=== PATIENT | male | born 1975 | race Caucasian/White ===

== ENCOUNTER 2020-05-28 10:01 | Outpatient (REF) | payer OTHER, SELFPAY | END 2020-05-28 10:02 | disposition home or self-care (01) | LOC: HO.MDS 10:01 | PROVIDERS: Visit Provider Internal Medicine Pulmonary Disease | DX: J45.50 Severe persistent asthma, uncomplicated (principal) | CPT/HCPCS: 96372 ==

== ENCOUNTER 2020-06-09 13:35 | Outpatient (REF) | payer OTHER, SELFPAY | END 2020-06-09 13:36 | disposition home or self-care (01) | LOC: HO.MDS 13:35 | PROVIDERS: PCP Internal Medicine; Visit Provider Internal Medicine Pulmonary Disease | DX: J45.909 Unspecified asthma, uncomplicated (principal) | CPT/HCPCS: 96372; J2357 ==

== ENCOUNTER 2020-06-23 09:47 | Outpatient (REF) | payer OTHER, SELFPAY | END 2020-06-23 09:48 | disposition home or self-care (01) | LOC: HO.MDS 09:47 | PROVIDERS: PCP Internal Medicine; Visit Provider Internal Medicine Pulmonary Disease | DX: J45.909 Unspecified asthma, uncomplicated (principal) | CPT/HCPCS: 96372; J2357 ==

== ENCOUNTER 2020-07-07 09:02 | Outpatient (REF) | payer OTHER, SELFPAY | END 2020-07-07 09:03 | disposition home or self-care (01) | LOC: HO.MDS 09:02 | PROVIDERS: PCP Internal Medicine; Visit Provider Internal Medicine Pulmonary Disease | DX: J45.909 Unspecified asthma, uncomplicated (principal) | CPT/HCPCS: 96372; J2357 ==

== ENCOUNTER 2020-07-21 | Outpatient (REF) | payer OTHER, SELFPAY | END 2020-07-21 00:01 | disposition home or self-care (01) | LOC: HO.MDS | PROVIDERS: PCP Internal Medicine; Visit Provider Internal Medicine Pulmonary Disease | DX: J45.50 Severe persistent asthma, uncomplicated (principal) | CPT/HCPCS: 96372 ==

== ENCOUNTER 2020-08-04 09:03 | Outpatient (REF) | payer OTHER, SELFPAY | END 2020-08-04 09:04 | disposition home or self-care (01) | LOC: HO.MDS 09:03 | PROVIDERS: PCP Internal Medicine; Visit Provider Internal Medicine Pulmonary Disease | DX: J45.909 Unspecified asthma, uncomplicated (principal) | CPT/HCPCS: 96372 ==

== ENCOUNTER 2020-08-18 08:11 | Outpatient (REF) | payer OTHER, SELFPAY | END 2020-08-18 08:12 | disposition home or self-care (01) | LOC: HO.MDS 08:11 | PROVIDERS: PCP Internal Medicine; Visit Provider Internal Medicine Pulmonary Disease | DX: J45.50 Severe persistent asthma, uncomplicated (principal) | CPT/HCPCS: 96372; J2357 ==

== ENCOUNTER 2020-10-20 07:58 | Outpatient (REF) | payer OTHER, SELFPAY | END 2020-10-20 07:59 | disposition home or self-care (01) | LOC: HO.MDS 07:58 | PROVIDERS: PCP Internal Medicine; Visit Provider Internal Medicine Pulmonary Disease | DX: J45.50 Severe persistent asthma, uncomplicated (principal) | CPT/HCPCS: 96372; J2357 ==

== ENCOUNTER 2020-11-03 08:15 | Outpatient (REF) | payer OTHER, SELFPAY | END 2020-11-03 08:16 | disposition home or self-care (01) | LOC: HO.MDS 08:15 | PROVIDERS: PCP Internal Medicine; Visit Provider Internal Medicine Pulmonary Disease | DX: J45.50 Severe persistent asthma, uncomplicated (principal) | CPT/HCPCS: 96365; J2357 ==

== ENCOUNTER 2020-11-05 01:00 | Emergency (ER) | payer OTHER, SELFPAY ==
--- NOTE | ~2020-11-05 | XR_ITS ---
EXAMINATION: XR CHEST CLINICAL INFORMATION: sob COMPARISON: 08/25/2019 TECHNIQUE: Frontal view of the chest was obtained. FINDINGS: Cardiac leads overlie the chest. Lungs are clear. No consolidation, pneumothorax, or pleural effusion. Cardiac and mediastinal contours are normal. Pulmonary vasculature is unremarkable. No acute osseous findings. XR/XR chest 1V IMPRESSION: No acute pulmonary findings.
[2020-11-05 01:01] VITALS: BP 118/72; BP 139/73; PULSE 100; PULSE 93; RESP 20; TEMP 36.5; O2SAT 100; O2SAT 96; BMI 32.8
[2020-11-05 02:24] LABS: Influenza A PCR NEGATIVE (Negative); Influenza B PCR NEGATIVE (Negative); Resp Syncy Virus RNA Qual PCR NEGATIVE (Negative); SARS COV2 PCR INHOUSE NEGATIVE (Negative)
--- NOTE | 2020-11-05 02:41 | ED.SOB ---
HPI - SOB/Dyspnea General Chief Complaint: Dyspnea Stated Complaint: sob Time Seen by Provider: 11/05/20 01:42 Source: patient Mode of arrival: EMS History of Present Illness HPI Narrative: This is a 45-year-old male with history of asthma who is brought in by EMS for acute worsening his asthmatic symptoms with noted wheezing at home and after trying an inhaler without success and then attempting nebulized treatment and again remained having difficulty with breathing and called EMS. [facility] provided Solu-Medrol, magnesium, DuoNeb. Patient denies any recent travel, fevers, chills, cough, sore throat. Related Data Previous Rx's Medication Instructions Recorded albuterol sulfate 90 mcg/actuation 2 puff INHALATION Q4-6H PRN #18 g 08/11/20 aerosol inhaler omalizumab 150 mg/mL subcutaneous 300 mg SUBCUT Q2W #4 ml 08/18/20 syringe prednisone 40 mg PO DAILY 4 Days #8 tab 11/05/20 Allergies Allergy/AdvReac Type Severity Reaction Status Date / Time shrimp Allergy Severe ANAPHYLAXIS Verified 11/05/20 01:01 LOBSTER Allergy Unknown ANAPHYLAXIS Uncoded 05/08/20 16:01 Review of Systems Review of Systems: Pertinent positives and negatives as stated in HPI 10 point review of systems is otherwise negative. PMFSH Past Medical History Source: nursing notes reviewed Medical History Asthma Methadone maintenance therapy patient Surgical History Hx of hernia repair Hx of knee surgery Hx of shoulder surgery Social History Social History Advance Directives: No Physical Exam Vital Signs: Vital Signs: Last Vital Signs Temp 97.7 F 11/05/20 01:01 Pulse 93 11/05/20 01:01 Resp 20 11/05/20 01:01 BP 139/73 11/05/20 01:01 Pulse Ox 96 11/05/20 01:01 Body Mass Index 32.8 VITAL SIGNS: Reviewed. GENERAL: Well developed, well nourished, in no acute distress. HEAD: Normocephalic/atraumatic, EYES: PERRLA, EOMI EARS: Ext canals without abnormality, TMs non-bulging and non-erythematous NOSE: Nares patent bilateral OROPHARYNX: no oral lesions noted, posterior pharynx clear NECK: Supple, no adenopathy LUNGS: Scattered expiratory wheezing, no retractions, no tachypnea. SpO2<96> CARDIOVASCULAR: Regular rate and rhythm without noted murmurs ABDOMEN: Soft, non-tender, non-distended with bowel sounds. NEUROLOGIC: Alert and oriented x 4. Course Course Course Narrative: This is a 45-year-old male with history and clinical presentation consistent with acute asthma exacerbation with controlled symptoms by the time patient evaluated here in the ER and chest x-ray as well as COVID-19 are negative. Patient states he is feeling much better and was titrated off of supplemental oxygen with good results and will be discharged home in stable condition with a short course of steroids. MDM - SOB/Dyspnea Lab Data Labs: Lab Results 11/05/20 Range/Units 01:27 Coronavirus (PCR) NEGATIVE (Negative) Influenza Type A (PCR) NEGATIVE (Negative) Influenza Type B (PCR) NEGATIVE (Negative) RSV RNA Qual (PCR) NEGATIVE (Negative) Discharge Plan Discharge Clinical Impression: Asthma with exacerbation Qualifiers: Asthma severity: moderate Asthma persistence: unspecified Qualified Code(s): J45.901 - Unspecified asthma with (acute) exacerbation Patient Disposition: Home, Self-Care Instructions: Asthma (ED) Additional Instructions: Resume all home medications as prescribed. Please follow-up with your primary care provider by calling the office in the morning and setting up an appointment for re-evaluation. Do not hesitate to return to the emergency department should you experience any acute worsening of your symptoms. Prescriptions: New prednisone 20 mg tablet 40 mg PO DAILY 4 Days Qty: 8 RF: 0 No Action albuterol sulfate 90 mcg/actuation HFA aerosol inhaler 2 puff inhalation Q4-6H PRN (Reason: bronchospasm) Qty: 18 RF: 8 omalizumab [Xolair] 150 mg/mL syringe 300 mg subcut Q2W Qty: 4 RF: 12 Referrals: Physician,Unknown [Primary Care Provider] - 2 days Stand Alone Forms: Work/School Release
--- NOTE | 2020-11-05 03:01 | PC.NURSE ---
discharge vitals 97% on room air. hr 91 on school bus monitor. respirations 14. lungs clear to auscultation.
== END 2020-11-05 02:59 | disposition home or self-care (01) ==
PROVIDERS: Emergency Provider Student in an Organized Health Care Education/Training Program
DX: J45.901 Unspecified asthma with (acute) exacerbation (principal); R06.00 Dyspnea, unspecified; Z20.822 Contact with and (suspected) exposure to COVID-19; Z79.899 Other long term (current) drug therapy
CPT/HCPCS: 0241U; 36415; 71045; 99283

== ENCOUNTER 2020-11-18 08:03 | Outpatient (REF) | payer OTHER, SELFPAY | END 2020-11-18 08:04 | disposition home or self-care (01) | LOC: HO.MDS 08:03 | PROVIDERS: PCP Internal Medicine; Visit Provider Internal Medicine Pulmonary Disease | DX: J45.50 Severe persistent asthma, uncomplicated (principal) | CPT/HCPCS: 96372; J2357 ==

== ENCOUNTER 2020-12-01 07:27 | Outpatient (REF) | payer OTHER, SELFPAY | END 2020-12-01 07:28 | disposition home or self-care (01) | LOC: HO.MDS 07:27 | PROVIDERS: PCP Internal Medicine; Visit Provider Internal Medicine Pulmonary Disease | DX: J45.50 Severe persistent asthma, uncomplicated (principal) | CPT/HCPCS: 96372; J2357 ==

== ENCOUNTER 2020-12-15 07:42 | Outpatient (REF) | payer OTHER, SELFPAY | END 2020-12-15 07:43 | disposition home or self-care (01) | LOC: HO.MDS 07:42 | PROVIDERS: PCP Internal Medicine; Visit Provider Internal Medicine Pulmonary Disease | DX: J45.50 Severe persistent asthma, uncomplicated (principal) | CPT/HCPCS: 96372; J2357 ==

== ENCOUNTER 2021-01-02 08:02 | Outpatient (REF) | payer OTHER, SELFPAY | END 2021-01-02 08:03 | disposition home or self-care (01) | LOC: HO.MDS 08:02 | PROVIDERS: PCP Internal Medicine; Visit Provider Internal Medicine Pulmonary Disease | DX: J45.50 Severe persistent asthma, uncomplicated (principal) | CPT/HCPCS: 96372; J2357 ==

== ENCOUNTER 2021-01-05 04:36 | Emergency (ER) | payer OTHER, SELFPAY ==
[2021-01-05 04:42] VITALS: BP 124/81; PULSE 68; RESP 16; TEMP 36.8; O2SAT 98; BMI 31.9
--- NOTE | 2021-01-05 05:01 | PC.NURSE ---
at bedside for primary eval.
--- NOTE | 2021-01-05 05:02 | ED.NEUROSD ---
HPI - Neuro Symptoms/Deficit General Chief Complaint: Neuro Symptoms/Deficit Stated Complaint: left arm numbness Time Seen by Provider: 01/05/21 04:56 Source: patient Mode of arrival: ambulatory Limitations: no limitations History of Present Illness HPI Narrative: Patient comes to emergency room complaining of left forearm discomfort, feeling pins and needles. Patient states he does not have any symptoms in his left hand and does not have any symptoms above the elbow. Patient states this morning he woke up with the numbness and tingling sensation, then became anxious and decided to come to emergency room. Patient states that he did not have any loss of strength, does not have any other symptoms. Related Data Previous Rx's Medication Instructions Recorded albuterol sulfate 90 mcg/actuation 2 puff INHALATION Q4-6H PRN #18 g 08/11/20 aerosol inhaler omalizumab 150 mg/mL subcutaneous 300 mg SUBCUT Q2W #4 ml 08/18/20 syringe prednisone 40 mg PO DAILY 4 Days #8 tab 11/05/20 albuterol sulfate 90 mcg/actuation 2 puff PO Q6H PRN #18 g 11/13/20 aerosol inhaler Allergies Allergy/AdvReac Type Severity Reaction Status Date / Time shrimp Allergy Severe ANAPHYLAXIS Verified 01/05/21 04:47 LOBSTER Allergy Unknown ANAPHYLAXIS Uncoded 01/05/21 04:47 Review of Systems Review of Systems: Constitutional : No Weight loss, No Fever, No Chills, No Night Sweats, No Fatigue, No Malaise ENT/Mouth : No Hearing loss, No Ear Pain, No Nasal Congestion, No Sinus Pain, No Hoarseness, No sore throat, No Rhinorrhea, No Swallowing Difficulty Eyes: No Eye Pain, No Swelling, No Redness, No Foreign Body, No Discharge, No Vision Changes Cardiovascular : No Chest Pain, No SOB, No Dyspnea on Exertion, No Orthopnea, No Edema, No Palpitations Respiratory : No Cough, No Sputum, No Wheezing, No Smoke Exposure, No Dyspnea Gastrointestinal : No Nausea, No Vomiting, No Diarrhea, No Constipation, No abdominal Pain, No Hematochezia, No Melena Genitourinary : no irregular bleeding, No Dysuria, No Urinary Frequency, No Hematuria, No Urinary Incontinence, No Urgency, No Flank Pain, No Urinary Flow Changes, No Hesitancy Musculoskeletal : No joint pain, pins and needles sensation from the left wrist to the left elbow sparing hand and upper arm Skin : No Skin Lesions, No rash Neuro : No Weakness, No Numbness, No Paresthesias, No Loss of Consciousness, No Dizziness, No Headache Psych : No Anxiety/Panic, No Depression, No SI/HI/AH/VH, No Social Issues, Heme/Lymph: No Bruising, No Bleeding,No Lymphadenopathy Endocrine : No Polyuria, No Polydipsia, No Temperature Intolerance [facility] Past Medical History Medical History Asthma Methadone maintenance therapy patient Surgical History Hx of hernia repair Hx of knee surgery Hx of shoulder surgery Social History Social History Advance Directives: No Advance Directives Information Provided: No Physical Exam Vital Signs: Vital Signs: Last Vital Signs Temp 98.2 F 01/05/21 04:42 Pulse 68 01/05/21 04:42 Resp 16 01/05/21 04:42 BP 124/81 01/05/21 04:42 Pulse Ox 98 01/05/21 04:42 Body Mass Index 31.9 Appearance: Alert. Oriented X3. No acute distress. Eyes: Pupils equal, round and reactive to light. ENT: Pharynx normal. Neck: Normal inspection. Neck supple. No lymph nodes noted. No crepitus CVS: Normal heart rate and rhythm. Pulses normal. Normal S1 and S2 Respiratory: No respiratory distress. Breath sounds normal. No Wheezing. No rales Abdomen: Soft and nontender. No rigidity. No distention. good BS x4 Skin: Skin warm and dry. Normal skin color. Normal skin turgor. Extremities: No lower extremity edema. No lower extremity edema. No Lacerations. No Rash Neuro: Oriented X 3. No motor deficit. No sensory deficit. Moving all extermities. No slurred speech. Course Course Course Narrative: Patient states that after he shook his arm at home, the pins and needle sensations started to decrease. I discussed the physical exam with the patient, he only has pins and needles involving an area between the wrist and the elbow, sparing the hand and the upper arm. This is unlikely a stroke, I discussed with the patient is more likely that he has a nerve compression in the elbow, triggered by sleeping position, likely with a bent elbow. Prior to discharge, patient states that his symptoms are completely resolved, has no residual paresthesias. NIH Stroke Scale Level of Consciousness: Alert Level of Consciousness Questions: Answers both questions correctly Level of Consciousness Commands: Performs both tasks correctly Best Gaze: Normal Visual: No visual loss Facial Palsy: Normal Motor Arm (Right): No drift Motor Arm (Left): No drift Motor Leg (Right): No drift Motor Leg (Left): No drift Limb Ataxia: Absent Sensory: Normal Best Language: No aphasia Dysarthia: Normal Extinction and Inattention: No abnormality Score: 0 Discharge Plan Discharge Clinical Impression: Paresthesia and pain of left extremity Patient Disposition: Home, Self-Care Instructions: Paresthesia (ED) Additional Instructions: Please follow-up with your primary care physician tomorrow. If you have any worsening or new symptoms, please return to the emergency room or call 911 Prescriptions: No Action albuterol sulfate 90 mcg/actuation HFA aerosol inhaler 2 puff inhalation Q4-6H PRN (Reason: bronchospasm) Qty: 18 RF: 8 omalizumab [Xolair] 150 mg/mL syringe 300 mg subcut Q2W Qty: 4 RF: 12 albuterol sulfate [ProAir HFA] 90 mcg/actuation HFA aerosol inhaler 2 puff PO Q6H PRN (Reason: bronchospasm) Qty: 18 RF: 8 prednisone 20 mg tablet 40 mg PO DAILY 4 Days Qty: 8 RF: 0
[2021-01-05 05:44] VITALS: BP 106/66; PULSE 65; RESP 16; O2SAT 97
--- NOTE | 2021-01-05 05:45 | PC.NURSE ---
Pt reporting relief of discomfort to left arm, aware of plan to DC home, awaiting paperwork.
== END 2021-01-05 05:51 | disposition home or self-care (01) ==
PROVIDERS: Emergency Provider Emergency Medicine; PCP Internal Medicine
DX: R20.2 Paresthesia of skin (principal); M79.602 Pain in left arm; F11.20 Opioid dependence, uncomplicated
CPT/HCPCS: 99282; 99284

== ENCOUNTER 2021-01-20 09:38 | Outpatient (REF) | payer OTHER, SELFPAY | END 2021-01-20 09:39 | disposition home or self-care (01) | LOC: HO.MDS 09:38 | PROVIDERS: PCP Internal Medicine; Visit Provider Internal Medicine Pulmonary Disease | DX: J45.50 Severe persistent asthma, uncomplicated (principal) | CPT/HCPCS: 96372; J2357 ==

== ENCOUNTER 2021-02-02 07:55 | Outpatient (REF) | payer OTHER, SELFPAY | END 2021-02-02 07:56 | disposition home or self-care (01) | LOC: HO.MDS 07:55 | PROVIDERS: PCP Internal Medicine; Visit Provider Internal Medicine Pulmonary Disease | DX: J45.50 Severe persistent asthma, uncomplicated (principal) | CPT/HCPCS: 96372; J2357 ==

== ENCOUNTER 2021-02-16 07:59 | Outpatient (REF) | payer OTHER, SELFPAY | END 2021-02-16 08:00 | disposition home or self-care (01) | LOC: HO.MDS 07:59 | PROVIDERS: PCP Internal Medicine; Visit Provider Internal Medicine Pulmonary Disease | DX: J45.50 Severe persistent asthma, uncomplicated (principal) | CPT/HCPCS: 96372; J2357 ==

== ENCOUNTER 2021-03-02 09:19 | Outpatient (REF) | payer OTHER, SELFPAY | END 2021-03-02 09:20 | disposition home or self-care (01) | LOC: HO.MDS 09:19 | PROVIDERS: PCP Internal Medicine; Visit Provider Internal Medicine Pulmonary Disease | DX: J45.50 Severe persistent asthma, uncomplicated (principal) | CPT/HCPCS: 96372; J2357 ==

== ENCOUNTER → 2021-03-05 14:37 | Outpatient (BNVA) | payer OTHER, SELFPAY | PROVIDERS: PCP Internal Medicine; Referring Provider Internal Medicine; Visit Provider Physician Assistant | DX: Z12.11 Encounter for screening for malignant neoplasm of colon (principal); K21.9 Gastro-esophageal reflux disease without esophagitis; J45.909 Unspecified asthma, uncomplicated | CPT/HCPCS: 99202 ==

== ENCOUNTER 2021-03-16 08:28 | Outpatient (REF) | payer OTHER, SELFPAY | END 2021-03-16 08:29 | disposition home or self-care (01) | LOC: HO.MDS 08:28 | PROVIDERS: PCP Internal Medicine; Visit Provider Internal Medicine Pulmonary Disease | DX: J45.50 Severe persistent asthma, uncomplicated (principal) | CPT/HCPCS: 96372; 99212 ==

== ENCOUNTER 2021-04-01 08:31 | Outpatient (REF) | payer OTHER, SELFPAY | END 2021-04-01 08:32 | disposition home or self-care (01) | LOC: HO.MDS 08:31 | PROVIDERS: PCP Internal Medicine; Visit Provider Internal Medicine Pulmonary Disease | DX: J45.50 Severe persistent asthma, uncomplicated (principal) | CPT/HCPCS: 96372; J2357 ==

== ENCOUNTER 2021-04-13 09:24 | Day surgery (SDC) | payer OTHER, SELFPAY ==
--- NOTE | 2021-04-10 08:38 | HO.ANESPROP2 ---
Documented by User: Stephenie Lorenzana NP 04/10/21 08:39 HPI - Anesthesia Eval Consult details Narrative: 46yo M for Upper Endoscopy and Colonoscopy ?Methadone daily PMFSH Active Problems Active Problems: All Active Problems (Updated 04/06/21 @ 11:58 by Iza Canales RN) Asthma (Acute) Encounter for screening colonoscopy (Acute) Severe persistent allergic asthma (Acute) Environmental allergies (Acute) GERD (gastroesophageal reflux disease) (Acute) Past Medical History Medical History (Updated 04/06/21 @ 11:58 by Iza Canales RN) Asthma GERD (gastroesophageal reflux disease) History of positive PPD Methadone maintenance therapy patient Family History Family History Father No problems noted. Mother No problems noted. Surgical History Surgical History (Updated 04/06/21 @ 11:58 by Iza Canales RN) History of left inguinal hernia repair History of umbilical hernia repair Hx of hernia repair Hx of knee surgery Hx of shoulder surgery Social History Social History (Updated 03/05/21 @ 14:50 by Janna Lujan PA-C) Household Members Other:: Alcohol intake: never Patient Tobacco Use Status: Never used Tobacco Second Hand Smoke Exposure: No Use of substances other than those prescribed or required for medical reasons: Yes Substance Use Frequency: Chronic Longstanding Are you DNR?: No Advance Directives: No Advance Directives Information Provided: Yes 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, 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 Allergies Allergy/AdvReac Type Severity Reaction Status Date / Time shrimp Allergy Severe ANAPHYLAXIS Verified 04/13/21 09:58 LOBSTER Allergy Unknown ANAPHYLAXIS Uncoded 04/06/21 11:58 Home Medications Medication Instructions Recorded Confirmed Last Taken Type Methadone Intensol 38 mg 04/13/21 04/13/21 06:30 History Exam Exam Date and Time: April 10, 2021 0838 Assessment and Plan Assessment Anesthesia Assessment: Chart Reviewed Documented by User: Annie Terry MD 04/13/21 10:14 [facility] Past Medical History Medical History (Updated 04/06/21 @ 11:58 by Iza Canales RN) Asthma GERD (gastroesophageal reflux disease) History of positive PPD Methadone maintenance therapy patient Family History Family History Father No problems noted. Mother No problems noted. Family history of problems with anesthesia: No Surgical History Surgical History (Updated 04/06/21 @ 11:58 by Iza Canales RN) History of left inguinal hernia repair History of umbilical hernia repair Hx of hernia repair Hx of knee surgery Hx of shoulder surgery History of Problems with Anesthesia: No Social History Social History (Updated 03/05/21 @ 14:50 by Janna Lujan PA-C) Household Members Other:: Alcohol intake: never Patient Tobacco Use Status: Never used Tobacco Second Hand Smoke Exposure: No Use of substances other than those prescribed or required for medical reasons: Yes Substance Use Frequency: Chronic Longstanding Are you DNR?: No Advance Directives: No Advance Directives Information Provided: Yes 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, 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 Allergies Allergy/AdvReac Type Severity Reaction Status Date / Time shrimp Allergy Severe ANAPHYLAXIS Verified 04/13/21 09:58 LOBSTER Allergy Unknown ANAPHYLAXIS Uncoded 04/06/21 11:58 Home Medications Medication Instructions Recorded Confirmed Last Taken Type Methadone Intensol 38 mg 04/13/21 04/13/21 06:30 History Exam Airway Mallampati Class: II (Poor dentition, nothing loose) TM Dist: >3cm Neck ROM: Full Heart: rrr Lungs: cta Assessment and Plan Assessment Anesthesia Assessment: Anesthesia Plan Discussed and Chart Reviewed Final Anesthetic Review Family History of Problems with Anesthesia: No History of Problems with Anesthesia: No NPO: Yes ASA Class: III Final Preanesthetic Review: No Changes in Pt Med Stat and Consent Obtained/Reviewed Patient Risk: Intermediate Procedure Risk: Intermediate Anesthetic Plan Anesthetic Plan: MAC: Disposition: Standard PACU
[2021-04-13 09:49] VITALS: BP 103/63; PULSE 71; RESP 16; TEMP 36.3; O2SAT 95; BMI 33.6
--- NOTE | 2021-04-13 10:05 | PC.NURSE ---
Patient came into preop room wearing one gold earring, one gold chain, and one ring. All removed by patient and placed with patient belongings.
[2021-04-13] MEDS: Lactated Ringers 1,000 ML 100 ML IVCONT (10:20)
--- NOTE | 2021-04-13 11:06 | MHC.SHP ---
Pre-Procedural Eval Section A Date of Service: 04/13/21 The patient is an INPATIENT: No The History & Physical has been completed within 30 days and I have reviewed it.: No Section B Chief Complaint: reflux disease Details of Present Illness: Colon cancer screening, GERD, abdominal pain and gas Relevant Family History (Specify if Yes): No Relevant Social History: None Present Medications: see Short Stay Collaborative assessment Medical History: Significant History (Asthma GERD (gastroesophageal reflux disease) Methadone maintenance therapy patient) History of Previous Operations: Relevant previous surgery/procedure and date(s) (Hx of hernia repair Hx of knee surgery Hx of shoulder surgery) Allergies: Allergies Allergy/AdvReac Type Severity Reaction Status Date / Time shrimp Allergy Severe ANAPHYLAXIS Verified 04/13/21 09:58 LOBSTER Allergy Unknown ANAPHYLAXIS Uncoded 04/06/21 11:58 Review of Systems Sugical H&P ROS: Negative: Constitution, Cardiovascular and Respiratory and Yes, Specify: Gastrointestinal (GERD, abdominal pain) Exam Surgical H&P Exam: Normal: Heart, Normal: Lungs, Normal: Extremities and Normal: Abdomen Plan Diagnosis/Plan: Unchanged I have reviewed the history and physical and performed a pertinent physical examination on my patient. No changes have occurred unless specified.
--- NOTE | 2021-04-13 11:13 | P.BOP_ITS ---
Brief Operative Note Date of Service: 04/13/21 Pre-op diagnosis: Colon cancer screening, GERD, abdominal pain and gas Post-op diagnosis: other (Erosive esophagitis, hiatal hernia, gastritis, colon, diverticulosis, hemorrhoids) Procedure: FLEXIBLE TRANSORAL UPPER GASTROINTESTINAL ENDOSCOPY WITH BIOPSIES AND COLONOSCOPY TO CECUM WITH SNARE POLYPECTOMY UPPER ENDOSCOPY Consent: Indications for the procedure and potential complications of bleeding, perforation, reaction to medications and missed diagnosis were discussed with the patient and informed consent was obtained. Instrument: Olympus GIF H 190 mid size upper endoscope Monitoring: Vital signs and clinical assessment, continuous EKG monitoring, Pulse oximetry, Carbon Dioxide monitoring and blood pressure monitoring were done throughout the procedure. Procedure: The patient was placed in the left lateral decubitis position and pre-procedure medications were administered and a bite block was placed. The endoscope was inserted into the mouth and advanced under direct vision to the third part of duodenum. A careful inspection was made as the upper endoscope was withdrawn including a retroflexed examination of the proximal stomach; Findings and interventions are described below. Findings: Larynx: Edema of arytenoid cartilages Esophagus: Erosive esophagitis with linear ulcers and erosions 26 to 34 cms. GE junction at 34 cms, hiatal hernia 34 to 36 cms. Stomach: Mild gastric erythema. Biopsies were obtained. Grade 3 flap valve on retroflexed examination of the cardia. Duodenum: Normal bulb and descending duodenum. Biopsies were obtained from 3rd part of duodenum to check for celiac sprue. Intervention: Biopsies as noted above COLONOSCOPY PROCEDURE NOTE Consent: Indications for the procedure and potential complications of bleeding, perforation, reaction to medications and missed diagnosis were discussed with the patient and informed consent was obtained. Instrument: Olympus CF 190 L variable stiffness adult colonoscope Monitoring: Vital signs and clinical assessment, intermittent blood pressure monitoring, continuous EKG monitoring, Pulse oximetry and Carbon Dioxide monitoring were done throughout the procedure. Colon withdrawl time was 21 minutes. Procedure: The patient was placed in the left lateral decubitis position and pre-procedure medications were administered. After a digital rectal examination of the ano-rectum, the video colonoscope was inserted into the rectum and advanced through the colon to the cecum. The colonoscope was slowly withdrawn in a retrograde panoramic fashion and the colon mucosa was carefully examined including a retroflexed view of the rectum. Findings and interventions are described below. Procedure Difficulty: : LLQ pressure applied to intubate the cecum Findings: Terminal Ileum: Not evaluated Cecum: Normal Ascending Colon: Normal Transverse Colon: A 4-5 mm sessile polyp removed with a cold snare Descending Colon: Normal Sigmoid Colon: Moderate diverticulosis Rectum: Normal Ano-rectum: Moderate internal hemorrhoids Colon preparation: Good after copious irrigation Impression and Post Procedure Diagnosis: Endoscopy Findings: LARYNX: Changes suggestive of LPRD ESOPHAGUS: Erosive esophagitis with linear ulcers and erosions 26 to 34 cms. GE junction at 34 cms, hiatal hernia 34 to 36 cms. STOMACH: Antral gastritis DUODENUM: Normal - biopsied to check for celiac sprue Colonoscopy Findings: One small polyp removed Moderate diverticulosis seen in the sigmoid colon Moderate hemorrhoids on retroflexed exam. Plan: Await pathology results Patient has an appointment on 05/11/21 in the GI Clinic with AARON Monterroso . Ensure patient is following anti reflux measures and is compliant with taking pantoprazole BID - if so add sucralfate twice daily. Repeat EGD in 3 months to make sure erosive esophagitis has healed. Repeat Colonoscopy interval based on path results - in 5 years if polyps are adenomatous and 10 years if polyps are hyperplastic. GERD, colon polyps and diverticulosis handouts were given in the discharge area Surgeon: Kristina Colin MD Anesthesia: MAC (Dr Watson) Was an Commissioning Editor used for this Procedure?: Yes Commissioning Editor: Shiela Harrell Estimated blood loss (mL): 0 Pathology: other ( a. Small bowel bx's r/o celiacs sprue b. gastric antrum bx's r/o h. pylori c. Transverse colon polyp) Condition: stable Disposition: PACU
--- NOTE | 2021-04-13 11:14 | P.OP_ITS ---
Operative Note Operative Note Date of Service: 04/13/21 Narrative: Pre-op diagnosis:?Colon cancer screening, GERD, abdominal pain and gas Post-op diagnosis:?other (Erosive esophagitis, hiatal hernia, gastritis, colon, diverticulosis, hemorrhoids) Procedure:? FLEXIBLE TRANSORAL UPPER GASTROINTESTINAL ENDOSCOPY WITH BIOPSIES AND COLONOSCOPY TO CECUM WITH SNARE POLYPECTOMY UPPER ENDOSCOPY Consent:?Indications for the procedure and potential complications of bleeding, perforation, reaction to medications and missed diagnosis were discussed with the patient and informed consent was obtained. Instrument:?Olympus GIF H 190 mid size upper endoscope Monitoring: Vital signs and clinical assessment, continuous EKG monitoring, Pulse oximetry, Carbon Dioxide monitoring and blood pressure monitoring were done throughout the procedure. Procedure:?The patient was placed in the left lateral decubitis position and pre-procedure medications were administered and a bite block was placed. The endoscope was inserted into the mouth and advanced under direct vision to the third part of duodenum. A careful inspection was made as the upper endoscope was withdrawn including a retroflexed examination of the proximal stomach; Findings and interventions are described below. Findings: Larynx:??Edema of arytenoid cartilages Esophagus:?Erosive esophagitis with linear ulcers and erosions 26 to 34 cms. GE junction at 34 cms, hiatal hernia 34 to 36 cms. Stomach:?Mild gastric erythema. Biopsies were obtained. Grade 3 flap valve on retroflexed examination of the cardia. Duodenum:?Normal bulb and descending duodenum.? Biopsies were obtained from 3rd part of duodenum to check for celiac sprue. Intervention:?Biopsies as noted above COLONOSCOPY PROCEDURE NOTE Consent:?Indications for the procedure and potential complications of bleeding, perforation, reaction to medications and missed diagnosis were discussed with the patient and informed consent was obtained. Instrument:?Olympus CF 190 L variable stiffness adult colonoscope Monitoring:?Vital signs and clinical assessment, intermittent blood pressure monitoring, continuous EKG monitoring, Pulse oximetry and Carbon Dioxide monitoring were done throughout the procedure. Colon withdrawl time was 21 minutes. Procedure:?The patient was placed in the left lateral decubitis position and pre-procedure medications were administered. After a digital rectal examination of the ano-rectum, the video colonoscope was inserted into the rectum and advanced through the colon to the cecum. The colonoscope was slowly withdrawn in a retrograde panoramic fashion and the colon mucosa was carefully examined including a retroflexed view of the rectum. Findings and interventions are described below. Procedure Difficulty:?: LLQ pressure applied to intubate the cecum Findings: Terminal Ileum: Not evaluated Cecum:? Normal Ascending Colon:??Normal Transverse Colon:??A 4-5 mm sessile polyp removed with a cold snare Descending Colon:? Normal Sigmoid Colon:??Moderate diverticulosis Rectum:??Normal Ano-rectum:??Moderate internal hemorrhoids Colon preparation:? Good after copious irrigation Impression and Post Procedure Diagnosis: Endoscopy Findings: LARYNX: Changes suggestive of LPRD ESOPHAGUS: Erosive esophagitis with linear ulcers and erosions 26 to 34 cms. GE junction at 34 cms, hiatal hernia 34 to 36 cms. STOMACH: Antral gastritis DUODENUM: Normal - biopsied to check for celiac sprue Colonoscopy Findings: One small polyp removed Moderate diverticulosis seen in the sigmoid colon Moderate hemorrhoids on retroflexed exam. Plan: Await pathology results Patient has an appointment on 05/11/21 in the GI Clinic with AARON Monterroso . Ensure patient is following anti reflux measures and is compliant with taking pantoprazole BID - if so add sucralfate twice daily. Repeat EGD in 3 months to make sure erosive esophagitis has healed. Repeat Colonoscopy interval based on path results - in 5 years if polyps are adenomatous and 10 years if polyps are hyperplastic. GERD, colon polyps and diverticulosis handouts were given in the discharge area Surgeon:?Kristina Colin MD Anesthesia:?MAC (Dr Watson) Was an Splitting Machine Operator Helper used for this Procedure?:?Yes Splitting Machine Operator Helper:?Shiela Harrell Estimated blood loss (mL):?0 Pathology:?other ( a. Small bowel bx's r/o celiacs sprue? b. gastric antrum bx's r/o h. pylori? c. Transverse colon polyp) Condition:?stable Disposition:?PACU
[2021-04-13 12:13] VITALS: BP 88/51; PULSE 70; RESP 12; TEMP 36.8; O2SAT 99
[2021-04-13 12:30] VITALS: BP 107/67; PULSE 66; RESP 18; O2SAT 97
[2021-04-13 12:45] VITALS: BP 113/71; PULSE 73; RESP 20; TEMP 36.7; O2SAT 97
== END 2021-04-13 13:30 | disposition home or self-care (01) ==
PROVIDERS: PCP Internal Medicine; Visit Provider Internal Medicine Gastroenterology
PROC: (CPT 45385; principal; 2021-04-13 11:00)
DX: Z12.11 Encounter for screening for malignant neoplasm of colon (principal); D12.3 Benign neoplasm of transverse colon; K57.30 Diverticulosis of large intestine without perforation or abscess without bleeding; K64.8 Other hemorrhoids; K21.9 Gastro-esophageal reflux disease without esophagitis; K22.10 Ulcer of esophagus without bleeding; K29.50 Unspecified chronic gastritis without bleeding; K44.9 Diaphragmatic hernia without obstruction or gangrene; R76.11 Nonspecific reaction to tuberculin skin test without active tuberculosis; J45.909 Unspecified asthma, uncomplicated; Z79.899 Other long term (current) drug therapy; F11.20 Opioid dependence, uncomplicated
CPT/HCPCS: 45385; 43239; 88305; 88342

== ENCOUNTER 2021-04-15 07:30 | Outpatient (REF) | payer OTHER, SELFPAY | END 2021-04-15 07:31 | disposition home or self-care (01) | LOC: HO.MDS 07:30 | PROVIDERS: PCP Internal Medicine; Visit Provider Internal Medicine Pulmonary Disease | DX: J45.50 Severe persistent asthma, uncomplicated (principal) | CPT/HCPCS: 96372; J2357 ==

== ENCOUNTER 2021-05-07 08:11 | Outpatient (REF) | payer OTHER, SELFPAY | END 2021-05-07 08:12 | disposition home or self-care (01) | LOC: HO.MDS 08:11 | PROVIDERS: PCP Internal Medicine; Visit Provider Internal Medicine Pulmonary Disease | DX: J45.50 Severe persistent asthma, uncomplicated (principal) | CPT/HCPCS: 96372; J2357 ==

== ENCOUNTER → 2021-05-11 11:12 | Outpatient (BNVA) | payer OTHER, SELFPAY | PROVIDERS: PCP Internal Medicine; Visit Provider Physician Assistant ==

== ENCOUNTER 2021-05-25 08:25 | Outpatient (REF) | payer OTHER, SELFPAY | END 2021-05-25 08:26 | disposition home or self-care (01) | LOC: HO.MDS 08:25 | PROVIDERS: PCP Internal Medicine; Visit Provider Internal Medicine Pulmonary Disease | DX: J45.50 Severe persistent asthma, uncomplicated (principal) | CPT/HCPCS: 96372; J2357 ==

== ENCOUNTER 2021-06-08 08:30 | Outpatient (REF) | payer OTHER, SELFPAY | END 2021-06-08 08:31 | disposition home or self-care (01) | LOC: HO.MDS 08:30 | PROVIDERS: PCP Internal Medicine; Visit Provider Internal Medicine Pulmonary Disease | DX: J45.50 Severe persistent asthma, uncomplicated (principal) | CPT/HCPCS: 96372; J2357 ==

== ENCOUNTER 2021-06-22 08:26 | Outpatient (REF) | payer OTHER, SELFPAY | END 2021-06-22 08:27 | disposition home or self-care (01) | LOC: HO.MDS 08:26 | PROVIDERS: PCP Internal Medicine; Visit Provider Internal Medicine Pulmonary Disease | DX: J45.50 Severe persistent asthma, uncomplicated (principal) | CPT/HCPCS: 96372; J2357 ==

== ENCOUNTER 2021-07-06 08:18 | Outpatient (REF) | payer OTHER, SELFPAY | END 2021-07-06 08:19 | disposition home or self-care (01) | LOC: HO.MDS 08:18 | PROVIDERS: PCP Internal Medicine; Visit Provider Internal Medicine Pulmonary Disease | DX: J45.50 Severe persistent asthma, uncomplicated (principal) | CPT/HCPCS: 96372; J2357 ==

== ENCOUNTER 2021-07-20 08:09 | Outpatient (REF) | payer OTHER, SELFPAY | END 2021-07-20 08:10 | disposition home or self-care (01) | LOC: HO.MDS 08:09 | PROVIDERS: PCP Internal Medicine; Visit Provider Internal Medicine Pulmonary Disease | DX: J45.50 Severe persistent asthma, uncomplicated (principal) | CPT/HCPCS: 96372; J2357 ==

== ENCOUNTER 2021-07-24 06:57 | Day surgery (SDC) | payer OTHER, SELFPAY ==
--- NOTE | 2021-07-23 11:01 | P.CONAN_ITS ---
Documented by User: Stephenie Lorenzana NP 07/23/21 11:02 HPI - Anesthesia Eval Consult details Narrative: 46yo M for Upper Endoscopy s/p EGD and [place] 03/2021 with MAC PMFSH Active Problems Active Problems: All Active Problems (Updated 05/11/21 @ 11:59 by Janna Lujan PA-C) Asthma (Acute) Encounter for screening colonoscopy (Acute) Severe persistent allergic asthma (Acute) Environmental allergies (Acute) Esophagitis determined by endoscopy (Acute) Tubular adenoma (Acute) Hemorrhoids (Acute) Diverticulosis of colon (Acute) GERD (gastroesophageal reflux disease) (Acute) Past Medical History Medical History Asthma GERD (gastroesophageal reflux disease) History of positive PPD Methadone maintenance therapy patient Family History Family History Father No problems noted. Mother No problems noted. 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 Allergies Allergy/AdvReac Type Severity Reaction Status Date / Time shrimp Allergy Severe ANAPHYLAXIS Verified 07/15/21 14:02 LOBSTER Allergy Unknown ANAPHYLAXIS Uncoded 07/15/21 14:02 Home Medications Medication Instructions Recorded Confirmed Last Taken Type Methadone Intensol 38 mg 04/13/21 05/11/21 04/13/21 06:30 History Exam Exam Date and Time: July 23, 2021 1102 Assessment and Plan Assessment Anesthesia Assessment: Chart Reviewed Final Anesthetic Review Family History of Problems with Anesthesia: No History of Problems with Anesthesia: No Documented by User: Jaime Gonzalez MD 07/24/21 07:39 [facility] Past Medical History Medical History Asthma GERD (gastroesophageal reflux disease) History of positive PPD Methadone maintenance therapy patient Family History Family History Father No problems noted. Mother No problems noted. 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 Allergies Allergy/AdvReac Type Severity Reaction Status Date / Time shrimp Allergy Severe ANAPHYLAXIS Verified 07/15/21 14:02 LOBSTER Allergy Unknown ANAPHYLAXIS Uncoded 07/15/21 14:02 Home Medications Medication Instructions Recorded Confirmed Last Taken Type Methadone Intensol 38 mg 04/13/21 05/11/21 04/13/21 06:30 History Exam Airway Mallampati Class: II TM Dist: >3cm Neck ROM: Full Assessment and Plan Final Anesthetic Review NPO: Yes ASA Class: II Final Preanesthetic Review: No Changes in Pt Med Stat, Meds/Allgs Chart Reviewed, Consent Obtained/Reviewed and Anes Risks/Benef Reviewed Patient Risk: Intermediate Procedure Risk: Low Anesthetic Plan Anesthetic Plan: MAC: Disposition: Standard PACU
[2021-07-24 07:45] VITALS: BP 108/64; PULSE 73; RESP 18; TEMP 36.3; O2SAT 97; BMI 35.2
[2021-07-24] MEDS: Lactated Ringers 1,000 ML 100 ML IVCONT (07:52)
--- NOTE | 2021-07-24 08:50 | MHC.SHP ---
Pre-Procedural Eval Section A Date of Service: 07/24/21 The patient is an INPATIENT: No The History & Physical has been completed within 30 days and I have reviewed it.: No Section B Chief Complaint: esophagitis without bleeding Details of Present Illness: Follow-up of erosive esophagitis, dysphagia Relevant Family History (Specify if Yes): No Relevant Social History: None Present Medications: see Short Stay Collaborative assessment Medical History: Significant History (Asthma GERD (gastroesophageal reflux disease) History of positive PPD Methadone maintenance therapy patient) History of Previous Operations: Relevant previous surgery/procedure and date(s) (History of left inguinal hernia repair History of umbilical hernia repair Hx of hernia repair Hx of knee surgery Hx of shoulder surgery) Allergies: Allergies Allergy/AdvReac Type Severity Reaction Status Date / Time shrimp Allergy Severe ANAPHYLAXIS Verified 07/15/21 14:02 LOBSTER Allergy Unknown ANAPHYLAXIS Uncoded 07/15/21 14:02 Review of Systems Sugical H&P ROS: Negative: Constitution, Cardiovascular and Respiratory and Yes, Specify: Gastrointestinal (GERD, dysphagia) Exam Surgical H&P Exam: Normal: Heart, Normal: Lungs, Normal: Extremities and Normal: Abdomen Plan Diagnosis/Plan: Unchanged I have reviewed the history and physical and performed a pertinent physical examination on my patient. No changes have occurred unless specified.
--- NOTE | 2021-07-24 09:00 | P.OP_ITS ---
Operative Note Operative Note Date of Service: 07/24/21 Narrative: Pre-op diagnosis:?Follow-up erosive esophagitis, dysphagia Post-op diagnosis:?other (GERD, hiatal hernia, healed esophagitis) Procedure:? FLEXIBLE TRANSORAL UPPER GASTROINTESTINAL ENDOSCOPY Consent:?Indications for the procedure and potential complications of bleeding, perforation, reaction to medications and missed diagnosis were discussed with the patient and informed consent was obtained. Instrument:?Olympus GIF H 190 mid size upper endoscope Monitoring: Vital signs and clinical assessment, continuous EKG monitoring, Pulse oximetry, Carbon Dioxide monitoring and blood pressure monitoring were done throughout the procedure. Procedure:?The patient was placed in the left lateral decubitis position and pre-procedure medications were administered and a bite block was placed. The endoscope was inserted into the mouth and advanced under direct vision to the third part of duodenum. A careful inspection was made as the upper endoscope was withdrawn including a retroflexed examination of the proximal stomach; Findings and interventions are described below. Findings: Larynx:??Edema of arytenoid cartilages Esophagus:?GE junction at 34 cms, hiatal hernia 34 to 36 cms. Esophagitis seen on previous EGD almost resolved with 2 small healing erosions at the GE junction.. Stomach:?Mild gastric erythema. Biopsies obtained during last EGD were negative for H Pylori. Grade 3 flap valve on retroflexed examination of the cardia. Duodenum:?Normal bulb and descending duodenum.?? Intervention: None Impression and Post Procedure Diagnosis: Endoscopy Findings: LARYNX:? Changes suggestive of LPRD ESOPHAGUS: hiatal hernia 34 to 36 cms. Esophagitis seen on previous EGD almost resolved with 2 small healing erosions at the GE junction.. STOMACH: Minimal gastritis Plan: Await pathology results Patient has an appointment on 07/30/21 in the GI Clinic with AARON Monterroso. Above findings were reviewed with the patient and GERD and Hiatal Hernia handouts were given in the discharge area Surgeon:?Kristina Colin MD Anesthesia:?MAC (Matthew Shetty CRNA) Was an Clerical Secretary used for this Procedure?:?Yes Clerical Secretary:?Zuleyma Aceves Estimated blood loss (mL):?0 Pathology:?none sent Condition:?stable Disposition:?PACU
[2021-07-24 09:18] VITALS: BP 109/87; PULSE 79; RESP 12; TEMP 36.2; O2SAT 100
[2021-07-24 09:33] VITALS: BP 110/81; PULSE 85; RESP 18; TEMP 36.2; O2SAT 97
== END 2021-07-24 10:20 | disposition home or self-care (01) ==
LOC: HO.SSS 06:58
PROVIDERS: PCP Internal Medicine; Visit Provider Internal Medicine Gastroenterology
PROC: 0DJ08ZZ Inspection of Upper Intestinal Tract, Via Natural or Artificial Opening Endoscopic (ICD-10-PCS; CPT 43235; principal; 2021-07-24 08:20)
DX: K20.90 Esophagitis, unspecified without bleeding (principal); K21.9 Gastro-esophageal reflux disease without esophagitis; K44.9 Diaphragmatic hernia without obstruction or gangrene; K29.70 Gastritis, unspecified, without bleeding; F11.20 Opioid dependence, uncomplicated; J45.909 Unspecified asthma, uncomplicated; Z79.899 Other long term (current) drug therapy; Z86.11 Personal history of tuberculosis
CPT/HCPCS: 43235

== ENCOUNTER 2021-08-03 08:04 | Outpatient (REF) | payer OTHER, SELFPAY | END 2021-08-03 08:05 | disposition home or self-care (01) | LOC: HO.MDS 08:04 | PROVIDERS: PCP Internal Medicine; Visit Provider Internal Medicine Pulmonary Disease | DX: J45.50 Severe persistent asthma, uncomplicated (principal) | CPT/HCPCS: 96372; J2357 ==

== ENCOUNTER 2021-08-17 08:35 | Outpatient (REF) | payer OTHER, SELFPAY | END 2021-08-17 08:36 | disposition home or self-care (01) | LOC: HO.MDS 08:35 | PROVIDERS: PCP Internal Medicine; Visit Provider Internal Medicine Pulmonary Disease | DX: J45.50 Severe persistent asthma, uncomplicated (principal) | CPT/HCPCS: 96372; J2357 ==

== ENCOUNTER 2021-08-31 07:53 | Outpatient (REF) | payer OTHER, SELFPAY | END 2021-08-31 07:54 | disposition home or self-care (01) | LOC: HO.MDS 07:53 | PROVIDERS: PCP Internal Medicine; Visit Provider Internal Medicine Pulmonary Disease | DX: J45.50 Severe persistent asthma, uncomplicated (principal) | CPT/HCPCS: 96372; J2357 ==

== ENCOUNTER 2021-09-14 08:22 | Outpatient (REF) | payer OTHER, SELFPAY | END 2021-09-14 08:23 | disposition home or self-care (01) | LOC: HO.MDS 08:22 | PROVIDERS: PCP Internal Medicine; Visit Provider Internal Medicine Pulmonary Disease | DX: J45.50 Severe persistent asthma, uncomplicated (principal) | CPT/HCPCS: 96372; J2357 ==

== ENCOUNTER 2021-09-28 08:25 | Outpatient (REF) | payer OTHER, SELFPAY | END 2021-09-28 08:26 | disposition home or self-care (01) | LOC: HO.MDS 08:25 | PROVIDERS: PCP Internal Medicine; Visit Provider Internal Medicine Pulmonary Disease | DX: J45.50 Severe persistent asthma, uncomplicated (principal) | CPT/HCPCS: 96372; J2357 ==

== ENCOUNTER 2021-12-30 09:19 | Outpatient (REF) | payer OTHER, SELFPAY ==
[2021-12-30 09:50] LABS: MANUAL DIFF FLAG NO
[2021-12-30 10:34] LABS: Basophils Percent Auto 0.4 % (0-2); Eosinophils Absolute Auto 0.6 X10*3/uL (0.0-0.4); Eosinophils Percent Auto 6.5 % (0-4); Hematocrit 37.9 % (42.0-52.0); Hemoglobin 12.8 g/dl (14.0-18.0); Imm Gran Abs Auto 0.04 X10*3/uL (0.00-0.03); Imm Gran Pct Auto 0.4 % (0.0-0.4); Lymphocytes Absolute Auto 1.7 X10*3/uL (1.2-4.9); Lymphocytes Percent Auto 18.1 % (20-40); Mean Corpuscular HGB Conc 33.8 g/dl (31.0-36.0); Mean Corpuscular Hemoglobin 29.6 pg (27.0-33.0); Mean Corpuscular Volume 87.5 fL (80.0-98.0); Mean Platelet Volume 10.7 fL (9.4-12.4); Monocytes Absolute Auto 0.5 X10*3/uL (0.1-1.2); Monocytes Percent Auto 4.9 % (2-11); Neutrophils Absolute Auto 6.4 x10*3/uL (2.0-8.3); Neutrophils Percent Auto 69.7 % (45-73); Platelet Count 302 X10*3/uL (160-400); Red Blood Count 4.33 X10*6/uL (4.60-5.80); Red Cell Distribution Width 13.4 % (11.0-16.0); White Blood Count 9.1 X10*3/uL (4.8-10.8)
[2021-12-30 11:15] LABS: Syphilis Screen Nonreactive (Nonreactive)
[2021-12-30 11:20] LABS: HBc Num1 0.05 S/CO (0.00-0.79); HBsAGNum1 0.16 S/CO (0.00-0.99); HIV AB/AG Nonreactive (Nonreactive); HIV Num 1 0.11 S/CO (0.00-0.99); Hepatitis B Core Antibody Nonreactive (Nonreactive); Hepatitis B Surface Antigen Negative (Negative)
[2021-12-30 12:13] LABS: ~HepC Num1 0.09 S/CO (0.00-0.79); ~Hepatitis C Antibody Nonreactive (Nonreactive)
[2021-12-30 12:51] LABS: HBS Num2 7.36 mIU/mL (0-7.99); HBS Num3 7.87 mIU/mL (0-7.99)
[2021-12-30 13:10] LABS: HBS Num1 8.96 mIU/mL (0-7.99)
[2021-12-30 13:19] LABS: Alanine Aminotransferase 28 U/L (0-40); Alkaline Phosphatase 114 U/L (39-117); Anion Gap 13 (12-20); Aspartate Amino Transferase 26 U/L (5-37); Bilirubin Total 0.4 mg/dL (0.0-1.0); Blood Urea Nitrogen 16 mg/dL (9-16); Calcium 9.7 mg/dL (8.4-10.2); Carbon Dioxide 27 mmol/L (22-29); Chloride 104 mmol/L (96-108); Cholesterol 205 mg/dL; Estimated Glomerular Filt Rate > 60; Glucose Random 103 mg/dL (60-115); Potassium 4.4 mmol/L (3.3-5.1); Sodium 140 mmol/L (135-145); Total Protein 7.3 g/dL (6.5-8.0)
[2021-12-30 13:23] LABS: ~Hepatitis B Surface Antibody Nonreactive (Nonreactive)
[2022-01-03 20:01] LABS: HCV Log PCR <1.18 NOT DETECTED Log IU/mL (NOT DETECTED); HepC Viral Load <15 NOT DETECTED IU/mL (NOT DETECTED)
== END 2021-12-30 09:20 | disposition home or self-care (01) ==
LOC: HO.LAB 09:19
PROVIDERS: PCP Internal Medicine; Visit Provider Family Medicine
DX: F11.20 Opioid dependence, uncomplicated (principal); Z11.3 Encounter for screening for infections with a predominantly sexual mode of transmission
CPT/HCPCS: 36415; 80053; 82465; 85025; 86704; 86706; 86780; 86803; 87340; 87389; 87522

== ENCOUNTER 2022-01-04 19:31 | Emergency (ER) | payer OTHER, SELFPAY ==
--- NOTE | ~2022-01-04 | XR_ITS ---
EXAMINATION: XR CHEST CLINICAL INFORMATION: Asthma COMPARISON: None TECHNIQUE: Frontal view of the chest was obtained. FINDINGS: No significant abnormality is noted involving the heart, lungs, mediastinum, bony thorax or soft tissues. XR/XR chest 1V IMPRESSION: Unremarkable chest examination.
[2022-01-04 19:34] VITALS: BP 141/90; PULSE 115; RESP 20; TEMP 36.2; O2SAT 95; BMI 33.6
[2022-01-04 21:40] VITALS: BP 144/87; PULSE 101; RESP 22; O2SAT 93
--- NOTE | 2022-01-04 22:14 | ED.ASTHMA ---
HPI - Asthma General Chief Complaint: Asthma Stated Complaint: difficulty breathing, asthma Time Seen by Provider: 01/04/22 22:13 Source: patient Mode of arrival: ambulatory History of Present Illness HPI Narrative: 46-year-old male with history of asthma presents with 2-3 days of worsening shortness of breath and chest tightness and states he has been taking his albuterol but has not been working. Otherwise he denies any fevers chills, sore throat, body aches or headaches. Related Data Home Medications Medication Instructions Recorded Confirmed Methadone Intensol 38 mg 04/13/21 11/27/21 Previous Rx's Medication Instructions Recorded albuterol sulfate 2.5 mg (3 mL) INHALATION Q4-6H PRN 03/16/21 30 Days #180 ml sucralfate 100 mg/mL oral 10 ml PO BID #420 ml 05/11/21 suspension (Carafate) omalizumab 150 mg/mL subcutaneous 300 mg (2 mL) SUBCUT Q2W #4 ml 08/31/21 syringe (Xolair) albuterol sulfate 90 mcg/actuation 2 puff PO Q6H PRN #18 g 10/05/21 aerosol inhaler (ProAir HFA) pantoprazole 40 mg tablet,delayed 40 mg PO BID 30 Days #60 tab 10/05/21 release meclizine 25 mg tablet 25 mg PO QID #30 tab 11/27/21 prednisone 50 mg tablet 50 mg PO DAILY 4 Days #4 tab 01/04/22 Allergies Allergy/AdvReac Type Severity Reaction Status Date / Time shrimp Allergy Severe ANAPHYLAXIS Verified 01/04/22 19:34 LOBSTER Allergy Unknown ANAPHYLAXIS Uncoded 01/04/22 19:34 Review of Systems Review of Systems: Pertinent positives and negatives as stated in HPI 10 point review of systems otherwise negative. [facility] Past Medical History Source: nursing notes reviewed Medical History Asthma GERD (gastroesophageal reflux disease) History of positive PPD Methadone maintenance therapy patient Surgical History History of esophagogastroduodenoscopy (EGD) History of left inguinal hernia repair History of umbilical hernia repair Hx of colonoscopy Hx of hernia repair Hx of knee surgery Hx of shoulder surgery Family History Family History Father No problems noted. Mother No problems noted. 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 GENERAL: Well developed, well nourished, in no acute distress. HEAD: Normocephalic/atraumatic EYES: PERRLA, EOMI EARS: Ext canals without abnormality OROPHARYNX: no oral lesions noted, posterior pharynx clear LUNGS: Decreased breath sounds, with expiratory wheeze, increased work of breathing, tachypnea is present. SpO2<93> CARDIOVASCULAR: Regular rate and rhythm without noted murmurs ABDOMEN: Soft, non-tender, non-distended with bowel sounds. NEUROLOGIC: Alert and oriented x 4. Strength and sensation to light touch were grossly intact x 4. Course Course Course Narrative: 46-year-old male with history and clinical presentation consistent with asthma exacerbation. Review of all investigations patient is noted be COVID-19 positive, and on re-evaluation is feeling somewhat better and will receive an additional 4 puffs on a Ventolin inhaler and is otherwise oxygenating well on room air. Patient was informed of all results and given instructions for isolation. MDM - Asthma Lab Data Labs: Lab Results 01/04/22 01/04/22 Range/Units 22:26 22:26 COVID-19 (TIP) Positive A (Negative) COVID-19 Clin Com See Note Influenza Type A (ELDON) Negative (Negative) Influenza Type B (ELDON) Negative (Negative) Influenza A & B Note See Note Discharge Plan Discharge Clinical Impression: Asthma exacerbation, Lab test positive for detection of COVID-19 virus Patient Disposition: Home, Self-Care Instructions: Asthma (ED), COVID-19 (Coronavirus Disease 2019) (ED) Additional Instructions: 1. Please complete the short course of steroids that you have been started on. 2. Over the next 24 hours she will need to continue to use your albuterol inhaler every 4-6 hours, 2 puffs. 3. Start taking seasonal allergy medications such as Claritin and Flonase. 4. Follow-up with primary care provider next 1-2 days for re-evaluation. You have been diagnosed with COVID-19 and must isolate for 5 days and then follow all [place] and [facility] state guidelines. Return to the ER for worsening symptoms. Prescriptions: New prednisone 50 mg tablet 50 mg PO DAILY 4 Days Qty: 4 0RF No Action Xolair 150 mg/mL syringe 300 mg subcut Q2W Qty: 4 12RF albuterol sulfate [ProAir HFA] 90 mcg/actuation HFA aerosol inhaler 2 puff PO Q6H PRN (Reason: bronchospasm) Qty: 18 8RF pantoprazole 40 mg tablet,delayed release (DR/EC) 40 mg PO BID 30 Days Qty: 60 8RF Methadone Intensol 38 mg 0RF meclizine 25 mg tablet 25 mg PO QID Qty: 30 0RF albuterol sulfate 2.5 mg /3 mL (0.083 %) solution for nebulization 2.5 mg inhalation Q4-6H PRN (Reason: shortness of breath or wheezing) 30 Days Qty: 180 6RF sucralfate [Carafate] 100 mg/mL suspension 10 ml PO BID Qty: 420 0RF
[2022-01-04 22:27] VITALS: PULSE 92; RESP 18; O2SAT 94
[2022-01-04] MEDS: Albuterol Sulfate (0.083%) 2.5 MG/3 ML VIAL.NEB 10 MG INHALE (22:27)
[2022-01-04] MEDS: methylPREDNISolone Sod Succ 125 MG/2 ML VIAL IVPUSH (22:31)
[2022-01-04 22:34] VITALS: BP 100/62; PULSE 94; RESP 16; TEMP 36.6; O2SAT 97
[2022-01-04 22:48] LABS: COVID-19 Test Positive (Negative); IDNOW Serial# 16C4AD1C
[2022-01-04 22:52] LABS: Influenza A Negative (Negative); Influenza B2 Negative (Negative)
[2022-01-04] MEDS: Albuterol Sulfate 90 MCG 8 GM INHALER 4 PUFF INHALE (23:30)
[2022-01-04 23:31] VITALS: BP 107/54; PULSE 107; RESP 16; TEMP 37.2; O2SAT 96
== END 2022-01-04 23:40 | disposition home or self-care (01) ==
LOC: HO.ED 22:33
PROVIDERS: Emergency Provider Student in an Organized Health Care Education/Training Program
DX: U07.1 COVID-19 (principal); J45.901 Unspecified asthma with (acute) exacerbation; R06.02 Shortness of breath; Z79.899 Other long term (current) drug therapy
CPT/HCPCS: 71045; 87502; 87635; 94640; 94644; 96374; 99284; J2930

== ENCOUNTER 2022-01-10 03:49 | Observation (INO) | payer OTHER, SELFPAY ==
[2022-01-10 04:03] VITALS: BP 151/92; PULSE 101; RESP 18; TEMP 36.8; O2SAT 98; BMI 33.5
[2022-01-10] MEDS: methylPREDNISolone Sod Succ 125 MG/2 ML VIAL IVPUSH ×2 (04:10→05:34)
[2022-01-10] MEDS: diphenhydrAMINE HCL 50 MG/ML VIAL IVPUSH (04:10)
[2022-01-10] MEDS: Famotidine/PF 20 MG/2 ML VIAL IVPUSH ×2 (04:10→05:34)
[2022-01-10] MEDS: 0.9 % Sodium Chloride 1,000 ML 999 ML IVCONT (04:16)
[2022-01-10 04:17] VITALS: BP 152/99; PULSE 103; RESP 18; O2SAT 97
--- NOTE | 2022-01-10 05:18 | ED_ITS ---
HPI - Allergic Reaction General Chief complaint: Allergic Reaction Stated complaint: allergic reaction Time Seen by Provider: 01/10/22 03:59 Source: patient Mode of arrival: ambulatory Limitations: no limitations History of Present Illness HPI narrative: Patient comes to the emergency room complaining of an allergic reaction. Patient states that around 13:00 he ate a taco, within 2 hours, his lip started swelling. Patient took several doses of Benadryl at home. Patient was about to go home, when he noticed that his throat started itching. The 1st swelling. No shortness of breath. 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 Patient does not believe that he ate any fish products. Related Data Home Medications Medication Instructions Recorded Confirmed Methadone Intensol 38 mg 04/13/21 11/27/21 Previous Rx's Medication Instructions Recorded albuterol sulfate 2.5 mg (3 mL) INHALATION Q4-6H PRN 03/16/21 30 Days #180 ml sucralfate 100 mg/mL oral 10 ml PO BID #420 ml 05/11/21 suspension (Carafate) omalizumab 150 mg/mL subcutaneous 300 mg (2 mL) SUBCUT Q2W #4 ml 08/31/21 syringe (Xolair) albuterol sulfate 90 mcg/actuation 2 puff PO Q6H PRN #18 g 10/05/21 aerosol inhaler (ProAir HFA) pantoprazole 40 mg tablet,delayed 40 mg PO BID 30 Days #60 tab 10/05/21 release meclizine 25 mg tablet 25 mg PO QID #30 tab 11/27/21 prednisone 20 mg tablet 20 mg PO DAILY 3 Days #3 tab 01/09/22 Allergies Allergy/AdvReac Type Severity Reaction Status Date / Time shrimp Allergy Severe ANAPHYLAXIS Verified 01/10/22 04:07 LOBSTER Allergy Unknown ANAPHYLAXIS Uncoded 01/10/22 04:07 Review of Systems Review of Systems: P Constitutional : No Weight loss, No Fever, No Chills, No Night Sweats, No Fatigue, No Malaise ENT/Mouth : No Hearing loss, No Ear Pain, No Nasal Congestion, No Sinus Pain, No Hoarseness, complaining of scratchy/itchy throat, No Rhinorrhea, No Swallowing Difficulty, complaining of lip swelling Eyes: No Eye Pain, No Swelling, No Redness, No Foreign Body, No Discharge, No Vision Changes Cardiovascular : No Chest Pain, No SOB, No Dyspnea on Exertion, No Orthopnea, No Edema, No Palpitations Respiratory : No Cough, No Sputum, No Wheezing, No Smoke Exposure, No Dyspnea Gastrointestinal : No Nausea, No Vomiting, No Diarrhea, No Constipation, No abdominal Pain, No Hematochezia, No Melena Genitourinary : no irregular bleeding, No Dysuria, No Urinary Frequency, No Hematuria, No Urinary Incontinence, No Urgency, No Flank Pain, No Urinary Flow Changes, No Hesitancy Musculoskeletal : No joint pain, No Myalgias, No Joint Swelling Skin : No Skin Lesions, No rash Neuro : No Weakness, No Numbness, No Paresthesias, No Loss of Consciousness, No Dizziness, No Headache Psych : No Anxiety/Panic, No Depression, No SI/HI/AH/VH, No Social Issues, Heme/Lymph: No Bruising, No Bleeding,No Lymphadenopathy Endocrine : No Polyuria, No Polydipsia, No Temperature Intolerance PMFSH Past Medical History Medical History Asthma GERD (gastroesophageal reflux disease) History of positive PPD Methadone maintenance therapy patient Surgical History History of esophagogastroduodenoscopy (EGD) History of left inguinal hernia repair History of umbilical hernia repair Hx of colonoscopy Hx of hernia repair Hx of knee surgery Hx of shoulder surgery Family History Family History Father No problems noted. Mother No problems noted. 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 Oriented X3. No acute distress. Eyes: Pupils equal, round and reactive to light. ENT: Upper and lowers lips are swollen, tongue normal size, no uvula edema Neck: Normal inspection. Neck supple. No lymph nodes noted. No crepitus CVS: Normal heart rate and rhythm. Pulses normal. Normal S1 and S2 Respiratory: No respiratory distress. Breath sounds normal. No Wheezing. No rales Abdomen: Soft and nontender. No rigidity. No distention. Skin: Skin warm and dry. Normal skin color. Normal skin turgor. Extremities: No lower extremity edema. No Lacerations. No Rash Neuro: Oriented X 3. No motor deficit. No sensory deficit. Moving all extremities. No slurred speech. CN 2 through 12 grossly intact Psych: calm, cooperative, normal affect Course Course Course Narrative: Patient was given famotidine, diphenhydramine, methylprednisolone and IV fluids. Patient is overall doing better, no itching in the throat. Patient still has mild swelling in the lips. Patient will be receiving an additional dose of famotidine, diphenhydramine and methylprednisolone, and then we will re- evaluate. After 2 doses of medications for allergy, patient is overall doing better. However his lips are still significantly swollen, the upper lifts are no longer swollen only the lower ones. Patient has no itchy throat, no tongue swelling, uvula within normal limits, no wheezing. I discussed the patient with Dr. Pulido, we will admit the patient for observation. Discharge Plan Discharge Clinical Impression: Allergic angioedema Patient Disposition: Admitted as Observation Prescriptions: No Action Xolair 150 mg/mL syringe 300 mg subcut Q2W Qty: 4 12RF albuterol sulfate [ProAir HFA] 90 mcg/actuation HFA aerosol inhaler 2 puff PO Q6H PRN (Reason: bronchospasm) Qty: 18 8RF pantoprazole 40 mg tablet,delayed release (DR/EC) 40 mg PO BID 30 Days Qty: 60 8RF prednisone 20 mg tablet 20 mg PO DAILY 3 Days Qty: 3 0RF Methadone Intensol 38 mg 0RF meclizine 25 mg tablet 25 mg PO QID Qty: 30 0RF albuterol sulfate 2.5 mg /3 mL (0.083 %) solution for nebulization 2.5 mg inhalation Q4-6H PRN (Reason: shortness of breath or wheezing) 30 Days Qty: 180 6RF sucralfate [Carafate] 100 mg/mL suspension 10 ml PO BID Qty: 420 0RF
[2022-01-10 05:31] VITALS: BP 161/90; PULSE 95; RESP 20; TEMP 37.1; O2SAT 98
--- NOTE | 2022-01-10 05:32 | PC.NURSE ---
Dr Juan to bedside to eval pt after meds. Pt with persistent swelling to lower lip. Pt continues to deny SOB. Pt VSS on RA. Pt continues to report a little bit of tingling in the throat. Pt without new/additional complaints. Pt states I'm doing better now. Pt agreeable to plan for additional medication at this time.
[2022-01-10 05:34] VITALS: BP 142/96; PULSE 88; RESP 15; O2SAT 99
[2022-01-10] MEDS: diphenhydrAMINE HCL 50 MG/ML VIAL 25 MG IVPUSH (05:34)
[2022-01-10 06:02] VITALS: BP 149/85; PULSE 89; RESP 17; TEMP 37.2; O2SAT 97
[2022-01-10 07:20] LABS: Basophils Percent Auto 0.1 % (0-2); Eosinophils Percent Auto 0.1 % (0-4); Hemoglobin 14.1 g/dl (14.0-18.0); Mean Corpuscular Hemoglobin 29.6 pg (27.0-33.0); Mean Corpuscular Volume 86.6 fL (80.0-98.0); Monocytes Percent Auto 0.7 % (2-11); PLT CLUMP 1; SCAN SMEAR FLAG 1
[2022-01-10 07:22] LABS: Hematocrit 41.2 % (42.0-52.0); Imm Gran Abs Auto 0.08 X10*3/uL (0.00-0.03); Imm Gran Pct Auto 0.5 % (0.0-0.4); Lymphocytes Absolute Auto 0.9 X10*3/uL (1.2-4.9); Lymphocytes Percent Auto 5.6 % (20-40); MANUAL DIFF FLAG SCAN; Mean Corpuscular HGB Conc 34.2 g/dl (31.0-36.0); Mean Platelet Volume 10.9 fL (9.4-12.4); Monocytes Absolute Auto 0.1 X10*3/uL (0.1-1.2); Neutrophils Absolute Auto 14.1 x10*3/uL (2.0-8.3); Red Blood Count 4.76 X10*6/uL (4.60-5.80); Red Cell Distribution Width 13.8 % (11.0-16.0)
[2022-01-10 07:25] LABS: COVID-19 Test Positive (Negative); IDNOW Serial# 16C4AD1C
[2022-01-10 07:44] LABS: Platelet Count 345 X10*3/uL (160-400); SLIDE REVIEW VERIFIED; White Blood Count 15.2 X10*3/uL (4.8-10.8)
--- NOTE | 2022-01-10 08:42 | PHA.MEDREC ---
Pharmacy Consult ? Medication Reconciliation Pharmacy has completed the medication reconciliation. Spoke with patient in ED. Patient is on 12 mg of methadone and already verified with methadone clinic. Last dose 01/09 of 12 mg.
[2022-01-10 08:57] LABS: Anion Gap 13 (12-20); Blood Urea Nitrogen 13 mg/dL (9-16); Calcium 9.4 mg/dL (8.4-10.2); Carbon Dioxide 25 mmol/L (22-29); Chloride 103 mmol/L (96-108); Creatinine Clr Calc Pharmacy 123.6; Estimated Glomerular Filt Rate > 60; Glucose Random 156 mg/dL (60-115); Potassium 4.4 mmol/L (3.3-5.1); Sodium 137 mmol/L (135-145)
[2022-01-10] MEDS: diphenhydrAMINE HCL 25 MG TABLET PO ×3 (09:04→20:25)
[2022-01-10] MEDS: Famotidine 20 MG TABLET PO ×2 (09:04→20:25)
[2022-01-10] MEDS: methylPREDNISolone Sod Succ 40 MG/ML VIAL IVPUSH ×2 (09:04→20:25)
--- NOTE | 2022-01-10 09:41 | PM.IMHP ---
History of Present Illness Date of Service: 01/10/22 Attending physician on admission: Margret Peace Chief Complaint: Angioedema 46-year-old male who has she was asthma, obesity, GERD, on opioid maintenance-he came to the emergency room because of allergic reaction-patient says that he yesterday afternoon he ate some tacos at the same place they were also having some fish products and he is allergic to shrimp-unclear what happened but 2 hour after eating Taco he started to having lip swelling significant which was not improving even after taking multiple doses of Benadryl at home so decided to come to the hospital. In the emergency room-patient took multiple doses of Benadryl also received high-dose Solu-Medrol, famotidine and nebs but still has significant lip swelling. Emergency room physician-admission was given for possible allergic reaction/angioedema Currently patient does not have short of breath, feel drowsy possibly after multiple doses of Benadryl. Denies any chest pain or blood vision or weakness or numbness or or nausea or vomiting or any rash Denies any fever or chills. Denies any similar allergic reactions in family members or starting any new medication. Review of Systems Review of Systems: As above. Yes all other systems are reviewed and are negative [facility] Medical History Asthma GERD (gastroesophageal reflux disease) History of positive PPD Methadone maintenance therapy patient Family History Father No problems noted. Mother No problems noted. Pertinent family history: Says his father and brother both has hypertension. 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 Current occupational exposures/hazards: No Cognitive needs: No Hearing needs: No Vision needs: Yes Meds Allergies Allergy/AdvReac Type Severity Reaction Status Date / Time shrimp Allergy Severe ANAPHYLAXIS Verified 01/10/22 04:07 LOBSTER Allergy Unknown ANAPHYLAXIS Uncoded 01/10/22 04:07 Active Medications: Current Medications Albuterol Sulfate (Albuterol Sulfate (0.083%) 2.5 Mg/3 Ml Vial.Neb) 2.5 mg INHALE Q4H PRN PRN Reason: shortness of breath or wheezing Albuterol Sulfate (Albuterol Sulfate 90 Mcg 8 Gm Inhaler) 2 puff INHALE Q6H PRN PRN Reason: bronchospasm Diphenhydramine HCl (Diphenhydramine Hcl 25 Mg Tablet) 25 mg PO Q6H [facility] Last Admin: 01/10/22 09:04 Dose: 25 mg Documented by: Famotidine (Famotidine 20 Mg Tablet) 20 mg PO BID [facility] Last Admin: 01/10/22 09:04 Dose: 20 mg Documented by: Methadone HCl (Methadone Hcl 20 Mg/2 Ml Oral.Conc) 12 mg PO DAILY [facility] Methylprednisolone Sodium Succinate (Methylprednisolone Sod Succ 40 Mg/Ml Vial) 40 mg IVPUSH BID [facility] Last Admin: 01/10/22 09:04 Dose: 40 mg Documented by: Non-Formulary Medication (Omalizumab [Xolair]) 300 mg SUBCUT Q2W [facility] Pharmacy Consult (Consult Rx Perform Med Rec) 1 each MISCELLANE ONCE PRN PRN Reason: Consult order Sodium Chloride (0.9 % Sodium Chloride Flush 3 Ml Syringe) 3 ml IVFLUSH QSHIFT [facility] Home Medications Medication Instructions Recorded Confirmed Last Taken Type albuterol sulfate 2.5 mg INHALATION Q4H PRN 01/10/22 01/10/22 Unknown History methadone 10 mg/mL oral concentrate 12 mg PO DAILY 01/10/22 01/10/22 01/09/22 History pantoprazole 40 mg tablet,delayed 40 mg PO BID@0630,1630 01/10/22 01/10/22 01/09/22 History release Physical Exam Vital Signs and Narrative: Vital Signs: Last Vital Signs Temp 98.9 F 01/10/22 06:02 Pulse 89 01/10/22 06:02 Resp 17 01/10/22 06:02 BP 149/85 H 01/10/22 06:02 Pulse Ox 97 01/10/22 06:02 BMI result Body Mass Index 33.5 Appearance: Alert.? Oriented X3.? not in distress.? Eyes: Pupils equal, round and reactive to light.? Sclera nonicteric.? ENT: Pharynx normal.? Moist mucous membranes. Significant swelling off both lips lower is more swollen than the upper-but patient says that it is slightly better than what he came with. cvs: [id number], [id number] . res: Air entry seems slightly diminished at bases, has bilateral wheezing. abd: no rebound or guarding ,nt, bs present. ext pulses present , no cyanosis ,Gait well balanced well coordinated. neuro: axo3 , nonfocal. Results Labs CBC and Chem 7: 01/10/22 06:45 01/10/22 08:33 Labs: Laboratory Results - last 24 hr 01/10/22 01/10/22 01/10/22 06:45 06:45 08:33 MCV 86.6 MCH 29.6 MCHC 34.2 RDW 13.8 Plt Count 345 MPV 10.9 Immature Gran % (Auto) 0.5 H Neut % (Auto) 93.0 H Lymph % (Auto) 5.6 L [place] % (Auto) 0.7 L Eos % (Auto) 0.1 Baso % (Auto) 0.1 Lymph # (Auto) 0.9 L [place] # (Auto) 0.1 Eos # (Auto) 0.0 Baso # (Auto) 0.0 Abs Immat Gran (auto) 0.08 H Absolute Neuts (auto) 14.1 H Absolute Nucleated RBC 0.000 Nucleated RBC % (auto) 0.0 Smear Tech's Comments VERIFIED Anion Gap 13 Estim Creat Clear Calc 123.6 Estimated GFR > 60 Random Glucose 156 H D Calcium 9.4 COVID-19 (TIP) Positive A COVID-19 Clin Com See Note Assessment and Plan (1) Allergic angioedema: Status: Acute (2) Obesity: Status: Acute (3) Asthma: Status: Acute Plan 46-year-old male with allergic reaction ? Food related. 1. Possible allergic reaction: Continue Solu-Medrol, famotidine, p.r.n. Benadryl, also nebs. 2. Mild Asthma exacerbation: Continue nebs, steroids Leukocytosis possibly related to steroid. 3. GERD: Continue famotidine for now 4. Opioid use history: Continue methadone. 5. Obesity: Patient was encouraged for weight loss, cutdown calories. DVT prophylaxis patient is young and ambulatory we will avoid chemoprophylaxis, advised to have out of bed activity. Quality Stroke Does the patient have a stroke diagnosis?: No VTE Prior VTE?: No VTE Risk Level:: Medical - moderate - high VTE Device Contraindication: N/A - Device Ordered VTE Drug Contraindication: N/A - Med Ordered
[2022-01-10] MEDS: methADONE HCl 20 MG/2 ML ORAL.CONC 12 MG PO (10:24)
[2022-01-10 11:14] VITALS: BP 128/81; PULSE 92; RESP 17; O2SAT 98
--- NOTE | 2022-01-10 12:41 | PC.NURSE ---
patient a&ox3, ambulating independently, cardiac nurse nsr, pt has no c/o pain or discomfort, denies sob/difficulty breathing, call belll within reach, will continue to monitor.
--- NOTE | 2022-01-10 13:51 | MHC.CM.PN ---
Pt resides w/family, works, drives and has no services or DME at this time. He has a cell at bedside and will call family for transportation: PCP Dr. Wright: HCP declined: GUERRA in chart. COVID +. D/C Plan: return to home with family support and outpt f/u
[2022-01-10] MEDS: 0.9 % Sodium Chloride Flush 3 ML SYRINGE IVFLUSH ×2 (15:28→20:25)
[2022-01-11] MEDS: diphenhydrAMINE HCL 25 MG TABLET PO ×2 (02:31→09:14)
[2022-01-11 08:02] VITALS: BP 124/66; PULSE 77; RESP 18; TEMP 36.7; O2SAT 99
[2022-01-11] MEDS: Albuterol/Iprat 2.5/0.5MG 3 ML AMPUL.NEB INHALE (09:03)
[2022-01-11 09:08] VITALS: PULSE 71; RESP 16; O2SAT 99
[2022-01-11] MEDS: methADONE HCl 20 MG/2 ML ORAL.CONC 12 MG PO (09:13)
[2022-01-11] MEDS: 0.9 % Sodium Chloride Flush 3 ML SYRINGE IVFLUSH (09:13)
[2022-01-11] MEDS: Famotidine 20 MG TABLET PO (09:14)
[2022-01-11] MEDS: methylPREDNISolone Sod Succ 40 MG/ML VIAL IVPUSH (09:14)
[2022-01-11 10:22] LABS: Hematocrit 38.7 % (42.0-52.0); Mean Corpuscular HGB Conc 33.6 g/dl (31.0-36.0); Mean Corpuscular Volume 89.2 fL (80.0-98.0); Mean Platelet Volume 10.1 fL (9.4-12.4); Platelet Count 411 X10*3/uL (160-400); Red Blood Count 4.34 X10*6/uL (4.60-5.80); Red Cell Distribution Width 14.1 % (11.0-16.0); White Blood Count 27.9 X10*3/uL (4.8-10.8)
[2022-01-11 10:28] LABS: Anion Gap 13 (12-20); Blood Urea Nitrogen 19 mg/dL (9-16); Calcium 9.5 mg/dL (8.4-10.2); Carbon Dioxide 27 mmol/L (22-29); Chloride 103 mmol/L (96-108); Creatinine Clr Calc Pharmacy 123.6; Estimated Glomerular Filt Rate > 60; Glucose Random 142 mg/dL (60-115); Potassium 3.8 mmol/L (3.3-5.1); Sodium 139 mmol/L (135-145)
--- NOTE | 2022-01-11 11:25 | PM.DS ---
DS: Providers Provider Date of Service: 01/11/22 Date of admission: 01/10/22 09:35 Primary care physician: Skinny Wright MD DS: Diagnosis Discharge Diagnosis (1) Allergic angioedema: Status: Acute (2) Obesity: Status: Acute (3) Asthma: Status: Acute DS: Summary Hospital Course Hospital Course: 46-year-old male who has she was asthma, obesity, GERD, on opioid maintenance-he came to the emergency room because of allergic reaction-patient says that he yesterday afternoon he ate some tacos at the same place they were also having some fish products and he is allergic to shrimp-unclear what happened but 2 hour after eating Taco he started to having lip swelling significant which was not improving even after taking multiple doses of Benadryl at home so decided to come to the hospital. In the emergency room-patient took multiple doses of Benadryl also received high-dose Solu-Medrol, famotidine and nebs but still has significant lip swelling. Emergency room physician-admission was given for possible allergic reaction/angioedema Currently patient does not have short of breath, feel? drowsy possibly after multiple doses of Benadryl. Denies any chest pain or blood vision or weakness or numbness or or nausea or vomiting or any rash Denies any fever or chills. Denies any similar allergic reactions in family members or starting any new medication. Hospital course: Patient came to the hospital secondary to significant lip swelling probably related to allergic reaction possible food related-started on nebs, steroids, Benadryl seems to be improved. Patient is going home with p.o. steroids and Benadryl limited supply. In addition patient also had mild asthma exacerbation which improved with nebs and steroids as above. Further management outpatient as per PCP. Patient is COVID positive but asymptomatic. Patient was advised in detail if his condition worsen can come to the nearest emergency room. Time Spent with Patient Time attestation: Total time spent providing and/or coordinating discharge services: Discharge coordination time: Greater than 30 minutes Quality: Safe Use of Opioids Does Pt have an Active Cancer Diagnosis on the Problem List?: No Quality: Stroke Does the patient have a stroke diagnosis?: No Physical Exam Vital Signs: Vital Signs: Last Vital Signs Temp 98.0 F 01/11/22 08:02 Pulse 71 01/11/22 09:08 Resp 16 01/11/22 09:08 BP 124/66 01/11/22 08:02 Pulse Ox 99 01/11/22 08:02 BMI result Body Mass Index 33.5 Appearance: Alert.? Oriented X3.? not in distress.? Eyes: Pupils equal, round and reactive to light.? Sclera nonicteric.? ENT: Pharynx normal.? Moist mucous membranes. lips swelling resolved cvs: [id number], [id number] . res:?air entry fair , no rales or wheezing abd: no rebound or guarding ,nt, bs present. ext pulses present , no cyanosis. neuro: axo3 , nonfocal. DS: Data Data Completed and Pending Labs on day of discharge: Laboratory Results - last 24 hr 01/11/22 01/11/22 10:09 10:09 WBC 27.9 H RBC 4.34 L Hgb 13.0 L Hct 38.7 L MCV 89.2 MCH 30.0 MCHC 33.6 RDW 14.1 Plt Count 411 H MPV 10.1 Absolute Nucleated RBC 0.000 Nucleated RBC % (auto) 0.0 Sodium 139 Potassium 3.8 Chloride 103 Carbon Dioxide 27 Anion Gap 13 BUN 19 H Creatinine 0.82 Estim Creat Clear Calc 123.6 Estimated GFR > 60 Random Glucose 142 H Calcium 9.5 Additional Comments Additional comments: XR/XR chest 1V IMPRESSION: Unremarkable chest examination. ? Discharge Plan Discharge Patient Disposition: Home, Self-Care Discharge Diagnosis: Allergic reaction, asthma exacerbation Referrals: Skinny Wright MD [Primary Care Provider] - 1 Week Discharge Medications: New epinephrine 0.3 mg/0.3 mL auto-injector 0.3 mg IM Q4H PRN (Reason: anaphylaxis) Qty: 1 0RF prednisone 20 mg tablet 40 mg PO DAILY Qty: 6 0RF diphenhydramine HCl [Benadryl] 25 mg capsule 25 mg PO TID PRN (Reason: allergic reaction) Qty: 10 0RF famotidine 20 mg tablet 20 mg PO BID Qty: 7 0RF Continued Xolair 150 mg/mL syringe 300 mg subcut Q2W Qty: 4 12RF albuterol sulfate [ProAir HFA] 90 mcg/actuation HFA aerosol inhaler 2 puff PO Q6H PRN (Reason: bronchospasm) Qty: 18 8RF methadone 10 mg/mL Concentrate 12 mg PO DAILY 0RF Rx Instructions: Methadone clinic : [address] -[phone] VERIFIED DOSE WITH CLINIC - LAST DOSE 01/09/22 12mg albuterol sulfate 2.5 mg /3 mL (0.083 %) solution for nebulization 2.5 mg inhalation Q4H PRN (Reason: shortness of breath or wheezing) 0RF pantoprazole 40 mg tablet,delayed release (DR/EC) 40 mg PO BID@0630,1630 0RF Discharge Orders: Discharge Order (Routine); Ordered 01/11/22 Ordered By: Margret Peace Diet: advance to usual diet Activity on Discharge: As tolerated Stand Alone Forms: Patient Portal Discharge page Care Plan Goals: Patient came to the hospital secondary to significant lip swelling probably related to allergic reaction possible food related-started on nebs, steroids, Benadryl seems to be improved. Patient is going home with p.o. steroids and Benadryl limited supply. In addition patient also had mild asthma exacerbation which improved with nebs and steroids as above. Further management outpatient as per PCP. Patient is COVID positive but asymptomatic. Patient was advised in detail if his condition worsen can come to the nearest emergency room. Health Concerns: Complete steroid course and use Benadryl and needed for any suspicion of allergy again. Encouraged in detail that should avoid products that she is allergic. Patient is to follow-up with PCP. Plan of Treatment: As above as above. Assessment: As above .
--- NOTE | 2022-01-11 11:40 | MHC.CM.PN ---
PT WILL DC HOME TODAY WITH NO SERVICES FAMILY TO TRANSPORT
== END 2022-01-11 11:51 | disposition home or self-care (01) ==
LOC: HO.ED 06:37 → HO.EDOVER 09:41
PROVIDERS: Admitting Provider Internal Medicine; Emergency Provider Emergency Medicine; PCP Internal Medicine; Visit Provider Internal Medicine
DX: T78.3XXA Angioneurotic edema, initial encounter (principal); E66.9 Obesity, unspecified; J45.31 Mild persistent asthma with (acute) exacerbation; U07.1 COVID-19; K21.9 Gastro-esophageal reflux disease without esophagitis; R76.11 Nonspecific reaction to tuberculin skin test without active tuberculosis; F11.20 Opioid dependence, uncomplicated; Z68.33 Body mass index [BMI] 33.0-33.9, adult; Z91.013 Allergy to seafood; Z79.899 Other long term (current) drug therapy
CPT/HCPCS: 36415; 80048; 85025; 85027; 87635; 96361; 96374; 96375; 96376; 99219; 99284; 99285; J1200; J2920; J2930; Q0163

== ENCOUNTER 2022-01-22 21:54 | Emergency (ER) | payer OTHER, SELFPAY ==
--- NOTE | 2022-01-22 | ECG_ITS ---
Test Reason : SOB Blood Pressure : / mmHG Vent. Rate : 114 BPM Atrial Rate : 114 BPM P-R Int : 128 ms QRS Dur : 076 ms QT Int : 334 ms P-R-T Axes : 067 013 013 degrees QTc Int : 460 ms Sinus tachycardia Otherwise normal ECG When compared with ECG of 25-AUG-2019 05:05, No significant change was found Referred By: Generic ED Physician Electronically Signed By:RICARDO LANG MD
[2022-01-22 22:09] VITALS: BP 119/81; PULSE 116; RESP 24; TEMP 37.3; O2SAT 94; BMI 32.1
[2022-01-22 22:21] LABS: MANUAL DIFF FLAG NO
[2022-01-22 22:23] LABS: Basophils Absolute Auto 0.1 X10*3/uL (0.0-0.2); Basophils Percent Auto 0.4 % (0-2); Eosinophils Absolute Auto 0.7 X10*3/uL (0.0-0.4); Eosinophils Percent Auto 4.2 % (0-4); Hemoglobin 12.1 g/dl (14.0-18.0); Imm Gran Abs Auto 0.06 X10*3/uL (0.00-0.03); Imm Gran Pct Auto 0.4 % (0.0-0.4); Lymphocytes Absolute Auto 2.3 X10*3/uL (1.2-4.9); Lymphocytes Percent Auto 13.5 % (20-40); Mean Corpuscular HGB Conc 33.6 g/dl (31.0-36.0); Mean Corpuscular Hemoglobin 29.4 pg (27.0-33.0); Mean Corpuscular Volume 87.4 fL (80.0-98.0); Mean Platelet Volume 9.8 fL (9.4-12.4); Monocytes Absolute Auto 0.8 X10*3/uL (0.1-1.2); Monocytes Percent Auto 4.8 % (2-11); Neutrophils Percent Auto 76.7 % (45-73); Platelet Count 323 X10*3/uL (160-400); Red Blood Count 4.12 X10*6/uL (4.60-5.80); Red Cell Distribution Width 14.4 % (11.0-16.0); White Blood Count 16.9 X10*3/uL (4.8-10.8)
[2022-01-22 22:25] VITALS: BP 125/80; PULSE 110; RESP 20; TEMP 36.9; O2SAT 97
[2022-01-22 22:37] LABS: COVID-19 Test Positive (Negative)
--- NOTE | 2022-01-22 22:54 | ED.SOB ---
HPI - SOB/Dyspnea General Chief Complaint: Dyspnea Stated Complaint: SOB, nebulizer treatment didnt work Time Seen by Provider: 01/22/22 22:54 Source: patient Mode of arrival: ambulatory Limitations: no limitations History of Present Illness HPI Narrative: Patient with history of asthma usually gets sick in summer with allergy season comes here for acute onset of shortness of breath while taking shower 2 hours prior to arrival no chest pain no fever no cough patient was doing much better prior to this episode. Patient had been on Xolair, prednisone and been using nebulizing treatment at home patient took a Xolair for 1 and half year and he was feeling much better at that time and since it is has been stopped pt been having more frequent attacks patient is vaccinated against COVID been positive since 01/04 Related Data Home Medications Medication Instructions Recorded Confirmed albuterol sulfate 2.5 mg INHALATION Q4H PRN 01/10/22 01/10/22 methadone 10 mg/mL oral concentrate 12 mg PO DAILY 01/10/22 01/10/22 pantoprazole 40 mg tablet,delayed 40 mg PO BID@0630,1630 01/10/22 01/10/22 release Previous Rx's Medication Instructions Recorded omalizumab 150 mg/mL subcutaneous 300 mg (2 mL) SUBCUT Q2W #4 ml 08/31/21 syringe (Xolair) albuterol sulfate 90 mcg/actuation 2 puff PO Q6H PRN #18 g 10/05/21 aerosol inhaler (ProAir HFA) diphenhydramine HCl 25 mg capsule 25 mg PO TID PRN #10 cap 01/11/22 (Benadryl) epinephrine 0.3 mg/0.3 mL 0.3 mg (0.3 mL) IM Q4H PRN #1 ea 01/11/22 injection, auto-injector famotidine 20 mg tablet 20 mg PO BID #7 tab 01/11/22 prednisone 20 mg tablet 40 mg PO DAILY #6 tab 01/11/22 albuterol sulfate 2.5 mg (3 mL) INHALATION Q4-6H PRN 01/23/22 #90 ml albuterol sulfate 90 mcg/actuation 2 puff INHALATION Q4-6H PRN #8.5 g 01/23/22 aerosol inhaler (ProAir HFA) prednisone 20 mg tablet 40 mg PO DAILY #10 tab 01/23/22 Allergies Allergy/AdvReac Type Severity Reaction Status Date / Time shrimp Allergy Severe ANAPHYLAXIS Verified 01/10/22 04:07 LOBSTER Allergy Unknown ANAPHYLAXIS Uncoded 01/10/22 04:07 Review of Systems Review of Systems: Yes all other systems are reviewed and are negative [facility] Past Medical History Medical History Asthma GERD (gastroesophageal reflux disease) History of positive PPD Methadone maintenance therapy patient Surgical History History of esophagogastroduodenoscopy (EGD) History of left inguinal hernia repair History of umbilical hernia repair Hx of colonoscopy Hx of endoscopy Hx of hernia repair Hx of knee surgery Hx of shoulder surgery Family History Family History Father No problems noted. Mother No problems noted. 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 Oriented X3. In moderate distress Eyes: No pallor ENT: Pharynx normal. Oral Mucosa moist Neck: Normal inspection. Neck supple. CVS: Normal heart rate and rhythm. Pulses normal. Respiratory: No respiratory distress. Equal air entry bilateral, bilateral wheezing and decreased air entry no crackles Abdomen: Soft and nontender. Bowel sounds are present, no mass palpable, no CVA tenderness Skin: Skin warm and dry. Normal skin color. Normal skin turgor. Extremities: No lower extremity edema. No calf tenderness Neuro: Oriented X 3. No motor deficit. MDM - SOB/Dyspnea MDM Narrative Medical decision making narrative: Patient feeling much better after nebulizing treatment will discharge patient home on prednisone and albuterol nebulizer. Patient saturating 98% at room air patient been positive with COVID-19 since 01/04 already been vaccinated against COVID chest x-ray negative Lab Data Attestation: I reviewed the patient's lab results. Result diagrams: 01/22/22 22:15 01/22/22 22:15 Labs: Lab Results 01/22/22 01/22/22 01/22/22 Range/Units 22:15 22:15 22:15 WBC 16.9 H (4.8-10.8) X10*3/uL RBC 4.12 L (4.60-5.80) X10*6/uL Hgb 12.1 L (14.0-18.0) g/dl Hct 36.0 L (42.0-52.0) % MCV 87.4 (80.0-98.0) fL MCH 29.4 (27.0-33.0) pg MCHC 33.6 (31.0-36.0) g/dl RDW 14.4 (11.0-16.0) % Plt Count 323 (160-400) X10*3/uL MPV 9.8 (9.4-12.4) fL Immature Gran % (Auto) 0.4 (0.0-0.4) % Neut % (Auto) 76.7 H (45-73) % Lymph % (Auto) 13.5 L (20-40) % Pope % (Auto) 4.8 (2-11) % Eos % (Auto) 4.2 H (0-4) % Baso % (Auto) 0.4 (0-2) % Lymph # (Auto) 2.3 (1.2-4.9) X10*3/uL Pope # (Auto) 0.8 (0.1-1.2) X10*3/uL Eos # (Auto) 0.7 H (0.0-0.4) X10*3/uL Baso # (Auto) 0.1 (0.0-0.2) X10*3/uL Abs Immat Gran (auto) 0.06 H (0.00-0.03) X10*3/uL Absolute Neuts (auto) 13.0 H (2.0-8.3) x10*3/uL Absolute Nucleated RBC 0.000 (0.0-0.012) X10*3/uL Nucleated RBC % (auto) 0.0 (0.0-0.2) /100WBC Sodium 140 (135-145) mmol/L Potassium 4.1 (3.3-5.1) mmol/L Chloride 106 (96-108) mmol/L Carbon Dioxide 22 (22-29) mmol/L Anion Gap 16 (12-20) BUN 12 (9-16) mg/dL Creatinine 0.83 (0.5-1.4) mg/dL Estim Creat Clear Calc 119.6 Estimated GFR > 60 Random Glucose 87 D (60-115) mg/dL Calcium 9.0 (8.4-10.2) mg/dL COVID-19 (TIP) (Negative) COVID-19 Clin Com Influenza Type A (ELDON) Negative (Negative) Influenza Type B (ELDON) Negative (Negative) Influenza A & B Note See Note 01/22/22 Range/Units 22:15 WBC (4.8-10.8) X10*3/uL RBC (4.60-5.80) X10*6/uL Hgb (14.0-18.0) g/dl Hct (42.0-52.0) % MCV (80.0-98.0) fL MCH (27.0-33.0) pg MCHC (31.0-36.0) g/dl RDW (11.0-16.0) % Plt Count (160-400) X10*3/uL MPV (9.4-12.4) fL Immature Gran % (Auto) (0.0-0.4) % Neut % (Auto) (45-73) % Lymph % (Auto) (20-40) % Pope % (Auto) (2-11) % Eos % (Auto) (0-4) % Baso % (Auto) (0-2) % Lymph # (Auto) (1.2-4.9) X10*3/uL Pope # (Auto) (0.1-1.2) X10*3/uL Eos # (Auto) (0.0-0.4) X10*3/uL Baso # (Auto) (0.0-0.2) X10*3/uL Abs Immat Gran (auto) (0.00-0.03) X10*3/uL Absolute Neuts (auto) (2.0-8.3) x10*3/uL Absolute Nucleated RBC (0.0-0.012) X10*3/uL Nucleated RBC % (auto) (0.0-0.2) /100WBC Sodium (135-145) mmol/L Potassium (3.3-5.1) mmol/L Chloride (96-108) mmol/L Carbon Dioxide (22-29) mmol/L Anion Gap (12-20) BUN (9-16) mg/dL Creatinine (0.5-1.4) mg/dL Estim Creat Clear Calc Estimated GFR Random Glucose (60-115) mg/dL Calcium (8.4-10.2) mg/dL COVID-19 (TIP) Positive A (Negative) COVID-19 Clin Com See Note Influenza Type A (ELDON) (Negative) Influenza Type B (ELDON) (Negative) Influenza A & B Note Discharge Plan Discharge Clinical Impression: Asthma attack Patient Disposition: Home, Self-Care Instructions: Asthma (ED) Additional Instructions: Use inhaler 2 puffs every 4-6 hours as needed Prednisone as prescribed Follow with PCP if not better Prescriptions: New prednisone 20 mg tablet 40 mg PO DAILY Qty: 10 0RF albuterol sulfate [ProAir HFA] 90 mcg/actuation HFA aerosol inhaler 2 puff inhalation Q4-6H PRN (Reason: Wheezing) Qty: 8.5 0RF albuterol sulfate 2.5 mg /3 mL (0.083 %) solution for nebulization 2.5 mg inhalation Q4-6H PRN (Reason: shortness of breath or wheezing) Qty: 90 0RF No Action Xolair 150 mg/mL syringe 300 mg subcut Q2W Qty: 4 12RF albuterol sulfate [ProAir HFA] 90 mcg/actuation HFA aerosol inhaler 2 puff PO Q6H PRN (Reason: bronchospasm) Qty: 18 8RF methadone 10 mg/mL Concentrate 12 mg PO DAILY 0RF Rx Instructions: Methadone clinic : [facility] [address] [facility] -[phone] VERIFIED DOSE WITH CLINIC - LAST DOSE 01/09/22 12mg albuterol sulfate 2.5 mg /3 mL (0.083 %) solution for nebulization 2.5 mg inhalation Q4H PRN (Reason: shortness of breath or wheezing) 0RF pantoprazole 40 mg tablet,delayed release (DR/EC) 40 mg PO BID@0630,1630 0RF epinephrine 0.3 mg/0.3 mL auto-injector 0.3 mg IM Q4H PRN (Reason: anaphylaxis) Qty: 1 0RF prednisone 20 mg tablet 40 mg PO DAILY Qty: 6 0RF diphenhydramine HCl [Benadryl] 25 mg capsule 25 mg PO TID PRN (Reason: allergic reaction) Qty: 10 0RF famotidine 20 mg tablet 20 mg PO BID Qty: 7 0RF
[2022-01-22 22:56] LABS: Anion Gap 16 (12-20); Blood Urea Nitrogen 12 mg/dL (9-16); Carbon Dioxide 22 mmol/L (22-29); Chloride 106 mmol/L (96-108); Creatinine Clr Calc Pharmacy 119.6; Estimated Glomerular Filt Rate > 60; Glucose Random 87 mg/dL (60-115); Potassium 4.1 mmol/L (3.3-5.1); Sodium 140 mmol/L (135-145)
[2022-01-22] MEDS: Albuterol/Iprat 2.5/0.5MG 3 ML AMPUL.NEB INHALE (23:07)
[2022-01-22] MEDS: Albuterol Sulfate (0.083%) 2.5 MG/3 ML VIAL.NEB 7.5 MG INHALE (23:07)
[2022-01-22 23:08] VITALS: PULSE 110; RESP 18; O2SAT 97
[2022-01-22] MEDS: dexAMETHasone 2 MG TABLET 10 MG PO (23:10)
[2022-01-22 23:12] LABS: IDNOW Serial# 16C4AD1C; Influenza A Negative (Negative); Influenza B2 Negative (Negative)
[2022-01-23 00:39] VITALS: BP 144/81; PULSE 106; RESP 18; TEMP 36.9; O2SAT 98
[2022-01-23] MEDS: Albuterol Sulfate 90 MCG 8 GM INHALER 4 PUFF INHALE (00:43)
== END 2022-01-23 00:48 | disposition home or self-care (01) ==
PROVIDERS: Emergency Provider Internal Medicine; PCP Internal Medicine
DX: J45.901 Unspecified asthma with (acute) exacerbation (principal); Z20.822 Contact with and (suspected) exposure to COVID-19
CPT/HCPCS: 36415; 80048; 85025; 87502; 87635; 93005; 94640; 94644; 99284; 99285; J8540

== ENCOUNTER 2022-02-05 12:26 | Outpatient (REF) | payer OTHER, SELFPAY | END 2022-02-05 12:27 | disposition home or self-care (01) | LOC: HO.MDS 12:26 | PROVIDERS: PCP Internal Medicine; Visit Provider Internal Medicine Pulmonary Disease | DX: J45.50 Severe persistent asthma, uncomplicated (principal) | CPT/HCPCS: 96372; J2357 ==

== ENCOUNTER 2022-02-19 09:33 | Outpatient (REF) | payer OTHER, SELFPAY | END 2022-02-19 09:34 | disposition home or self-care (01) | LOC: HO.MDS 09:33 | PROVIDERS: PCP Internal Medicine; Visit Provider Internal Medicine Pulmonary Disease | DX: J45.50 Severe persistent asthma, uncomplicated (principal) | CPT/HCPCS: 96372; J2357 ==

== ENCOUNTER → 2022-03-04 09:34 | Outpatient (BNVA) | payer OTHER, SELFPAY | PROVIDERS: PCP Internal Medicine; Referring Provider Internal Medicine; Visit Provider Physician Assistant | DX: K21.9 Gastro-esophageal reflux disease without esophagitis (principal) | CPT/HCPCS: 99212 ==

== ENCOUNTER 2022-03-05 11:45 | Outpatient (REF) | payer OTHER, SELFPAY | END 2022-03-05 11:46 | disposition home or self-care (01) | LOC: HO.MDS 11:45 | PROVIDERS: PCP Internal Medicine; Visit Provider Internal Medicine Pulmonary Disease | DX: J45.50 Severe persistent asthma, uncomplicated (principal) | CPT/HCPCS: 96372; J2357 ==

== ENCOUNTER 2022-03-11 09:17 | Outpatient (REF) | payer OTHER, SELFPAY ==
[2022-03-11 10:26] LABS: Cholesterol 189 mg/dL; HDL Cholesterol 42 mg/dL; LDL Cholesterol Calculated 127 mg/dl; Triglycerides 103 mg/dL
== END 2022-03-11 09:18 | disposition home or self-care (01) ==
LOC: HO.LAB 09:17
PROVIDERS: PCP Internal Medicine; Visit Provider Internal Medicine
DX: E78.5 Hyperlipidemia, unspecified (principal)
CPT/HCPCS: 36415; 80061

== ENCOUNTER 2022-03-19 10:37 | Outpatient (REF) | payer OTHER, SELFPAY | END 2022-03-19 10:38 | disposition home or self-care (01) | LOC: HO.MDS 10:37 | PROVIDERS: Visit Provider Internal Medicine Pulmonary Disease | DX: J45.50 Severe persistent asthma, uncomplicated (principal) | CPT/HCPCS: 96372; J2357 ==

== ENCOUNTER 2022-04-05 09:48 | Outpatient (REF) | payer OTHER, SELFPAY | END 2022-04-05 09:49 | disposition home or self-care (01) | LOC: HO.MDS 09:48 | PROVIDERS: Visit Provider Internal Medicine Pulmonary Disease | DX: J45.50 Severe persistent asthma, uncomplicated (principal) | CPT/HCPCS: 96372; J2357 ==

== ENCOUNTER 2022-04-19 10:06 | Outpatient (REF) | payer OTHER, SELFPAY | END 2022-04-19 10:07 | disposition home or self-care (01) | LOC: HO.MDS 10:06 | PROVIDERS: Visit Provider Internal Medicine Pulmonary Disease | DX: J45.50 Severe persistent asthma, uncomplicated (principal) | CPT/HCPCS: 96372; J2357 ==

== ENCOUNTER 2022-05-13 15:25 | Outpatient (REF) | payer OTHER, SELFPAY | END 2022-05-13 15:26 | disposition home or self-care (01) | LOC: HO.MDS 15:25 | PROVIDERS: Visit Provider Internal Medicine Pulmonary Disease | DX: J45.50 Severe persistent asthma, uncomplicated (principal) | CPT/HCPCS: 96372; J2357 ==

== ENCOUNTER 2022-05-27 16:21 | Outpatient (REF) | payer OTHER, SELFPAY | END 2022-05-27 16:22 | disposition home or self-care (01) | LOC: HO.MDS 16:21 | PROVIDERS: Visit Provider Internal Medicine Pulmonary Disease | DX: J45.50 Severe persistent asthma, uncomplicated (principal) | CPT/HCPCS: 96372; J2357 ==

== ENCOUNTER 2022-06-10 15:18 | Outpatient (REF) | payer OTHER, SELFPAY | END 2022-06-10 15:19 | disposition home or self-care (01) | LOC: HO.MDS 15:18 | PROVIDERS: Visit Provider Internal Medicine Pulmonary Disease | DX: J45.50 Severe persistent asthma, uncomplicated (principal) | CPT/HCPCS: 96372; J2357 ==

== ENCOUNTER → 2022-06-21 11:23 | Outpatient (BNVA) | payer OTHER, SELFPAY | PROVIDERS: PCP Internal Medicine; Visit Provider Internal Medicine Pulmonary Disease | DX: J45.50 Severe persistent asthma, uncomplicated (principal); Z91.09 Other allergy status, other than to drugs and biological substances | CPT/HCPCS: 99212 ==

== ENCOUNTER 2022-06-24 15:27 | Outpatient (REF) | payer OTHER, SELFPAY | END 2022-06-24 15:28 | disposition home or self-care (01) | LOC: HO.MDS 15:27 | PROVIDERS: Visit Provider Internal Medicine Pulmonary Disease | DX: J45.50 Severe persistent asthma, uncomplicated (principal) | CPT/HCPCS: 96372; J2357 ==

== ENCOUNTER 2022-07-26 14:28 | Outpatient (REF) | payer OTHER, SELFPAY | END 2022-07-26 14:29 | disposition home or self-care (01) | LOC: HO.MDS 14:28 | PROVIDERS: Visit Provider Internal Medicine Pulmonary Disease | DX: J45.50 Severe persistent asthma, uncomplicated (principal) | CPT/HCPCS: 96372; J2357 ==

== ENCOUNTER 2022-08-12 15:18 | Outpatient (REF) | payer OTHER, SELFPAY | END 2022-08-12 15:19 | disposition home or self-care (01) | LOC: HO.MDS 15:18 | PROVIDERS: Visit Provider Internal Medicine Pulmonary Disease | DX: J45.50 Severe persistent asthma, uncomplicated (principal) | CPT/HCPCS: 96372; J2357 ==

== ENCOUNTER 2022-08-26 14:49 | Outpatient (REF) | payer OTHER, SELFPAY | END 2022-08-26 14:50 | disposition home or self-care (01) | LOC: HO.MDS 14:49 | PROVIDERS: Visit Provider Internal Medicine Pulmonary Disease | DX: J45.50 Severe persistent asthma, uncomplicated (principal) | CPT/HCPCS: 96372; J2357 ==

== ENCOUNTER 2022-09-09 11:39 | Outpatient (REF) | payer OTHER, SELFPAY | END 2022-09-09 11:40 | disposition home or self-care (01) | LOC: HO.MDS 11:39 | PROVIDERS: Visit Provider Internal Medicine Pulmonary Disease | DX: J45.50 Severe persistent asthma, uncomplicated (principal) | CPT/HCPCS: 96372; J2357 ==

== ENCOUNTER 2022-10-01 14:34 | Outpatient (REF) | payer OTHER, SELFPAY | END 2022-10-01 14:35 | disposition home or self-care (01) | LOC: HO.MDS 14:34 | PROVIDERS: Visit Provider Internal Medicine Pulmonary Disease | DX: J45.50 Severe persistent asthma, uncomplicated (principal) | CPT/HCPCS: 96372; J2357 ==

== ENCOUNTER 2022-10-20 16:27 | Outpatient (REF) | payer OTHER, SELFPAY | END 2022-10-20 16:28 | disposition home or self-care (01) | LOC: HO.MDS 16:27 | PROVIDERS: Visit Provider Internal Medicine Pulmonary Disease | DX: J45.50 Severe persistent asthma, uncomplicated (principal) | CPT/HCPCS: 96372; J2357 ==

== ENCOUNTER 2022-11-03 14:12 | Outpatient (REF) | payer OTHER, SELFPAY | END 2022-11-03 14:13 | disposition home or self-care (01) | LOC: HO.MDS 14:12 | PROVIDERS: Visit Provider Internal Medicine Pulmonary Disease | DX: J45.50 Severe persistent asthma, uncomplicated (principal) | CPT/HCPCS: 96372; J2357 ==

== ENCOUNTER 2022-11-17 14:19 | Outpatient (REF) | payer OTHER, SELFPAY | END 2022-11-17 14:20 | disposition home or self-care (01) | LOC: HO.MDS 14:19 | PROVIDERS: Visit Provider Internal Medicine Pulmonary Disease | DX: J45.50 Severe persistent asthma, uncomplicated (principal) | CPT/HCPCS: 96372; J2357 ==

== ENCOUNTER 2022-12-01 03:00 | Outpatient (REF) | payer OTHER, SELFPAY | END 2022-12-01 03:01 | disposition home or self-care (01) | LOC: HO.MDS 03:00 | PROVIDERS: Visit Provider Internal Medicine Pulmonary Disease | DX: J45.50 Severe persistent asthma, uncomplicated (principal) | CPT/HCPCS: 96372; J2357 ==

== ENCOUNTER 2022-12-15 10:48 | Outpatient (REF) | payer OTHER, SELFPAY | END 2022-12-15 10:49 | disposition home or self-care (01) | LOC: HO.MDS 10:48 | PROVIDERS: Visit Provider Internal Medicine Pulmonary Disease | DX: J45.50 Severe persistent asthma, uncomplicated (principal) | CPT/HCPCS: 96372; J2357 ==

== ENCOUNTER 2022-12-29 | Outpatient (REF) | payer OTHER, SELFPAY | END 2022-12-29 00:01 | disposition home or self-care (01) | LOC: HO.MDS | PROVIDERS: Visit Provider Internal Medicine Pulmonary Disease | DX: J45.50 Severe persistent asthma, uncomplicated (principal) | CPT/HCPCS: 96372; J2357 ==

== ENCOUNTER 2023-01-12 14:30 | Outpatient (REF) | payer OTHER, SELFPAY | END 2023-01-12 14:31 | disposition home or self-care (01) | LOC: HO.MDS 14:30 | PROVIDERS: Visit Provider Internal Medicine Pulmonary Disease | DX: J45.50 Severe persistent asthma, uncomplicated (principal) | CPT/HCPCS: 96372; J2357 ==

== ENCOUNTER 2023-01-22 08:04 | Observation (INO) | payer OTHER, SELFPAY ==
[2023-01-22] VITALS (11 sets, daily range): BP systolic 109–137; BP diastolic 63–79; PULSE 99–122; RESP 16–22; TEMP 36.4–37.1; O2SAT 92–95; BMI 34.5; BMI 34.2
--- NOTE | ~2023-01-22 | XR_ITS ---
EXAMINATION: XR CHEST CLINICAL INFORMATION: Shortness of breath COMPARISON: January 04, 2022 TECHNIQUE: PA view of the chest was obtained. FINDINGS: No significant abnormality is noted involving the heart, lungs, mediastinum, bony thorax or soft tissues. Bilateral apical pleural-parenchymal scarring is evident. XR/XR chest 1V IMPRESSION: No acute disease.
--- NOTE | 2023-01-22 08:30 | ECG_ITS ---
Test Reason : CHEST TIGHTNESS Blood Pressure : / mmHG Vent. Rate : 091 BPM Atrial Rate : 091 BPM P-R Int : 142 ms QRS Dur : 076 ms QT Int : 370 ms P-R-T Axes : 072 008 027 degrees QTc Int : 455 ms Normal sinus rhythm Normal ECG When compared with ECG of 22-JAN-2022 22:06, No significant change was found Referred By: Cathy Miller Electronically Signed By:RICARDO LANG MD
--- NOTE | 2023-01-22 08:34 | ED_ITS ---
HPI - Asthma General Chief Complaint: Asthma Stated Complaint: asthma Time Seen by Provider: 01/22/23 08:17 Source: patient Mode of arrival: ambulatory Limitations: no limitations History of Present Illness HPI Narrative: 47-year-old male history of asthma that usually triggered with environmental allergy came in with 2 days of chest tightness and difficulty breathing. Coughing was clear phlegm, fever, no chills, no sick contacts. No recent travel, no lower extremity swelling or tenderness. Related Data Previous Rx's Medication Instructions Recorded diphenhydramine HCl 25 mg capsule 25 mg PO TID PRN allergic reaction 01/11/22 (Benadryl) #10 caps epinephrine 0.3 mg/0.3 mL 0.3 mg (0.3 mL) IM Q4H PRN 01/11/22 injection, auto-injector anaphylaxis #1 ea famotidine 20 mg tablet 20 mg PO BID #7 tabs 01/11/22 albuterol sulfate 2.5 mg/3 mL 2.5 mg (3 mL) inhalation Q4-6H PRN 01/23/22 (0.083 %) solution for nebulization shortness of breath or wheezing #90 mL omalizumab 150 mg subcutaneous 300 mg subcut Q2W 28 days #2 ea 05/26/22 solution albuterol sulfate 90 mcg/actuation 2 puff inhalation Q4-6H PRN 08/02/22 aerosol inhaler Wheezing 30 days #1 ea azithromycin 250 mg tablet See Rx Instructions PO .COMPLEX #6 10/14/22 tabs methylprednisolone 4 mg tablets in See Rx Instructions PO PER PKG DIR 10/14/22 a dose pack (Medrol (Geoffrey)) #21 ea pantoprazole 40 mg tablet,delayed 40 mg PO DAILY 90 days #90 tabs 01/19/23 release Allergies Allergy/AdvReac Type Severity Reaction Status Date / Time shrimp Allergy Severe ANAPHYLAXIS Verified 01/22/23 08:05 LOBSTER Allergy Unknown ANAPHYLAXIS Uncoded 01/10/22 04:07 Review of Systems Review of Systems: All other systems are reviewed and are negative Constitutional: Reports as per HPI and Reports no additional constitutional complaints Eyes: Reports as per HPI and Reports no additional eye complaints Reports system reviewed and no additional complaints, except as documented Cardiovascular: Reports as per HPI and Reports no additional cardiovascular complaints Respiratory: Reports as per HPI and Reports no additional respiratory complaints Gastrointestinal: Reports as per HPI and Reports no additional gastrointestinal complaints Genitourinary: Reports no additional female genitourinary complaints Musculoskeletal: Reports no additional musculoskeletal complaints Skin/Breast: Reports system reviewed and no additional complaints, except as docu Psychiatric: Reports no additional psychiatric complaints Endocrine: Reports no additional endocrine complaints Hematologic/Lymphatic: Reports no additional hematologic/lymphatic complaints Allergic/Immunologic: Reports no additional allergic/immunologic complaints Reports system reviewed and no additional complaints, except as documented and Reports Abnormal speech present [facility] Past Medical History Medical History Asthma GERD (gastroesophageal reflux disease) History of positive PPD Methadone maintenance therapy patient Surgical History History of esophagogastroduodenoscopy (EGD) History of left inguinal hernia repair History of umbilical hernia repair Hx of colonoscopy Hx of endoscopy Hx of hernia repair Hx of knee surgery Hx of shoulder surgery Family History Family History Father No problems noted. Mother No problems noted. 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 Blood pressure normal. Heart rate normal. Respiration rate normal. Temperature normal. Oxygen saturation normal. Appearance: Alert. Oriented X3. No acute distress. Head: Normal external exam. Normocephalic. Atraumatic. No Miranda signs noted. No raccoon eyes noted Eyes: PERRLA. EOMI. Conjunctiva and sclera normal. Eyelids normal. ENT: TM's Normal. Pharynx normal. Uvula midline. Moist mucous membranes. No trismus noted. No drooling noted. No muffled voice noted. Neck: Normal inspection. Neck supple. FROM. No adenopathy. Thyroid Normal. No meningeal signs. No neck mass noted. CVS: Normal heart rate and rhythm. Heart sound normal. No murmurs noted. Pulses normal throughout. Respiratory: No respiratory distress. Painless inspiration. Breath sounds normal. Expiratory wheezing with wound exploration. Chest nontender. No accessory muscle usage noted or decreased air movement noted. Abdomen: Soft and nontender. Bowel sounds normal in all 4 quadrants. No distention noted. No organomegaly noted. No visible injury noted. Back: No CVA tenderness. Full range of motion noted. Skin: Skin warm and dry. Normal skin color. Normal skin turgor. No rashes/lesions/lacerations noted. Extremities: No lower extremity edema. Extremities exhibit normal range of motion. Extremities nontender. Neuro: Oriented X 3. Cranial nerve exam: II-XII are grossly intact No motor deficit. No sensory deficit. Reflexes normal. Course Course Course Narrative: 47-year-old male with history of asthma and environmental allergy came in with asthma exacerbation that is not really think despite multiple doses of bronchodilator and prednisone. Will admit the patient for more bronchodilator and re-evaluation. Medications Administered Discontinued Medications Generic Name Dose Route Start Last Admin Trade Name Galenq PRN Reason Stop Dose Admin Albuterol Sulfate 5 mg 01/22/23 08:30 01/22/23 09:07 Albuterol Sulfate (0.083%) 2.5 Mg/3 Ml Vial.Neb INHALE 01/22/23 08:31 5 mg ONCE ONE Administration Albuterol Sulfate 5 mg 01/22/23 10:02 01/22/23 11:49 Albuterol Sulfate (0.083%) 2.5 Mg/3 Ml Vial.Neb INHALE 01/22/23 10:03 5 mg ONCE ONE Administration Albuterol/Ipratropium 3 ml 01/22/23 08:30 01/22/23 09:07 Albuterol/Iprat 2.5/0.5mg 3 Ml Ampul.Neb INHALE 01/22/23 08:31 3 ml ONCE ONE Administration Magnesium Sulfate 2 gm in 50 mls @ 25 mls/hr 01/22/23 10:02 01/22/23 10:46 Magnesium Sulfate/H2o IV 01/22/23 12:01 25 mls/hr ONCE ONE Administration Methylprednisolone Sodium Succinate 125 mg 01/22/23 10:02 01/22/23 10:42 Methylprednisolone Sod Succ 125 Mg/2 Ml Vial IVPUSH 01/22/23 10:03 125 mg ONCE ONE Administration Prednisone 60 mg 01/22/23 08:33 01/22/23 09:05 Prednisone 20 Mg Tablet PO 01/22/23 08:34 60 mg ONCE ONE Administration Medical Decision Making Differential Diagnosis Differential Diagnoses: The differential diagnosis associated with the presentation includes (Asthma, bronchitis) Admission/Observation Consideration of admission/observation: Escalation of care including admission/observation considered Consult Healthcare Provider Management of the patient was discussed with: Hospitalist (kala) Lab Data MDM Lab Attestation statement: I reviewed the patient's lab results. 01/22/23 08:57 01/22/23 08:57 Labs: Lab Results 01/22/23 01/22/23 01/22/23 Range/Units 08:57 08:57 08:57 WBC 12.4 H (4.8-10.8) X10*3/uL RBC 4.46 L (4.60-5.80) X10*6/uL Hgb 13.7 L (14.0-18.0) g/dl Hct 40.4 L (42.0-52.0) % MCV 90.6 (80.0-98.0) fL MCH 30.7 (27.0-33.0) pg MCHC 33.9 (31.0-36.0) g/dl RDW 13.4 (11.0-16.0) % Plt Count 285 (160-400) X10*3/uL MPV 11.0 (9.4-12.4) fL Immature Gran % (Auto) 0.4 (0.0-0.4) % Neut % (Auto) 80.8 H (45-73) % Lymph % (Auto) 11.3 L (20-40) % [place] % (Auto) 4.6 (2-11) % Eos % (Auto) 2.4 (0-4) % Baso % (Auto) 0.5 (0-2) % Lymph # (Auto) 1.4 (1.2-4.9) X10*3/uL [place] # (Auto) 0.6 (0.1-1.2) X10*3/uL Eos # (Auto) 0.3 (0.0-0.4) X10*3/uL Baso # (Auto) 0.1 (0.0-0.2) X10*3/uL Abs Immat Gran (auto) 0.05 H (0.00-0.03) X10*3/uL Absolute Neuts (auto) 10.0 H (2.0-8.3) x10*3/uL Absolute Nucleated RBC 0.000 (0.0-0.012) X10*3/uL Nucleated RBC % (auto) 0.0 (0.0-0.2) /100WBC Sodium 142 (135-145) mmol/L Potassium 4.2 (3.3-5.1) mmol/L Chloride 108 (96-108) mmol/L Carbon Dioxide 23 (22-29) mmol/L Anion Gap 15 (12-20) BUN 13 (9-16) mg/dL Creatinine 0.91 (0.5-1.4) mg/dL Estim Creat Clear Calc 111.7 Estimated GFR > 60 Random Glucose 107 (60-115) mg/dL Calcium 9.1 (8.4-10.2) mg/dL Troponin I High Sens < 2.7 (<3.5-35.0) ng/L Independent Interpretation I performed an independent interpretation of an: Plain X-Ray (chest: No acute intrathoracic pathology.) Radiology Impression Discussion of test interpretation with radiology: I have reviewed the radiologist's reading. Discharge Plan Discharge Clinical Impression: Asthma with acute exacerbation Patient Disposition: Admitted As Inpatient
[2023-01-22 09:01] LABS: MANUAL DIFF FLAG NO
[2023-01-22] MEDS: predniSONE 20 MG TABLET 60 MG PO (09:05)
[2023-01-22] MEDS: Albuterol/Iprat 2.5/0.5MG 3 ML AMPUL.NEB INHALE ×3 (09:07→19:38)
[2023-01-22] MEDS: Albuterol Sulfate (0.083%) 2.5 MG/3 ML VIAL.NEB 5 MG INHALE ×2 (09:07→11:49)
--- NOTE | 2023-01-22 09:13 | PC.NURSE ---
pt a&o x4, pleasant, calm and cooperative. sob, wheezing. medicated per oct. receiving breathing treatment shaniqua. currently resting quietly sitting on side of stretcher. vss. wctm
[2023-01-22 09:14] LABS: Basophils Absolute Auto 0.1 X10*3/uL (0.0-0.2); Basophils Percent Auto 0.5 % (0-2); Eosinophils Absolute Auto 0.3 X10*3/uL (0.0-0.4); Eosinophils Percent Auto 2.4 % (0-4); Hematocrit 40.4 % (42.0-52.0); Hemoglobin 13.7 g/dl (14.0-18.0); Imm Gran Abs Auto 0.05 X10*3/uL (0.00-0.03); Imm Gran Pct Auto 0.4 % (0.0-0.4); Lymphocytes Absolute Auto 1.4 X10*3/uL (1.2-4.9); Lymphocytes Percent Auto 11.3 % (20-40); Mean Corpuscular HGB Conc 33.9 g/dl (31.0-36.0); Mean Corpuscular Hemoglobin 30.7 pg (27.0-33.0); Mean Corpuscular Volume 90.6 fL (80.0-98.0); Monocytes Absolute Auto 0.6 X10*3/uL (0.1-1.2); Monocytes Percent Auto 4.6 % (2-11); Neutrophils Percent Auto 80.8 % (45-73); Platelet Count 285 X10*3/uL (160-400); Red Blood Count 4.46 X10*6/uL (4.60-5.80); Red Cell Distribution Width 13.4 % (11.0-16.0); White Blood Count 12.4 X10*3/uL (4.8-10.8)
[2023-01-22 09:19] LABS: Anion Gap 15 (12-20); Blood Urea Nitrogen 13 mg/dL (9-16); Calcium 9.1 mg/dL (8.4-10.2); Carbon Dioxide 23 mmol/L (22-29); Chloride 108 mmol/L (96-108); Creatinine Clr Calc Pharmacy 111.7; Estimated Glomerular Filt Rate > 60; Glucose Random 107 mg/dL (60-115); Potassium 4.2 mmol/L (3.3-5.1); Sodium 142 mmol/L (135-145)
[2023-01-22 09:31] LABS: Troponin-I High Sensitivity < 2.7 ng/L (<3.5-35.0)
[2023-01-22] MEDS: methylPREDNISolone Sod Succ 125 MG/2 ML VIAL IVPUSH (10:42)
[2023-01-22] MEDS: Magnesium Sulfate/H2O 2 GM/50 ML PIGGYBACK IV (10:46)
--- NOTE | 2023-01-22 11:20 | PC.NURSE ---
pt resting, awaiting updraft from respiratory. reports no pain, lung sounds wheezy
--- NOTE | 2023-01-22 13:17 | PM.IMHP ---
History of Present Illness Date of Service: 01/22/23 <AARON De Leon - Last Filed: 01/22/23 13:56> Attending physician on admission: Emerson Mckeon <AARON De Leon - Last Filed: 01/22/23 13:56> Chief Complaint: Asthma exacerbation <AARON De Leon - Last Filed: 01/22/23 13:56> Pt is a 47-year-old male with a PMH significant for?severe persistent asthma, 3 hernias with repairs, and seasonal allergies who presents to the ED with?worsening shortness of breath and wheezing. Patient states he began experiencing increased wheezing and shortness of breath on Tuesday. Despite increased use of home inhalers, SOB and wheezing worsened until last night pt was having significant difficulty breathing. Pt reports he has seasonal allergies and is allergic to pollen and often finds himself at the hospital in summer for an asthma exacerbation. Patient reports chest tightness but denies palpitations or chest pain. Denies fever, chills, nausea, vomiting, abdominal pain. In the ED patient was tachycardic to 108 and tachypneic up to 22, satting 92% O2 on RA. Labs were significant for WBC of 12.4, H&H 13.7/40.4. Electrolytes WNL. Renal and hepatic function baseline. CXR showed no acute cardiopulmonary process. EKG demonstrated normal sinus rhythm without evidence of ST elevation or depression. Pt was treated with prednisone, DuoNebs, albuterol, Mag sulfate, the prednisolone. Pt will be admitted to the hospital under observation for further treatment of asthma exacerbation. <AARON De Leon - Last Filed: 01/22/23 13:56> Review of Systems Review of Systems: Shortness of breath Wheezing Nonproductive cough Pleuritic chest tightness Denies fever, chills, nausea, vomiting, abdominal pain <AARON De Leon - Last Filed: 01/22/23 13:56> Yes all other systems are reviewed and are negative <AARON De Leon - Last Filed: 01/22/23 13:56> [facility] Medical History: Medical History Asthma GERD (gastroesophageal reflux disease) History of positive PPD Methadone maintenance therapy patient <AARON De Leon - Last Filed: 01/22/23 13:56> Family History: Family History Father No problems noted. Mother No problems noted. <AARON De Leon - Last Filed: 01/22/23 13:56> Surgical History: Surgical History History of esophagogastroduodenoscopy (EGD) History of left inguinal hernia repair History of umbilical hernia repair Hx of colonoscopy Hx of endoscopy Hx of hernia repair Hx of knee surgery Hx of shoulder surgery <AARON De Leon - Last Filed: 01/22/23 13:56> Social History: Social History Household Members: Family Household Members Other:: Housing: Apartment Do you presently have visiting nurse or other home services: No Alcohol intake: never Patient Tobacco Use Status: Never used Tobacco Smoked in Last 30 Days: No e-Cigarette/Vaping Use: Never Used Second Hand Smoke Exposure: No Use of substances other than those prescribed or required for medical reasons: No Currently Displaying Signs/Symptoms of Drug Intoxication Withdrawal: No Any prior treatment program specific to substance use: Yes Have you been hit, kicked, punched, or otherwise hurt by someone within the past year? 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 Current occupational exposures/hazards: No Cognitive needs: No Hearing needs: No Vision needs: Yes <AARON De Leon - Last Filed: 01/22/23 13:56> Meds Allergies/Adverse reactions: Allergies Allergy/AdvReac Type Severity Reaction Status Date / Time shrimp Allergy Severe ANAPHYLAXIS Verified 01/22/23 08:05 LOBSTER Allergy Unknown ANAPHYLAXIS Uncoded 01/10/22 04:07 <AARON De Leon - Last Filed: 01/22/23 13:56> Home medications: Home Medications Medication Instructions Recorded Confirmed Last Taken Type pantoprazole 40 mg tablet,delayed 40 mg PO DAILY@0630 01/22/23 01/22/23 01/21/23 History release <AARON De Leon - Last Filed: 01/22/23 13:56> Physical Exam Vital Signs and Narrative: Vital Signs: Last Vital Signs Temp 97.8 F 01/22/23 11:02 Pulse 104 H 01/22/23 11:50 Resp 18 01/22/23 11:50 BP 122/70 01/22/23 11:02 Pulse Ox 94 01/22/23 11:02 O2 Del Method Room Air 01/22/23 11:02 BMI result Body Mass Index 34.5 <AARON De Leon - Last Filed: 01/22/23 13:56> Constitutional: Alert, audibly wheezing, looking slightly uncomfortable. Mental Status: Oriented to person, place and time. Eyes: Pupils are equal, round, and reactive to light. Ear, Nose, and Throat: Oropharynx clear, mucous membranes moist. Ears and nose without deformities. Trachea midline. Respiratory: Diffuse inspiratory and expiratory wheezing throughout bilaterally. Cardiovascular: S1, S2 regular. No murmurs, rubs, or gallops. Gastrointestinal: Abdomen soft, non-tender, non-distended. Normal bowel sounds. Neurologic: Cranial nerves II-XII are grossly intact bilaterally. No focal neurological deficits. Moves all extremities spontaneously. Skin: No rashes or lesions noted. Musculoskeletal: No cyanosis or clubbing. Extremities: No edema. Psychiatric: Normal mood and affect. <AARON De Leon - Last Filed: 01/22/23 13:56> Results Labs CBC and Chem 7: 01/22/23 08:57 01/22/23 08:57 <AARON De Leon - Last Filed: 01/22/23 13:56> Labs: Laboratory Results - last 24 hr 01/22/23 01/22/23 01/22/23 08:57 08:57 08:57 MCV 90.6 MCH 30.7 MCHC 33.9 RDW 13.4 Plt Count 285 MPV 11.0 Immature Gran % (Auto) 0.4 Neut % (Auto) 80.8 H Lymph % (Auto) 11.3 L Baker % (Auto) 4.6 Eos % (Auto) 2.4 Baso % (Auto) 0.5 Lymph # (Auto) 1.4 Baker # (Auto) 0.6 Eos # (Auto) 0.3 Baso # (Auto) 0.1 Abs Immat Gran (auto) 0.05 H Absolute Neuts (auto) 10.0 H Absolute Nucleated RBC 0.000 Nucleated RBC % (auto) 0.0 Anion Gap 15 Estim Creat Clear Calc 111.7 Estimated GFR > 60 Random Glucose 107 Calcium 9.1 Troponin I High Sens < 2.7 <AARON De Leon - Last Filed: 01/22/23 13:56> Imaging Radiologist's Impressions: Impressions Chest X-Ray 01/22/23 08:38 IMPRESSION: No acute disease. <AARON De Leon Last Filed: 01/22/23 13:56> Assessment and Plan (1) Asthma with acute exacerbation: Status: Acute <AARON De Leon - Last Filed: 01/22/23 13:56> Pt is a 47-year-old male with a PMH significant for?severe persistent asthma, 3 hernias with repairs, and seasonal allergies who presents to the ED with?worsening shortness of breath and wheezing. Patient states he began experiencing increased wheezing and shortness of breath on Tuesday. Despite increased use of home inhalers, SOB and wheezing worsened until last night pt was having significant difficulty breathing. Pt will be admitted to the hospital under observation for further treatment of asthma exacerbation. Acute severe persistent asthma exacerbation Patient with increasing shortness of breath and wheezing since Tuesday despite increased use of home inhalers Patient received prednisone, DuoNebs, albuterol, magnesium sulfate, and methylprednisone in the ED Solu-Medrol 40 mg IV q.12 DuoNebs Continue home inhalers Monitor respiratory status GERD Continue famotidine Full Code Attending:?Dr. Mckeon DVT Prophylaxis: Lovenox Patient be admitted to the hospital under observation for further treatment of asthma exacerbation with nebulizers and IV steroids. <AARON De Leon - Last Filed: 01/22/23 13:56> Pt is a 47-year-old male with a PMH significant for?severe persistent asthma, 3 hernias with repairs, and seasonal allergies who presents to the ED with?worsening shortness of breath and wheezing. Patient states he began experiencing increased wheezing and shortness of breath on Tuesday. Despite increased use of home inhalers, SOB and wheezing worsened until last night pt was having significant difficulty breathing. Pt will be admitted to the hospital under observation for further treatment of asthma exacerbation. Acute severe persistent asthma exacerbation Patient with increasing shortness of breath and wheezing since Tuesday despite increased use of home inhalers Patient received prednisone, DuoNebs, albuterol, magnesium sulfate, and methylprednisone in the ED Solu-Medrol 40 mg IV q.12 DuoNebs Continue home inhalers Monitor respiratory status GERD Continue famotidine Full Code Attending:?Dr. Mckeon DVT Prophylaxis: Lovenox Patient be admitted to the hospital under observation for further treatment of asthma exacerbation with nebulizers and IV steroids. Addendum to history and physical by the advanced practice provider, AARON Quispe I interviewed and examined the patient. I discussed their presentation and management with the HENNY. I reviewed the history and physical and agree with the documentation, with the following additions and corrections: 47yo M with sev per aller asthma p/w several days of worsening dyspnea + wheezing unresponsive to home inhalers. Found to have resp distress, wheezing, dyspnea. No evidence of infection. Plan admit to M/S under observation, give IV steroids, standing/prn nebulized bronchodilators <Emerson Mckeon MD - Last Filed: 01/22/23 16:47> Time Spent With Patient Time: Total time managing care of this patient today ____ minutes. <AARON De Leon - Last Filed: 01/22/23 13:56> Quality Stroke Does the patient have a stroke diagnosis?: No <AARON De Leon Last Filed: 01/22/23 13:56> VTE Prior VTE?: No <AARON De Leon Last Filed: 01/22/23 13:56> VTE Risk Level:: Medical - moderate - high <AARON De Leon Last Filed: 01/22/23 13:56> VTE Device Contraindication: Treatment Not Indicated <AARON De Leon Last Filed: 01/22/23 13:56> VTE Drug Contraindication: N/A - Med Ordered <AARON De Leon - Last Filed: 01/22/23 13:56>
[2023-01-22] MEDS: Enoxaparin Sodium 40 MG/0.4 ML SYRINGE SUBCUT (13:50)
--- NOTE | 2023-01-22 14:43 | PC.NURSE ---
awaiting call back from RN on S3 for report
--- NOTE | 2023-01-22 15:05 | PHA.MEDREC ---
Pharmacy Consult ? Medication Reconciliation Pharmacy has completed the medication reconciliation. Spoke to patient to confirm meds.
[2023-01-22] MEDS: guaiFENesin DM 100/10/5 ML 5 ML SYRUP PO (18:04)
[2023-01-22] MEDS: Acetaminophen 325 MG TABLET 650 MG PO (18:04)
[2023-01-22] MEDS: 0.9 % Sodium Chloride Flush 3 ML SYRINGE IVFLUSH (18:04)
[2023-01-22] MEDS: methylPREDNISolone Sod Succ 40 MG/ML VIAL IVPUSH (22:05)
[2023-01-23] VITALS (8 sets, daily range): BP systolic 120–148; BP diastolic 65–70; PULSE 92–111; RESP 16–18; TEMP 36.4–36.9; O2SAT 94–99
[2023-01-23] MEDS: 0.9 % Sodium Chloride Flush 3 ML SYRINGE IVFLUSH ×3 (01:03→22:10)
[2023-01-23] MEDS: Acetaminophen 325 MG TABLET 650 MG PO ×2 (01:06→19:13)
[2023-01-23] MEDS: Omeprazole 20 MG CAPSULE.DR PO (06:36)
[2023-01-23] MEDS: Albuterol/Iprat 2.5/0.5MG 3 ML AMPUL.NEB INHALE ×4 (07:54→19:09)
[2023-01-23 08:19] LABS: IDNOW Serial# 6674DD1D
[2023-01-23 08:20] LABS: COVID-19 Test Negative (Negative)
[2023-01-23] MEDS: methylPREDNISolone Sod Succ 40 MG/ML VIAL IVPUSH ×2 (09:26→22:10)
--- NOTE | 2023-01-23 09:35 | HO.PM.IMPN ---
Subjective Subjective Date of Service: 01/23/23 Interval History: Dyspnea + wheezing improved though still present with ambulation Review of Systems Review of Systems: Yes all other systems are reviewed and are negative Physical Exam Vital Signs: Vital Signs: Last Vital Signs Temp 98.5 F 01/23/23 08:00 Pulse 99 01/23/23 08:00 Resp 18 01/23/23 08:00 BP 120/66 01/23/23 08:00 Pulse Ox 99 01/23/23 08:00 O2 Del Method Room Air 01/23/23 03:01 BMI result Body Mass Index 34.2 Gen: in no acute distress HEENT: sclera anicteric, moist mucus membranes Neck: supple Lungs: bilateral expiratory wheezing at bases, prolonged expiratory phase Heart: regular rate and rhythm, no murmurs Abd: soft, non-tender, non-distended Ext: no edema Skin: warm/well-perfused Neuro: alert and oriented x3, no focal findings Psych: appropriate affect Objective Data Active Medications Acetaminophen (Acetaminophen 325 Mg Tablet) 650 mg PO Q6H PRN PRN Reason: Pain, Mild (Pain Scale 1-3) Last Admin: 01/23/23 01:06 Dose: 650 mg Documented By: JES Albuterol/Ipratropium (Albuterol/Iprat 2.5/0.5mg 3 Ml Ampul.Neb) 3 ml INHALE RQ4H WHILE AWAKE [facility] Last Admin: 01/23/23 07:54 Dose: 3 ml Documented By: KATHRIN Docusate Sodium (Docusate Sodium 100 Mg Capsule) 100 mg PO DAILY PRN PRN Reason: Constipation Enoxaparin Sodium (Enoxaparin Sodium 40 Mg/0.4 Ml Syringe) 40 mg SUBCUT Q24H [facility] Last Admin: 01/22/23 13:50 Dose: 40 mg Documented By: VINNY Guaifenesin/Dextromethorphan (Guaifenesin Dm 100/10/5 Ml 5 Ml Syrup) 5 ml PO Q4H PRN PRN Reason: kough Last Admin: 01/22/23 18:04 Dose: 5 ml Documented By: NOY Methylprednisolone Sodium Succinate (Methylprednisolone Sod Succ 40 Mg/Ml Vial) 40 mg IVPUSH Q12H [facility] Last Admin: 01/23/23 09:26 Dose: 40 mg Documented By: CARLIN Omeprazole (Omeprazole 20 Mg Capsule.) 20 mg PO DAILY@0630 [facility] Last Admin: 01/23/23 06:36 Dose: 20 mg Documented By: JES Ondansetron HCl (Ondansetron Hcl 4 Mg/2 Ml Vial) 4 mg IVPUSH Q8H PRN PRN Reason: Nausea and Vomiting Pharmacy Consult (Consult Rx Perform Med Rec) 1 each MISCELLANE ONCE PRN PRN Reason: Consult order Sodium Chloride (0.9 % Sodium Chloride Flush 3 Ml Syringe) 3 ml IVFLUSH QSHIFT [facility] Last Admin: 01/23/23 09:26 Dose: 3 ml Documented By: CARLIN Labs 01/22/23 08:57 01/22/23 08:57 Labs: Laboratory Results - last 24 hr 01/23/23 08:01 COVID-19 (TIP) Negative COVID-19 Clin Com See Note Assessment and Plan (1) Asthma with acute exacerbation: Status: Acute Plan d#2 47yo M with severe persistent allergic asthma admitted for acute exacerbation # acute exacerbation of severe persistent allergic asthma - continue IV steroids, standing/prn albuterol # GERD - PPI # VTE ppx: LMWH # dispo: anticipate home in next 1-2d In my clinical judgment, the patient requires continued inpatient hospitalization for the following reasons: resp treatments Time Spent With Patient Time: Total time managing care of this patient today __25__ minutes. Quality Stroke Does the patient have a stroke diagnosis?: No VTE Prior VTE?: No VTE Risk Level:: Medical - moderate - high VTE Device Contraindication: Treatment Not Indicated VTE Drug Contraindication: N/A - Med Ordered
--- NOTE | 2023-01-23 11:50 | MHC.CM.PN ---
PT REPORTS HE LIVES WITH HIS HE IS INDEPENDENT WITH CARE, WORKS AND DRIVES HE USES A NEBULIZER FOR DME HE DECLINES TO COMPLETE A HCP PCP: [facility]NELI[facility] OBSERVATION NOTICE DELIVERED CURRENT DCP: HOME NO SERVICES VIA FAMILY TRANSPORT
[2023-01-23] MEDS: Enoxaparin Sodium 40 MG/0.4 ML SYRINGE SUBCUT (12:40)
[2023-01-24 03:16] VITALS: BP 138/91; PULSE 100; RESP 18; TEMP 36.2; O2SAT 94
[2023-01-24] MEDS: Omeprazole 20 MG CAPSULE.DR PO (05:36)
[2023-01-24 07:55] VITALS: BP 133/72; PULSE 92; RESP 17; TEMP 36.8; O2SAT 94
[2023-01-24] MEDS: Albuterol/Iprat 2.5/0.5MG 3 ML AMPUL.NEB INHALE (08:01)
[2023-01-24 08:03] VITALS: PULSE 84; RESP 20; O2SAT 97
[2023-01-24] MEDS: 0.9 % Sodium Chloride Flush 3 ML SYRINGE IVFLUSH (08:53)
--- NOTE | 2023-01-24 09:27 | P.DS_ITS ---
DS: Providers Provider Date of Service: 01/24/23 Date of admission: 01/22/23 13:21 Date of discharge: 01/24/23 Primary care physician: Skinny Wright MD DS: Diagnosis Discharge Diagnosis (1) Asthma with acute exacerbation: Status: Acute (2) Severe persistent allergic asthma with acute exacerbation: Status: Acute DS: Summary Hospital Course Hospital Course: from admission H+P by hospitalist AARON Quispe, 01/22/23: Pt is a 47-year-old male with a PMH significant for?severe persistent asthma, 3 hernias with repairs, and seasonal allergies who presents to the ED with?worsening shortness of breath and wheezing.? Patient states he began experiencing increased wheezing and shortness of breath on Tuesday. Despite increased use of home inhalers, SOB and wheezing worsened until last night pt w as having significant difficulty breathing. Pt reports he has seasonal allergies and is allergic to pollen and often finds himself at the hospital in summer for an asthma exacerbation.? Patient reports chest tightness but denies palpitations or chest pain.? Denies fever, chills, nausea, vomiting, abdominal pain. In the ED patient was tachycardic to 108 and tachypneic up to 22, satting 92% O2 on RA. Labs were significant for WBC of 12.4, H&H 13.7/40.4.? Electrolytes WNL.? Renal and hepatic function baseline. CXR showed no acute cardiopulmonary process. EKG demonstrated normal sinus rhythm without evidence of ST elevation or depression. Pt was treated with prednisone, DuoNebs, albuterol, Mag sulfate, the prednisolone. Pt will be admitted to the hospital under observation for further treatment of asthma exacerbation. 47yo M with severe persistent allergic asthma admitted for acute exacerbation. He was admitted to the med-surg floor and given IV steroids and nebulized bronchodilators for 2 days with symptomatic improvement. No evidence of bacterial or viral infection. Not on a controller med. Discharged on 3 days of prednisone along with Breo for control. Also prescribed cetirizine for allergies and albuterol prescriptions were refilled. Instructed to follow up with PCP within 1-2 weeks. Time Spent with Patient Time attestation: Total time managing care of this patient today ___25_ minutes. Discharge coordination time: Less than 30 minutes Quality: Safe Use of Opioids Does Pt have an Active Cancer Diagnosis on the Problem List?: No Quality: Stroke Does the patient have a stroke diagnosis?: No Physical Exam Vital Signs: Vital Signs: Last Vital Signs Temp 98.2 F 01/24/23 07:55 Pulse 84 01/24/23 08:03 Resp 20 01/24/23 08:03 BP 133/72 01/24/23 07:55 Pulse Ox 94 01/24/23 07:55 O2 Del Method Room Air 01/24/23 07:55 O2 Flow Rate 98 01/23/23 19:01 BMI result Body Mass Index 34.2 Gen: in no acute distress HEENT: sclera anicteric, moist mucus membranes Neck: supple Lungs: clear to auscultation bilaterally Heart: regular rate and rhythm, no murmurs Abd: soft, non-tender, non-distended Ext: no edema Skin: warm/well-perfused Neuro: alert and oriented x3, no focal findings Psych: appropriate affect DS: Data Data Completed and Pending Completed studies during hospitalization [Text1]: Laboratory Results WBC 12.4 X10*3/uL (4.8-10.8) H 01/22/23 08:57 RBC 4.46 X10*6/uL (4.60-5.80) L 01/22/23 08:57 Hgb 13.7 g/dl (14.0-18.0) L 01/22/23 08:57 Hct 40.4 % (42.0-52.0) L 01/22/23 08:57 MCV 90.6 fL (80.0-98.0) 01/22/23 08:57 MCH 30.7 pg (27.0-33.0) 01/22/23 08:57 MCHC 33.9 g/dl (31.0-36.0) 01/22/23 08:57 RDW 13.4 % (11.0-16.0) 01/22/23 08:57 Plt Count 285 X10*3/uL (160-400) 01/22/23 08:57 MPV 11.0 fL (9.4-12.4) 01/22/23 08:57 Immature Gran % (Auto) 0.4 % (0.0-0.4) 01/22/23 08:57 Neut % (Auto) 80.8 % (45-73) H 01/22/23 08:57 Lymph % (Auto) 11.3 % (20-40) L 01/22/23 08:57 Reagan % (Auto) 4.6 % (2-11) 01/22/23 08:57 Eos % (Auto) 2.4 % (0-4) 01/22/23 08:57 Baso % (Auto) 0.5 % (0-2) 01/22/23 08:57 Lymph # (Auto) 1.4 X10*3/uL (1.2-4.9) 01/22/23 08:57 Reagan # (Auto) 0.6 X10*3/uL (0.1-1.2) 01/22/23 08:57 Eos # (Auto) 0.3 X10*3/uL (0.0-0.4) 01/22/23 08:57 Baso # (Auto) 0.1 X10*3/uL (0.0-0.2) 01/22/23 08:57 Abs Immat Gran (auto) 0.05 X10*3/uL (0.00-0.03) H 01/22/23 08:57 Absolute Neuts (auto) 10.0 x10*3/uL (2.0-8.3) H 01/22/23 08:57 Absolute Nucleated RBC 0.000 X10*3/uL (0.0-0.012) 01/22/23 08:57 Nucleated RBC % (auto) 0.0 /100WBC (0.0-0.2) 01/22/23 08:57 Sodium 142 mmol/L (135-145) 01/22/23 08:57 Potassium 4.2 mmol/L (3.3-5.1) 01/22/23 08:57 Chloride 108 mmol/L (96-108) 01/22/23 08:57 Carbon Dioxide 23 mmol/L (22-29) 01/22/23 08:57 Anion Gap 15 (12-20) 01/22/23 08:57 BUN 13 mg/dL (9-16) 01/22/23 08:57 Creatinine 0.91 mg/dL (0.5-1.4) 01/22/23 08:57 Estim Creat Clear Calc 111.7 01/22/23 08:57 Estimated GFR > 60 01/22/23 08:57 Random Glucose 107 mg/dL (60-115) 01/22/23 08:57 Calcium 9.1 mg/dL (8.4-10.2) 01/22/23 08:57 Troponin I High Sens < 2.7 ng/L (<3.5-35.0) 01/22/23 08:57 COVID-19 (TIP) Negative (Negative) 01/23/23 08:01 COVID-19 Clin Com See Note 01/23/23 08:01 Impressions Chest X-Ray 01/22/23 08:38 IMPRESSION: No acute disease. Discharge Plan Discharge Patient Disposition: Home, Self-Care Referrals: Skinny Wright MD [Primary Care Provider] - 1 Week Discharge Medications: New prednisone 20 mg tablet 20 mg PO DAILY Qty: 6 0RF fluticasone furoate-vilanterol [Breo Ellipta] 200-25 mcg/dose blister with device 1 inh inhalation DAILY Qty: 60 0RF cetirizine 10 mg tablet 10 mg PO DAILY PRN (Reason: allergy symptoms) Qty: 30 0RF Continued epinephrine 0.3 mg/0.3 mL auto-injector 0.3 mg IM Q4H PRN (Reason: anaphylaxis) Qty: 1 0RF pantoprazole 40 mg tablet,delayed release (DR/EC) 40 mg PO DAILY@0630 albuterol sulfate 2.5 mg /3 mL (0.083 %) solution for nebulization 2.5 mg inhalation Q4-6H PRN (Reason: shortness of breath or wheezing) Qty: 90 0RF albuterol sulfate 90 mcg/actuation HFA aerosol inhaler 2 puff inhalation Q4-6H PRN (Reason: Wheezing) 30 Days Qty: 1 0RF Discharge Orders: Discharge Order (Routine); Ordered 01/24/23 Ordered By: Emerson Mckeon Diet: Advance to usual diet Activity on Discharge: As tolerated Stand Alone Forms: Patient Portal Discharge page Care Plan Goals: respiratory health Health Concerns: asthma exacerbation Plan of Treatment: prednisone 40 mg daily x 3 days albuterol for rescue Breo for control cetirizine for allergies Please follow up with your primary care doctor within 1 week. Return to the hospital if you experience recurrent or worsening symptoms. Assessment: See Discharge Summary.
--- NOTE | 2023-01-24 09:57 | MHC.CM.PN ---
PT WILL DC HOME TODAY WITH NO SERVICES VIA PRIVATE TRANSPORT
== END 2023-01-24 10:59 | disposition home or self-care (01) ==
LOC: HO.ED 12:21 → HO.EDOVER 13:43 → HO.S3 14:26
PROVIDERS: Admitting Provider Student in an Organized Health Care Education/Training Program; Emergency Provider Emergency Medicine; PCP Internal Medicine; Visit Provider Family Medicine
DX: J45.51 Severe persistent asthma with (acute) exacerbation (principal); K21.9 Gastro-esophageal reflux disease without esophagitis; Z20.822 Contact with and (suspected) exposure to COVID-19
CPT/HCPCS: 36415; 71045; 80048; 84484; 85025; 87635; 93005; 94640; 96365; 96366; 96372; 96375; 96376; 99221; 99285; J1650; J2920; J2930; J3475

== ENCOUNTER 2023-01-26 14:41 | Outpatient (REF) | payer OTHER, SELFPAY | END 2023-01-26 14:42 | disposition home or self-care (01) | LOC: HO.MDS 14:41 | PROVIDERS: Visit Provider Internal Medicine Pulmonary Disease | DX: J45.50 Severe persistent asthma, uncomplicated (principal) | CPT/HCPCS: 96372; J2357 ==

== ENCOUNTER 2023-02-09 14:33 | Outpatient (REF) | payer OTHER, SELFPAY | END 2023-02-09 14:34 | disposition home or self-care (01) | LOC: HO.MDS 14:33 | PROVIDERS: Visit Provider Internal Medicine Pulmonary Disease | DX: J45.50 Severe persistent asthma, uncomplicated (principal) | CPT/HCPCS: 96372; J2357 ==

== ENCOUNTER 2023-02-25 12:54 | Outpatient (REF) | payer OTHER, SELFPAY | END 2023-02-25 12:55 | disposition home or self-care (01) | LOC: HO.MDS 12:54 | PROVIDERS: Visit Provider Internal Medicine Pulmonary Disease | DX: J45.50 Severe persistent asthma, uncomplicated (principal) | CPT/HCPCS: 96372; J2357 ==

== ENCOUNTER 2023-03-11 10:00 | Outpatient (AMB) | payer OTHER, MEDICAID, SELFPAY ==
[2023-03-11 10:02] VITALS: BP 110/76; PULSE 80; O2SAT 96; BMI 34.6
--- NOTE | 2023-03-11 10:02 | MHC.PC.OV ---
Vital Signs 03/11/23 10:02 Height 5 ft 7 in Weight 221 lb BMI 34.6 BP 110/76 Blood Pressure Location Lt brachial Position Sitting Pulse 80 Pulse Source Pulse Oximeter Pulse Oximetry (%) 96 Oxygen Delivery Method Room Air Intake Visit Reasons: Annual Physical Yard Jockey Required: No Accompanied by: Self / Same As Patient Allergies shrimp Allergy (Severe, Verified 03/11/23 10:02) ANAPHYLAXIS LOBSTER Allergy (Unknown, Uncoded 01/10/22 04:07) ANAPHYLAXIS Medication List - Last Reconciled 03/11/23 by Skinny Wright MD albuterol sulfate 2.5 mg (3 mL) inhalation Q4-6H PRN albuterol sulfate 90 mcg/actuation 2 puffs inhalation Q4-6H PRN 30 days cetirizine 10 mg PO DAILY PRN epinephrine 0.3 mg (0.3 mL) IM Q4H PRN fluticasone furoate-vilanterol 200-25 mcg/dose (Breo Ellipta) 1 inh inhalation DAILY pantoprazole 40 mg PO DAILY@0630 Tobacco use date assessed: 03/11/23 Dental Screening Dental Screen Date: 03/11/23 Did you have a dental visit in the last 12 months?: No Did you have a dental problem in the last 6 months where you did not have access to dental care?: No Was dental information given to patient?: Patient has dentist HPI Annual Physical HPI Details asthma; stable [facility] Medical History Asthma GERD (gastroesophageal reflux disease) History of positive PPD Methadone maintenance therapy patient Surgical History History of esophagogastroduodenoscopy (EGD) History of left inguinal hernia repair History of umbilical hernia repair Hx of colonoscopy Hx of endoscopy Hx of hernia repair Hx of knee surgery Hx of shoulder surgery Family History Father No problems noted. Mother No problems noted. 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 1. Little interest or pleasure in doing things: not at all 2. Feeling down, depressed, or hopeless: not at all 3. Trouble falling or staying asleep, or sleeping too much: not at all 4. Feeling tired or having little energy: not at all 5. Poor appetite or overeating: not at all 6. Feeling bad about yourself - or that you are a failure or have let yourself or your family down: not at all 7. Trouble concentrating on things, such as reading the newspaper or watching television: not at all 8. Moving or speaking so slowly that other people could have noticed. Or the opposite - being so fidgety or restless that you have been moving around a lot more than usual: not at all 9. Thoughts that you would be better off or of hurting yourself in some way: not at all Total score: 0 Depression Screening Interpretation: Negative 34842 - PHQ-9 Billing: Yes Source: Developed by Drs. Jean Pierre Flynn, Kailee Sanderson, Dayday Cueto and colleagues, with an educational ten from [email or web address]. Thrive Questionnaire Date Thrive assessed: 03/11/23 I am a: Patient What is your living situation today?: I have a steady place to live Within the past 12 months, did the food you bought not last and you didn't have the money to get more?: Never true Within the past 12 months, did you worry whether your food would run out before you got money to buy more?: Never true Do you have trouble paying for medicines?: No Do you have trouble getting transportation to medical appointments?: No Do you have trouble paying your heating and electricity bill?: No Do you have trouble taking care of your child, family member or friend?: No Do you have trouble with day-to-day activities such as bathing, preparing meals, shopping, managing finances, etc.?: No Are you currently unemployed and looking for a job?: No Are you interested in more education?: No Please select the resources that you would like help with: None Currently or been in a relationship where the following occur: no concerns reported AUDIT C Alcohol Use Questionnaire (AUDIT-C) 1. How often do you have a drink containing alcohol?: Never Total Score: 0 Score Reviewed/Action Taken: Yes CELSO-7 AMB Questionnaire CELSO-7 Date CELSO - 7 assessed: 03/11/23 Feeling nervous, anxious, or on edge: 0 = Not at all Not being able to stop or control worryin = Not at all Worrying too much about different things: 0 = Not at all Trouble relaxin = Not at all Being so restless that it is hard to sit still: 0 = Not at all Becoming easily annoyed or irritable: 0 = Not at all Feeling afraid as if something awful might happen: 0 = Not at all Total CELSO-7 score (0-4 normal; 5-9 mild; 10-14 moderate; 15-21 severe): 0 Source: Developed by Drs. Jean Pierre Flynn, Kailee Sanderson, Dayday Cueto and colleagues, with an educational ten from [email or web address]. CELSO-7 Assessment Billing CELSO-7 Assessment Tool: CELSO-7 Assessment 51536 Review of Systems Const Denies chills, Denies fatigue, Denies headache(s) and Denies weight loss Eyes Denies change in vision, Denies diplopia and Denies eye pain ENT Denies vertigo, Denies dizziness, Denies headache(s) and Denies nasal discharge Card Denies chest pain, Denies rapid heart rate and Denies dyspnea on exertion Resp Denies chest congestion, Denies cough, Denies pain with cough and Denies dyspnea on exertion GI Denies abdominal pain, Denies hematochezia and Denies change in bowel habits Musc Denies myalgias, Denies arthralgias and Denies joint swelling Skin/Breast Denies lesions and Denies unusual bruising Neuro Denies vertigo, Denies dizziness, Denies headache(s) and Denies focal weakness Endo Denies fatigue Physical exam (Primary Care) Vital Signs: Last Vital Signs Pulse 80 03/11/23 10:02 BP 110/76 03/11/23 10:02 Pulse Ox 96 03/11/23 10:02 Oxygen Delivery Method Room Air 03/11/23 10:02 BMI result Body Mass Index 34.6 Tobacco/Smoking Status: Tobacco use Status Tobacco use date assessed 03/11/23 03/11/23 10:08 Patient Tobacco Use Status Never used Tobacco 03/11/23 10:08 e-Cigarette/Vaping Use Never Used 03/11/23 10:08 PHQ-9: PHQ-9 Score PHQ-9: Total score 0 03/11/23 10:08 Depression Screening Interpretation: Negative Thrive Assessment: Date of Thrive Assessment Date Thrive assessed 03/11/23 03/11/23 10:08 Currently or been in a relationship where the following occur: no concerns reported Const General: cooperative, healthy appearing and no acute distress Orientation/consciousness: oriented to person, oriented to place and oriented to time HENMT Head: Yes normal to inspection, Yes normocephalic and Yes atraumatic Mouth: Normal oral and palatal mucosa present and tongue normal Throat: Yes posterior oropharynx normal and Yes uvula midline Eyes General: appearance normal, both eyes and all related structures Neck Neck: Yes normal visual inspection, Yes full ROM and Yes no lymphadenopathy Thyroid: Thyroid normal Carotids: normal carotid upstroke Chest Chest palpation & inspection: normal inspection of the chest Resp Effort & Inspection: normal respiratory effort and able to speak in complete sentences Auscultation: clear to auscultation bilaterally Cardio Jugular venous distension: no JVD Palpation: normal PMI Rate: regular rate Rhythm: regular rhythm Heart sounds: S1 normal heart sound present and S2 normal heart sound present GI Inspection: Yes normal to inspection Palpation (GI): Soft to palpation and No hepatosplenomegaly present Auscultation: normal bowel sounds General: Yes no CVA tenderness Back/Spine/Pelvis Back: no CVA tenderness Skin General skin exam: no rashes or lesions noted Neuro General: oriented to person, oriented to place and oriented to time Extrem General: Yes normal to inspection and Yes full ROM Assessment and Plan Assessment & Plan (1) Physical exam: Code(s): Z00.00 - Encounter for general adult medical examination without abnormal findings Plan: stable (2) Asthma: Code(s): J45.909 - Unspecified asthma, uncomplicated Plan: same rx Medications: Refilled albuterol sulfate 90 mcg/actuation 2 puffs inhalation Q4-6H PRN 1 ea 0RF Wheezing 30 days Skinny Wright MD epinephrine 0.3 mg (0.3 mL) IM Q4H PRN 1 ea 0RF anaphylaxis Skinny Wright MD Discontinued albuterol sulfate 2.5 mg (3 mL) inhalation Q4-6H PRN 90 mL 0RF shortness of breath or wheezing albuterol sulfate 90 mcg/actuation 2 puffs inhalation Q4-6H PRN 1 ea 0RF Wheezing 30 days Emerson Mckeon MD pantoprazole 40 mg PO DAILY 90 days 90 tabs 11RF Coding Level of Care Code New Pt Prev Care 40-64y(31597) Diagnoses Physical exam Z00.00 Asthma J45.909 Additional Codes CELSO-7 Assessment Billing - CELSO-7 Assessment Tool: CELSO-7 Assessment 84373 ([id number])
== END 2023-03-11 10:19 | disposition home or self-care (01) ==
PROVIDERS: Visit Provider Internal Medicine
DX: Z00.00 Encounter for general adult medical examination without abnormal findings (principal); J45.909 Unspecified asthma, uncomplicated
CPT/HCPCS: 99386

== ENCOUNTER 2023-03-11 10:34 | Outpatient (REF) | payer OTHER, MEDICAID, SELFPAY | END 2023-03-11 10:35 | disposition home or self-care (01) | LOC: HO.MDS 10:34 | PROVIDERS: Visit Provider Internal Medicine Pulmonary Disease | DX: J45.50 Severe persistent asthma, uncomplicated (principal) | CPT/HCPCS: 96372; J2357 ==

== ENCOUNTER 2023-03-25 14:57 | Outpatient (REF) | payer OTHER, MEDICAID, SELFPAY | END 2023-03-25 14:58 | disposition home or self-care (01) | LOC: HO.MDS 14:57 | PROVIDERS: Visit Provider Internal Medicine Pulmonary Disease | DX: J45.50 Severe persistent asthma, uncomplicated (principal) | CPT/HCPCS: 96372; J2357 ==

== ENCOUNTER 2023-04-15 15:09 | Outpatient (REF) | payer OTHER, MEDICAID, SELFPAY | END 2023-04-15 15:10 | disposition home or self-care (01) | LOC: HO.MDS 15:09 | PROVIDERS: Visit Provider Internal Medicine Pulmonary Disease | DX: J45.50 Severe persistent asthma, uncomplicated (principal) | CPT/HCPCS: 96372; J2357 ==

== ENCOUNTER 2023-04-29 14:49 | Outpatient (REF) | payer OTHER, MEDICAID, SELFPAY | END 2023-04-29 14:50 | disposition home or self-care (01) | LOC: HO.MDS 14:49 | PROVIDERS: Visit Provider Internal Medicine Pulmonary Disease | DX: J45.50 Severe persistent asthma, uncomplicated (principal) | CPT/HCPCS: 96372; J2357 ==

== ENCOUNTER 2023-05-20 15:00 | Outpatient (REF) | payer OTHER, MEDICAID, SELFPAY | END 2023-05-20 15:01 | disposition home or self-care (01) | LOC: HO.MDS 15:00 | PROVIDERS: Visit Provider Internal Medicine Pulmonary Disease | DX: J45.50 Severe persistent asthma, uncomplicated (principal) | CPT/HCPCS: 96372; J2357 ==

== ENCOUNTER 2023-06-03 15:10 | Outpatient (REF) | payer OTHER, MEDICAID, SELFPAY | END 2023-06-03 15:11 | disposition home or self-care (01) | LOC: HO.MDS 15:10 | PROVIDERS: Visit Provider Internal Medicine Pulmonary Disease | DX: J45.50 Severe persistent asthma, uncomplicated (principal) | CPT/HCPCS: 96372; J2357 ==

== ENCOUNTER 2023-06-16 11:32 | Outpatient (AMB) | payer OTHER, MEDICAID, SELFPAY ==
[2023-06-16 11:38] VITALS: BP 119/72; PULSE 82; O2SAT 97; BMI 36.6
--- NOTE | 2023-06-16 11:38 | MHC.OFFVIS ---
Intake Vital Signs 06/16/23 11:38 Height 5 ft 7 in Weight 233 lb 11.04 oz BMI 36.6 BP 119/72 Blood Pressure Location Rt brachial Position Sitting Pulse 82 Pulse Source Doppler Pulse Oximetry (%) 97 Oxygen Delivery Method Room Air Intake Visit Reasons: asthma Allergies shrimp Allergy (Severe, Verified 06/16/23 11:41) ANAPHYLAXIS LOBSTER Allergy (Unknown, Uncoded 01/10/22 04:07) ANAPHYLAXIS HPI asthma HPI Details 48-year-old gentleman, lifetime nonsmoker, followed for severe persistent? asthma, and environmental allergies.? Symptoms have been well controlled on Xolair.? After the last office visit his stop Advair in did not required. He rarely needs his albuterol MDI. He denies recent exacerbations. [facility] Medical History Asthma GERD (gastroesophageal reflux disease) History of positive PPD Methadone maintenance therapy patient Surgical History History of esophagogastroduodenoscopy (EGD) History of left inguinal hernia repair History of umbilical hernia repair Hx of colonoscopy Hx of endoscopy Hx of hernia repair Hx of knee surgery Hx of shoulder surgery Family History Father No problems noted. Mother No problems noted. 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 Current occupational exposures/hazards: No Cognitive needs: No Hearing needs: No Vision needs: Yes Review of Systems Const Denies daytime sleepiness, Denies excessive sweating, Denies fatigue, Denies fever(s), Denies lethargy, Denies malaise, Denies night sweats, Denies snoring and Denies weight loss Eyes Denies blurry vision and Denies itchy eyes ENT Denies nasal congestion, Denies post nasal drip, Denies sinus pain, Denies sinus pressure and Denies other ( Thrush) Card Denies chest pain, Denies pedal edema, Denies dyspnea, Denies orthopnea and Denies paroxysmal nocturnal dyspnea Resp Denies cough, Denies hemoptysis, Denies excessive phlegm production, Denies dyspnea, Denies snoring and Denies wheezing GI Denies abdominal pain and Denies heartburn Musc Denies myalgias, Denies arthralgias and Denies joint swelling Skin/Breast Denies rash Neuro Denies memory loss and Denies seizure-like activity Psych Denies abnormal sleep pattern, Denies anxiety and Denies memory loss Endo Denies excessive sweating, Denies fatigue and Denies heat intolerance Du/Lymph Denies easy bruising Aller/Immun Denies itchy eyes, Denies seasonal rhinorrhea and Denies wheezing Physical Exam Vital Signs: Last Vital Signs Pulse 82 06/16/23 11:38 BP 119/72 06/16/23 11:38 Pulse Ox 97 06/16/23 11:38 Oxygen Delivery Method Room Air 06/16/23 11:38 BMI result Body Mass Index 36.6 Const General: no acute distress and alert Nutritional Appearance: not obese Orientation/consciousness: Other orientation findings ( oriented) HEENT Head: Yes atraumatic Eyes General: appearance normal, both eyes and all related structures Sclerae: sclerae normal EOM: EOMs intact bilaterally Neck Neck: Yes supple Lymphatic: no lymphadenopathy noted Resp Effort & Inspection: normal respiratory effort and no use of accessory muscles Auscultation: clear to auscultation bilaterally Cardio Rate: regular rate Rhythm: regular rhythm Heart sounds: no gallops, no murmurs and no rubs Skin General skin exam: other ( warm) Extrem General: No clubbing, No cyanosis and No edema Assessment & Plan Assessment & Plan (1) Severe persistent allergic asthma: Code(s): J45.50 - Severe persistent asthma, uncomplicated Plan: Well controlled on current regimen of Xolair and albuterol MDI/nebs. Continue current regimen. (2) Environmental allergies: Code(s): Z91.09 - Other allergy status, other than to drugs and biological substances Plan: Will controlled on Xolair. Continue current regimen. Coding Level of Care Code Est Pt Level 4 (74925) Diagnoses Severe persistent allergic asthma J45.50 Environmental allergies Z91.09
== END 2023-06-16 11:50 | disposition home or self-care (01) ==
PROVIDERS: PCP Internal Medicine; Visit Provider Internal Medicine Pulmonary Disease
DX: J45.50 Severe persistent asthma, uncomplicated (principal); Z91.09 Other allergy status, other than to drugs and biological substances
CPT/HCPCS: 99214

== ENCOUNTER → 2023-06-16 11:32 | Outpatient (BNVA) | payer OTHER, MEDICAID, SELFPAY | PROVIDERS: Visit Provider Internal Medicine Pulmonary Disease ==

== ENCOUNTER 2023-06-23 21:05 | Emergency (ER) | payer OTHER, MEDICAID, SELFPAY ==
--- NOTE | ~2023-06-23 | XR_ITS ---
EXAMINATION: XR FOOT, RIGHT CLINICAL INFORMATION: Injury. Pain. COMPARISON: None available TECHNIQUE: AP, lateral, and oblique views of the right foot. FINDINGS: There is a comminuted fracture great toe right foot. No visible acute fracture or dislocation seen. There is loss of first MTP joint space with periarticular spurring. A small calcaneal heel and retrocalcaneal enthesophyte is noted. The ankle mortise and subtalar joints are normal. XR/XR foot RT 2V IMPRESSION: 1. Comminuted fracture great toe with mild soft tissue swelling. No visible acute fracture or dislocation seen. 2. Small calcaneal heel and retrocalcaneal enthesophytes.
[2023-06-23 21:17] VITALS: BP 135/84; PULSE 87; RESP 20; TEMP 36.7; O2SAT 97; BMI 36.0
--- NOTE | 2023-06-23 22:57 | PC.NURSE ---
This RN and CAROLINA Gramajo cleaned patient's right big toe. Patient has visible swlling and mild bruising to the area. There is bleeding from right below the nail from the impact of the marble hitting the toe. Bleeding is controlled at this time. Patient has sensation in toe on top and bottom. Patient able to move it but with significant pain. Otherwise patient is calm and resting comfortably, offers no complaints
[2023-06-23 22:58] VITALS: BP 137/73; PULSE 84; RESP 17; O2SAT 96
--- NOTE | 2023-06-23 23:03 | ED_ITS ---
HPI - Extremity Injury (Lower) General Chief Complaint: Extremity Injury, Lower Stated Complaint: right foot inj Time Seen by Provider: 06/23/23 22:29 Source: patient and family Mode of arrival: ambulatory History of Present Illness HPI Narrative: 48-year-old male who presents after dropping a marble table top onto his right foot. Related Data Home Medications Medication Instructions Recorded Confirmed pantoprazole 40 mg tablet,delayed 40 mg PO DAILY@0630 01/22/23 03/11/23 release Previous Rx's Medication Instructions Recorded albuterol sulfate 2.5 mg/3 mL 2.5 mg (3 mL) inhalation Q4-6H PRN 01/24/23 (0.083 %) solution for nebulization shortness of breath or wheezing #90 mL cetirizine 10 mg tablet 10 mg PO DAILY PRN allergy 01/24/23 symptoms #30 tabs fluticasone furoate 200 1 inh inhalation DAILY #60 ea 01/24/23 mcg-vilanterol 25 mcg/dose inhalation powder (Breo Ellipta) epinephrine 0.3 mg/0.3 mL 0.3 mg (0.3 mL) IM Q4H PRN 03/11/23 injection, auto-injector anaphylaxis #1 ea albuterol sulfate 90 mcg/actuation 2 puff inhalation Q4-6H PRN 05/05/23 aerosol inhaler Wheezing 30 days #8.5 grams Allergies Allergy/AdvReac Type Severity Reaction Status Date / Time shrimp Allergy Severe ANAPHYLAXIS Verified 06/16/23 11:41 LOBSTER Allergy Unknown ANAPHYLAXIS Uncoded 01/10/22 04:07 Review of Systems Review of Systems: Pertinent positives and negatives as stated in HPI PMFSH Past Medical History Source: nursing notes reviewed Medical History History of positive PPD GERD (gastroesophageal reflux disease) Asthma Methadone maintenance therapy patient Surgical History Hx of endoscopy History of esophagogastroduodenoscopy (EGD) Hx of colonoscopy History of umbilical hernia repair History of left inguinal hernia repair Hx of knee surgery Hx of hernia repair Hx of shoulder surgery Family History Family History Father No problems noted. Mother No problems noted. 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 GENERAL: Well developed, well nourished, in no acute distress. HEAD: Normocephalic/atraumatic EYES: PERRLA, EOMI LUNGS: Normal breath sounds. No adventitious sounds or accessory muscle use. Sp O2<96> CARDIOVASCULAR: Regular rate and rhythm without noted murmurs ABDOMEN: Soft, non-tender, non-distended with bowel sounds. MUSCULOSKELETAL: No tenderness, deformities, or effusions noted on gross inspection. EXTREMITIES: No cyanosis, clubbing or edema. RIGHT GREAT TOE: Subungual hematoma, toe is swollen and tender to palpation, there is a slight skin tear to the nail bed SKIN: Inspection of the skin reveals no rashes NEUROLOGIC: Alert and oriented x 4. Strength and sensation to light touch were grossly intact x 4. Medications Administered Discontinued Medications Generic Name Dose Route Start Last Admin Trade Name Freq PRN Reason Stop Dose Admin Acetaminophen 975 mg 06/23/23 23:03 06/23/23 23:17 Acetaminophen 325 Mg Tablet PO 06/23/23 23:04 975 mg ONCE ONE Administration Ibuprofen 400 mg 06/23/23 23:04 06/23/23 23:17 Ibuprofen 400 Mg Tablet PO 06/23/23 23:05 400 mg ONCE ONE Administration Medical Decision Making Medical Decision Making MDM Narrative: 48-year-old male with history and clinical presentation most consistent with light coulee right great toe fracture as well as the obvious subungual hematoma. Patient is not diabetic. On review of x-rays patient has a comminuted fracture of the right great toe. Trephination of the nail was completed x2 with good evacuation of blood. Patient was then placed in a postop surgical shoe and given combination analgesics. Differential Diagnosis Differential Diagnoses: The differential diagnosis associated with the presentation includes Please see the discussion above Admission/Observation Consideration of admission/observation: Escalation of care including admission/observation considered Please see the discussion above Procedures Nail Trephination Time out: No Location (toes): right (Great toe) Sterile prep: other Method of drainage: nail cautery Procedure successful: Yes Patient tolerated procedure: No Complications Discharge Plan Discharge Clinical Impression: Comminuted fracture, Fracture of toe of right foot, Hematoma, subungual, great toe, right Patient Disposition: Home, Self-Care Instructions: Toe Fracture (ED), Post Surgical Shoe (ED) Additional Instructions: 1. Tylenol 1000 mg, orally, every 6 hours as needed for pain control. Do not exceed 4000 mg within 24 hours. 2. Ibuprofen 400 mg, orally with milk or food, every 6 hours as needed for pain control. I highly recommend that you use this medication with Tylenol for improved symptom relief. 3. Recommend application of ice to unexposed skin for 5-10 minutes, 3 to 4 times a day when possible. 4. Please follow-up with your primary care doctor by calling the office on Tuesday. Soake in Epsom salts daily,gently dry and apply over the counter antibiotic ointment to wound. Return to the ER for any worsening symptoms. Prescriptions: No Action albuterol sulfate 90 mcg/actuation HFA aerosol inhaler 2 puff inhalation Q4-6H PRN (Reason: Wheezing) 30 Days Qty: 8.5 3RF pantoprazole 40 mg tablet,delayed release (DR/EC) 40 mg PO DAILY@0630 fluticasone furoate-vilanterol [Breo Ellipta] 200-25 mcg/dose blister with device 1 inh inhalation DAILY Qty: 60 0RF albuterol sulfate 2.5 mg /3 mL (0.083 %) solution for nebulization 2.5 mg inhalation Q4-6H PRN (Reason: shortness of breath or wheezing) Qty: 90 0RF cetirizine 10 mg tablet 10 mg PO DAILY PRN (Reason: allergy symptoms) Qty: 30 0RF epinephrine 0.3 mg/0.3 mL auto-injector 0.3 mg IM Q4H PRN (Reason: anaphylaxis) Qty: 1 0RF Referrals: Skinny Wright MD [Primary Care Provider] - Stand Alone Forms: Work/School Release Interventions: ED Discharge Assessment Last Done: 06/23/23 23:40 Discharge Date/Time: 06/23/23 23:40
[2023-06-23] MEDS: Acetaminophen 325 MG TABLET 975 MG PO (23:17)
[2023-06-23] MEDS: Ibuprofen 400 MG TABLET PO (23:17)
== END 2023-06-23 23:40 | disposition home or self-care (01) ==
PROVIDERS: Emergency Provider Student in an Organized Health Care Education/Training Program; PCP Internal Medicine
DX: S92.401A Displaced unspecified fracture of right great toe, initial encounter for closed fracture (principal); S90.111A Contusion of right great toe without damage to nail, initial encounter; M79.671 Pain in right foot; Y29.XXXA Contact with blunt object, undetermined intent, initial encounter; Y93.9 Activity, unspecified; Y92.9 Unspecified place or not applicable; Y99.9 Unspecified external cause status; Z79.899 Other long term (current) drug therapy
CPT/HCPCS: 11740; 73620; 99283; 99284

== ENCOUNTER 2023-06-24 13:42 | Outpatient (AMB) | payer OTHER, MEDICAID, SELFPAY ==
[2023-06-24 13:43] VITALS: BP 110/66; PULSE 85; O2SAT 97; BMI 36.6
--- NOTE | 2023-06-24 13:43 | MHC.PC.OV ---
Vital Signs 06/24/23 13:43 Height 5 ft 7 in Weight 234 lb BMI 36.6 BP 110/66 Blood Pressure Location Lt brachial Position Sitting Pulse 85 Pulse Source Pulse Oximeter Pulse Oximetry (%) 97 Oxygen Delivery Method Room Air Intake Visit Reasons: [facility] 06[place]23 dropped table on foot Table Tender Sludge: Not Required per policy Accompanied by: Self / Same As Patient Allergies shrimp Allergy (Severe, Verified 06/24/23 13:44) ANAPHYLAXIS LOBSTER Allergy (Unknown, Uncoded 06/24/23 13:44) ANAPHYLAXIS Medication List - Last Reconciled 06/24/23 by Skinny Wright MD albuterol sulfate 2.5 mg (3 mL) inhalation Q4-6H PRN albuterol sulfate 90 mcg/actuation 2 puffs inhalation Q4-6H PRN 30 days cetirizine 10 mg PO DAILY PRN epinephrine 0.3 mg (0.3 mL) IM Q4H PRN fluticasone furoate-vilanterol 200-25 mcg/dose (Breo Ellipta) 1 inh inhalation DAILY pantoprazole 40 mg PO DAILY@0630 Tobacco use date assessed: 03/11/23 Dental Screening Dental Screen Date: 06/24/23 Did you have a dental visit in the last 12 months?: No Did you have a dental problem in the last 6 months where you did not have access to dental care?: No Was dental information given to patient?: Patient has dentist HPI [facility] [place] 06[place]23 dropped table on foot HPI Details right great toe comminuted fracture yesterday PFSH Medical History History of positive PPD GERD (gastroesophageal reflux disease) Asthma Methadone maintenance therapy patient Surgical History Hx of endoscopy History of esophagogastroduodenoscopy (EGD) Hx of colonoscopy History of umbilical hernia repair History of left inguinal hernia repair Hx of knee surgery Hx of hernia repair Hx of shoulder surgery Family History Father No problems noted. Mother No problems noted. 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 1. Little interest or pleasure in doing things: not at all 2. Feeling down, depressed, or hopeless: not at all 3. Trouble falling or staying asleep, or sleeping too much: not at all 4. Feeling tired or having little energy: not at all 5. Poor appetite or overeating: not at all 6. Feeling bad about yourself - or that you are a failure or have let yourself or your family down: not at all 7. Trouble concentrating on things, such as reading the newspaper or watching television: not at all 8. Moving or speaking so slowly that other people could have noticed. Or the opposite - being so fidgety or restless that you have been moving around a lot more than usual: not at all 9. Thoughts that you would be better off or of hurting yourself in some way: not at all Total score: 0 Depression Screening Interpretation: Negative Depression Screening Done: Yes 92589 - PHQ-9 Billing: Yes Source: Developed by Drs. Jean Pierre Flynn, Dayday Henriquez and colleagues, with an educational ten from [employer]. Thrive Questionnaire Date Thrive assessed: 03/11/23 AUDIT C Alcohol Use Questionnaire (AUDIT-C) 1. How often do you have a drink containing alcohol?: Never Total Score: 0 Score Reviewed/Action Taken: Yes CELSO-7 AMB Questionnaire CELSO-7 Date CELSO - 7 assessed: 03/11/23 Source: Developed by Drs. Jean Pierre Flynn, Dayday Henriquez and colleagues, with an educational ten from [employer]. Review of Systems Const Denies chills, Denies headache(s) and Denies weight loss ENT Denies headache(s) Card Denies chest pain, Denies syncope, Denies irregular heart rhythm and Denies dyspnea Resp Denies chest congestion, Denies cough and Denies dyspnea GI Denies abdominal pain, Denies change in stool character, Denies nausea and Denies vomiting Musc Denies deformity and Denies joint swelling Neuro Denies syncope and Denies headache(s) Physical exam (Primary Care) Vital Signs: Last Vital Signs Pulse 85 06/24/23 13:43 BP 110/66 06/24/23 13:43 Pulse Ox 97 06/24/23 13:43 Oxygen Delivery Method Room Air 06/24/23 13:43 BMI result Body Mass Index 36.6 Tobacco/Smoking Status: Tobacco use Status Tobacco use date assessed 03/11/23 06/24/23 13:45 Patient Tobacco Use Status Never used Tobacco 06/24/23 13:45 e-Cigarette/Vaping Use Never Used 06/24/23 13:45 PHQ-9: PHQ-9 Score PHQ-9: Total score 0 06/24/23 13:45 Depression Screening Interpretation: Negative Thrive Assessment: Date of Thrive Assessment Date Thrive assessed 03/11/23 06/24/23 13:45 Const General: cooperative and no acute distress HENMT Head: Yes normal to inspection Neck Neck: Yes normal visual inspection Chest Chest palpation & inspection: normal inspection of the chest Extrem Other: right great toe swollen and contuses Assessment and Plan Assessment & Plan (1) Fractured great toe: Code(s): S92.403A - Displaced unspecified fracture of unspecified great toe, initial encounter for closed fracture Plan: rx and referral Orders: Referrals Orthopedics Referral S92.403A - Displaced unspecified fracture of unspecified great toe, initial encounter for closed fracture Medications: New ibuprofen 600 mg PO Q6H PRN 60 tabs 2RF pain Coding Level of Care Code Est Pt Level 3 (13642) Diagnoses Fractured great toe S92.403A
== END 2023-06-24 14:02 | disposition home or self-care (01) ==
PROVIDERS: PCP Internal Medicine; Visit Provider Internal Medicine
DX: S92.403A Displaced unspecified fracture of unspecified great toe, initial encounter for closed fracture (principal)
CPT/HCPCS: 99213

== ENCOUNTER 2023-06-24 14:20 | Outpatient (REF) | payer OTHER, MEDICAID, SELFPAY | END 2023-06-24 14:21 | disposition home or self-care (01) | LOC: HO.MDS 14:20 | PROVIDERS: Visit Provider Internal Medicine Pulmonary Disease | DX: J45.50 Severe persistent asthma, uncomplicated (principal) | CPT/HCPCS: 96372; J2357 ==

== ENCOUNTER 2023-07-11 13:36 | Outpatient (AMB) | payer OTHER, MEDICAID, SELFPAY ==
--- NOTE | 2023-07-11 13:51 | A.OFFVIS_ITS ---
Intake Vital Signs 07/11/23 13:54 Height 5 ft 7 in Weight 234 lb BMI 36.6 Intake Visit Reasons: fc- Fracture of toe of right foot Intake Note: Antonio a 48 year old male presents today for an ER follow up of right , DOI 06/23/23. Patient reports that he dropped a marble table top on his right foot, presented to [facility] ED same day where xrays were taken and placed in a post op shoe. He states improvement in pain since his injury. He has numbness and tingling in his foot. Allergies shrimp Allergy (Severe, Verified 06/24/23 13:44) ANAPHYLAXIS LOBSTER Allergy (Unknown, Uncoded 06/24/23 13:44) ANAPHYLAXIS HPI fc- Fracture of toe of right foot HPI Details 48-year-old male who [facility] follow-up of right toe injury s/p dropping a marble table on top of his right foot, 06/23/23. He was seen at ED the same day where x-rays were taken and he was placed in a post-op shoe. He currently states he has improvement in his pain since the DOI. He states he has numbness and tingling in his foot. He does not have a history of diabetes. 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 [facility] Medical History History of positive PPD GERD (gastroesophageal reflux disease) Asthma Methadone maintenance therapy patient Surgical History Hx of endoscopy History of esophagogastroduodenoscopy (EGD) Hx of colonoscopy History of umbilical hernia repair History of left inguinal hernia repair Hx of knee surgery Hx of hernia repair Hx of shoulder surgery Family History Father No problems noted. Mother No problems noted. 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 He does have significant bruising and swelling in toe with some redness no foul odor. NVI. Office Procedures Fracture Care Fracture Billing Code: Fracture Billing Code Results Reviewed Results Reviewed: xrays of the right foot obtained on 06/23/23 IMPRESSION: 1. Comminuted fracture great toe with mild soft tissue swelling. No visible acute fracture or dislocation seen. 2. Small calcaneal heel and retrocalcaneal enthesophytes. Assessment & Plan Assessment & Plan (1) Fracture of toe of right foot: Code(s): S92.911A - Unspecified fracture of right toe(s), initial encounter for closed fracture Qualifiers: Encounter type: initial encounter Toe: great toe Fracture type: closed Phalanx: distal Fracture alignment: nondisplaced Qualified Code(s): S92.424A - Nondisplaced fracture of distal phalanx of right great toe, initial encounter for closed fracture Plan I did place him on antibiotics for preventive measures since she does have a fracture and abrasion to the nailbed. He was placed in a short boot. He can weight bearing as tolerated. I did encourage him to perform warm soapy water soaks just for 10 minutes to allow for healing. He is to dry it thoroughly and he should cover it properly when wearing a sock and shoe. I would like to see him/her back in 4 weeks with x-rays and skin check, sooner if needed. Medications: New sulfamethoxazole-trimethoprim 800-160 mg (Bactrim DS) 1 tab PO BID 20 tabs 0RF suture abscess 10 days Patient Instructions: Scribed for Harry Rosado PA-C, by Jose Baum medical staff physician, on 07/11/2023 at 1:45 PM EST. Harry Galeas PA-C, have personally reviewed and agree with the information entered by the scribe. Coding Level of Care Code New Pt Level 3 (54312) Diagnoses Closed nondisplaced fracture of distal phalanx of right great toe, initial encounter S92.424A Encounter type: initial encounter Toe: great toe Fracture type: closed Phalanx: distal Fracture alignment: nondisplaced CPT Codes Fracture Care - Fracture Billing Code: Fracture Billing Code ([id number])
[2023-07-11 13:54] VITALS: BMI 36.6
== END 2023-07-11 14:24 | disposition home or self-care (01) ==
PROVIDERS: PCP Internal Medicine; Visit Provider Physician Assistant
DX: S92.424A Nondisplaced fracture of distal phalanx of right great toe, initial encounter for closed fracture (principal)
CPT/HCPCS: 99204

== ENCOUNTER → 2023-07-11 13:36 | Outpatient (BNVA) | payer OTHER, MEDICAID, SELFPAY | PROVIDERS: PCP Internal Medicine; Visit Provider Physician Assistant ==

== ENCOUNTER 2023-07-22 14:48 | Outpatient (REF) | payer OTHER, MEDICAID, SELFPAY | END 2023-07-22 14:49 | disposition home or self-care (01) | LOC: HO.MDS 14:48 | PROVIDERS: Visit Provider Internal Medicine Pulmonary Disease | DX: J45.50 Severe persistent asthma, uncomplicated (principal) | CPT/HCPCS: 96372; J2357 ==

== ENCOUNTER 2023-08-05 10:25 | Outpatient (REF) | payer OTHER, MEDICAID, SELFPAY | END 2023-08-05 10:26 | disposition home or self-care (01) | LOC: HO.MDS 10:25 | PROVIDERS: Visit Provider Internal Medicine Pulmonary Disease | DX: J45.50 Severe persistent asthma, uncomplicated (principal) | CPT/HCPCS: 96372; J2357 ==

== ENCOUNTER 2023-08-08 09:13 | Outpatient (AMB) | payer OTHER, MEDICAID, SELFPAY ==
[2023-08-08 09:18] VITALS: BMI 36.6
--- NOTE | 2023-08-08 09:18 | MHC.OFFVIS ---
Intake Vital Signs 08/08/23 09:18 Height 5 ft 7 in Weight 234 lb BMI 36.6 Intake Visit Reasons: OV-Rt great toe fx-xrays Intake Note: Antonio a 48 year old male presents today for a follow up of right great toe fx, DOI 06/23/23. Xrays updated in office. Patient reports he discontinued wearing walking boot yesterday. States improvement in pain since his injury however he continues to have mild sharp pain with weight bearing. Allergies shrimp Allergy (Severe, Verified 08/08/23 09:18) ANAPHYLAXIS LOBSTER Allergy (Unknown, Uncoded 08/08/23 09:18) ANAPHYLAXIS HPI OV-Rt great toe fx-xrays HPI Details 48-year-old male who returns to the office today for a follow-up of right great toe fracture, 06/23/23. He states he has improvement in his pain but he does c/o mild sharp pain in his toe with weight bearing. He reports he discontinued wearing the walking boot yesterday. [facility] Medical History History of positive PPD GERD (gastroesophageal reflux disease) Asthma Methadone maintenance therapy patient Surgical History Hx of endoscopy History of esophagogastroduodenoscopy (EGD) Hx of colonoscopy History of umbilical hernia repair History of left inguinal hernia repair Hx of knee surgery Hx of hernia repair Hx of shoulder surgery Family History Father No problems noted. Mother No problems noted. 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 No open wound. No hematoma present. He has no tenderness to palpation over the distal end of the right toe. NVI. Results Reviewed Results Reviewed: Xrays were obtained in the office today and personally reviewed by me of the right great toe IMPRESSION: 1. Comminuted fracture great toe with interval healing Assessment & Plan Assessment & Plan (1) Fracture of toe of right foot: Code(s): S92.911A - Unspecified fracture of right toe(s), initial encounter for closed fracture Qualifiers: Encounter type: subsequent encounter Fracture alignment: nondisplaced Fracture type: closed Phalanx: distal Toe: great toe Fracture healing: with routine healing Qualified Code(s): S92.424D - Nondisplaced fracture of distal phalanx of right great toe, subsequent encounter for fracture with routine healing Plan He will resume increasing activity as tolerated. He will continue working without restrictions and follow-up as needed if symptoms arise. Orders: Orders XR foot RT min 3V Today S92.351A - Displaced fracture of fifth metatarsal bone, right foot, initial encounter for closed fracture Patient Instructions: Scribed for Harry Rosado PA-C, by Jose Baum medical record technician, on 08/08/2023 at 9:00 AM EST. I, Harry Rosado PA-C, have personally reviewed and agree with the information entered by the scribe. Coding Level of Care Code Global (63810) Diagnoses Closed nondisplaced fracture of distal phalanx of right great toe with routine healing, subsequent encounter S92.424D Encounter type: subsequent encounter Fracture alignment: nondisplaced Fracture type: closed Phalanx: distal Toe: great toe Fracture healing: with routine healing
== END 2023-08-08 09:33 | disposition home or self-care (01) ==
PROVIDERS: PCP Internal Medicine; Visit Provider Physician Assistant
DX: S92.424D Nondisplaced fracture of distal phalanx of right great toe, subsequent encounter for fracture with routine healing (principal)
CPT/HCPCS: 99212

== ENCOUNTER 2023-08-08 10:50 | Outpatient (REF) | payer OTHER, MEDICAID, SELFPAY ==
--- NOTE | ~2023-08-08 | XR_ITS ---
EXAMINATION: XR FOOT, RIGHT CLINICAL INFORMATION: Displaced fracture fifth metatarsal COMPARISON: Prior x-rays 06/23/2023. TECHNIQUE: AP, lateral, and oblique views of the right foot. FINDINGS: Mildly displaced comminuted fracture the distal phalanx of the great toe unchanged. No callus formation identified. 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 XR/XR foot RT min 3V IMPRESSION: Comminuted fracture of the distal phalanx of the great toe unchanged.
== END 2023-08-08 10:51 | disposition home or self-care (01) ==
LOC: HO.HOSX 10:50
PROVIDERS: Visit Provider Physician Assistant
DX: S92.424D Nondisplaced fracture of distal phalanx of right great toe, subsequent encounter for fracture with routine healing (principal)
CPT/HCPCS: 73630

== ENCOUNTER 2023-08-19 14:52 | Outpatient (REF) | payer OTHER, MEDICAID, SELFPAY | END 2023-08-19 14:53 | disposition home or self-care (01) | LOC: HO.MDS 14:52 | PROVIDERS: Visit Provider Internal Medicine Pulmonary Disease | DX: J45.50 Severe persistent asthma, uncomplicated (principal) | CPT/HCPCS: 96372; J2357 ==

== ENCOUNTER 2023-09-02 14:50 | Outpatient (REF) | payer OTHER, MEDICAID, SELFPAY | END 2023-09-02 14:51 | disposition home or self-care (01) | LOC: HO.MDS 14:50 | PROVIDERS: Visit Provider Internal Medicine Pulmonary Disease | DX: J45.50 Severe persistent asthma, uncomplicated (principal) | CPT/HCPCS: 96372; J2357 ==

== ENCOUNTER 2023-09-05 10:37 | Outpatient (AMB) | payer OTHER, MEDICAID, SELFPAY ==
[2023-09-05 10:39] VITALS: BP 110/72; PULSE 78; O2SAT 98; BMI 36.2
--- NOTE | 2023-09-05 10:39 | A.OFFPC_ITS ---
Vital Signs 09/05/23 10:39 Height 5 ft 7 in Weight 231 lb BMI 36.2 BP 110/72 Blood Pressure Location Lt brachial Position Sitting Pulse 78 Pulse Source Pulse Oximeter Pulse Oximetry (%) 98 Oxygen Delivery Method Room Air Intake Visit Reasons: cough for 2 weeks Fuel Conversion Technician Required: No Process Pumper: Not Required per policy Accompanied by: Self / Same As Patient Allergies shrimp Allergy (Severe, Verified 09/05/23 10:40) ANAPHYLAXIS LOBSTER Allergy (Unknown, Uncoded 09/05/23 10:40) ANAPHYLAXIS Tobacco use date assessed: 09/05/23 Dental Screening Dental Screen Date: 09/05/23 Did you have a dental visit in the last 12 months?: No Did you have a dental problem in the last 6 months where you did not have access to dental care?: No Was dental information given to patient?: Patient has dentist HPI cough for 2 weeks HPI Details productive cough and wheezing for 2 weeks PFSH Medical History History of positive PPD GERD (gastroesophageal reflux disease) Asthma Methadone maintenance therapy patient Surgical History Hx of endoscopy History of esophagogastroduodenoscopy (EGD) Hx of colonoscopy History of umbilical hernia repair History of left inguinal hernia repair Hx of knee surgery Hx of hernia repair Hx of shoulder surgery Family History Father No problems noted. Mother No problems noted. 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 1. Little interest or pleasure in doing things: not at all 2. Feeling down, depressed, or hopeless: not at all 3. Trouble falling or staying asleep, or sleeping too much: not at all 4. Feeling tired or having little energy: not at all 5. Poor appetite or overeating: not at all 6. Feeling bad about yourself - or that you are a failure or have let yourself or your family down: not at all 7. Trouble concentrating on things, such as reading the newspaper or watching television: not at all 8. Moving or speaking so slowly that other people could have noticed. Or the opposite - being so fidgety or restless that you have been moving around a lot more than usual: not at all 9. Thoughts that you would be better off or of hurting yourself in some way: not at all Total score: 0 Depression Screening Interpretation: Negative Depression Screening Done: Yes 56577 - PHQ-9 Billing: Yes Source: Developed by Drs. Jean Pierre Flynn, Kailee Sanderson, Dayday Cueto and colleagues, with an educational ten from [email or web address]. Thrive Questionnaire Date Thrive assessed: 09/05/23 I am a: Patient What is your living situation today?: I have a steady place to live Within the past 12 months, did the food you bought not last and you didn't have the money to get more?: Never true Within the past 12 months, did you worry whether your food would run out before you got money to buy more?: Never true Do you have trouble paying for medicines?: No Do you have trouble getting transportation to medical appointments?: No Do you have trouble paying your heating and electricity bill?: No Do you have trouble taking care of your child, family member or friend?: No Do you have trouble with day-to-day activities such as bathing, preparing meals, shopping, managing finances, etc.?: No Are you currently unemployed and looking for a job?: No Are you interested in more education?: No Please select the resources that you would like help with: None AUDIT C Alcohol Use Questionnaire (AUDIT-C) 1. How often do you have a drink containing alcohol?: Never Total Score: 0 Score Reviewed/Action Taken: Yes CELSO-7 AMB Questionnaire CELSO-7 Date CELSO - 7 assessed: 09/05/23 Feeling nervous, anxious, or on edge: 0 = Not at all Not being able to stop or control worryin = Not at all Worrying too much about different things: 0 = Not at all Trouble relaxin = Not at all Being so restless that it is hard to sit still: 0 = Not at all Becoming easily annoyed or irritable: 0 = Not at all Feeling afraid as if something awful might happen: 0 = Not at all Total CELSO-7 score (0-4 normal; 5-9 mild; 10-14 moderate; 15-21 severe): 0 Source: Developed by Drs. Jean Pierre Flynn, Kailee Sanderson, Dayday Cueto and colleagues, with an educational ten from [email or web address]. CELSO-7 Assessment Billing CELSO-7 Assessment Tool: CELSO-7 Assessment 60292 Review of Systems Const Denies chills, Denies headache(s) and Denies weight loss ENT Denies headache(s) Card Denies chest pain, Denies syncope, Denies irregular heart rhythm and Denies dyspnea Resp Denies dyspnea GI Denies abdominal pain, Denies change in stool character, Denies nausea and Denies vomiting Musc Denies deformity and Denies joint swelling Neuro Denies syncope and Denies headache(s) Physical exam (Primary Care) Vital Signs: Last Vital Signs Pulse 78 09/05/23 10:39 BP 110/72 09/05/23 10:39 Pulse Ox 98 09/05/23 10:39 Oxygen Delivery Method Room Air 09/05/23 10:39 BMI result Body Mass Index 36.2 Tobacco/Smoking Status: Tobacco use Status Tobacco use date assessed 09/05/23 09/05/23 10:40 Patient Tobacco Use Status Never used Tobacco 09/05/23 10:40 e-Cigarette/Vaping Use Never Used 09/05/23 10:40 PHQ-9: PHQ-9 Score PHQ-9: Total score 0 09/05/23 10:41 Depression Screening Interpretation: Negative Thrive Assessment: Date of Thrive Assessment Date Thrive assessed 09/05/23 09/05/23 10:41 Const General: cooperative, comfortable, no acute distress and alert Neck Neck: Yes no lymphadenopathy Thyroid: Thyroid normal Resp Effort & Inspection: normal respiratory effort Auscultation: clear to auscultation bilaterally Percussion: percussion normal Cardio Jugular venous distension: no JVD Palpation: normal PMI Rate: regular rate Rhythm: regular rhythm Heart sounds: S1 normal heart sound present and S2 normal heart sound present GI Inspection: Yes normal to inspection Palpation (GI): No hepatosplenomegaly present Skin General skin exam: no rashes or lesions noted Extrem General: Yes no clubbing, cyanosis or edema Assessment and Plan Assessment & Plan (1) Cough: Code(s): R05.9 - Cough, unspecified Plan: rx Medications: New azithromycin take 500 mg today (day 1), then 250 mg for 4 days (days 2-5) PO 6 tabs 0RF methylprednisolone (Medrol (Geoffrey)) PO PER PKG DIR 21 ea 0RF Refilled albuterol sulfate 90 mcg/actuation 2 puffs inhalation Q4-6H PRN 8.5 grams 3RF Wheezing 30 days J45.909 - Unspecified asthma, uncomplicated Coding Level of Care Code Est Pt Level 3 (35977) Diagnoses Cough R05.9 Additional Codes CELSO-7 Assessment Billing - CELSO-7 Assessment Tool: CELSO-7 Assessment 01024 ([id number])
== END 2023-09-05 10:52 | disposition home or self-care (01) ==
PROVIDERS: PCP Internal Medicine; Visit Provider Internal Medicine
DX: R05.9 Cough, unspecified (principal); J45.909 Unspecified asthma, uncomplicated
CPT/HCPCS: 99213

== ENCOUNTER 2023-11-24 13:18 | Outpatient (AMB) | payer OTHER, MEDICAID, SELFPAY ==
[2023-11-24 13:22] VITALS: BP 134/70; PULSE 70; O2SAT 98; BMI 36.6
--- NOTE | 2023-11-24 13:22 | A.OFFPC_ITS ---
Vital Signs 11/24/23 13:22 Height 5 ft 7 in Weight 234 lb BMI 36.6 BP 134/70 Blood Pressure Location Lt brachial Position Sitting Pulse 70 Pulse Source Pulse Oximeter Pulse Oximetry (%) 98 Oxygen Delivery Method Room Air Intake Visit Reasons: Allergies swelling in tongue and lips Hockey Scout Required: No Clinical Operations Consultant: Not Required per policy Accompanied by: Self / Same As Patient Allergies shrimp Allergy (Severe, Verified 11/24/23 13:23) ANAPHYLAXIS LOBSTER Allergy (Unknown, Uncoded 11/24/23 13:23) ANAPHYLAXIS Medication List - Last Reconciled 11/24/23 by Skinny Wright MD albuterol sulfate 2.5 mg (3 mL) inhalation Q4-6H PRN albuterol sulfate 90 mcg/actuation 2 puffs inhalation Q4-6H PRN 30 days cetirizine 10 mg PO DAILY PRN epinephrine 0.3 mg (0.3 mL) IM Q4H PRN fluticasone furoate-vilanterol 200-25 mcg/dose (Breo Ellipta) 1 inh inhalation DAILY ibuprofen 600 mg PO Q6H PRN methylprednisolone (Medrol (Geoffrey)) PO PER PKG DIR pantoprazole 40 mg PO DAILY@0630 Tobacco use date assessed: 09/05/23 Dental Screening Dental Screen Date: 09/05/23 HPI Allergies swelling in tongue and lips HPI Details swollen tongue and lips ;new sheets [facility] Medical History History of positive PPD GERD (gastroesophageal reflux disease) Asthma Methadone maintenance therapy patient Surgical History Hx of endoscopy History of esophagogastroduodenoscopy (EGD) Hx of colonoscopy History of umbilical hernia repair History of left inguinal hernia repair Hx of knee surgery Hx of hernia repair Hx of shoulder surgery Family History (Updated 11/24/23 @ 13:24 by NAY Moreno) Father No problems noted. Mother No problems noted. 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 Jean Pierre Flynn, Kailee Sanderson, Dayday Cueto and colleagues, with an educational ten from [employer] - is now [employer]. Review of Systems Const Denies chills, Denies headache(s) and Denies weight loss ENT Denies headache(s) Card Denies chest pain, Denies syncope, Denies irregular heart rhythm and Denies dyspnea Resp Denies chest congestion, Denies cough and Denies dyspnea GI Denies abdominal pain, Denies change in stool character, Denies nausea and Denies vomiting Musc Denies deformity and Denies joint swelling Neuro Denies syncope and Denies headache(s) Physical exam (Primary Care) Vital Signs: Last Vital Signs Pulse 70 11/24/23 13:22 BP 134/70 11/24/23 13:22 Pulse Ox 98 11/24/23 13:22 Oxygen Delivery Method Room Air 11/24/23 13:22 BMI result Body Mass Index 36.6 Tobacco/Smoking Status: Tobacco use Status Tobacco use date assessed 09/05/23 11/24/23 13:24 Patient Tobacco Use Status Never used Tobacco 11/24/23 13:24 e-Cigarette/Vaping Use Never Used 11/24/23 13:24 Thrive Assessment: Date of Thrive Assessment Date Thrive assessed 09/05/23 11/24/23 13:24 Const General: cooperative, comfortable, no acute distress and alert HENMT Other: swollen tongue and lips; no stridor Neck Neck: Yes no lymphadenopathy Thyroid: Thyroid normal Resp Effort & Inspection: normal respiratory effort Auscultation: clear to auscultation bilaterally Percussion: percussion normal Cardio Jugular venous distension: no JVD Palpation: normal PMI Rate: regular rate Rhythm: regular rhythm Heart sounds: S1 normal heart sound present and S2 normal heart sound present GI Inspection: Yes normal to inspection Palpation (GI): No hepatosplenomegaly present Skin General skin exam: no rashes or lesions noted Extrem General: Yes no clubbing, cyanosis or edema Assessment and Plan Assessment & Plan (1) Angioedema: Code(s): T78.3XXA - Angioneurotic edema, initial encounter Plan: due to new sheets; rx sent Medications: New methylprednisolone (Medrol (Geoffrey)) PO PER PKG DIR 21 ea 0RF hydroxyzine pamoate 25 mg PO QID PRN 60 caps 3RF itching Coding Level of Care Code Est Pt Level 3 (72054) Diagnoses Angioedema T78.3XXA
== END 2023-11-24 13:37 | disposition home or self-care (01) ==
PROVIDERS: PCP Internal Medicine; Visit Provider Internal Medicine
DX: T78.3XXA Angioneurotic edema, initial encounter (principal)
CPT/HCPCS: 99213

== ENCOUNTER 2024-01-16 13:01 | Emergency (ER) | payer OTHER, MEDICAID, SELFPAY ==
[2024-01-16] VITALS (7 sets, daily range): BP systolic 116–142; BP diastolic 74–94; PULSE 90–106; RESP 15–20; TEMP 36.4–37.1; O2SAT 95–97; BMI 35.0
--- NOTE | ~2024-01-16 | XR_ITS ---
EXAMINATION: XR CHEST CLINICAL INFORMATION: Dyspnea for one week COMPARISON: Chest x-ray on 01/22/2023 TECHNIQUE: 2 views of the chest were obtained. FINDINGS: The cardiac silhouette is normal. There is mild diffuse bronchial wall thickening. There are no areas of consolidation. There are no pleural effusions or pneumothoraces. The bones and soft tissues are unremarkable for the patient's age. XR/XR chest 2V IMPRESSION: Bronchial wall thickening may be infectious and/or inflammatory in etiology.
--- NOTE | 2024-01-16 13:34 | ED.SOB ---
HPI - SOB/Dyspnea General Chief Complaint: Dyspnea Stated Complaint: Asthma Time Seen by Provider: 01/16/24 13:41 Source: patient Mode of arrival: ambulatory Limitations: no limitations History of Present Illness ED Provider: Dr. Murphy HPI Narrative: Patient with increasing shortness of breath, states that his asthma is getting worse secondary to the pollen MD elicited complaint: shortness of breath Pertinent past history: asthma Onset (ago): day(s) Timing: constant Severity: moderate Related Data Home Medications ?Medication ?Instructions ?Recorded ?Confirmed pantoprazole 40 mg tablet,delayed 40 mg PO DAILY@0630 01/22/23 11/24/23 release Previous Rx's ?Medication ?Instructions ?Recorded albuterol sulfate 2.5 mg/3 mL 2.5 mg (3 mL) inhalation Q4-6H PRN 01/24/23 (0.083 %) solution for nebulization shortness of breath or wheezing #90 mL cetirizine 10 mg tablet 10 mg PO DAILY PRN allergy 01/24/23 symptoms #30 tabs fluticasone furoate 200 1 inh inhalation DAILY #60 ea 01/24/23 mcg-vilanterol 25 mcg/dose inhalation powder (Breo Ellipta) epinephrine 0.3 mg/0.3 mL 0.3 mg (0.3 mL) IM Q4H PRN 03/11/23 injection, auto-injector anaphylaxis #1 ea ibuprofen 600 mg tablet 600 mg PO Q6H PRN pain #60 tabs 06/24/23 albuterol sulfate 90 mcg/actuation 2 puff inhalation Q4-6H PRN 09/05/23 aerosol inhaler Wheezing 30 days #8.5 grams methylprednisolone 4 mg tablets in See Rx Instructions PO PER PKG DIR 09/05/23 a dose pack (Medrol (Geoffrey)) #21 ea hydroxyzine pamoate 25 mg capsule 25 mg PO QID PRN itching #60 caps 11/24/23 methylprednisolone 4 mg tablets in See Rx Instructions PO PER PKG DIR 11/24/23 a dose pack (Medrol (Geoffrey)) #21 ea prednisone 20 mg tablet 60 mg (3 x 20 mg) PO DAILY #12 tabs 01/16/24 Allergies Allergy/AdvReac Type Severity Reaction Status Date / Time shrimp Allergy Severe ANAPHYLAXIS Verified 01/16/24 13:33 LOBSTER Allergy Unknown ANAPHYLAXIS Uncoded 01/16/24 13:33 Review of Systems Review of Systems: Yes all other systems are reviewed and are negative Neurologic: Denies Sensory deficit (Neuro) [facility] Past Medical History Medical History History of positive PPD GERD (gastroesophageal reflux disease) Asthma Methadone maintenance therapy patient Surgical History Hx of endoscopy History of esophagogastroduodenoscopy (EGD) Hx of colonoscopy History of umbilical hernia repair History of left inguinal hernia repair Hx of knee surgery Hx of hernia repair Hx of shoulder surgery Family History Family History Father No problems noted. Mother No problems noted. 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 Current occupational exposures/hazards: No Cognitive needs: No Hearing needs: No Vision needs: Yes Physical Exam Vital Signs: Vital Signs: Last Vital Signs Temp 97.7 F 01/16/24 16:11 Pulse 96 01/16/24 16:11 Resp 15 01/16/24 16:11 BP 142/79 H 01/16/24 16:11 Pulse Ox 97 01/16/24 16:11 O2 Del Method Room Air 01/16/24 16:11 BMI result Body Mass Index 35.0 Const: Other: short of breath in moderate distress General: healthy appearing Nutritional Appearance: average body habitus Orientation/consciousness: oriented to person and patient oriented x3 Limitations: no limitations HEENT: Head: Yes normal to inspection Ears: external ears normal General nose exam: Normal external nose present Mouth: Normal oral and palatal mucosa present and oropharynx normal Throat: Yes posterior oropharynx normal Eyes: General: appearance normal, both eyes and all related structures Neck: Other: supple Neck: Yes normal visual inspection Chest: Chest palpation & inspection: normal inspection of the chest Resp: Other: diffuse wheezing Cardio: Jugular venous distension: no JVD Rate: regular rate Rhythm: regular rhythm Heart sounds: S1 normal heart sound present and S2 normal heart sound present GI: Inspection: Yes normal to inspection Palpation (GI): Soft to palpation, nontender and No hepatosplenomegaly present Auscultation: normal bowel sounds : General: Yes no CVA tenderness Back/Spine/Pelvis: Back: no CVA tenderness Skin: General skin exam: no rashes or lesions noted Neuro: General: oriented to person and patient oriented x3 Cranial nerves: Yes CN's II-XII intact bilaterally Motor exam (neuro): 5/5 motor strength present throughout Sensory Exam: No Sensory deficit (Neuro) Extrem: General: Yes normal to inspection Psych: Appearance: grossly normal Course Course Course Narrative: This is a rapid medical exam performed by Rah Ramsay NP: Additional HPI, ROS, PE not included below will be deferred to primary provider. Patient is a 48-year-old male with hx asthma presenting with shortness of breath and wheezing since last Tuesday. Using nebulizer at home with little relief. Inspiratory and expiratory wheezing throughout. Plan: ED bronch protocol, cxr, viral swabs Reevaluation(s) Reevaluation #1: I spent 40 minutes of critical care, with interventions, assessments, speaking to patient, consultants, and family. Time: 17:34 Reevaluation #2: wheezing improved will dc on prednisone Time: 17:34 Medications Administered Discontinued Medications Generic Name Dose Route Start Last Admin Trade Name Pauline PRN Reason Stop Dose Admin Albuterol Sulfate 2.5 mg/ 5 mg 01/16/24 14:00 01/16/24 14:04 Albuterol Sulfate 2.5 mg INHALE 01/16/24 14:01 5 mg ONCE ONE Administration Albuterol Sulfate 5 mg/ 7.5 mg 01/16/24 14:58 01/16/24 15:04 Albuterol Sulfate 2.5 mg INHALE 01/16/24 14:59 7.5 mg ONCE ONE Administration Prednisone 60 mg 01/16/24 13:52 01/16/24 13:55 Prednisone 20 Mg Tablet PO 01/16/24 13:53 60 mg ONCE ONE Administration Medical Decision Making Differential Diagnosis Differential Diagnoses: The differential diagnosis associated with the presentation includes (asthma, pneumonia, flu, covid, influenza) Admission/Observation Consideration of admission/observation: Escalation of care including admission/observation considered (upon arrival patient considered for admission) Lab Data Labs: Lab Results 01/16/24 Range/Units 13:43 Influenza Type A (PCR) NEGATIVE (Negative) Influenza Type B (PCR) NEGATIVE (Negative) RSV RNA Qual (PCR) NEGATIVE (Negative) SARS-CoV-2 RNA (RT-PCR) NEGATIVE (Negative) Independent Interpretation I performed an independent interpretation of an: Plain X-Ray (CXR no infiltrate) Independent Historian Clinical information obtained from an independent historian. History obtained from or confirmed by: Spouse Prescription Management I considered prescription management with: Antibiotic (no infiltrate on xray will not start abx) Chronic Conditions Patient?s care impacted by: Other (asthma) Social Determinants Patient?s care significantly limited by Social Determinants of Health including: Alcoholism and drug addiction in family Discharge Plan Discharge Clinical Impression: Asthma Patient Disposition: Home, Self-Care Instructions: Asthma (ED) Prescriptions: New prednisone 20 mg tablet 60 mg PO DAILY Qty: 12 0RF No Action pantoprazole 40 mg tablet,delayed release (DR/EC) 40 mg PO DAILY@0630 fluticasone furoate-vilanterol [Breo Ellipta] 200-25 mcg/dose blister with device 1 inh inhalation DAILY Qty: 60 0RF albuterol sulfate 2.5 mg /3 mL (0.083 %) solution for nebulization 2.5 mg inhalation Q4-6H PRN (Reason: shortness of breath or wheezing) Qty: 90 0RF cetirizine 10 mg tablet 10 mg PO DAILY PRN (Reason: allergy symptoms) Qty: 30 0RF albuterol sulfate 90 mcg/actuation HFA aerosol inhaler 2 puff inhalation Q4-6H PRN (Reason: Wheezing) 30 Days Qty: 8.5 3RF methylprednisolone [Medrol (Geoffrey)] 4 mg tablets,dose pack See Rx Instructions PO PER PKG DIR Qty: 21 0RF Rx Instructions: PO PER PKG DIR epinephrine 0.3 mg/0.3 mL auto-injector 0.3 mg IM Q4H PRN (Reason: anaphylaxis) Qty: 1 0RF ibuprofen 600 mg tablet 600 mg PO Q6H PRN (Reason: pain) Qty: 60 2RF methylprednisolone [Medrol (Geoffrey)] 4 mg tablets,dose pack See Rx Instructions PO PER PKG DIR Qty: 21 0RF Rx Instructions: PO PER PKG DIR hydroxyzine pamoate 25 mg capsule 25 mg PO QID PRN (Reason: itching) Qty: 60 3RF Referrals: Skinny Wright MD [Primary Care Provider] - 3 days Print Language: Zambian
[2024-01-16] MEDS: predniSONE 20 MG TABLET 60 MG PO (13:55)
[2024-01-16] MEDS: Albuterol Sulfate 2.5 MG, Albuterol Sulfate (0.083%) 2.5 MG 5 MG INHALE (14:04)
[2024-01-16 14:32] LABS: Influenza A PCR NEGATIVE (Negative); Influenza B PCR NEGATIVE (Negative); Resp Syncy Virus RNA Qual PCR NEGATIVE (Negative); SARS COV2 PCR INHOUSE NEGATIVE (Negative)
[2024-01-16] MEDS: Albuterol Sulfate 5 MG, Albuterol Sulfate (0.083%) 2.5 MG 7.5 MG INHALE ×2 (15:04→18:06)
== END 2024-01-16 18:40 | disposition home or self-care (01) ==
PROVIDERS: Registered Nurse Emergency; Emergency Provider Emergency Medicine; PCP Internal Medicine
DX: J45.909 Unspecified asthma, uncomplicated (principal)
CPT/HCPCS: 0241U; 71046; 94640; 99284; 99285

== ENCOUNTER 2024-01-16 19:21 | Emergency (ER) | payer OTHER, MEDICAID, SELFPAY ==
[2024-01-16 20:04] VITALS: BP 101/76; PULSE 120; RESP 22; TEMP 36.6; O2SAT 95; BMI 35.6
--- NOTE | 2024-01-16 20:04 | ED_ITS ---
HPI - General Adult General Chief complaint: Upper Respiratory Symptoms Stated complaint: Asthma Time Seen by Provider: 01/16/24 20:39 Source: patient Mode of arrival: ambulatory Limitations: no limitations History of Present Illness ED Provider: jeanine ROGERS narrative: Patient history of asthma was seen earlier today for asthma exacerbation received treatment went home within few hours came back as he was not feeling good at the time of discharge complaining of increased wheezing patient received p.o. prednisone and nebulizing treatment during the previous visit Related Data Home Medications ?Medication ?Instructions ?Recorded ?Confirmed pantoprazole 40 mg tablet,delayed 40 mg PO DAILY@0630 01/22/23 11/24/23 release Previous Rx's ?Medication ?Instructions ?Recorded albuterol sulfate 2.5 mg/3 mL 2.5 mg (3 mL) inhalation Q4-6H PRN 01/24/23 (0.083 %) solution for nebulization shortness of breath or wheezing #90 mL cetirizine 10 mg tablet 10 mg PO DAILY PRN allergy 01/24/23 symptoms #30 tabs fluticasone furoate 200 1 inh inhalation DAILY #60 ea 01/24/23 mcg-vilanterol 25 mcg/dose inhalation powder (Breo Ellipta) epinephrine 0.3 mg/0.3 mL 0.3 mg (0.3 mL) IM Q4H PRN 03/11/23 injection, auto-injector anaphylaxis #1 ea ibuprofen 600 mg tablet 600 mg PO Q6H PRN pain #60 tabs 06/24/23 albuterol sulfate 90 mcg/actuation 2 puff inhalation Q4-6H PRN 09/05/23 aerosol inhaler Wheezing 30 days #8.5 grams methylprednisolone 4 mg tablets in See Rx Instructions PO PER PKG DIR 09/05/23 a dose pack (Medrol (Geoffrey)) #21 ea hydroxyzine pamoate 25 mg capsule 25 mg PO QID PRN itching #60 caps 11/24/23 methylprednisolone 4 mg tablets in See Rx Instructions PO PER PKG DIR 11/24/23 a dose pack (Medrol (Geoffrey)) #21 ea albuterol sulfate 0.63 mg/3 mL 0.63 mg (3 mL) inhalation QID PRN 01/16/24 solution for nebulization shortness of breath or wheezing #90 mL prednisone 20 mg tablet 60 mg (3 x 20 mg) PO DAILY #12 tabs 01/16/24 Allergies Allergy/AdvReac Type Severity Reaction Status Date / Time shrimp Allergy Severe ANAPHYLAXIS Verified 01/16/24 20:09 LOBSTER Allergy Unknown ANAPHYLAXIS Uncoded 01/16/24 13:33 Review of Systems 2 Review of Systems: Yes all other systems are reviewed and are negative [facility] Past Medical History Medical History History of positive PPD GERD (gastroesophageal reflux disease) Asthma Methadone maintenance therapy patient Surgical History Hx of endoscopy History of esophagogastroduodenoscopy (EGD) Hx of colonoscopy History of umbilical hernia repair History of left inguinal hernia repair Hx of knee surgery Hx of hernia repair Hx of shoulder surgery Family History Family History Father No problems noted. Mother No problems noted. 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 Current occupational exposures/hazards: No Cognitive needs: No Hearing needs: No Vision needs: Yes Physical Exam ED Vital Signs: Vital Signs - 24 hr 01/16/24 20:04 01/16/24 21:16 01/16/24 21:50 Temperature 97.8 F Pulse Rate 120 H 109 H Respiratory Rate 22 H 18 Blood Pressure 101/76 Pulse Oximetry 95 96 Oxygen Delivery Method Room Air Room Air 01/16/24 22:54 01/16/24 23:58 01/17/24 00:44 Temperature 98.2 F Pulse Rate 107 H 97 96 Respiratory Rate 20 20 21 H Blood Pressure 137/80 135/57 L Pulse Oximetry 96 95 Oxygen Delivery Method Room Air Room Air BMI result Body Mass Index 35.6 Appearance: Alert. Oriented X3. Moderate distress. Eyes: No pallor or icterus ENT: Pharynx normal. Oral Mucosa moist Neck: Normal inspection. Neck supple. CVS: Normal heart rate and rhythm. Pulses normal. Respiratory: No respiratory distress. Equal air entry bilateral, bilateral wheezing Abdomen: Soft and nontender. Bowel sounds are present, Skin: Skin warm and dry. Normal skin color. Normal skin turgor. Extremities: No lower extremity edema. No calf tenderness Neuro: Oriented X 3. No motor deficit. Course Course Course Narrative: This is a rapid medical exam performed by Rah Ramsay NP: Additional HPI, ROS, PE not included below will be deferred to primary provider. Patient is a 48-year-old male with history presenting to the ED with shortness of breath and wheezing. He was seen in this ED earlier today, given breathing treatments, discharged home. Patient states going up the stairs at his apartment exacerbated his symptoms again. Inspiratory and expiratory wheezing throughout. Oxygen 96% on room air, tachycardic at 120. Medications Administered Discontinued Medications Generic Name Dose Route Start Last Admin Trade Name Freq PRN Reason Stop Dose Admin Albuterol Sulfate 5 mg 01/16/24 23:41 01/16/24 23:58 Albuterol Sulfate (0.083%) 2.5 Mg/3 Ml Vial.Neb INHALE 01/16/24 23:42 5 mg ONCE ONE Administration Albuterol Sulfate 7.5 mg/ 0 mg 01/16/24 21:07 01/16/24 21:15 Albuterol/Ipratropium 3 ml INHALE 01/16/24 21:08 3 each ONCE ONE Administration Dexamethasone Sodium Phosphate 10 mg 01/16/24 21:06 01/16/24 21:19 Dexamethasone Sod Phosphate 10 Mg/Ml Vial IVPUSH 01/16/24 21:07 10 mg ONCE ONE Administration Sodium Chloride 1,000 mls @ 999 mls/hr 01/16/24 21:06 01/16/24 22:55 Ns IV 01/16/24 22:06 Infused .Q1H1M ONE Infusion Magnesium Sulfate 2 gm in 50 mls @ 25 mls/hr 01/16/24 21:06 01/16/24 22:59 Magnesium Sulfate/H2o IV 01/16/24 23:05 Infused ONCE ONE Infusion Medical Decision Making Medical Decision Making [facility] Narrative: Patient with severe asthma requiring IV magnesium and Decadron along with due continues treatments felt better after that will discharge patient home advised to continue prednisone saturating 95% at time of discharge Differential Diagnosis Differential Diagnoses: The differential diagnosis associated with the presentation includes Lab Data [facility] Lab Attestation statement: I reviewed the patient's lab results. 01/16/24 21:15 01/16/24 21:15 Labs: Lab Results 01/16/24 Range/Units 21:15 WBC 17.3 H (4.8-10.8) X10*3/uL RBC 4.41 L (4.60-5.80) X10*6/uL Hgb 13.3 L (14.0-18.0) g/dl Hct 38.7 L (42.0-52.0) % MCV 87.8 (80.0-98.0) fL MCH 30.2 (27.0-33.0) pg MCHC 34.4 (31.0-36.0) g/dl RDW 14.2 (11.0-16.0) % Plt Count 271 (160-400) X10*3/uL MPV 10.5 (9.4-12.4) fL Immature Gran % (Auto) 0.5 H (0.0-0.4) % Neut % (Auto) 93.8 H (45-73) % Lymph % (Auto) 3.8 L (20-40) % Grimes % (Auto) 1.7 L (2-11) % Eos % (Auto) 0.0 (0-4) % Baso % (Auto) 0.2 (0-2) % Lymph # (Auto) 0.7 L (1.2-4.9) X10*3/uL Grimes # (Auto) 0.3 (0.1-1.2) X10*3/uL Eos # (Auto) 0.0 (0.0-0.4) X10*3/uL Baso # (Auto) 0.0 (0.0-0.2) X10*3/uL Abs Immat Gran (auto) 0.09 H (0.00-0.03) X10*3/uL Absolute Neuts (auto) 16.2 H (2.0-8.3) x10*3/uL Absolute Nucleated RBC 0.000 (0.0-0.012) X10*3/uL Nucleated RBC % (auto) 0.0 (0.0-0.2) /100WBC Smear Tech's Comments VERIFIED Sodium 138 (135-145) mmol/L Potassium 3.7 (3.3-5.1) mmol/L Chloride 105 (96-108) mmol/L Carbon Dioxide 19 L (22-29) mmol/L Anion Gap 18 (12-20) BUN 15 (9-16) mg/dL Creatinine 0.98 (0.5-1.4) mg/dL Estim Creat Clear Calc 107.7 Estimated GFR > 60 Random Glucose 275 H (60-115) mg/dL Calcium 9.3 (8.4-10.2) mg/dL Total Bilirubin 0.3 (0.0-1.0) mg/dL AST 22 (5-37) U/L ALT 27 (0-40) U/L Alkaline Phosphatase 94 (39-117) U/L Total Protein 7.3 (6.5-8.0) g/dL Albumin 4.0 (3.5-5.0) g/dL Discharge Plan Discharge Clinical Impression: Asthma with acute exacerbation Patient Disposition: Home, Self-Care Instructions: Asthma (ED) Additional Instructions: Continue inhaler and nebulizing treatment every 4 hours as needed Take prednisone as prescribed during the previous visit Follow with PCP Prescriptions: No Action pantoprazole 40 mg tablet,delayed release (DR/EC) 40 mg PO DAILY@0630 fluticasone furoate-vilanterol [Breo Ellipta] 200-25 mcg/dose blister with device 1 inh inhalation DAILY Qty: 60 0RF albuterol sulfate 2.5 mg /3 mL (0.083 %) solution for nebulization 2.5 mg inhalation Q4-6H PRN (Reason: shortness of breath or wheezing) Qty: 90 0RF cetirizine 10 mg tablet 10 mg PO DAILY PRN (Reason: allergy symptoms) Qty: 30 0RF prednisone 20 mg tablet 60 mg PO DAILY Qty: 12 0RF albuterol sulfate 0.63 mg/3 mL solution for nebulization 0.63 mg inhalation QID PRN (Reason: shortness of breath or wheezing) Qty: 90 0RF albuterol sulfate 90 mcg/actuation HFA aerosol inhaler 2 puff inhalation Q4-6H PRN (Reason: Wheezing) 30 Days Qty: 8.5 3RF methylprednisolone [Medrol (Geoffrey)] 4 mg tablets,dose pack See Rx Instructions PO PER PKG DIR Qty: 21 0RF Rx Instructions: PO PER PKG DIR epinephrine 0.3 mg/0.3 mL auto-injector 0.3 mg IM Q4H PRN (Reason: anaphylaxis) Qty: 1 0RF ibuprofen 600 mg tablet 600 mg PO Q6H PRN (Reason: pain) Qty: 60 2RF methylprednisolone [Medrol (Geoffrey)] 4 mg tablets,dose pack See Rx Instructions PO PER PKG DIR Qty: 21 0RF Rx Instructions: PO PER PKG DIR hydroxyzine pamoate 25 mg capsule 25 mg PO QID PRN (Reason: itching) Qty: 60 3RF Interventions: ED Discharge Assessment Last Done: 01/17/24 00:44 Discharge Date/Time: 01/17/24 00:30 Print Language: Vietnamese
[2024-01-16] MEDS: Albuterol Sulfate 7.5 MG, Albuterol/Iprat 2.5/0.5MG 3 ML 3 ML INHALE (21:15)
[2024-01-16 21:16] VITALS: PULSE 109; RESP 18; O2SAT 95
[2024-01-16] MEDS: Magnesium Sulfate/H2O 2 GM/50 ML PIGGYBACK IV (21:19)
[2024-01-16] MEDS: dexAMETHasone sod phosphate 10 MG/ML VIAL IVPUSH (21:19)
[2024-01-16] MEDS: 0.9 % Sodium Chloride 1,000 ML 999 ML IV (21:19)
[2024-01-16 21:22] LABS: Basophils Percent Auto 0.2 % (0-2); Hematocrit 38.7 % (42.0-52.0); Hemoglobin 13.3 g/dl (14.0-18.0); Imm Gran Abs Auto 0.09 X10*3/uL (0.00-0.03); Imm Gran Pct Auto 0.5 % (0.0-0.4); Lymphocytes Absolute Auto 0.7 X10*3/uL (1.2-4.9); Lymphocytes Percent Auto 3.8 % (20-40); MANUAL DIFF FLAG SCAN; Mean Corpuscular HGB Conc 34.4 g/dl (31.0-36.0); Mean Corpuscular Hemoglobin 30.2 pg (27.0-33.0); Mean Corpuscular Volume 87.8 fL (80.0-98.0); Mean Platelet Volume 10.5 fL (9.4-12.4); Monocytes Absolute Auto 0.3 X10*3/uL (0.1-1.2); Monocytes Percent Auto 1.7 % (2-11); Neutrophils Absolute Auto 16.2 x10*3/uL (2.0-8.3); Neutrophils Percent Auto 93.8 % (45-73); Platelet Count 271 X10*3/uL (160-400); Red Blood Count 4.41 X10*6/uL (4.60-5.80); Red Cell Distribution Width 14.2 % (11.0-16.0); SCAN SMEAR FLAG 1; White Blood Count 17.3 X10*3/uL (4.8-10.8)
[2024-01-16 21:41] LABS: SLIDE REVIEW VERIFIED
[2024-01-16 21:50] VITALS: O2SAT 96
[2024-01-16 21:57] LABS: Alanine Aminotransferase 27 U/L (0-40); Alkaline Phosphatase 94 U/L (39-117); Anion Gap 18 (12-20); Aspartate Amino Transferase 22 U/L (5-37); Bilirubin Total 0.3 mg/dL (0.0-1.0); Blood Urea Nitrogen 15 mg/dL (9-16); Calcium 9.3 mg/dL (8.4-10.2); Carbon Dioxide 19 mmol/L (22-29); Chloride 105 mmol/L (96-108); Creatinine Clr Calc Pharmacy 107.7; Estimated Glomerular Filt Rate > 60; Glucose Random 275 mg/dL (60-115); Potassium 3.7 mmol/L (3.3-5.1); Sodium 138 mmol/L (135-145); Total Protein 7.3 g/dL (6.5-8.0)
[2024-01-16 22:54] VITALS: BP 137/80; PULSE 107; RESP 20; O2SAT 96
[2024-01-16 23:58] VITALS: PULSE 97; RESP 20; O2SAT 96
[2024-01-16] MEDS: Albuterol Sulfate (0.083%) 2.5 MG/3 ML VIAL.NEB 5 MG INHALE (23:58)
[2024-01-17 00:44] VITALS: BP 135/57; PULSE 96; RESP 21; TEMP 36.8; O2SAT 95
== END 2024-01-17 00:30 | disposition home or self-care (01) ==
PROVIDERS: Emergency Provider Internal Medicine; PCP Internal Medicine
DX: J45.901 Unspecified asthma with (acute) exacerbation (principal)
CPT/HCPCS: 36415; 80053; 85025; 94640; 96361; 96374; 96375; 99284; 99285; J1100; J3475

== ENCOUNTER 2024-01-26 19:42 | Emergency (ER) | payer OTHER, MEDICAID, SELFPAY ==
--- NOTE | ~2024-01-26 | XR_ITS ---
EXAMINATION: XR CHEST CLINICAL INFORMATION: Wheezing. COMPARISON: Chest radiograph 01/16/2024. TECHNIQUE: 2 views of the chest were obtained. FINDINGS: Normal appearance of the cardiomediastinal silhouette. Increased at least moderate peribronchial thickening. Subtle focal airspace density overlying the lower lungs on the lateral view. Stable mild biapical subpleural thickening/scarring. No pleural effusion or pneumothorax. No acute osseous findings. XR/XR chest 2V IMPRESSION: Findings are suspicious for small airways disease with an early infiltrate.
[2024-01-26 19:49] VITALS: BP 126/76; PULSE 98; RESP 22; TEMP 36.5; O2SAT 95; BMI 37.1
--- NOTE | 2024-01-26 20:06 | ED.SOB ---
HPI - SOB/Dyspnea General Chief Complaint: Dyspnea Stated Complaint: asthma/sob Time Seen by Provider: 01/26/24 20:37 Source: patient Mode of arrival: ambulatory Limitations: no limitations History of Present Illness ED Provider: jeanine ROGERS Narrative: Patient with history of asthma been wheezing for last few days getting worse using inhaler and nebulizer more often been here 2 times on 01/15 patient does get similar attacks during spring season Related Data Home Medications ?Medication ?Instructions ?Recorded ?Confirmed pantoprazole 40 mg tablet,delayed 40 mg PO DAILY@0630 01/22/23 11/24/23 release Previous Rx's ?Medication ?Instructions ?Recorded albuterol sulfate 2.5 mg/3 mL 2.5 mg (3 mL) inhalation Q4-6H PRN 01/24/23 (0.083 %) solution for nebulization shortness of breath or wheezing #90 mL cetirizine 10 mg tablet 10 mg PO DAILY PRN allergy 01/24/23 symptoms #30 tabs fluticasone furoate 200 1 inh inhalation DAILY #60 ea 01/24/23 mcg-vilanterol 25 mcg/dose inhalation powder (Breo Ellipta) epinephrine 0.3 mg/0.3 mL 0.3 mg (0.3 mL) IM Q4H PRN 03/11/23 injection, auto-injector anaphylaxis #1 ea ibuprofen 600 mg tablet 600 mg PO Q6H PRN pain #60 tabs 06/24/23 albuterol sulfate 90 mcg/actuation 2 puff inhalation Q4-6H PRN 09/05/23 aerosol inhaler Wheezing 30 days #8.5 grams methylprednisolone 4 mg tablets in See Rx Instructions PO PER PKG DIR 09/05/23 a dose pack (Medrol (Geoffrey)) #21 ea hydroxyzine pamoate 25 mg capsule 25 mg PO QID PRN itching #60 caps 11/24/23 methylprednisolone 4 mg tablets in See Rx Instructions PO PER PKG DIR 11/24/23 a dose pack (Medrol (Geoffrey)) #21 ea prednisone 20 mg tablet 60 mg (3 x 20 mg) PO DAILY #12 tabs 01/16/24 nebulizers (Aeroneb Go Nebulizer) #1 ea 01/17/24 albuterol sulfate 0.63 mg/3 mL 0.63 mg (3 mL) inhalation QID PRN 01/20/24 solution for nebulization shortness of breath or wheezing #90 mL albuterol sulfate 2.5 mg/3 mL 2.5 mg (3 mL) inhalation Q4-6H PRN 01/26/24 (0.083 %) solution for nebulization shortness of breath or wheezing #90 mL prednisone 10 mg tablets in a dose 10 mg PO DIRECTED #48 ea 01/26/24 pack Allergies Allergy/AdvReac Type Severity Reaction Status Date / Time shrimp Allergy Severe ANAPHYLAXIS Verified 01/26/24 19:52 LOBSTER Allergy Unknown ANAPHYLAXIS Uncoded 01/16/24 13:33 Review of Systems Review of Systems: Yes all other systems are reviewed and are negative PMFSH Past Medical History Medical History History of positive PPD GERD (gastroesophageal reflux disease) Asthma Methadone maintenance therapy patient Surgical History Hx of endoscopy History of esophagogastroduodenoscopy (EGD) Hx of colonoscopy History of umbilical hernia repair History of left inguinal hernia repair Hx of knee surgery Hx of hernia repair Hx of shoulder surgery Family History Family History Father No problems noted. Mother No problems noted. Social History Social History Household Members: Family Household Members Other:: Housing: Apartment Do you presently have visiting nurse or other home services: No Alcohol intake: current Alcohol intake frequency: holidays/special occasions only Patient Tobacco Use Status: Never used Tobacco Smoked in Last 30 Days: No e-Cigarette/Vaping Use: Never Used Second Hand Smoke Exposure: No Use of substances other than those prescribed or required for medical reasons: No Advance Directives: No Advance Directives Information Provided: No Do you have a plan to hurt others: No Plan service: No Current occupational status: employed 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 Oriented X3. In moderate respiratory distress ENT: Pharynx normal. Oral Mucosa moist Neck: Normal inspection. Neck supple. CVS: Normal heart rate and rhythm. Pulses normal. Respiratory: Moderate respiratory distress. Equal air entry bilateral, bilateral wheezing Abdomen: Soft and nontender. Bowel sounds are present, Skin: Skin warm and dry. Normal skin color. Normal skin turgor. Extremities: No lower extremity edema. No calf tenderness Neuro: Oriented X 3. Course Course Course Narrative: This is a Rapid Medical Examination (RME) performed by Brittni Logan PA-C in triage. Full HPI, ROS, assessment and treatment plan per primary provider in the Main ED. 48 yo male hx of asthma here for eval of shortness of breath x3 days, worsening today. admits to using his inhaler at home more frequently without relief. denies recent illness of sick contacts. denies fever/chills. on exam, lungs w/ diffuse inspirtory and expiratory wheezes Plan: viral serology, cxr, ED bronch protocol ordered. Medications Administered Discontinued Medications Generic Name Dose Route Start Last Admin Trade Name Freq PRN Reason Stop Dose Admin Albuterol Sulfate 7.5 mg/ 10 mg 01/26/24 20:18 01/26/24 20:25 Albuterol Sulfate 2.5 mg INHALE 01/26/24 20:19 10 mg ONCE ONE Administration Albuterol Sulfate 5 mg/ 0 mg 01/26/24 21:41 01/26/24 21:55 Albuterol/Ipratropium 3 ml INHALE 01/26/24 21:42 5 each ONCE ONE Administration Dexamethasone Sodium Phosphate 10 mg 01/26/24 20:46 01/26/24 21:15 Dexamethasone Sod Phosphate 10 Mg/Ml Vial IVPUSH 01/26/24 20:47 10 mg ONCE ONE Administration Sodium Chloride 1,000 mls @ 999 mls/hr 01/26/24 20:46 01/26/24 21:11 Ns IV 01/26/24 21:46 999 mls/hr .Q1H1M ONE Administration Magnesium Sulfate 2 gm in 50 mls @ 150 mls/hr 01/26/24 20:46 01/26/24 21:15 Magnesium Sulfate/H2o IV 01/26/24 21:05 150 mls/hr ONCE ONE Administration Medical Decision Making Lab Data Labs: Lab Results 01/26/24 Range/Units 20:24 Influenza Type A (PCR) NEGATIVE (Negative) Influenza Type B (PCR) NEGATIVE (Negative) RSV RNA Qual (PCR) NEGATIVE (Negative) SARS-CoV-2 RNA (RT-PCR) NEGATIVE (Negative) Discharge Plan Discharge Clinical Impression: Asthma with acute exacerbation Patient Disposition: Home, Self-Care Instructions: Asthma (ED) Additional Instructions: Use your nebulizer/inhaler as advised Prednisone tapering doses as advised Follow with your PCP if not better Prescriptions: New prednisone 10 mg tablets,dose pack 10 mg PO DIRECTED Qty: 48 0RF Rx Instructions: see taper instructions; 40 mg Daily x3 days, 30 mg daily x3 days, 20 mg daily x3 days, 10 mg daily x3 days albuterol sulfate 2.5 mg /3 mL (0.083 %) solution for nebulization 2.5 mg inhalation Q4-6H PRN (Reason: shortness of breath or wheezing) Qty: 90 2RF No Action (DME) nebulizers [Aeroneb Go Nebulizer] Misc See Rx Instructions .Route Qty: 1 0RF Rx Instructions: As directed albuterol sulfate 0.63 mg/3 mL solution for nebulization 0.63 mg inhalation QID PRN (Reason: shortness of breath or wheezing) Qty: 90 0RF pantoprazole 40 mg tablet,delayed release (DR/EC) 40 mg PO DAILY@0630 fluticasone furoate-vilanterol [Breo Ellipta] 200-25 mcg/dose blister with device 1 inh inhalation DAILY Qty: 60 0RF albuterol sulfate 2.5 mg /3 mL (0.083 %) solution for nebulization 2.5 mg inhalation Q4-6H PRN (Reason: shortness of breath or wheezing) Qty: 90 0RF cetirizine 10 mg tablet 10 mg PO DAILY PRN (Reason: allergy symptoms) Qty: 30 0RF prednisone 20 mg tablet 60 mg PO DAILY Qty: 12 0RF albuterol sulfate 90 mcg/actuation HFA aerosol inhaler 2 puff inhalation Q4-6H PRN (Reason: Wheezing) 30 Days Qty: 8.5 3RF methylprednisolone [Medrol (Geoffrey)] 4 mg tablets,dose pack See Rx Instructions PO PER PKG DIR Qty: 21 0RF Rx Instructions: PO PER PKG DIR epinephrine 0.3 mg/0.3 mL auto-injector 0.3 mg IM Q4H PRN (Reason: anaphylaxis) Qty: 1 0RF ibuprofen 600 mg tablet 600 mg PO Q6H PRN (Reason: pain) Qty: 60 2RF methylprednisolone [Medrol (Geoffrey)] 4 mg tablets,dose pack See Rx Instructions PO PER PKG DIR Qty: 21 0RF Rx Instructions: PO PER PKG DIR hydroxyzine pamoate 25 mg capsule 25 mg PO QID PRN (Reason: itching) Qty: 60 3RF Interventions: ED Discharge Assessment Last Done: 01/26/24 22:40 Discharge Date/Time: 01/26/24 22:41 Print Language: Panamanian
[2024-01-26 20:19] VITALS: PULSE 83; RESP 18; O2SAT 94
[2024-01-26] MEDS: Albuterol Sulfate 7.5 MG, Albuterol Sulfate (0.083%) 2.5 MG 10 MG INHALE (20:25)
[2024-01-26 21:10] LABS: Influenza A PCR NEGATIVE (Negative); Influenza B PCR NEGATIVE (Negative); Resp Syncy Virus RNA Qual PCR NEGATIVE (Negative); SARS COV2 PCR INHOUSE NEGATIVE (Negative)
[2024-01-26] MEDS: 0.9 % Sodium Chloride 1,000 ML 999 ML IV (21:11)
[2024-01-26] MEDS: Magnesium Sulfate/H2O 2 GM/50 ML PIGGYBACK IV (21:15)
[2024-01-26] MEDS: dexAMETHasone sod phosphate 10 MG/ML VIAL IVPUSH (21:15)
[2024-01-26] MEDS: Albuterol Sulfate 5 MG, Albuterol/Iprat 2.5/0.5MG 3 ML 3 ML INHALE (21:55)
[2024-01-26 21:57] VITALS: PULSE 97; RESP 18; O2SAT 97
--- NOTE | 2024-01-26 22:28 | PC.NURSE ---
IV #20 L-AC, IV fluids, mag and decadron administered per orders. Pt received treatments from respiratory and lung sounds improved. Pt verbalized improved comfort.
[2024-01-26 22:40] VITALS: BP 000/00; PULSE 108; RESP 20; TEMP 37; O2SAT 96
== END 2024-01-26 22:41 | disposition home or self-care (01) ==
PROVIDERS: Physician Assistant Medical; Emergency Provider Internal Medicine; PCP Internal Medicine
DX: J45.901 Unspecified asthma with (acute) exacerbation (principal); R06.02 Shortness of breath; Z20.822 Contact with and (suspected) exposure to COVID-19; Z79.899 Other long term (current) drug therapy
CPT/HCPCS: 0241U; 71046; 94640; 96374; 99284; J1100; J3475

== ENCOUNTER 2024-01-29 23:50 | Observation (INO) | payer OTHER, SELFPAY ==
--- NOTE | ~2024-01-29 | XR_ITS ---
EXAMINATION: XR CHEST CLINICAL INFORMATION: Shortness of breath COMPARISON: 01/26/2024 TECHNIQUE: 2 views of the chest were obtained. FINDINGS: Lung volumes are symmetric. Redemonstrated biapical scarring. Central peribronchial thickening is again noted. No evidence of pneumothorax, pleural effusion, or pulmonary edema. The cardiomediastinal contour is unremarkable. No acute osseous findings are seen. No focal consolidation XR/XR chest 2V IMPRESSION: Central peribronchial thickening suggesting airways disease. No definite focal consolidation.
[2024-01-30] VITALS (13 sets, daily range): BP systolic 119–147; BP diastolic 64–84; PULSE 87–106; RESP 17–23; TEMP 35.9–36.6; O2SAT 91–98; BMI 35.2; BMI 36.7
[2024-01-30 00:58] LABS: MANUAL DIFF FLAG NO
[2024-01-30] MEDS: methylPREDNISolone Sod Succ 125 MG/2 ML VIAL IVPUSH (00:58)
[2024-01-30 00:59] LABS: Basophils Absolute Auto 0.1 X10*3/uL (0.0-0.2); Basophils Percent Auto 0.3 % (0-2); Eosinophils Absolute Auto 0.1 X10*3/uL (0.0-0.4); Eosinophils Percent Auto 0.4 % (0-4); Hemoglobin 13.9 g/dl (14.0-18.0); Imm Gran Abs Auto 0.13 X10*3/uL (0.00-0.03); Imm Gran Pct Auto 0.7 % (0.0-0.4); Lymphocytes Absolute Auto 3.9 X10*3/uL (1.2-4.9); Lymphocytes Percent Auto 20.8 % (20-40); Mean Corpuscular HGB Conc 34.8 g/dl (31.0-36.0); Mean Corpuscular Hemoglobin 31.5 pg (27.0-33.0); Mean Corpuscular Volume 90.7 fL (80.0-98.0); Mean Platelet Volume 10.1 fL (9.4-12.4); Monocytes Absolute Auto 1.1 X10*3/uL (0.1-1.2); Monocytes Percent Auto 5.9 % (2-11); Neutrophils Absolute Auto 13.4 x10*3/uL (2.0-8.3); Neutrophils Percent Auto 71.9 % (45-73); Platelet Count 277 X10*3/uL (160-400); Red Blood Count 4.41 X10*6/uL (4.60-5.80); Red Cell Distribution Width 14.3 % (11.0-16.0); White Blood Count 18.6 X10*3/uL (4.8-10.8)
[2024-01-30 01:00] LABS: Venous Blood Gas Refer to POC result
[2024-01-30] MEDS: Albuterol Sulfate 2.5 MG, Albuterol/Iprat 2.5/0.5MG 3 ML 3 ML INHALE (01:02)
[2024-01-30] MEDS: Magnesium Sulfate/D5W 1 GM/100 ML PIGGYBACK IV (01:06)
[2024-01-30 01:10] LABS: VBG Base Excess 3.8 mmol/L; VBG HCO3 29 mmol/L (22-26); VBG pCO2 47 mmHg; VBG pH 7.39 (7.32-7.43); VBG pO2 49 mmHg
[2024-01-30] MEDS: Albuterol/Iprat 2.5/0.5MG 3 ML AMPUL.NEB INHALE ×5 (01:14→20:16)
[2024-01-30 01:16] LABS: Anion Gap 13 (12-20)
[2024-01-30 01:21] LABS: Troponin-I High Sensitivity < 2.7 ng/L (<3.5-35.0)
[2024-01-30 01:34] LABS: Alanine Aminotransferase 38 U/L (0-40); Alkaline Phosphatase 92 U/L (39-117); Aspartate Amino Transferase 22 U/L (5-37); Bilirubin Total 0.2 mg/dL (0.0-1.0); Blood Urea Nitrogen 19 mg/dL (9-16); Calcium 9.4 mg/dL (8.4-10.2); Carbon Dioxide 27 mmol/L (22-29); Chloride 106 mmol/L (96-108); Creatinine Clr Calc Pharmacy 121.1; Estimated Glomerular Filt Rate > 60; Glucose Random 106 mg/dL (60-115); Potassium 3.5 mmol/L (3.3-5.1); Sodium 141 mmol/L (135-145); Total Protein 7.2 g/dL (6.5-8.0)
--- NOTE | 2024-01-30 02:01 | ED_ITS ---
HPI - Asthma General Chief Complaint: Asthma Stated Complaint: asthma/ trouble breathing Time Seen by Provider: 01/30/24 00:52 Source: patient, RN notes reviewed and old records reviewed Mode of arrival: ambulatory Limitations: no limitations History of Present Illness ED Provider: Richard ROGERS Narrative: 48-year-old male with past medical history significant for asthma, history of opiate abuse,, GERD presents for evaluation of shortness of breath The patient has asthma tends to be triggered by allergies. The patient was seen here twice on 01/16/2024, and again 4 days ago on 01/26/2024. He has essentially been on prednisone for the last 2 weeks and he remains on prednisone. He reports he is using his nebulizers 10 times daily with minimal improvement He denies any fevers but endorses persistent coughing Denies any leg swelling or chest pain Related Data Home Medications ?Medication ?Instructions ?Recorded ?Confirmed pantoprazole 40 mg tablet,delayed 40 mg PO DAILY@0630 01/22/23 11/24/23 release Previous Rx's ?Medication ?Instructions ?Recorded albuterol sulfate 2.5 mg/3 mL 2.5 mg (3 mL) inhalation Q4-6H PRN 01/24/23 (0.083 %) solution for nebulization shortness of breath or wheezing #90 mL cetirizine 10 mg tablet 10 mg PO DAILY PRN allergy 01/24/23 symptoms #30 tabs fluticasone furoate 200 1 inh inhalation DAILY #60 ea 01/24/23 mcg-vilanterol 25 mcg/dose inhalation powder (Breo Ellipta) epinephrine 0.3 mg/0.3 mL 0.3 mg (0.3 mL) IM Q4H PRN 03/11/23 injection, auto-injector anaphylaxis #1 ea ibuprofen 600 mg tablet 600 mg PO Q6H PRN pain #60 tabs 06/24/23 albuterol sulfate 90 mcg/actuation 2 puff inhalation Q4-6H PRN 09/05/23 aerosol inhaler Wheezing 30 days #8.5 grams methylprednisolone 4 mg tablets in See Rx Instructions PO PER PKG DIR 09/05/23 a dose pack (Medrol (Geoffrey)) #21 ea hydroxyzine pamoate 25 mg capsule 25 mg PO QID PRN itching #60 caps 11/24/23 methylprednisolone 4 mg tablets in See Rx Instructions PO PER PKG DIR 11/24/23 a dose pack (Medrol (Geoffrey)) #21 ea prednisone 20 mg tablet 60 mg (3 x 20 mg) PO DAILY #12 tabs 01/16/24 nebulizers (Aeroneb Go Nebulizer) #1 ea 01/17/24 albuterol sulfate 0.63 mg/3 mL 0.63 mg (3 mL) inhalation QID PRN 01/20/24 solution for nebulization shortness of breath or wheezing #90 mL albuterol sulfate 2.5 mg/3 mL 2.5 mg (3 mL) inhalation Q4-6H PRN 01/26/24 (0.083 %) solution for nebulization shortness of breath or wheezing #90 mL prednisone 10 mg tablets in a dose 10 mg PO DIRECTED #48 ea 01/26/24 pack Allergies Allergy/AdvReac Type Severity Reaction Status Date / Time shrimp Allergy Severe ANAPHYLAXIS Verified 01/30/24 00:45 LOBSTER Allergy Unknown ANAPHYLAXIS Uncoded 01/30/24 00:45 Review of Systems 2 Constitutional: Constitutional: Denies body ache(s), Denies chills and Denies fever(s) Eyes: Eyes: Denies blurry vision Cardiovascular: Cardiovascular: Denies chest pain and Reports dyspnea Respiratory: Respiratory: Reports cough, Reports dyspnea and Reports wheezing Gastrointestinal: Gastrointestinal: Denies abdominal pain, Denies nausea and Denies vomiting Musculoskeletal: Musculoskeletal: Denies back pain Integumentary/Breasts: Skin/Breast: Denies rash Allergic/Immunologic: Allergic/Immunologic: Reports wheezing PMFSH Past Medical History Medical History History of positive PPD GERD (gastroesophageal reflux disease) Asthma Methadone maintenance therapy patient Surgical History Hx of endoscopy History of esophagogastroduodenoscopy (EGD) Hx of colonoscopy History of umbilical hernia repair History of left inguinal hernia repair Hx of knee surgery Hx of hernia repair Hx of shoulder surgery Family History Family History Father No problems noted. Mother No problems noted. 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 Current occupational exposures/hazards: No Cognitive needs: No Hearing needs: No Vision needs: Yes Physical Exam 2 Vital Signs: Vital Signs: Last Vital Signs Temp 97.8 F 01/30/24 02:17 Pulse 89 01/30/24 02:17 Resp 18 01/30/24 02:17 BP 138/80 01/30/24 02:17 Pulse Ox 98 01/30/24 02:17 O2 Del Method Room Air 01/30/24 02:17 BMI result Body Mass Index 35.2 Const: General: healthy appearing, alert and awake Nutritional Appearance: well nourished Orientation/consciousness: patient oriented x3 HEENT: Head: Yes normocephalic and Yes atraumatic Eyes: Eyelids: Yes eyelids normal Conjunctivae: conjunctivae normal S clerae: sclerae normal Corneas: corneas normal Pupils: Equal, round and reactive pupils present EOM: EOMs intact bilaterally Neck: Neck: Yes full ROM Resp: Other: Diffuse expiratory inspiratory and expiratory wheeze. The patient is not quite tripod position, but he is sitting up Effort & Inspection: normal respiratory effort, able to speak in complete sentences, audible wheezes, Actively coughing and not labored Auscultation: w heezes Cardio: Other: No lower extremity edema Rate: regular rate Rhythm: regular rhythm GI: Inspection: No distended Palpation (GI): Soft to palpation, not firm, nontender, no guarding and not rigid Skin: General skin exam: elasticity normal Neuro: General: patient oriented x3 Cranial nerves: Yes Equal, round and reactive pupils present and Yes Bilaterally intact EOM present Cognition (Neuro): normal cognition Medications Administered Discontinued Medications Generic Name Dose Route Start Last Admin Trade Name Freq PRN Reason Stop Dose Admin Albuterol/Ipratropium 3 ml 01/30/24 01:13 01/30/24 01:14 Albuterol/Iprat 2.5/0.5mg 3 Ml Ampul.Neb INHALE 01/30/24 01:14 3 ml ONCE ONE Administration Albuterol Sulfate 2.5 mg/ 0 mg 01/30/24 00:59 01/30/24 01:02 Albuterol/Ipratropium 3 ml INHALE 01/30/24 01:00 1 dose ONCE ONE Administration Magnesium Sulfate/Dextrose 1 gm in 100 mls @ 100 mls/hr 01/30/24 00:55 01/30/24 02:15 Magnesium Sulfate/D5w IV 01/30/24 01:54 Infused ONCE ONE Infusion Ceftriaxone Sodium 1 gm/ 50 mls @ 100 mls/hr 01/30/24 01:50 01/30/24 02:15 Sodium Chloride IV 01/30/24 02:19 100 mls/hr ONCE ONE Administration Methylprednisolone Sodium Succinate 125 mg 01/30/24 00:55 01/30/24 00:58 Methylprednisolone Sod Succ 125 Mg/2 Ml Vial IVPUSH 01/30/24 00:56 125 mg ONCE ONE Administration Medical Decision Making Medical Decision Making MDM Narrative: 48-year-old male with history of asthma presents for evaluation of shortness of breath and wheezing. His history exam is consistent with asthma exacerbation, likely triggered by allergies. Given that his x-ray showed a possible early infiltrate 4 days, we will repeat x-ray but also treat with antibiotics. I ordered albuterol 7.5 to Atrovent, magnesium 1 g IV and Solu-Medrol 125 IV. Given the patient's 4 ED visits in the last 2 weeks as well as oxygen saturation 91%, the fact that he is using his nebulizers 10 times at home while on prednisone, discussed the hospitalist for admission who will admit the patient for acute asthma exacerbation Differential Diagnosis Differential Diagnoses: The differential diagnosis associated with the presentation includes Asthma exacerbation Bronchitis Pneumonia COVID-19 Influenza Admission/Observation Consideration of admission/observation: Escalation of care including admission/observation considered Patient has history of asthma with hypoxia and outpatient failure Lab Data MDM Lab Attestation statement: I reviewed the patient's lab results. Leukocytosis to 18.6. This may be related to prednisone use or the developing infiltrate. Mild anemia with a hemoglobin 13.9 hematocrit of 40.0. This is consistent with the patient's baseline. No significant electrolyte abnormalities. Renal function within normal limits. 01/30/24 00:54 01/30/24 00:54 Labs: Lab Results 01/30/24 01/30/24 Range/Units 00:54 01:02 WBC 18.6 H (4.8-10.8) X10*3/uL RBC 4.41 L (4.60-5.80) X10*6/uL Hgb 13.9 L (14.0-18.0) g/dl Hct 40.0 L (42.0-52.0) % MCV 90.7 (80.0-98.0) fL MCH 31.5 (27.0-33.0) pg MCHC 34.8 (31.0-36.0) g/dl RDW 14.3 (11.0-16.0) % Plt Count 277 (160-400) X10*3/uL MPV 10.1 (9.4-12.4) fL Immature Gran % (Auto) 0.7 H (0.0-0.4) % Neut % (Auto) 71.9 (45-73) % Lymph % (Auto) 20.8 (20-40) % [place] % (Auto) 5.9 (2-11) % Eos % (Auto) 0.4 (0-4) % Baso % (Auto) 0.3 (0-2) % Lymph # (Auto) 3.9 (1.2-4.9) X10*3/uL [place] # (Auto) 1.1 (0.1-1.2) X10*3/uL Eos # (Auto) 0.1 (0.0-0.4) X10*3/uL Baso # (Auto) 0.1 (0.0-0.2) X10*3/uL Abs Immat Gran (auto) 0.13 H (0.00-0.03) X10*3/uL Absolute Neuts (auto) 13.4 H (2.0-8.3) x10*3/uL Absolute Nucleated RBC 0.000 (0.0-0.012) X10*3/uL Nucleated RBC % (auto) 0.0 (0.0-0.2) /100WBC VBG pH 7.39 (7.32-7.43) VBG pCO2 47 mmHg VBG pO2 49 mmHg VBG HCO3 29 H (22-26) mmol/L VBG O2 Saturation 76.0 % VBG Base Excess 3.8 mmol/L Sodium 141 (135-145) mmol/L Potassium 3.5 (3.3-5.1) mmol/L Chloride 106 (96-108) mmol/L Carbon Dioxide 27 (22-29) mmol/L Anion Gap 13 (12-20) BUN 19 H (9-16) mg/dL Creatinine 0.84 (0.5-1.4) mg/dL Estim Creat Clear Calc 121.1 Estimated GFR > 60 Random Glucose 106 (60-115) mg/dL Calcium 9.4 (8.4-10.2) mg/dL Magnesium 2.2 (1.6-2.6) mg/dL Total Bilirubin 0.2 (0.0-1.0) mg/dL AST 22 (5-37) U/L ALT 38 (0-40) U/L Alkaline Phosphatase 92 (39-117) U/L Troponin I High Sens < 2.7 (<3.5-35.0) ng/L Total Protein 7.2 (6.5-8.0) g/dL Albumin 4.0 (3.5-5.0) g/dL Discharge Plan Discharge Clinical Impression: Acute asthma exacerbation Patient Disposition: Admitted As Inpatient Print Language: Wolof
[2024-01-30 02:12] LABS: Magnesium 2.2 mg/dL (1.6-2.6)
[2024-01-30] MEDS: cefTRIAXone sodium 1 GM in 0.9 % Sodium Chloride 50 ML IV (02:15)
[2024-01-30 02:25] LABS: Lactic Acid 2.5 mmol/L (0.5-2.0)
--- NOTE | 2024-01-30 02:43 | P.HPHOSP_ITS ---
History of Present Illness Date of Service: 01/30/24 Chief Complaint: Dyspnea This is a 48-year-old male with pertinent history of severe persistent asthma not on home oxygen, seasonal allergies, gastroesophageal disease, history of opiate use who presents to the emergency department for evaluation of dyspnea. Patient was seen in the ER on 01/16/2024 and again on 01/26/2024 for concerns of asthma exacerbation. He was discharged from the ER with p.o. prednisone. Patient states he has been on prednisone for the last 12-13 days but continues to have dyspnea which is worse with exertion. Also has been having wheezing and nonproductive cough. Patient is compliant with his inhalers and nebulizers at home. No fever, chills, chest discomfort, palpitations, abdominal pain, changes in urinary or bowel habits. In the emergency department, patient was given IV magnesium and IV steroids. Review of Systems 2 Constitutional: Constitutional: Reports fatigue Cardiovascular: Cardiovascular: Reports dyspnea on exertion Respiratory: Respiratory: Reports cough, Reports dyspnea on exertion and Reports wheezing Gastrointestinal: Gastrointestinal: Reports no additional gastrointestinal complaints Genitourinary: Genitourinary: Reports no additional male genitourinary complaints Endocrine: Endocrine: Reports fatigue Allergic/Immunologic: Allergic/Immunologic: Reports wheezing [facility] Medical History History of positive PPD GERD (gastroesophageal reflux disease) Asthma Methadone maintenance therapy patient Family History Father No problems noted. Mother No problems noted. Surgical History Hx of endoscopy History of esophagogastroduodenoscopy (EGD) Hx of colonoscopy History of umbilical hernia repair History of left inguinal hernia repair Hx of knee surgery Hx of hernia repair Hx of shoulder surgery Social History Household Members: Family Household Members Other:: Housing: Apartment Do you presently have visiting nurse or other home services: No Alcohol intake: current Alcohol intake frequency: does not drink Patient Tobacco Use Status: Never used Tobacco Smoked in Last 30 Days: No e-Cigarette/Vaping Use: Never Used Second Hand Smoke Exposure: No Use of substances other than those prescribed or required for medical reasons: No Advance Directives: No Advance Directives Information Provided: No service: No Current occupational status: employed 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 Current occupational exposures/hazards: No Cognitive needs: No Hearing needs: No Vision needs: Yes Meds Allergies Allergy/AdvReac Type Severity Reaction Status Date / Time shrimp Allergy Severe ANAPHYLAXIS Verified 01/30/24 00:45 LOBSTER Allergy Unknown ANAPHYLAXIS Uncoded 01/30/24 00:45 Active Medications: Current Medications Azithromycin 500 mg/ Sodium (Chloride) 250 mls @ 125 mls/hr IV ONCE ONE Stop: 01/30/24 03:49 Home Medications ?Medication ?Instructions ?Recorded ?Confirmed ?Last Taken ?Type pantoprazole 40 mg tablet,delayed 40 mg PO DAILY@0630 01/22/23 11/24/23 01/21/23 History release Physical Exam 2 Vital Signs and Narrative: Vital Signs: Last Vital Signs Temp 97.8 F 01/30/24 02:17 Pulse 89 01/30/24 02:17 Resp 18 01/30/24 02:17 BP 138/80 01/30/24 02:17 Pulse Ox 98 01/30/24 02:17 O2 Del Method Room Air 01/30/24 02:17 BMI result Body Mass Index 35.2 Middle-aged male lying in bed in mild distress Neck supple, no JVD Regular rate and rhythm, S1-S2 heard Bilateral wheezing appreciated Abdomen soft nontender, no guarding, no rigidity Patient is awake, alert and oriented to self, place, time and person ; no focal motor deficit Psych: Normal mood No pedal edema Results Labs 01/30/24 04:33 01/30/24 04:33 Labs: Laboratory Results - last 24 hr 01/30/24 01/30/24 01/30/24 00:54 01:02 02:04 MCV 90.7 MCH 31.5 MCHC 34.8 RDW 14.3 Plt Count 277 MPV 10.1 Immature Gran % (Auto) 0.7 H Neut % (Auto) 71.9 Lymph % (Auto) 20.8 [place] % (Auto) 5.9 Eos % (Auto) 0.4 Baso % (Auto) 0.3 Lymph # (Auto) 3.9 [place] # (Auto) 1.1 Eos # (Auto) 0.1 Baso # (Auto) 0.1 Abs Immat Gran (auto) 0.13 H Absolute Neuts (auto) 13.4 H Absolute Nucleated RBC 0.000 Nucleated RBC % (auto) 0.0 VBG pH 7.39 VBG pCO2 47 VBG pO2 49 VBG HCO3 29 H VBG O2 Saturation 76.0 VBG Base Excess 3.8 Anion Gap 13 Estim Creat Clear Calc 121.1 Estimated GFR > 60 Random Glucose 106 Lactic Acid 2.5 H* Calcium 9.4 Magnesium 2.2 Total Bilirubin 0.2 AST 22 ALT 38 Alkaline Phosphatase 92 Troponin I High Sens < 2.7 Total Protein 7.2 Albumin 4.0 Assessment and Plan (1) Acute asthma exacerbation: Status: Acute Plan This is a 48-year-old male with pertinent history of severe persistent asthma not on home oxygen, seasonal allergies, gastroesophageal disease, history of opiate use who presents to the emergency department for evaluation of dyspnea. #. Acute exacerbation of severe persistent asthma: Failed outpatient p.o. steroids. Will admit patient and initiate IV steroids. Scheduled and p.r.n. Lambs. Continue home inhaler #. Acute lactic acidosis due to albuterol use #. Leukocytosis, reactive in the setting of steroid use #. Gastroesophageal reflux disease: On PPI Med rec pending DVT prophylaxis: Lovenox Full code Quality Stroke Does the patient have a stroke diagnosis?: No VTE Prior VTE?: No VTE Risk Level:: Medical - moderate - high VTE Device Contraindication: Treatment Not Indicated VTE Drug Contraindication: N/A - Med Ordered
[2024-01-30] MEDS: Azithromycin 500 MG in 0.9 % Sodium Chloride 250 ML 125 MG IV (02:59)
[2024-01-30 03:43] LABS: Influenza A PCR NEGATIVE (Negative); Influenza B PCR NEGATIVE (Negative); Resp Syncy Virus RNA Qual PCR NEGATIVE (Negative); SARS COV2 PCR INHOUSE NEGATIVE (Negative)
[2024-01-30 04:07] LABS: Reflex Lactate? Lactic Acid Added
[2024-01-30 04:57] LABS: Basophils Percent Auto 0.2 % (0-2); Eosinophils Percent Auto 0.1 % (0-4); Hematocrit 38.3 % (42.0-52.0); Hemoglobin 13.1 g/dl (14.0-18.0); Imm Gran Abs Auto 0.17 X10*3/uL (0.00-0.03); Imm Gran Pct Auto 0.9 % (0.0-0.4); Lymphocytes Absolute Auto 0.9 X10*3/uL (1.2-4.9); Lymphocytes Percent Auto 4.6 % (20-40); MANUAL DIFF FLAG SCAN; Mean Corpuscular HGB Conc 34.2 g/dl (31.0-36.0); Mean Corpuscular Hemoglobin 30.9 pg (27.0-33.0); Mean Corpuscular Volume 90.3 fL (80.0-98.0); Mean Platelet Volume 10.5 fL (9.4-12.4); Monocytes Absolute Auto 0.5 X10*3/uL (0.1-1.2); Monocytes Percent Auto 2.5 % (2-11); Neutrophils Absolute Auto 17.6 x10*3/uL (2.0-8.3); Neutrophils Percent Auto 91.7 % (45-73); Platelet Count 260 X10*3/uL (160-400); Red Blood Count 4.24 X10*6/uL (4.60-5.80); Red Cell Distribution Width 14.4 % (11.0-16.0); SCAN SMEAR FLAG 1; White Blood Count 19.2 X10*3/uL (4.8-10.8)
[2024-01-30 05:17] LABS: Anion Gap 13 (12-20); Blood Urea Nitrogen 16 mg/dL (9-16); Calcium 9.1 mg/dL (8.4-10.2); Carbon Dioxide 25 mmol/L (22-29); Chloride 105 mmol/L (96-108); Creatinine Clr Calc Pharmacy 122.5; Estimated Glomerular Filt Rate > 60; Glucose Random 168 mg/dL (60-115); Potassium 3.6 mmol/L (3.3-5.1); Sodium 139 mmol/L (135-145)
[2024-01-30 05:24] LABS: SLIDE REVIEW VERIFIED
[2024-01-30 05:25] LABS: ~Lactic Acid-LAB USE ONLY 2.6 mmol/L (0.5-2.0)
[2024-01-30 06:52] LABS: Reflex Lactate? 2 Y
[2024-01-30] MEDS: methylPREDNISolone Sod Succ 40 MG/ML VIAL IVPUSH ×2 (08:03→19:28)
[2024-01-30] MEDS: 0.9 % Sodium Chloride Flush 3 ML SYRINGE IVFLUSH ×3 (08:09→19:28)
[2024-01-30 08:19] LABS: ~Lactic Acid-LAB USE ONLY 5.1 mmol/L (0.5-2.0)
--- NOTE | 2024-01-30 08:26 | PHA.MEDREC ---
Pharmacy Consult ? Medication Reconciliation Pharmacy has completed the medication reconciliation. Confirmed meds with PT. He is currently on a prenisone taper pack, he is now down to 30mg daily for 3 days starting that regiment today then he should be down to 20mg on .
--- NOTE | 2024-01-30 10:24 | MHC.CM.PN ---
CHARLIE DELIVERED PT LIVES WITH SPOUSE. INDEPENDENT AND EMPLOYED F/T. DECLINES HCP AT THIS TIME. [place] [facility] [place] , NO SERVICES ANTICIPATED. PT HAS OWN RIDE HOME. CM WILL CONTINUE TO FOLLOW FOR ANY CHANGE TO DC PLAN/NEEDS.
--- NOTE | 2024-01-30 11:37 | PM.EVENT ---
Event Note Date of Service: 01/30/24 Event Note: Day hospitalist update S: dyspnea improving, wheezing less O: Temp Pulse Resp BP Pulse Ox O2 Del Method 96.8 F 100 18 125/64 96 Room Air 01/30/24 07:41 01/30/24 07:41 01/30/24 10:43 01/30/24 07:41 01/30/24 07:41 01/30/24 07:41 Gen: in no acute distress HEENT: sclera anicteric, moist mucus membranes Neck: supple Lungs: diffuse expiratorh wheezing Heart: regular, tachycardic, no murmurs Abd: soft, non-tender, non-distended Ext: no edema Skin: warm/well-perfused Neuro: alert and oriented x3, no focal findings Psych: appropriate affect A/P: d1 d1 48yo M with sev persistent asthma, allergies, GERD, hx opiate use presenting with dyspnea + wheezing after failing 2 courses of outpt prednisone acute exac of sev per asthma - continue IV steroids, sched/prn nebs, start controller inh on discharge acute lactic acidosis - due to albueterol not septic GERD - PPI VTE ppx - LMWH dispo - eventual home In my clinical judgment, the patient requires continued hospitalization for the following reasons: failed outpt tx Time Spent With Patient Time: Total time managing care of this patient today ____ minutes.
[2024-01-31 01:55] VITALS: RESP 18
[2024-01-31] MEDS: Enoxaparin Sodium 40 MG/0.4 ML SYRINGE SUBCUT (03:28)
[2024-01-31 03:40] VITALS: BP 142/82; PULSE 104; RESP 20; TEMP 36.2; O2SAT 97
[2024-01-31] MEDS: Omeprazole 20 MG CAPSULE.DR PO (05:40)
[2024-01-31] MEDS: Albuterol/Iprat 2.5/0.5MG 3 ML AMPUL.NEB INHALE (07:20)
[2024-01-31 07:21] VITALS: PULSE 104; RESP 20; O2SAT 96
[2024-01-31 07:23] VITALS: BP 132/76; PULSE 77; RESP 14; TEMP 36.3; O2SAT 98
[2024-01-31] MEDS: methylPREDNISolone Sod Succ 40 MG/ML VIAL IVPUSH (07:37)
[2024-01-31] MEDS: 0.9 % Sodium Chloride Flush 3 ML SYRINGE IVFLUSH (07:40)
--- NOTE | 2024-01-31 09:57 | PM.DS ---
DS: Providers Provider Date of Service: 01/31/24 Date of admission: 01/30/24 02:43 Date of discharge: 01/31/24 Primary care physician: Skinny Wright MD DS: Diagnosis Discharge Diagnosis (1) Severe persistent allergic asthma with acute exacerbation: Status: Acute (2) Acute lactic acidosis: Status: Acute DS: Summary Hospital Course Hospital Course: From the history and physical by the admitting hospitalist, Maikel Bustillo MD, 01/30/24: This is a 48-year-old male with pertinent history of severe persistent asthma not on home oxygen, seasonal allergies, gastroesophageal disease, history of opiate use who presents to the emergency department for evaluation of dyspnea. Patient was seen in the ER on 01/16/2024 and again on 01/26/2024 for concerns of asthma exacerbation. He was discharged from the ER with p.o. prednisone. Patient states he has been on prednisone for the last 12-13 days but continues to have dyspnea which is worse with exertion. Also has been having wheezing and nonproductive cough. Patient is compliant with his inhalers and nebulizers at home. No fever, chills, chest discomfort, palpitations, abdominal pain, changes in urinary or bowel habits. In the emergency department, patient was given IV magnesium and IV steroids. 48yo M with sev persistent asthma, allergies, GERD, and hx opiate use presenting with dyspnea + wheezing after failing 2 courses of outpt prednisone. He was admitted to the medical-surgical unit on observation and improved with IV steroids and scheduled nebulizer treatment. Lactic acidosis was due to albuterol, not sepsis. No evidence for infection. He improved symptomatically and was discharged on a slow prednisone taper over 20 days. He was also started on Trelegy Ellipta upon discharge and should follow up with his primary care doctor in 1-2 weeks. Time Attestation Discharge Coordination Time (in mins): 35 Quality: Safe Use of Opioids Does Pt have an Active Cancer Diagnosis on the Problem List?: No Quality: Stroke Does the patient have a stroke diagnosis?: No Physical Exam Vital Signs: Vital Signs: Last Vital Signs Temp 97.4 F 01/31/24 07:23 Pulse 77 01/31/24 07:23 Resp 14 01/31/24 07:23 BP 132/76 01/31/24 07:23 Pulse Ox 98 01/31/24 07:23 O2 Del Method Room Air 01/31/24 07:23 BMI result Body Mass Index 36.7 Gen: in no acute distress HEENT: sclera anicteric, moist mucus membranes Neck: supple Lungs: clear to auscultation bilaterally Heart: regular rate and rhythm, no murmurs Abd: soft, non-tender, non-distended Ext: no edema Skin: warm/well-perfused Neuro: alert and oriented x3, no focal findings Psych: appropriate affect DS: Data Data Completed and Pending Completed studies during hospitalization [Text1]: Laboratory Results WBC 19.2 X10*3/uL (4.8-10.8) H 01/30/24 04:33 RBC 4.24 X10*6/uL (4.60-5.80) L 01/30/24 04:33 Hgb 13.1 g/dl (14.0-18.0) L 01/30/24 04:33 Hct 38.3 % (42.0-52.0) L 01/30/24 04:33 MCV 90.3 fL (80.0-98.0) 01/30/24 04:33 MCH 30.9 pg (27.0-33.0) 01/30/24 04:33 MCHC 34.2 g/dl (31.0-36.0) 01/30/24 04:33 RDW 14.4 % (11.0-16.0) 01/30/24 04:33 Plt Count 260 X10*3/uL (160-400) 01/30/24 04:33 MPV 10.5 fL (9.4-12.4) 01/30/24 04:33 Immature Gran % (Auto) 0.9 % (0.0-0.4) H 01/30/24 04:33 Neut % (Auto) 91.7 % (45-73) H 01/30/24 04:33 Lymph % (Auto) 4.6 % (20-40) L 01/30/24 04:33 [place] % (Auto) 2.5 % (2-11) 01/30/24 04:33 Eos % (Auto) 0.1 % (0-4) 01/30/24 04:33 Baso % (Auto) 0.2 % (0-2) 01/30/24 04:33 Lymph # (Auto) 0.9 X10*3/uL (1.2-4.9) L 01/30/24 04:33 [place] # (Auto) 0.5 X10*3/uL (0.1-1.2) 01/30/24 04:33 Eos # (Auto) 0.0 X10*3/uL (0.0-0.4) 01/30/24 04:33 Baso # (Auto) 0.0 X10*3/uL (0.0-0.2) 01/30/24 04:33 Abs Immat Gran (auto) 0.17 X10*3/uL (0.00-0.03) H 01/30/24 04:33 Absolute Neuts (auto) 17.6 x10*3/uL (2.0-8.3) H 01/30/24 04:33 Absolute Nucleated RBC 0.000 X10*3/uL (0.0-0.012) 01/30/24 04:33 Nucleated RBC % (auto) 0.0 /100WBC (0.0-0.2) 01/30/24 04:33 Smear Tech's Comments VERIFIED 01/30/24 04:33 VBG pH 7.39 (7.32-7.43) 01/30/24 01:02 VBG pCO2 47 mmHg 01/30/24 01:02 VBG pO2 49 mmHg 01/30/24 01:02 VBG HCO3 29 mmol/L (22-26) H 01/30/24 01:02 VBG O2 Saturation 76.0 % 01/30/24 01:02 VBG Base Excess 3.8 mmol/L 01/30/24 01:02 Sodium 139 mmol/L (135-145) 01/30/24 04:33 Potassium 3.6 mmol/L (3.3-5.1) 01/30/24 04:33 Chloride 105 mmol/L (96-108) 01/30/24 04:33 Carbon Dioxide 25 mmol/L (22-29) 01/30/24 04:33 Anion Gap 13 (12-20) 01/30/24 04:33 BUN 16 mg/dL (9-16) 01/30/24 04:33 Creatinine 0.83 mg/dL (0.5-1.4) 01/30/24 04:33 Estim Creat Clear Calc 122.5 01/30/24 04:33 Estimated GFR > 60 01/30/24 04:33 Random Glucose 168 mg/dL (60-115) H 01/30/24 04:33 Lactic Acid 2.5 mmol/L (0.5-2.0) H* 01/30/24 02:04 Lactic Acid F/U @ 2Hr 2.6 mmol/L (0.5-2.0) H* 01/30/24 04:33 Lactic Acid F/U @ 4Hr 5.1 mmol/L (0.5-2.0) H* 01/30/24 07:54 Calcium 9.1 mg/dL (8.4-10.2) 01/30/24 04:33 Magnesium 2.2 mg/dL (1.6-2.6) 01/30/24 00:54 Total Bilirubin 0.2 mg/dL (0.0-1.0) 01/30/24 00:54 AST 22 U/L (5-37) 01/30/24 00:54 ALT 38 U/L (0-40) 01/30/24 00:54 Alkaline Phosphatase 92 U/L (39-117) 01/30/24 00:54 Troponin I High Sens < 2.7 ng/L (<3.5-35.0) 01/30/24 00:54 Total Protein 7.2 g/dL (6.5-8.0) 01/30/24 00:54 Albumin 4.0 g/dL (3.5-5.0) 01/30/24 00:54 Influenza Type A (PCR) NEGATIVE (Negative) 01/30/24 02:38 Influenza Type B (PCR) NEGATIVE (Negative) 01/30/24 02:38 RSV RNA Qual (PCR) NEGATIVE (Negative) 01/30/24 02:38 SARS-CoV-2 RNA (RT-PCR) NEGATIVE (Negative) 01/30/24 02:38 Impressions Chest X-Ray 01/30/24 02:19 IMPRESSION: Central peribronchial thickening suggesting airways disease. No definite focal consolidation. Discharge Plan Discharge Patient Disposition: Home, Self-Care Discharge Diagnosis: asthma flare Referrals: Skinny Wright MD [Primary Care Provider] - 1 Week Discharge Medications: New Trelegy Ellipta 100-62.5-25 mcg blister with device 1 inh inhalation DAILY Qty: 60 0RF cetirizine 10 mg tablet 10 mg PO DAILY PRN (Reason: allergies) Qty: 30 0RF prednisone 10 mg tablet See Rx Instructions .ROUTE .COMPLEX Qty: 42 0RF Rx Instructions: 40 mg daily for 4 days, then 30 mg daily for 4 days, then 20 mg daily for 4 days, then 10 mg daily for 4 days, then 5 mg daily for 4 days, then stop Continued (DME) nebulizers [Aeroneb Go Nebulizer] Misc See Rx Instructions .Route Qty: 1 0RF Rx Instructions: As directed albuterol sulfate 0.63 mg/3 mL solution for nebulization 0.63 mg inhalation QID PRN (Reason: shortness of breath or wheezing) Qty: 90 0RF pantoprazole 40 mg tablet,delayed release (DR/EC) 40 mg PO DAILY@0630 albuterol sulfate 90 mcg/actuation HFA aerosol inhaler 2 puff inhalation Q4H PRN (Reason: Wheezing) epinephrine 0.3 mg/0.3 mL auto-injector 0.3 mg IM Q4H PRN (Reason: anaphylaxis) Qty: 1 0RF Discontinued prednisone 10 mg tablets,dose pack See Taper PO DIRECTED Taper: Prednisone 60 mg daily for 3 Days and 0 Hour 50 mg daily for 3 Days and 0 Hour 40 mg daily for 3 Days and 0 Hour 30 mg daily for 3 Days and 0 Hour 20 mg daily for 3 Days and 0 Hour 10 mg daily for 3 Days and 0 Hour Rx Instructions: Pt started 30mg 01/30/2024 Discharge Orders: Discharge Order (Routine); Ordered 01/31/24 Ordered By: Emerson Mckeon Diet: Advance to usual diet Activity on Discharge: As tolerated Stand Alone Forms: Patient Portal Discharge page Print Language: [place] Care Plan Goals: lung health Health Concerns: asthma flare Plan of Treatment: prednisone 10 mg tabs, taper as follows: 40 mg (4 tabs) daily x 4 days, then 30 mg (3 tabs) daily x 4 days, then 20 mg (2 tabs) daily x 4 days, then 10 mg (1 tab) daily x 4 days, then 5 mg (half tab) daily x 4 days, then stop use albuterol nebulizer or inhaler for rescue start using Trelegy Ellipta inhaler, 1 puff daily, for prevention cetirizine as needed for allergies Please follow up with your primary care doctor within 1 week. Return to the hospital if you experience recurrent or worsening symptoms. Assessment: See Discharge Summary.
--- NOTE | 2024-01-31 10:34 | MHC.CM.PN ---
DP: PT HAS BEEN MEDICALLY CLEARED FOR DC HOME, NO SERVICES. PT HAS OWN RIDE HOME.
== END 2024-01-31 10:46 | disposition home or self-care (01) ==
LOC: HO.ED 01-30 02:23 → HO.EDOVER 01-30 02:50 → HO.S3 01-30 05:13
PROVIDERS: Physician Assistant; Admitting Provider Student in an Organized Health Care Education/Training Program; Emergency Provider Emergency Medicine Emergency Medical Services; PCP Internal Medicine; Visit Provider Family Medicine
DX: J45.51 Severe persistent asthma with (acute) exacerbation (principal); E87.21 Acute metabolic acidosis; R06.02 Shortness of breath; D72.829 Elevated white blood cell count, unspecified; K21.9 Gastro-esophageal reflux disease without esophagitis; F11.90 Opioid use, unspecified, uncomplicated; Z79.899 Other long term (current) drug therapy; Z03.818 Encounter for observation for suspected exposure to other biological agents ruled out
CPT/HCPCS: 0241U; 36415; 71046; 80048; 80053; 82803; 83605; 83735; 84484; 85025; 87040; 94640; 96365; 96366; 96367; 96368; 96372; 96375; 96376; 99221; 99285; J0456; J0696; J1650; J2919; J3475

== ENCOUNTER → 2024-01-30 02:43 | Outpatient (BNV) | payer OTHER, SELFPAY | PROVIDERS: Admitting Provider Student in an Organized Health Care Education/Training Program; Emergency Provider Emergency Medicine Emergency Medical Services; PCP Internal Medicine; Visit Provider Student in an Organized Health Care Education/Training Program | DX: J45.51 Severe persistent asthma with (acute) exacerbation (principal); E87.21 Acute metabolic acidosis | CPT/HCPCS: 99222; 99239; 99499 ==

== ENCOUNTER 2024-02-20 14:36 | Outpatient (AMB) | payer OTHER, MEDICAID, SELFPAY ==
--- NOTE | 2024-02-20 14:40 | A.OFFPC_ITS ---
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 Accompanied by: Spouse Allergies shrimp Allergy (Severe, Verified 01/30/24 00:45) ANAPHYLAXIS LOBSTER Allergy (Unknown, Uncoded 01/30/24 00:45) ANAPHYLAXIS Tobacco use date assessed: 09/05/23 Dental Screening Dental Screen Date: 09/05/23 HPI [facility] [place] asthma attack HPI Details admitted with asthma; has allergies; fine now [facility] Medical History History of positive PPD GERD (gastroesophageal reflux disease) Asthma Methadone maintenance therapy patient Surgical History Hx of endoscopy History of esophagogastroduodenoscopy (EGD) Hx of colonoscopy History of umbilical hernia repair History of left inguinal hernia repair Hx of knee surgery Hx of hernia repair Hx of shoulder surgery Family History Father No problems noted. Mother No problems noted. 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 Jean Pierre Flynn, Kailee Sanderson, Dayday Cueto and colleagues, with an educational ten from [employer]. Review of Systems Const Denies chills, Denies headache(s) and Denies weight loss ENT Denies headache(s) Card Denies chest pain, Denies syncope, Denies irregular heart rhythm and Denies dyspnea Resp Denies chest congestion, Denies cough and Denies dyspnea GI Denies abdominal pain, Denies change in stool character, Denies nausea and Denies vomiting Musc Denies deformity and Denies joint swelling Neuro Denies syncope and Denies headache(s) Physical exam (Primary Care) Vital Signs: Last Vital Signs Pulse 70 02/20/24 14:41 BP 102/60 02/20/24 14:41 Pulse Ox 99 02/20/24 14:41 Oxygen Delivery Method Room Air 02/20/24 14:41 BMI result Body Mass Index 37.6 Tobacco/Smoking Status: Tobacco use Status Tobacco use date assessed 09/05/23 02/20/24 14:44 Patient Tobacco Use Status Never used Tobacco 02/20/24 14:44 e-Cigarette/Vaping Use Never Used 02/20/24 14:44 Thrive Assessment: Date of Thrive Assessment Date Thrive assessed 01/30/24 02/20/24 14:44 Const General: cooperative, comfortable, no acute distress and alert Neck Neck: Yes no lymphadenopathy Thyroid: Thyroid normal Resp Effort & Inspection: normal respiratory effort Auscultation: clear to auscultation bilaterally Percussion: percussion normal Cardio Jugular venous distension: no JVD Palpation: normal PMI Rate: regular rate Rhythm: regular rhythm Heart sounds: S1 normal heart sound present and S2 normal heart sound present GI Inspection: Yes normal to inspection Palpation (GI): No hepatosplenomegaly present Skin General skin exam: no rashes or lesions noted Extrem General: Yes no clubbing, cyanosis or edema Assessment and Plan Assessment & Plan (1) Asthma: Code(s): J45.909 - Unspecified asthma, uncomplicated Plan: stable; same rx Coding Level of Care Code Est Pt Level 3 (50022) Diagnoses Asthma J45.909
[2024-02-20 14:41] VITALS: BP 102/60; PULSE 70; O2SAT 99; BMI 37.6
== END 2024-02-20 14:51 | disposition home or self-care (01) ==
PROVIDERS: PCP Internal Medicine; Visit Provider Internal Medicine
DX: J45.909 Unspecified asthma, uncomplicated (principal)
CPT/HCPCS: 99213

== ENCOUNTER 2024-02-29 11:20 | Emergency (ER) | payer OTHER, SELFPAY ==
[2024-02-29 11:42] VITALS: BP 132/86; PULSE 91; RESP 18; TEMP 36.1; O2SAT 98; BMI 36.2
--- NOTE | 2024-02-29 11:42 | ED_ITS ---
HPI - General Adult General Chief complaint: Eye Problems Stated complaint: eye problem Time Seen by Provider: 02/29/24 11:53 Source: patient and RN notes reviewed Mode of arrival: ambulatory Limitations: no limitations History of Present Illness ED Provider: Yanely Gonzalez PA-C HPI narrative: This is a 49-year-old male, with a history of asthma, GERD, who presents emergency department with complaints of right eye redness, drainage, and itchiness x2 days. He denies any foreign body sensation. No changes in vision. Denies eye pain. States that when he wakes up in the morning his eyes crusted shut. No sick contacts with similar symptoms. No fevers or chills. No other complaints or concerns at this time. MD complaint: Right eye redness, drainage, itchiness Onset (ago): day(s) Location: eyes Relieving factors: none Exacerbating factors: none Associated symptoms: denies other symptoms Treatments prior to arrival: none Related Data Home Medications ?Medication ?Instructions ?Recorded ?Confirmed pantoprazole 40 mg tablet,delayed 40 mg PO DAILY@0630 01/22/23 01/30/24 release albuterol sulfate 90 mcg/actuation 2 puff inhalation Q4H PRN Wheezing 01/30/24 01/30/24 aerosol inhaler Previous Rx's ?Medication ?Instructions ?Recorded epinephrine 0.3 mg/0.3 mL 0.3 mg (0.3 mL) IM Q4H PRN 03/11/23 injection, auto-injector anaphylaxis #1 ea nebulizers (Aeroneb Go Nebulizer) #1 ea 01/17/24 albuterol sulfate 0.63 mg/3 mL 0.63 mg (3 mL) inhalation QID PRN 01/20/24 solution for nebulization shortness of breath or wheezing #90 mL cetirizine 10 mg tablet 10 mg PO DAILY PRN allergies #30 01/31/24 tabs fluticasone fur. 100 mcg-umeclid 1 inh inhalation DAILY #60 ea 01/31/24 62.5 mcg-vilant 25 mcg inhalat.powder (Trelegy Ellipta) prednisone 10 mg tablet See Rx Instructions .Route 01/31/24 .COMPLEX #42 tabs erythromycin 5 mg/gram (0.5 %) eye 0.5 inch ophthalmic (eye) QID #3.5 02/29/24 ointment grams Allergies Allergy/AdvReac Type Severity Reaction Status Date / Time shrimp Allergy Severe ANAPHYLAXIS Verified 02/29/24 11:44 LOBSTER Allergy Unknown ANAPHYLAXIS Uncoded 01/30/24 00:45 Review of Systems Review of Systems: Yes all other systems are reviewed and are negative Constitutional: Constitutional: Reports as per [facility] Past Medical History Attestation statement: The following information was validated with the patient. 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 Mother No problems noted. 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 Current occupational exposures/hazards: No Cognitive needs: No Hearing needs: No Vision needs: Yes Physical Exam ED Vital Signs: Vital Signs - 24 hr 02/29/24 11:42 Temperature 97.0 F Pulse Rate 91 Respiratory Rate 18 Blood Pressure 132/86 Pulse Oximetry 98 Oxygen Delivery Method Room Air BMI result Body Mass Index 36.2 Const General: cooperative, comfortable and no acute distress Orientation/consciousness: patient oriented x3 Limitations: no limitations HENMT Head: Yes normal to inspection, Yes normocephalic and Yes atraumatic Ears: hearing grossly normal bilaterally General nose exam: Normal external nose present Face and sinus: Yes normal facial exam Mouth: Normal oral and palatal mucosa present, oropharynx normal and moist muc ous membranes Throat: Yes posterior oropharynx normal Eyes Other: Right eye conjunctiva is slightly injected, no crusting, extraocular movements intact. PERRLA bilaterally. No periorbital edema or erythema noted. General: appearance normal, both eyes and all related structures Pupils: Equal, round and reactive pupils present EOM: EOMs intact bilaterally Neck Neck: Yes normal visual inspection, Yes full ROM and Yes no lymphadenopathy Lymphatic: no lymphadenopathy noted Chest Chest palpation & inspection: normal inspection of the chest Resp Effort & Inspection: normal respiratory effort and able to speak in complete sentences Cardio Rate: regular rate Rhythm: regular rhythm GI Inspection: Yes normal to inspection Skin General skin exam: no rashes or lesions noted Trauma: no lacerations or abrasions Wounds: no wounds Neuro General: patient oriented x3 and moves all extremities Cranial nerves: Yes Equal, round and reactive pupils present Extrem General: Yes normal to inspection Right upper extremity: normal to inspection Left upper extremity: normal to inspection Right lower extremity: normal to inspection Left lower extremity: normal to inspection Course Course Course Narrative: This is an RME: Additional HPI, ROS, PE not included below will be deferred to primary provider. RME assessment and note performed by: Yanely Gonzalez PA-C This is a [id number]-male, with a hx of asthma, GERD, who presents to the ER with complaint of right eye drainage x 2 days Plan: Medical Decision Making Medical Decision Making MDM Narrative: This is a 49-year-old male, with a history of GERD, and asthma, who presents emergency department with complaints of right eye itchiness, drainage x2 days. He states that when he awakes in the morning his eyes crusted shut. On arrival, vital signs within normal limits. He has had no visual changes, foreign body sensation. Right eye conjunctiva is slightly injected, no drainage noted however patient states that he remove this this morning. He is endorsing itchiness. Differential diagnoses include conjunctivitis, corneal abrasion- unlikely, orbital cellulitis-unlikely, hordeolum unlikely. Discussed symptoms are likely due to conjunctivitis, may be viral, bacterial, or allergic. Visual acuity intact. Will cover for bacterial, he understands agrees with plan. Patient given return precautions. Patient stable for discharge. Differential Diagnosis Differential Diagnoses: The differential diagnosis associated with the presentation includes See above Radiology Impression Discussion of test interpretation with radiology: I have reviewed the radiologist's reading. External Record Review External record reviewed: Inpatient record, Office record, Outpatient record, Prior outpatient labs, Prior outpatient radiology, Primary care record and Outside ED record Discharge Plan Discharge Clinical Impression: Conjunctivitis Patient Disposition: Home, Self-Care Instructions: Conjunctivitis (ED) Additional Instructions: You were seen in the emergency department due to right eye drainage, and itchiness for the last 2 days. You have evidence of conjunctivitis. This may be allergic, viral or bacterial. I am treating you with erythromycin ointment, please use 4 times a day for the next 7 days. This may be contagious therefore it is important that you wash your hands frequently. If you develop any new or worsening symptoms including but not limited to eye pain, changes in vision, fevers, eye swelling, please return for re-evaluation. Prescriptions: New erythromycin 5 mg/gram (0.5 %) ointment 0.5 inch ophthalmic (eye) QID Qty: 3.5 0RF No Action (DME) nebulizers [Aeroneb Go Nebulizer] Misc See Rx Instructions .Route Qty: 1 0RF Rx Instructions: As directed albuterol sulfate 0.63 mg/3 mL solution for nebulization 0.63 mg inhalation QID PRN (Reason: shortness of breath or wheezing) Qty: 90 0RF pantoprazole 40 mg tablet,delayed release (DR/EC) 40 mg PO DAILY@0630 albuterol sulfate 90 mcg/actuation HFA aerosol inhaler 2 puff inhalation Q4H PRN (Reason: Wheezing) Trelegy Ellipta 100-62.5-25 mcg blister with device 1 inh inhalation DAILY Qty: 60 0RF cetirizine 10 mg tablet 10 mg PO DAILY PRN (Reason: allergies) Qty: 30 0RF prednisone 10 mg tablet See Rx Instructions .ROUTE .COMPLEX Qty: 42 0RF Rx Instructions: 40 mg daily for 4 days, then 30 mg daily for 4 days, then 20 mg daily for 4 days, then 10 mg daily for 4 days, then 5 mg daily for 4 days, then stop epinephrine 0.3 mg/0.3 mL auto-injector 0.3 mg IM Q4H PRN (Reason: anaphylaxis) Qty: 1 0RF Print Language: R[place]an
[2024-02-29 11:59] VITALS: BP 132/86; PULSE 91; RESP 18; TEMP 36.1; O2SAT 98
== END 2024-02-29 12:00 | disposition home or self-care (01) ==
PROVIDERS: Emergency Provider Emergency Medicine; PCP Internal Medicine
DX: H10.9 Unspecified conjunctivitis (principal); H57.11 Ocular pain, right eye
CPT/HCPCS: 99282; 99283

== ENCOUNTER 2024-03-06 11:51 | Outpatient (AMB) | payer OTHER, SELFPAY ==
--- NOTE | 2024-03-06 11:57 | A.OFFPC_ITS ---
Vital Signs 03/06/24 12:00 Height 5 ft 8 in Weight 238 lb BMI 36.2 BP 116/76 Blood Pressure Location Lt brachial Position Sitting Pulse 82 Pulse Source Pulse Oximeter Pulse Oximetry (%) 97 Oxygen Delivery Method Room Air Intake Visit Reasons: Rt eye pain/dry eye Card Grader Required: No Accompanied by: Spouse Allergies shrimp Allergy (Severe, Verified 03/06/24 12:00) ANAPHYLAXIS LOBSTER Allergy (Unknown, Uncoded 03/06/24 12:00) ANAPHYLAXIS Tobacco use date assessed: 09/05/23 Dental Screening Dental Screen Date: 09/05/23 HPI Rt eye pain/dry eye HPI Details allergic rhinitis with itchy eyes PFSH Medical History History of positive PPD GERD (gastroesophageal reflux disease) Asthma Methadone maintenance therapy patient Surgical History Hx of endoscopy History of esophagogastroduodenoscopy (EGD) Hx of colonoscopy History of umbilical hernia repair History of left inguinal hernia repair Hx of knee surgery Hx of hernia repair Hx of shoulder surgery Family History Father No problems noted. Mother No problems noted. 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 Jean Pierre Flynn, Kailee Sanderson, Dayday Cueto and colleagues, with an educational ten from [employer]. Review of Systems Const Denies chills, Denies headache(s) and Denies weight loss ENT Denies headache(s) Card Denies chest pain, Denies syncope, Denies irregular heart rhythm and Denies dyspnea Resp Denies chest congestion, Denies cough and Denies dyspnea GI Denies abdominal pain, Denies change in stool character, Denies nausea and Denies vomiting Musc Denies deformity and Denies joint swelling Neuro Denies syncope and Denies headache(s) Physical exam (Primary Care) Vital Signs: Last Vital Signs Pulse 82 03/06/24 12:00 BP 116/76 03/06/24 12:00 Pulse Ox 97 03/06/24 12:00 Oxygen Delivery Method Room Air 03/06/24 12:00 BMI result Body Mass Index 36.2 Tobacco/Smoking Status: Tobacco use Status Tobacco use date assessed 09/05/23 03/06/24 11:58 Patient Tobacco Use Status Never used Tobacco 03/06/24 11:58 e-Cigarette/Vaping Use Never Used 03/06/24 11:58 Thrive Assessment: Date of Thrive Assessment Date Thrive assessed 01/30/24 03/06/24 11:58 Const General: cooperative, comfortable, no acute distress and alert Neck Neck: Yes no lymphadenopathy Thyroid: Thyroid normal Resp Effort & Inspection: normal respiratory effort Auscultation: clear to auscultation bilaterally Percussion: percussion normal Cardio Jugular venous distension: no JVD Palpation: normal PMI Rate: regular rate Rhythm: regular rhythm Heart sounds: S1 normal heart sound present and S2 normal heart sound present GI Inspection: Yes normal to inspection Palpation (GI): No hepatosplenomegaly present Skin General skin exam: no rashes or lesions noted Extrem General: Yes no clubbing, cyanosis or edema Assessment and Plan Assessment & Plan (1) Conjunctivitis: Code(s): H10.9 - Unspecified conjunctivitis Plan: rx sent Medications: New ketotifen fumarate 0.025%(0.035%) do not exceed 2 doses in a 24 hour period 1 drp ophthalmic (eye) Q8H PRN 5 mL 2RF allergy symptoms Coding Level of Care Code Est Pt Level 3 (53228) Diagnoses Conjunctivitis H10.9
[2024-03-06 12:00] VITALS: BP 116/76; PULSE 82; O2SAT 97; BMI 36.2
== END 2024-03-06 12:03 | disposition home or self-care (01) ==
PROVIDERS: PCP Internal Medicine; Visit Provider Internal Medicine
DX: H10.9 Unspecified conjunctivitis (principal)
CPT/HCPCS: 99213

== ENCOUNTER 2024-03-12 10:06 | Outpatient (AMB) | payer OTHER, SELFPAY ==
[2024-03-12 10:09] VITALS: BP 130/86; PULSE 76; O2SAT 98; BMI 36.2
--- NOTE | 2024-03-12 10:09 | A.OFFPC_ITS ---
Vital Signs 03/12/24 10:09 Height 5 ft 8 in Weight 238 lb BMI 36.2 BP 130/86 Blood Pressure Location Lt brachial Position Sitting Pulse 76 Pulse Source Pulse Oximeter Pulse Oximetry (%) 98 Oxygen Delivery Method Room Air Intake Visit Reasons: Annual exam Nuts And Bolts Assembler Required: No Application Support Developer: Not Required per policy Accompanied by: Self / Same As Patient Allergies shrimp Allergy (Severe, Verified 03/12/24 10:10) ANAPHYLAXIS LOBSTER Allergy (Unknown, Uncoded 03/12/24 10:10) ANAPHYLAXIS Medication List - Last Reconciled 03/12/24 by Skinny Wright MD albuterol sulfate 90 mcg/actuation 2 puffs inhalation Q4H PRN albuterol sulfate 0.63 mg (3 mL) inhalation QID PRN cetirizine 10 mg PO DAILY PRN epinephrine 0.3 mg (0.3 mL) IM Q4H PRN erythromycin 0.5 inches ophthalmic (eye) QID [id number] 100-62.5-25 mcg (Trelegy Ellipta) 1 inh inhalation DAILY ketotifen fumarate 0.025%(0.035%) 1 drp ophthalmic (eye) Q8H PRN nebulizers (Aeroneb Go Nebulizer) As directed pantoprazole 40 mg PO DAILY@0630 prednisone 40 mg daily for 4 days, then 30 mg daily for 4 days, then 20 mg daily for 4 days, then 10 mg daily for 4 days, then 5 mg daily for 4 days, then stop Tobacco use date assessed: 09/05/23 Dental Screening Dental Screen Date: 09/05/23 HPI Annual exam HPI Details asthma; stable; colon polyps due for colonoscopy next year FOR[facility], [facility] Medical History (Updated 03/12/24 @ 10:24 by Skinny Wright MD) Physical exam History of positive PPD GERD (gastroesophageal reflux disease) Asthma Methadone maintenance therapy patient Surgical History Hx of endoscopy History of esophagogastroduodenoscopy (EGD) Hx of colonoscopy History of umbilical hernia repair History of left inguinal hernia repair Hx of knee surgery Hx of hernia repair Hx of shoulder surgery Family History Father No problems noted. Mother No problems noted. 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 Jean Pierre Flynn, Kailee Sanderson, Dayday Cueto and colleagues, with an educational ten from [employer]. Review of Systems Const Denies chills, Denies fatigue, Denies headache(s) and Denies weight loss Eyes Denies change in vision, Denies diplopia and Denies eye pain ENT Denies vertigo, Denies dizziness, Denies headache(s) and Denies nasal discharge Card Denies chest pain, Denies rapid heart rate and Denies dyspnea on exertion Resp Denies chest congestion, Denies cough, Denies pain with cough and Denies dyspnea on exertion GI Denies abdominal pain, Denies hematochezia and Denies change in bowel habits Musc Denies myalgias, Denies arthralgias and Denies joint swelling Skin/Breast Denies lesions and Denies unusual bruising Neuro Denies vertigo, Denies dizziness, Denies headache(s) and Denies focal weakness Endo Denies fatigue Physical exam (Primary Care) Vital Signs: Last Vital Signs Pulse 76 03/12/24 10:09 BP 130/86 03/12/24 10:09 Pulse Ox 98 03/12/24 10:09 Oxygen Delivery Method Room Air 03/12/24 10:09 BMI result Body Mass Index 36.2 Tobacco/Smoking Status: Tobacco use Status Tobacco use date assessed 09/05/23 03/12/24 10:14 Patient Tobacco Use Status Never used Tobacco 03/12/24 10:14 e-Cigarette/Vaping Use Never Used 03/12/24 10:14 Thrive Assessment: Date of Thrive Assessment Date Thrive assessed 01/30/24 03/12/24 10:14 Const General: cooperative, healthy appearing and no acute distress Orientation/consciousness: oriented to person, oriented to place and oriented to time HENMT Head: Yes normal to inspection, Yes normocephalic and Yes atraumatic Mouth: Normal oral and palatal mucosa present and tongue normal Throat: Yes posterior oropharynx normal and Yes uvula midline Eyes General: appearance normal, both eyes and all related structures Neck Neck: Yes normal visual inspection, Yes full ROM and Yes no lymphadenopathy Thyroid: Thyroid normal Carotids: normal carotid upstroke Chest Chest palpation & inspection: normal inspection of the chest Resp Effort & Inspection: normal respiratory effort and able to speak in complete sentences Auscultation: clear to auscultation bilaterally Cardio Jugular venous distension: no JVD Palpation: normal PMI Rate: regular rate Rhythm: regular rhythm Heart sounds: S1 normal heart sound present and S2 normal heart sound present GI Inspection: Yes normal to inspection Palpation (GI): Soft to palpation and No hepatosplenomegaly present Auscultation: normal bowel sounds General: Yes no CVA tenderness Back/Spine/Pelvis Back: no CVA tenderness Skin General skin exam: no rashes or lesions noted Neuro General: oriented to person, oriented to place and oriented to time Extrem General: Yes normal to inspection and Yes full ROM Assessment and Plan Assessment & Plan (1) Physical exam: Code(s): Z00.00 - Encounter for general adult medical examination without abnormal findings Plan: stable; do labs (2) Asthma: Code(s): J45.909 - Unspecified asthma, uncomplicated Plan: stable; same rx Orders: Orders Thyroid Stimulating Hormone Today Z13.29 - Encounter for screening for other suspected endocrine disorder Complete Blood Count Auto Diff Today Z13.0 - Encounter for screening for diseases of the blood and blood-forming organs and certain disorders involving the immune mechanism XR knee RT 2V Today M25.569 - Pain in unspecified knee Lipid Panel Today Z13.220 - Encounter for screening for lipoid disorders Comprehensive [place]. Panel Fast Today Z13.9 - Encounter for screening, unspecified Coding Level of Care Code Est Pt Prev Care 40-64y(76607) Diagnoses Physical exam Z00.00 Asthma J45.909
== END 2024-03-12 10:34 | disposition home or self-care (01) ==
PROVIDERS: PCP Internal Medicine; Visit Provider Internal Medicine
DX: Z00.00 Encounter for general adult medical examination without abnormal findings (principal); J45.909 Unspecified asthma, uncomplicated
CPT/HCPCS: 99396

== ENCOUNTER 2024-03-20 10:29 | Outpatient (REF) | payer OTHER, SELFPAY ==
--- NOTE | ~2024-03-20 | XR_ITS ---
EXAMINATION: XR KNEE, RIGHT CLINICAL INFORMATION: Right knee pain. Recent injury. COMPARISON: None available. TECHNIQUE: AP and lateral views of the right knee. FINDINGS: Mild osteoarthritis in the right knee with marginal osteophytes. No significant joint space narrowing. No joint effusion. No fracture or malalignment. XR/XR knee RT 2V IMPRESSION: Mild osteoarthritis in the right knee. No acute osseous findings.
[2024-03-20 10:46] LABS: MANUAL DIFF FLAG NO
[2024-03-20 12:32] LABS: Basophils Absolute Auto 0.1 X10*3/uL (0.0-0.2); Basophils Percent Auto 0.8 % (0-2); Eosinophils Absolute Auto 0.4 X10*3/uL (0.0-0.4); Eosinophils Percent Auto 4.7 % (0-4); Hematocrit 40.2 % (42.0-52.0); Hemoglobin 13.4 g/dl (14.0-18.0); Imm Gran Abs Auto 0.02 X10*3/uL (0.00-0.03); Imm Gran Pct Auto 0.3 % (0.0-0.4); Lymphocytes Percent Auto 27.1 % (20-40); Mean Corpuscular HGB Conc 33.3 g/dl (31.0-36.0); Mean Corpuscular Hemoglobin 30.2 pg (27.0-33.0); Mean Corpuscular Volume 90.7 fL (80.0-98.0); Mean Platelet Volume 11.6 fL (9.4-12.4); Monocytes Absolute Auto 0.5 X10*3/uL (0.1-1.2); Monocytes Percent Auto 6.2 % (2-11); Neutrophils Absolute Auto 4.5 x10*3/uL (2.0-8.3); Neutrophils Percent Auto 60.9 % (45-73); Platelet Count 295 X10*3/uL (160-400); Red Blood Count 4.43 X10*6/uL (4.60-5.80); Red Cell Distribution Width 13.6 % (11.0-16.0); White Blood Count 7.4 X10*3/uL (4.8-10.8)
[2024-03-20 13:00] LABS: Alanine Aminotransferase 25 U/L (0-40); Alkaline Phosphatase 97 U/L (39-117); Anion Gap 11 (12-20); Aspartate Amino Transferase 22 U/L (5-37); Bilirubin Total 0.4 mg/dL (0.0-1.0); Blood Urea Nitrogen 12 mg/dL (9-16); Calcium 9.3 mg/dL (8.4-10.2); Carbon Dioxide 28 mmol/L (22-29); Chloride 106 mmol/L (96-108); Cholesterol 205 mg/dL (<200); Estimated Glomerular Filt Rate > 60; Glucose Fasting 86 mg/dL (60-99); HDL Cholesterol 34 mg/dL (>40); LDL Cholesterol Calculated 141 mg/dL (<100); Potassium 3.7 mmol/L (3.3-5.1); Sodium 141 mmol/L (135-145); Total Protein 7.2 g/dL (6.5-8.0); Triglycerides 154 mg/dL (<150)
[2024-03-20 13:16] LABS: Thyroid Stimulating Hormone 1.16 uIU/mL (0.32-4.0)
== END 2024-03-20 10:30 | disposition home or self-care (01) ==
LOC: HO.LAB 10:29
PROVIDERS: PCP Internal Medicine; Visit Provider Internal Medicine
DX: Z13.0 Encounter for screening for diseases of the blood and blood-forming organs and certain disorders involving the immune mechanism (principal); Z13.220 Encounter for screening for lipoid disorders; Z13.9 Encounter for screening, unspecified; Z13.29 Encounter for screening for other suspected endocrine disorder; M25.569 Pain in unspecified knee
CPT/HCPCS: 36415; 73560; 80053; 80061; 84443; 85025

== ENCOUNTER 2024-07-09 11:52 | Outpatient (AMB) | payer OTHER, SELFPAY ==
[2024-07-09 11:55] VITALS: BP 130/80; PULSE 82; O2SAT 98; BMI 37.6
--- NOTE | 2024-07-09 11:55 | A.OFFPC_ITS ---
Vital Signs 07/09/24 11:55 Height 5 ft 8 in Weight 247 lb BMI 37.6 BP 130/80 Blood Pressure Location Lt brachial Position Sitting Pulse 82 Pulse Source Pulse Oximeter Pulse Oximetry (%) 98 Oxygen Delivery Method Room Air Intake Visit Reasons: Asthma follow-up Allergies shrimp Allergy (Severe, Verified 07/09/24 11:55) ANAPHYLAXIS LOBSTER Allergy (Unknown, Uncoded 07/09/24 11:55) ANAPHYLAXIS Medication List - Last Reconciled 07/09/24 by Skinny Wright MD albuterol sulfate 0.63 mg (3 mL) inhalation QID PRN albuterol sulfate 90 mcg/actuation 2 puffs inhalation Q4H PRN azithromycin take 500 mg today (day 1), then 250 mg for 4 days (days 2-5) PO cetirizine 10 mg PO DAILY PRN epinephrine 0.3 mg (0.3 mL) IM Q4H PRN erythromycin 0.5 inches ophthalmic (eye) QID [id number] 100-62.5-25 mcg (Trelegy Ellipta) 1 inh inhalation DAILY ketotifen fumarate 0.025%(0.035%) 1 drp ophthalmic (eye) Q8H PRN methylprednisolone (Medrol (Geoffrey)) PO PER PKG DIR nebulizers (Aeroneb Go Nebulizer) As directed pantoprazole 40 mg PO DAILY Tobacco use date assessed: 09/05/23 Dental Screening Dental Screen Date: 09/05/23 HPI Asthma follow-up HPI Details asthma flare up; wheezing and dyspnea for a few weeks PFSH Medical History (Updated 03/12/24 @ 10:24 by Skinny Wright MD) Physical exam History of positive PPD GERD (gastroesophageal reflux disease) Asthma Methadone maintenance therapy patient Surgical History Hx of endoscopy History of esophagogastroduodenoscopy (EGD) Hx of colonoscopy History of umbilical hernia repair History of left inguinal hernia repair Hx of knee surgery Hx of hernia repair Hx of shoulder surgery Family History Father No problems noted. Mother No problems noted. 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 1. Little interest or pleasure in doing things: not at all 2. Feeling down, depressed, or hopeless: not at all 3. Trouble falling or staying asleep, or sleeping too much: not at all 4. Feeling tired or having little energy: not at all 5. Poor appetite or overeating: not at all 6. Feeling bad about yourself - or that you are a failure or have let yourself or your family down: not at all 7. Trouble concentrating on things, such as reading the newspaper or watching television: not at all 8. Moving or speaking so slowly that other people could have noticed. Or the opposite - being so fidgety or restless that you have been moving around a lot more than usual: not at all 9. Thoughts that you would be better off or of hurting yourself in some way: not at all Total score: 0 Depression Screening Interpretation: Negative Depression Screening Done: Yes 56211 - PHQ-9 Billing: Yes Source: Developed by Drs. Jean Pierre Flynn, Kailee Sanderson, Dayday Cueto and colleagues, with an educational ten from [employer]. Thrive Questionnaire Date Thrive assessed: 01/30/24 AUDIT C Alcohol Use Questionnaire (AUDIT-C) 1. How often do you have a drink containing alcohol?: Never Total Score: 0 Score Reviewed/Action Taken: Yes CELSO-7 AMB Questionnaire CELSO-7 Date CELSO - 7 assessed: 09/05/23 Source: Developed by Drs. Jean Pierre Flynn, Dayday Henriquez and colleagues, with an educational ten from [employer]. Review of Systems Const Denies chills, Denies headache(s) and Denies weight loss ENT Denies headache(s) Card Denies chest pain, Denies syncope and Denies irregular heart rhythm Resp Denies chest congestion GI Denies abdominal pain, Denies change in stool character, Denies nausea and Denies vomiting Musc Denies deformity and Denies joint swelling Neuro Denies syncope and Denies headache(s) Physical exam (Primary Care) Vital Signs: Last Vital Signs Pulse 82 07/09/24 11:55 BP 130/80 07/09/24 11:55 Pulse Ox 98 07/09/24 11:55 Oxygen Delivery Method Room Air 07/09/24 11:55 BMI result Body Mass Index 37.6 Tobacco/Smoking Status: Tobacco use Status Tobacco use date assessed 09/05/23 07/09/24 11:58 Patient Tobacco Use Status Never used Tobacco 07/09/24 11:58 Tobacco use type Cigarette 07/09/24 11:58 e-Cigarette/Vaping Use Never Used 07/09/24 11:58 PHQ-9: PHQ-9 Score PHQ-9: Total score 0 07/09/24 11:58 Depression Screening Interpretation: Negative Thrive Assessment: Date of Thrive Assessment Date Thrive assessed 01/30/24 07/09/24 11:58 Const General: cooperative, comfortable, no acute distress and alert Neck Neck: Yes no lymphadenopathy Thyroid: Thyroid normal Resp Other: scattered wheezes Auscultation: clear to auscultation bilaterally Percussion: percussion normal Cardio Jugular venous distension: no JVD Palpation: normal PMI Rate: regular rate Rhythm: regular rhythm Heart sounds: S1 normal heart sound present and S2 normal heart sound present GI Inspection: Yes normal to inspection Palpation (GI): No hepatosplenomegaly present Skin General skin exam: no rashes or lesions noted Extrem General: Yes no clubbing, cyanosis or edema Coding Level of Care Code Est Pt Level 3 (18441) Diagnoses Asthma with acute exacerbation J45.901 Additional Codes PHQ-9 - 43570 - PHQ-9 Billing: Yes ([id number]) Assessment & Plan Assessment & Plan (1) Asthma with acute exacerbation: Code(s): J45.901 - Unspecified asthma with (acute) exacerbation Category: Medical Plan: rx sent Orders: Orders XR chest 2V Today R05.9 - Cough, unspecified Medications: New azithromycin take 500 mg today (day 1), then 250 mg for 4 days (days 2-5) PO 6 tabs 0RF methylprednisolone (Medrol (Geoffrey)) PO PER PKG DIR 21 ea 0RF
== END 2024-07-09 12:12 | disposition home or self-care (01) ==
PROVIDERS: PCP Internal Medicine; Visit Provider Internal Medicine
DX: J45.901 Unspecified asthma with (acute) exacerbation (principal)

== ENCOUNTER → 2024-07-09 11:52 | Outpatient (BNVA) | payer OTHER, SELFPAY | PROVIDERS: PCP Internal Medicine; Visit Provider Internal Medicine | DX: J45.901 Unspecified asthma with (acute) exacerbation (principal) | CPT/HCPCS: 96127 ==

== ENCOUNTER 2024-07-28 09:02 | Outpatient (REF) | payer OTHER, SELFPAY | END 2024-07-28 09:03 | disposition home or self-care (01) | LOC: HO.XRAY 09:02 | PROVIDERS: PCP Internal Medicine; Visit Provider Internal Medicine | DX: Z13.89 Encounter for screening for other disorder (principal) | CPT/HCPCS: 71046 ==

== ENCOUNTER 2024-07-28 14:43 | Emergency (ER) | payer OTHER, SELFPAY ==
--- NOTE | ~2024-07-28 | XR_ITS ---
EXAMINATION: XR CHEST CLINICAL INFORMATION: shortness of breath COMPARISON: January 30, 2024. TECHNIQUE: 2 views of the chest were obtained. FINDINGS: No significant abnormality is noted involving the heart, lungs, mediastinum, bony thorax or soft tissues. Minimal biapical fibrotic changes, similar compared with prior. XR/XR chest 2V IMPRESSION: Unremarkable examination. Electronically signed by: Tesfaye Rasmussen MD 07/28/2024 06:22 PM [facility]
--- NOTE | 2024-07-28 15:01 | ED_ITS ---
HPI - URI/Sore Throat General Chief Complaint: Upper Respiratory Symptoms Stated Complaint: asthma Time Seen by Provider: 07/28/24 19:26 Source: patient, RN notes reviewed and old records reviewed Mode of arrival: ambulatory Limitations: no limitations History of Present Illness ED Provider: Richard ROGERS Narrative: 49-year-old male presents for evaluation of shortness of breath. He has a history of asthma He reports he had an asthma exacerbation about 2 weeks ago. He was treated with antibiotics and steroids. He reports he improved but his symptoms worsened again a couple of days ago He denies any fevers or chills. He has used his nebulizer 6 times today with short-term improvement. He denies any chest pain, leg swelling. Denies any recent travel Related Data Previous Rx's ?Medication ?Instructions ?Recorded epinephrine 0.3 mg/0.3 mL 0.3 mg (0.3 mL) IM Q4H PRN 03/11/23 injection, auto-injector anaphylaxis #1 ea nebulizers (Aeroneb Go Nebulizer) #1 ea 01/17/24 cetirizine 10 mg tablet 10 mg PO DAILY PRN allergies #30 01/31/24 tabs fluticasone fur. 100 mcg-umeclid 1 inh inhalation DAILY #60 ea 01/31/24 62.5 mcg-vilant 25 mcg inhalat.powder (Trelegy Ellipta) erythromycin 5 mg/gram (0.5 %) eye 0.5 inch ophthalmic (eye) QID #3.5 02/29/24 ointment grams ketotifen fumarate 0.025 % (0.035 1 drp ophthalmic (eye) Q8H PRN 03/06/24 %) eye drops allergy symptoms #5 mL pantoprazole 40 mg tablet,delayed 40 mg PO DAILY #90 tabs 04/24/24 release albuterol sulfate 90 mcg/actuation 2 puff inhalation Q4H PRN Wheezing 06/17/24 aerosol inhaler #8.5 grams azithromycin 250 mg tablet See Rx Instructions PO .COMPLEX #6 07/09/24 tabs methylprednisolone 4 mg tablets in See Rx Instructions PO PER PKG DIR 07/09/24 a dose pack (Medrol (Geoffrey)) #21 ea albuterol sulfate 0.63 mg/3 mL 0.63 mg (3 mL) inhalation QID PRN 07/28/24 solution for nebulization shortness of breath or wheezing #90 mL prednisone 20 mg tablet 40 mg (2 x 20 mg) PO DAILY #10 tabs 07/28/24 Allergies Allergy/AdvReac Type Severity Reaction Status Date / Time shrimp Allergy Severe ANAPHYLAXIS Verified 07/28/24 15:04 LOBSTER Allergy Unknown ANAPHYLAXIS Uncoded 07/28/24 15:04 Review of Systems 2 Constitutional: Constitutional: Denies body ache(s), Denies chills, Denies fever(s) and Denies headache(s) Eyes: Eyes: Denies blurry vision ENT: Denies vertigo, Denies dizziness and Denies headache(s) Cardiovascular: Cardiovascular: Denies chest pain and Reports dyspnea Respiratory: Respiratory: Denies chest congestion, Reports cough, Denies pain with cough, Reports dyspnea and Reports wheezing Gastrointestinal: Gastrointestinal: Denies abdominal pain, Denies nausea and Denies vomiting Musculoskeletal: Musculoskeletal: Denies back pain Integumentary/Breasts: Skin/Breast: Denies rash Neurologic: Denies vertigo, Denies dizziness and Denies headache(s) Psychiatric: Psychiatric: Denies anxiety Allergic/Immunologic: Allergic/Immunologic: Reports wheezing [facility] Past Medical History Medical History (Updated 07/28/24 @ 20:36 by Enoc Ramos) Physical exam History of positive PPD GERD (gastroesophageal reflux disease) Asthma Methadone maintenance therapy patient Surgical History Hx of endoscopy History of esophagogastroduodenoscopy (EGD) Hx of colonoscopy History of umbilical hernia repair History of left inguinal hernia repair Hx of knee surgery Hx of hernia repair Hx of shoulder surgery Family History Family History Father No problems noted. Mother No problems noted. Social History Social History Household Members: Family Household Members Other:: Housing: Apartment Do you presently have visiting nurse or other home services: No Alcohol intake: current Alcohol intake frequency: holidays/special occasions only Patient Tobacco Use Status: Never used Tobacco Tobacco use type: Cigarette Smoked in Last 30 Days: No e-Cigarette/Vaping Use: Never Used Second Hand Smoke Exposure: No Use of substances other than those prescribed or required for medical reasons: No Advance Directives: No Advance Directives Information Provided: No Do you have a plan to hurt others: No Plan service: No Current occupational status: employed 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 Current occupational exposures/hazards: No Cognitive needs: No Hearing needs: No Vision needs: Yes Physical Exam 2 Vital Signs: Vital Signs: Last Vital Signs Temp 97.9 F 07/28/24 20:23 Pulse 87 07/28/24 20:23 Resp 19 07/28/24 20:23 BP 134/92 H 07/28/24 20:23 Pulse Ox 95 07/28/24 20:23 O2 Del Method Room Air 07/28/24 20:23 BMI result Body Mass Index 38.4 Const: General: healthy appearing, comfortable, no acute distress, alert and awake Nutritional Appearance: well nourished Orientation/consciousness: p atient oriented x3 HEENT: Head: Yes normocephalic and Yes atraumatic Eyes: Eyelids: Yes eyelids normal Conjunctivae: conjunctivae normal S clerae: sclerae normal Corneas: corneas normal Pupils: Equal, round and reactive pupils present EOM: EOMs intact bilaterally Neck: Neck: Yes full ROM Resp: Other: Diffuse inspiratory and expiratory wheeze Cardio: Rate: regular rate Rhythm: regular rhythm Skin: General skin exam: elasticity normal Neuro: General: patient oriented x3 Cranial nerves: Yes Equal, round and reactive pupils present and Yes Bilaterally intact EOM present Cognition (Neuro): normal cognition Course Course Course Narrative: This is a rapid medical exam. Deferred additional HPI, ROS, PE to primary provider. 49yo male with history of asthma here with complaints of diff breathing. Was treated with prednisone/antibiotic 2 weeks ago. [place] better initially but now symptoms have returned. Followed by Dr Guillen. Has been hospitalized for asthma. No history of ICU admits or intubation. Wheezing in triage Will order bronchodilator, labs, EKG, viral testing ANGELA Donovan APRN Reevaluation(s) Reevaluation #1: Patient reports feeling much better after his 10 mg albuterol updraft. He is still have some inspiratory and expiratory wheezing on exam, however improved when compared to prior to the treatment. He feels well enough to be discharged home, his oxygen saturation is 99% with his heart rate of 97. Time: 21:13 Medications Administered Generic Name Dose Route Start Last Admin Trade Name Pauline PRN Reason Stop Dose Admin Magnesium Sulfate 2 gm in 50 mls @ 25 mls/hr 07/28/24 19:57 07/28/24 20:32 Magnesium Sulfate/H2o IV 07/28/24 21:56 Infused ONCE ONE Infusion Discontinued Medications Generic Name Dose Route Start Last Admin Trade Name Pauline PRN Reason Stop Dose Admin Albuterol Sulfate 7.5 mg/ 10 mg 07/28/24 20:12 07/28/24 20:20 Albuterol Sulfate 2.5 mg INHALE 07/28/24 20:13 10 mg ONCE ONE Administration Albuterol Sulfate 2.5 mg/ 0 mg 07/28/24 15:26 07/28/24 15:28 Albuterol/Ipratropium 3 ml INHALE 07/28/24 15:27 1 dose ONCE ONE Administration Methylprednisolone Sodium Succinate 125 mg 07/28/24 19:57 07/28/24 20:12 Methylprednisolone Sod Succ 125 Mg/2 Ml Vial IVPUSH 07/28/24 19:58 125 mg ONCE ONE Administration Medical Decision Making Medical Decision Making [facility] Narrative: 49-year-old male with history of asthma presents for evaluation of shortness of breath. He had an outpatient chest x-ray ordered earlier today which does not show any acute pathology. His viral swabs are negative. He is not hypoxic or tachycardic, but he has significant wheezing on exam. He was given a DuoNeb with short-term improvement. I did ask respiratory to give him a higher dose treatment as his DuoNeb Rocephin hours ago. I also ordered Solu-Medrol and magnesium. Differential Diagnosis Differential Diagnoses: The differential diagnosis associated with the presentation includes Upper respiratory infection Acute asthma exacerbation Bronchitis Pneumonia COVID-19 Lab Data [facility] Lab Attestation statement: I reviewed the patient's lab results. No leukocytosis or significant anemia. Normal platelet count. No significant electrolyte abnormalities. The patient's carbon dioxide is low at 21 but she would likely due to tachypnea due to his asthma exacerbation. 07/28/24 15:38 07/28/24 15:38 Labs: Lab Results 07/28/24 Range/Units 15:38 WBC 10.4 (4.8-10.8) X10*3/uL RBC 4.21 L (4.60-5.80) X10*6/uL Hgb 12.9 L (14.0-18.0) g/dl Hct 37.1 L (42.0-52.0) % MCV 88.1 (80.0-98.0) fL MCH 30.6 (27.0-33.0) pg MCHC 34.8 (31.0-36.0) g/dl RDW 14.1 (11.0-16.0) % Plt Count 266 (160-400) X10*3/uL MPV 10.7 (9.4-12.4) fL Immature Gran % (Auto) 0.2 (0.0-0.4) % Neut % (Auto) 66.9 (45-73) % Lymph % (Auto) 20.8 (20-40) % [place] % (Auto) 4.9 (2-11) % Eos % (Auto) 6.3 H (0-4) % Baso % (Auto) 0.9 (0-2) % Lymph # (Auto) 2.2 (1.2-4.9) X10*3/uL [place] # (Auto) 0.5 (0.1-1.2) X10*3/uL Eos # (Auto) 0.7 H (0.0-0.4) X10*3/uL Baso # (Auto) 0.1 (0.0-0.2) X10*3/uL Abs Immat Gran (auto) 0.02 (0.00-0.03) X10*3/uL Absolute Neuts (auto) 6.9 (2.0-8.3) x10*3/uL Absolute Nucleated RBC 0.000 (0.0-0.012) X10*3/uL Nucleated RBC % (auto) 0.0 (0.0-0.2) /100WBC Sodium 143 (135-145) mmol/L Potassium 3.7 (3.3-5.1) mmol/L Chloride 110 H (96-108) mmol/L Carbon Dioxide 21 L (22-29) mmol/L Anion Gap 16 (12-20) BUN 11 (9-16) mg/dL Creatinine 0.91 (0.5-1.4) mg/dL Estim Creat Clear Calc 115.5 Estimated GFR > 60 Random Glucose 184 H (60-115) mg/dL Calcium 8.8 (8.4-10.2) mg/dL Influenza Type A (PCR) NEGATIVE (Negative) Influenza Type B (PCR) NEGATIVE (Negative) RSV RNA Qual (PCR) NEGATIVE (Negative) SARS-CoV-2 RNA (RT-PCR) NEGATIVE (Negative) Independent Interpretation I performed an independent interpretation of an: Plain X-Ray (No focal infiltrates) Radiology Impression Discussion of test interpretation with radiology: I have reviewed the radiologist's reading. Radiologist Impression: FINDINGS: No significant abnormality is noted involving the heart, lungs, mediastinum, bony thorax or soft tissues. Minimal biapical fibrotic changes, similar compared with prior. XR/XR chest 2V IMPRESSION: Unremarkable examination. Electronically signed by: Tesfaye Rasmussen MD 07/28/2024 06:22 PM [facility] [place] Discharge Clinical Impression: Asthma exacerbation Patient Disposition: Home, Self-Care Instructions: Asthma (ED) Additional Instructions: Your workup in the ER today was reassuring. Your chest x-ray does not show any pneumonia. You likely have an asthma exacerbation. You were given magnesium and steroids in the hospital. Continue prednisone 40 mg daily starting tomorrow Follow-up with your primary doctor, return for new or worsening symptoms Prescriptions: New prednisone 20 mg tablet 40 mg PO DAILY Qty: 10 0RF No Action (DME) nebulizers [Aeroneb Go Nebulizer] Misc See Rx Instructions .Route Qty: 1 0RF Rx Instructions: As directed pantoprazole 40 mg tablet,delayed release (DR/EC) 40 mg PO DAILY Qty: 90 11RF albuterol sulfate 90 mcg/actuation HFA aerosol inhaler 2 puff inhalation Q4H PRN (Reason: Wheezing) Qty: 8.5 0RF albuterol sulfate 0.63 mg/3 mL solution for nebulization 0.63 mg inhalation QID PRN (Reason: shortness of breath or wheezing) Qty: 90 0RF Trelegy Ellipta 100-62.5-25 mcg blister with device 1 inh inhalation DAILY Qty: 60 0RF cetirizine 10 mg tablet 10 mg PO DAILY PRN (Reason: allergies) Qty: 30 0RF erythromycin 5 mg/gram (0.5 %) ointment 0.5 inch ophthalmic (eye) QID Qty: 3.5 0RF ketotifen fumarate 0.025 % (0.035 %) drops 1 drp ophthalmic (eye) Q8H PRN (Reason: allergy symptoms) Qty: 5 2RF Rx Instructions: do not exceed 2 doses in a 24 hour period epinephrine 0.3 mg/0.3 mL auto-injector 0.3 mg IM Q4H PRN (Reason: anaphylaxis) Qty: 1 0RF azithromycin 250 mg tablet See Rx Instructions PO .COMPLEX Qty: 6 0RF Rx Instructions: take 500 mg today (day 1), then 250 mg for 4 days (days 2-5) PO methylprednisolone [Medrol (Geoffrey)] 4 mg tablets,dose pack See Rx Instructions PO PER PKG DIR Qty: 21 0RF Rx Instructions: PO PER PKG DIR Print Language: Palestinian
[2024-07-28 15:02] VITALS: BP 117/67; PULSE 100; RESP 19; TEMP 36.6; O2SAT 97; BMI 38.4
[2024-07-28 15:26] VITALS: PULSE 100; RESP 19; O2SAT 97
[2024-07-28] MEDS: Albuterol Sulfate 2.5 MG, Albuterol/Iprat 2.5/0.5MG 3 ML 3 ML INHALE (15:28)
[2024-07-28 15:49] LABS: MANUAL DIFF FLAG NO
[2024-07-28 15:57] VITALS: PULSE 98; RESP 20; O2SAT 98
--- NOTE | 2024-07-28 16:04 | PC.NURSE ---
pt a&ox3, lungs in/ex wheezing throughout- speaking in full sentences, RT did bronch protocol- night monitor applied- nsr, pt denying pain at this time, awaiting evaluation by provider, call langston within reach, will continue to monitor
[2024-07-28 16:10] LABS: Basophils Absolute Auto 0.1 X10*3/uL (0.0-0.2); Basophils Percent Auto 0.9 % (0-2); Eosinophils Absolute Auto 0.7 X10*3/uL (0.0-0.4); Eosinophils Percent Auto 6.3 % (0-4); Hematocrit 37.1 % (42.0-52.0); Hemoglobin 12.9 g/dl (14.0-18.0); Imm Gran Abs Auto 0.02 X10*3/uL (0.00-0.03); Imm Gran Pct Auto 0.2 % (0.0-0.4); Lymphocytes Absolute Auto 2.2 X10*3/uL (1.2-4.9); Lymphocytes Percent Auto 20.8 % (20-40); Mean Corpuscular HGB Conc 34.8 g/dl (31.0-36.0); Mean Corpuscular Hemoglobin 30.6 pg (27.0-33.0); Mean Corpuscular Volume 88.1 fL (80.0-98.0); Mean Platelet Volume 10.7 fL (9.4-12.4); Monocytes Absolute Auto 0.5 X10*3/uL (0.1-1.2); Monocytes Percent Auto 4.9 % (2-11); Neutrophils Absolute Auto 6.9 x10*3/uL (2.0-8.3); Neutrophils Percent Auto 66.9 % (45-73); Platelet Count 266 X10*3/uL (160-400); Red Blood Count 4.21 X10*6/uL (4.60-5.80); Red Cell Distribution Width 14.1 % (11.0-16.0); White Blood Count 10.4 X10*3/uL (4.8-10.8)
[2024-07-28 16:19] LABS: Anion Gap 16 (12-20); Blood Urea Nitrogen 11 mg/dL (9-16); Calcium 8.8 mg/dL (8.4-10.2); Carbon Dioxide 21 mmol/L (22-29); Chloride 110 mmol/L (96-108); Creatinine Clr Calc Pharmacy 115.5; Estimated Glomerular Filt Rate > 60; Glucose Random 184 mg/dL (60-115); Potassium 3.7 mmol/L (3.3-5.1); Sodium 143 mmol/L (135-145)
[2024-07-28 16:43] LABS: Influenza A PCR NEGATIVE (Negative); Influenza B PCR NEGATIVE (Negative); Resp Syncy Virus RNA Qual PCR NEGATIVE (Negative); SARS COV2 PCR INHOUSE NEGATIVE (Negative)
[2024-07-28] MEDS: Magnesium Sulfate/H2O 2 GM/50 ML PIGGYBACK IV (20:12)
[2024-07-28] MEDS: methylPREDNISolone Sod Succ 125 MG/2 ML VIAL IVPUSH (20:12)
[2024-07-28] MEDS: Albuterol Sulfate 7.5 MG, Albuterol Sulfate (0.083%) 2.5 MG 10 MG INHALE (20:20)
[2024-07-28 20:21] VITALS: PULSE 100; RESP 20; O2SAT 96
[2024-07-28 20:23] VITALS: BP 134/92; PULSE 87; RESP 19; TEMP 36.6; O2SAT 95
[2024-07-28 21:26] VITALS: BP 134/92; PULSE 87; RESP 19; TEMP 36.6; O2SAT 97
== END 2024-07-28 21:27 | disposition home or self-care (01) ==
PROVIDERS: Nurse Practitioner Family; Emergency Provider Emergency Medicine; PCP Internal Medicine
DX: J45.901 Unspecified asthma with (acute) exacerbation (principal); Z03.818 Encounter for observation for suspected exposure to other biological agents ruled out; R06.02 Shortness of breath
CPT/HCPCS: 0241U; 71046; 80048; 85025; 94640; 96365; 96375; 99285; J2919; J3475

== ENCOUNTER 2024-08-16 13:23 | Outpatient (AMB) | payer OTHER, SELFPAY ==
[2024-08-16 13:27] VITALS: BP 102/68; PULSE 84; O2SAT 97; BMI 38.4
--- NOTE | 2024-08-16 13:27 | A.OFFPC_ITS ---
Vital Signs 08/16/24 13:27 Height 5 ft 7 in Weight 245 lb 8 oz BMI 38.4 BP 102/68 Blood Pressure Location Lt brachial Position Sitting Pulse 84 Pulse Source Pulse Oximeter Pulse Oximetry (%) 97 Oxygen Delivery Method Room Air Intake Visit Reasons: asthma Welt Stitcher Required: No Accompanied by: Self / Same As Patient Allergies shrimp Allergy (Severe, Verified 08/16/24 13:28) ANAPHYLAXIS LOBSTER Allergy (Unknown, Uncoded 08/16/24 13:28) ANAPHYLAXIS Medication List - Last Reconciled 08/17/24 by Skinny Wright MD albuterol sulfate 0.63 mg (3 mL) inhalation QID PRN albuterol sulfate 90 mcg/actuation 2 puffs inhalation Q4H PRN cetirizine 10 mg PO DAILY PRN epinephrine 0.3 mg (0.3 mL) IM Q4H PRN eeldiwqhowi-gdpneodcj-hwiugwul 100-62.5-25 mcg (Trelegy Ellipta) 1 inh inhalation DAILY ketotifen fumarate 0.025%(0.035%) 1 drp ophthalmic (eye) Q8H PRN methylprednisolone (Medrol (Geoffrey)) PO PER PKG DIR nebulizers (Aeroneb Go Nebulizer) As directed pantoprazole 40 mg PO DAILY Tobacco use date assessed: 08/16/24 Dental Screening Dental Screen Date: 08/16/24 Did you have a dental visit in the last 12 months?: Yes Did you have a dental problem in the last 6 months where you did not have access to dental care?: No Was dental information given to patient?: Patient has dentist HPI asthma HPI Details several week flare of asthma [facility] Medical History (Updated 07/29/24 @ 00:01 by Clemente Pierce) Physical exam History of positive PPD GERD (gastroesophageal reflux disease) Asthma Methadone maintenance therapy patient Surgical History Hx of endoscopy History of esophagogastroduodenoscopy (EGD) Hx of colonoscopy History of umbilical hernia repair History of left inguinal hernia repair Hx of knee surgery Hx of hernia repair Hx of shoulder surgery Family History Father No problems noted. Mother No problems noted. 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 1. Little interest or pleasure in doing things: not at all 2. Feeling down, depressed, or hopeless: not at all 3. Trouble falling or staying asleep, or sleeping too much: not at all 4. Feeling tired or having little energy: not at all 5. Poor appetite or overeating: not at all 6. Feeling bad about yourself - or that you are a failure or have let yourself or your family down: not at all 7. Trouble concentrating on things, such as reading the newspaper or watching television: not at all 8. Moving or speaking so slowly that other people could have noticed. Or the opposite - being so fidgety or restless that you have been moving around a lot more than usual: not at all 9. Thoughts that you would be better off or of hurting yourself in some way: not at all Total score: 0 Depression Screening Interpretation: Negative Depression Screening Done: Yes 42503 - PHQ-9 Billing: Yes Source: Developed by Drs. Jean Pierre Flynn, Kailee Sanderson, Dayday Cueto and colleagues, with an educational ten from [employer]. Thrive Questionnaire Date Thrive assessed: 08/16/24 I am a: Patient What is your living situation today?: I have a steady place to live Within the past 12 months, did the food you bought not last and you didn't have the money to get more?: Never true Within the past 12 months, did you worry whether your food would run out before you got money to buy more?: Never true Do you have trouble paying for medicines?: No Do you have trouble getting transportation to medical appointments?: No Do you have trouble paying your heating and electricity bill?: No Do you have trouble taking care of your child, family member or friend?: No Do you have trouble with day-to-day activities such as bathing, preparing meals, shopping, managing finances, etc.?: No Are you currently unemployed and looking for a job?: No Are you interested in more education?: No Please select the resources that you would like help with: None Currently or been in a relationship where the following occur: No concerns reported THRIVE Score: 0 AUDIT C Alcohol Use Questionnaire (AUDIT-C) 1. How often do you have a drink containing alcohol?: Never Total Score: 0 Score Reviewed/Action Taken: Yes CELSO-7 AMB Questionnaire CELSO-7 Date CELSO - 7 assessed: 08/16/24 Feeling nervous, anxious, or on edge: 0 = Not at all Not being able to stop or control worryin = Not at all Worrying too much about different things: 0 = Not at all Trouble relaxin = Not at all Being so restless that it is hard to sit still: 0 = Not at all Becoming easily annoyed or irritable: 0 = Not at all Feeling afraid as if something awful might happen: 0 = Not at all Total CELSO-7 score (0-4 normal; 5-9 mild; 10-14 moderate; 15-21 severe): 0 Source: Developed by Drs. Jean Pierre Flynn, Kailee Sanderson, Dayday Cueto and colleagues, with an educational ten from [employer]. Review of Systems Const Denies chills, Denies headache(s) and Denies weight loss ENT Denies headache(s) Card Denies chest pain, Denies syncope and Denies irregular heart rhythm GI Denies abdominal pain, Denies change in stool character, Denies nausea and Denies vomiting Musc Denies deformity and Denies joint swelling Neuro Denies syncope and Denies headache(s) Physical exam (Primary Care) Vital Signs: Last Vital Signs Pulse 84 08/16/24 13:27 BP 102/68 08/16/24 13:27 Pulse Ox 97 08/16/24 13:27 Oxygen Delivery Method Room Air 08/16/24 13:27 BMI result Body Mass Index 38.4 Tobacco/Smoking Status: Tobacco use Status Tobacco use date assessed 08/16/24 08/16/24 13:34 Patient Tobacco Use Status Never used Tobacco 08/16/24 13:34 Tobacco use type Cigarette 08/16/24 13:34 e-Cigarette/Vaping Use Never Used 08/16/24 13:34 PHQ-9: PHQ-9 Score PHQ-9: Total score 0 08/16/24 13:34 Depression Screening Interpretation: Negative Thrive Assessment: Date of Thrive Assessment Date Thrive assessed 08/16/24 08/16/24 13:34 Currently or been in a relationship where the following occur: No concerns reported Const General: cooperative, comfortable, no acute distress and alert Neck Neck: Yes no lymphadenopathy Thyroid: Thyroid normal Resp Other: bilateral wheezes; Effort & Inspection: normal respiratory effort Percussion: percussion normal Cardio Jugular venous distension: no JVD Palpation: normal PMI Rate: regular rate Rhythm: regular rhythm Heart sounds: S1 normal heart sound present and S2 normal heart sound present GI Inspection: Yes normal to inspection Palpation (GI): No hepatosplenomegaly present Skin General skin exam: no rashes or lesions noted Extrem General: Yes no clubbing, cyanosis or edema Coding Level of Care Code Est Pt Level 3 (84882) Diagnoses Acute asthma exacerbation J45.901 Additional Codes PHQ-9 - 35900 - PHQ-9 Billing: Yes ([id number]) Assessment & Plan Assessment & Plan (1) Acute asthma exacerbation: Code(s): J45.901 - Unspecified asthma with (acute) exacerbation Category: Medical Plan: rx sent Orders: Referrals Pulmonology Referral J45.901 - Unspecified asthma with (acute) exacerbation Medications: New methylprednisolone (Medrol (Geoffrey)) PO PER PKG DIR 21 ea 0RF
== END 2024-08-16 13:40 | disposition home or self-care (01) ==
PROVIDERS: PCP Internal Medicine; Visit Provider Internal Medicine
DX: J45.901 Unspecified asthma with (acute) exacerbation (principal)

== ENCOUNTER → 2024-08-16 13:23 | Outpatient (BNVA) | payer OTHER, SELFPAY | PROVIDERS: PCP Internal Medicine; Visit Provider Internal Medicine | DX: J45.901 Unspecified asthma with (acute) exacerbation (principal) | CPT/HCPCS: 96127 ==

== ENCOUNTER 2024-09-04 16:28 | Outpatient (AMB) | payer OTHER, SELFPAY ==
--- NOTE | 2024-09-04 16:26 | MHC.PC.OV ---
Intake Visit Reasons: asthma flare-up [phone] Allergies shrimp Allergy (Severe, Verified 08/16/24 13:28) ANAPHYLAXIS LOBSTER Allergy (Unknown, Uncoded 08/16/24 13:28) ANAPHYLAXIS Tobacco use date assessed: 08/16/24 Dental Screening Dental Screen Date: 08/16/24 HPI asthma flare-up [phone] HPI Details The patient is a 49-year-old male presenting with respiratory complaints. The patient reports experiencing an exacerbation of asthma symptoms, including a persistent cough and burning sensation in the lungs upon coughing, which began approximately two days ago. The patient denies having a fever but reports feeling cold, weak, and tired. Additionally, he describes a tight sensation in the chest, which hinders his ability to breathe when using his inhaler. The patient reports using his prescribed inhaler, Trelegy, about four to five times a day. There have been no reports of any infectious contacts at home, as only the patient and his reside together and no one else in the household is ill. The patient has a scheduled appointment with a risk specialist that was rescheduled for the . - General: Reports feeling cold and weak, denies fever or night sweats. - Respiratory: Reports cough, chest tightness; denies shortness of breath at rest, or hemoptysis. - Gastrointestinal: Denies diarrhea or abdominal pain. [facility] Medical History (Updated 07/29/24 @ 00:01 by Clemente Pierce) Physical exam History of positive PPD GERD (gastroesophageal reflux disease) Asthma Methadone maintenance therapy patient Surgical History Hx of endoscopy History of esophagogastroduodenoscopy (EGD) Hx of colonoscopy History of umbilical hernia repair History of left inguinal hernia repair Hx of knee surgery Hx of hernia repair Hx of shoulder surgery Family History Father No problems noted. Mother No problems noted. 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 1. Little interest or pleasure in doing things: not at all 2. Feeling down, depressed, or hopeless: not at all 3. Trouble falling or staying asleep, or sleeping too much: not at all 4. Feeling tired or having little energy: not at all 5. Poor appetite or overeating: not at all 6. Feeling bad about yourself - or that you are a failure or have let yourself or your family down: not at all 7. Trouble concentrating on things, such as reading the newspaper or watching television: not at all 8. Moving or speaking so slowly that other people could have noticed. Or the opposite - being so fidgety or restless that you have been moving around a lot more than usual: not at all 9. Thoughts that you would be better off or of hurting yourself in some way: not at all Total score: 0 Depression Screening Interpretation: Negative Depression Screening Done: Yes 68816 - PHQ-9 Billing: Yes Source: Developed by Drs. Jean Pierre Flynn, Kailee Sanderson, Dayday Cueto and colleagues, with an educational ten from [employer]. Thrive Questionnaire Date Thrive assessed: 09/04/24 I am a: Patient What is your living situation today?: I have a steady place to live Within the past 12 months, did the food you bought not last and you didn't have the money to get more?: Never true Within the past 12 months, did you worry whether your food would run out before you got money to buy more?: Never true Do you have trouble paying for medicines?: No Do you have trouble getting transportation to medical appointments?: No Do you have trouble paying your heating and electricity bill?: No Do you have trouble taking care of your child, family member or friend?: No Do you have trouble with day-to-day activities such as bathing, preparing meals, shopping, managing finances, etc.?: No Are you currently unemployed and looking for a job?: No Are you interested in more education?: No Please select the resources that you would like help with: None Currently or been in a relationship where the following occur: No concerns reported THRIVE Score: 0 AUDIT C Alcohol Use Questionnaire (AUDIT-C) 1. How often do you have a drink containing alcohol?: Never 3. How often do you have six or more drinks on one occasion?: Never Total Score: 0 Score Reviewed/Action Taken: Yes CELSO-7 AMB Questionnaire CELSO-7 Date CELSO - 7 assessed: 09/04/24 Feeling nervous, anxious, or on edge: 0 = Not at all Not being able to stop or control worryin = Not at all Worrying too much about different things: 0 = Not at all Trouble relaxin = Not at all Being so restless that it is hard to sit still: 0 = Not at all Becoming easily annoyed or irritable: 0 = Not at all Feeling afraid as if something awful might happen: 0 = Not at all Total CELSO-7 score (0-4 normal; 5-9 mild; 10-14 moderate; 15-21 severe): 0 Source: Developed by Drs. Jean Pierre Flynn, Kailee Sanderson, Dayday Cueto and colleagues, with an educational ten from [employer]. CELSO-7 Assessment Billing CELSO-7 Assessment Tool: CELSO-7 Assessment 45073 Physical exam (Primary Care) Tobacco/Smoking Status: Tobacco use Status Tobacco use date assessed 08/16/24 09/04/24 16:26 Patient Tobacco Use Status Never used Tobacco 09/04/24 16:26 Tobacco use type Cigarette 09/04/24 16:26 e-Cigarette/Vaping Use Never Used 09/04/24 16:26 PHQ-9: PHQ-9 Score PHQ-9: Total score 0 09/04/24 16:30 Depression Screening Interpretation: Negative Thrive Assessment: Date of Thrive Assessment Date Thrive assessed 09/04/24 09/04/24 16:30 Currently or been in a relationship where the following occur: No concerns reported Telehealth Telehealth Telehealth Platform: Telephone Location of provider rendering services: practice address Location of patient: address on file Patient Identification confirmed using: Name, : Yes Telehealth method: video Patient verbally consented to treatment: Yes Patient verbally consented to billing insurance company: Yes Patient informed of any privacy concerns related to visit: Yes Minutes spent on Phone/Video with Pt.: 15 Coding Level of Care Code Tele Est Pt Level 3 (55948) Diagnoses Acute asthma exacerbation J45.901 Severe persistent allergic asthma J45.50 Additional Codes CELSO-7 Assessment Billing - CELSO-7 Assessment Tool: CELSO-7 Assessment 26291 ([id number]) PHQ-9 - 32427 - PHQ-9 Billing: Yes ([id number]) Assessment & Plan Assessment & Plan (1) Acute asthma exacerbation: Code(s): J45.901 - Unspecified asthma with (acute) exacerbation Category: Medical (2) Severe persistent allergic asthma: Code(s): J45.50 - Severe persistent asthma, uncomplicated Category: Medical Plan 1. - Advise continuing the use of the Trilogy inhaler, as currently prescribed: - Reinforce the importance of attending the risk specialist appointment rescheduled for the . - During the visit, I discussed the management of the patient?s asthma exacerbation, highlighting the need for corticosteroids to reduce inflammation. The patient was informed about the prednisone regimen and its potential side effects, including gastrointestinal discomfort. I emphasized the importance of taking the medication with food to minimize these adverse effects. We discussed the necessity of maintaining regular use of the inhaler and avoiding smoking. I informed the patient of the importance of following up with pulmonary care and addressed any usage and dosage concerns regarding the inhaler. The patient verbalized understanding and agreed with the plan. - Take prednisone as prescribed: 4 tablets on days 1 and 2, followed by 3-3-2-2-1-1. - Continue using Trilogy inhaler as directed, up to five times a day as needed. - Do not smoke or expose yourself to smoke. - Schedule or attend your rescheduled pulmonary appointment on the . - Take prednisone with food to prevent stomach issues. - Monitor symptoms and seek medical attention if breathing worsens or if any new symptoms arise. Medications: New prednisone 4 tabs QD x 2 days then 3 tabs QD x 2 days then 2 tabs Qd x 2 days then 1 tab QD x 2 days PO daily; 20 tabs 0RF J45.901 - Unspecified asthma with (acute) exacerbation, J45.909 - Unspecified asthma, uncomplicated azithromycin (Zithromax) For 250 mg dose pack: take 500 mg today (day 1), then 250 mg for 4 days (days 2-5) PO 6 tabs 0RF J45.901 - Unspecified asthma with (acute) exacerbation Discontinued methylprednisolone (Medrol (Geoffrey)) Discontinued Reason: Change Referral Type PO PER PKG DIR 21 ea 0RF
== END 2024-09-04 17:23 | disposition home or self-care (01) ==
LOC: HO.HMCH 16:28
PROVIDERS: PCP Internal Medicine; Visit Provider Internal Medicine
DX: J45.901 Unspecified asthma with (acute) exacerbation (principal); J45.50 Severe persistent asthma, uncomplicated

== ENCOUNTER → 2024-09-04 16:28 | Outpatient (BNVA) | payer OTHER, SELFPAY | PROVIDERS: PCP Internal Medicine; Visit Provider Internal Medicine | DX: J45.51 Severe persistent asthma with (acute) exacerbation (principal) | CPT/HCPCS: 96127 ==

== ENCOUNTER 2024-09-05 15:23 | Inpatient (IN) | payer OTHER, SELFPAY ==
--- NOTE | ~2024-09-05 | XR_ITS ---
CLINICAL HISTORY: pain 2 view chest x-ray Comparison: CR/SR - XR CHEST 2V - 07/28/24 09:11 EST Findings: No consolidation or effusion. Normal size heart. No acute fracture. IMPRESSION: 1. No acute findings. This document has been electronically signed by: Davie Jovel MD on 09/05/2024 17:16:21
[2024-09-05 15:57] VITALS: BP 140/85; PULSE 139; RESP 26; TEMP 37.6; O2SAT 96; BMI 36.6
--- NOTE | 2024-09-05 16:00 | ED_ITS ---
HPI - General Adult General Chief complaint: Dyspnea Stated complaint: SOB - asthma Time Seen by Provider: 09/05/24 16:10 Source: patient Mode of arrival: ambulatory Limitations: no limitations History of Present Illness HPI narrative: This is a 49-year-old man with a past medical history of severe persistent asthma not on home oxygen, seasonal allergies, GERD, history of opiate use who presents for evaluation of dyspnea. Patient states that he has been sick for the last 2 days. Patient reports associated dry cough nasal congestion, subjective fever, sweats and myalgias. Patient states that he has been using his asthma inhaler at home without relief. Patient reports that he did talk with his primary care doctor over the phone who prescribed him an antibiotic and steroids which she took with no further alleviation of his symptoms. Patient states no chest pain. Patient reports intermittent nausea without emesis. Patient reports no abdominal pain. He states no trauma. He states no back pain. He states no GI or symptoms. Related Data Previous Rx's ?Medication ?Instructions ?Recorded epinephrine 0.3 mg/0.3 mL 0.3 mg (0.3 mL) IM Q4H PRN 03/11/23 injection, auto-injector anaphylaxis #1 ea nebulizers (Aeroneb Go Nebulizer) #1 ea 01/17/24 cetirizine 10 mg tablet 10 mg PO DAILY PRN allergies #30 01/31/24 tabs fluticasone fur. 100 mcg-umeclid 1 inh inhalation DAILY #60 ea 01/31/24 62.5 mcg-vilant 25 mcg inhalat.powder (Trelegy Ellipta) pantoprazole 40 mg tablet,delayed 40 mg PO DAILY #90 tabs 04/24/24 release albuterol sulfate 90 mcg/actuation 2 puff inhalation Q4H PRN Wheezing 08/16/24 aerosol inhaler #8.5 grams azithromycin 250 mg tablet See Rx Instructions PO .COMPLEX #6 09/04/24 (Zithromax) tabs prednisone 10 mg tablet See Rx Instructions PO DAILY #20 09/04/24 tabs albuterol sulfate 0.63 mg/3 mL 0.63 mg (3 mL) inhalation QID PRN 09/05/24 solution for nebulization shortness of breath or wheezing #90 mL ketotifen fumarate 0.025 % (0.035 1 drp ophthalmic (eye) Q8H PRN 09/05/24 %) eye drops allergy symptoms #5 mL Allergies Allergy/AdvReac Type Severity Reaction Status Date / Time shrimp Allergy Severe ANAPHYLAXIS Verified 09/05/24 16:01 LOBSTER Allergy Unknown ANAPHYLAXIS Uncoded 08/16/24 13:28 Review of Systems 2 Review of Systems: ROS as per HPI [facility] Past Medical History Medical History (Updated 09/05/24 @ 18:16 by George Pierce MD) Physical exam History of positive PPD GERD (gastroesophageal reflux disease) Asthma Methadone maintenance therapy patient Surgical History Hx of endoscopy History of esophagogastroduodenoscopy (EGD) Hx of colonoscopy History of umbilical hernia repair History of left inguinal hernia repair Hx of knee surgery Hx of hernia repair Hx of shoulder surgery Family History Family History Father No problems noted. Mother No problems noted. 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 Current occupational exposures/hazards: No Cognitive needs: No Hearing needs: No Vision needs: Yes Physical Exam ED Vital Signs: Vital Signs - 24 hr 09/05/24 15:57 09/05/24 16:11 09/05/24 17:37 Temperature 99.7 F Pulse Rate 139 H 143 H 137 H Respiratory Rate 26 H 33 H 30 H Blood Pressure 140/85 H Pulse Oximetry 96 Oxygen Delivery Method Room Air BMI result Body Mass Index 36.6 Gen: NAD, awake, alert answering questions/following commands appropriately HEENT: NCAT, EOMI, normal conjunctiva CV: Tachycardic rate, regular rhythm Pulm: Diffuse expiratory wheezes, increased work of breathing GI: Soft, NTND Neuro: Grossly non focal Course Course Course Narrative: RME, this is a rapid medical exam performed by Jerod Ramos please refer to primary provider for complete H&P- 49-year-old male presents for evaluation of shortness of breath since yesterday. Has a history of asthma. He appears to be in respiratory distress he is tachypneic, tachycardic to 140 and tripoding. He is speaking in about 6 word sentences at a time. He was brought straight back to room 17. I ordered labs, viral swabs, chest x-ray and a nebulizer treatment with Solu-Medrol and magnesium. Medications Administered Discontinued Medications Generic Name Dose Route Start Last Admin Trade Name Freq PRN Reason Stop Dose Admin Levalbuterol HCl 5 mg/ 0 mg 09/05/24 16:08 09/05/24 16:11 Ipratropium [place] 0.5 mg INHALE 09/05/24 16:09 1 dose ONCE ONE Administration Levalbuterol HCl 3.75 mg/ 0 mg 09/05/24 17:33 09/05/24 17:37 Ipratropium [place] 0.5 mg INHALE 09/05/24 17:34 1 dose ONCE ONE Administration Sodium Chloride 1,000 mls @ 999 mls/hr 09/05/24 16:15 09/05/24 16:27 Ns IV 09/05/24 17:15 999 mls/hr .Q1H1M JOHNNIE Administration Methylprednisolone Sodium Succinate 125 mg 09/05/24 16:00 09/05/24 16:27 Methylprednisolone Sod Succ 125 Mg/2 Ml Vial IVPUSH 09/05/24 16:01 125 mg ONCE ONE Administration Medical Decision Making Medical Decision Making [facility] Narrative: Differential diagnosis includes, but is not limited to asthma exacerbation, viral illness, pneumothorax, pneumonia. Patient is afebrile and hemodynamically stable on room air albeit he is notably tachycardic, which is likely secondary to respiratory distress secondary to asthma exacerbation and concomitant use of nebulized beta agonist. Exam is benign notable for wheezing consistent with bronchospasm and suggestive of asthma exacerbation. Given the aforementioned, patient was treated supportively with nebulized bronchodilators and Solu-Medrol. I independently reviewed and interpreted patient's labs, EKG, chest x-ray and viral testing as below. Patient found to be positive for influenza a, which is likely etiology of the patient's asthma exacerbation. Given history of asthma with exacerbation and patient presenting within 72 hours of symptom onset will provide Tamiflu. Patient responding well on serial examinations with good aeration to the bases of his lungs on auscultation of the posterior lung weinstein. I considered BiPAP and magnesium, but the patient's responding very well to corticosteroids and nebulized bronchodilators and for this reason there was no indication for these interventions at this time. I discussed patient's care and management with admitting hospitalist, Dr. Bills, and patient is admitted for further workup and management. Critical Care Time: A total of 45 minutes spent in direct patient care with coordinating critical resuscitation, procedures, reviewing records, discussing with consultants, reviewing labs, and/or managing patient. Admission/Observation Consideration of admission/observation: Escalation of care including admission/observation considered Consult Healthcare Provider Management of the patient was discussed with: Hospitalist Lab Data MDM Lab Attestation statement: I reviewed the patient's lab results. I reviewed and interpreted the patient's labs including CBC, coagulation studies, metabolic panel and BP. Labs are notable for leukocytosis of 12.7, which is likely reactive in nature secondary to asthma exacerbation in the setting of influenza a and further may be secondary to recent corticosteroid use initiated as an outpatient 1 day prior to presentation. Labs otherwise overall benign and reassuring. Patient is positive for influenza A. 09/05/24 16:22 09/05/24 16:22 Labs: Lab Results 09/05/24 09/05/24 Range/Units 16:22 16:23 WBC 12.7 H (4.8-10.8) X10*3/uL RBC 4.69 (4.60-5.80) X10*6/uL Hgb 14.2 (14.0-18.0) g/dl Hct 42.0 (42.0-52.0) % MCV 89.6 (80.0-98.0) fL MCH 30.3 (27.0-33.0) pg MCHC 33.8 (31.0-36.0) g/dl RDW 14.0 (11.0-16.0) % Plt Count 280 (160-400) X10*3/uL MPV 11.0 (9.4-12.4) fL Immature Gran % (Auto) 0.3 (0.0-0.4) % Neut % (Auto) 89.4 H (45-73) % Lymph % (Auto) 4.6 L (20-40) % [place] % (Auto) 5.3 (2-11) % Eos % (Auto) 0.0 (0-4) % Baso % (Auto) 0.4 (0-2) % Lymph # (Auto) 0.6 L (1.2-4.9) X10*3/uL [place] # (Auto) 0.7 (0.1-1.2) X10*3/uL Eos # (Auto) 0.0 (0.0-0.4) X10*3/uL Baso # (Auto) 0.1 (0.0-0.2) X10*3/uL Abs Immat Gran (auto) 0.04 H (0.00-0.03) X10*3/uL Absolute Neuts (auto) 11.3 H (2.0-8.3) x10*3/uL Absolute Nucleated RBC 0.000 (0.0-0.012) X10*3/uL Nucleated RBC % (auto) 0.0 (0.0-0.2) /100WBC PT 12.3 (10.9-12.4) SEC INR 1.1 (0.9-1.1) Sodium 141 (135-145) mmol/L Potassium 3.9 (3.3-5.1) mmol/L Chloride 108 (96-108) mmol/L Carbon Dioxide 22 (22-29) mmol/L Anion Gap 15 (12-20) BUN 16 (9-16) mg/dL Creatinine 0.90 (0.5-1.4) mg/dL Estim Creat Clear Calc 113.9 Estimated GFR > 60 Random Glucose 148 H (60-115) mg/dL Calcium 9.6 D (8.4-10.2) mg/dL Total Bilirubin 0.3 (0.0-1.0) mg/dL AST 34 (5-37) U/L ALT 40 (0-40) U/L Alkaline Phosphatase 97 (39-117) U/L B-Natriuretic Peptide < 10 (<100) pg/mL Total Protein 8.1 H (6.5-8.0) g/dL Albumin 4.2 (3.5-5.0) g/dL Influenza Type A (PCR) POSITIVE A (Negative) Influenza Type B (PCR) NEGATIVE (Negative) RSV RNA Qual (PCR) NEGATIVE (Negative) SARS-CoV-2 RNA (RT-PCR) NEGATIVE (Negative) Independent Interpretation I performed an independent interpretation of an: EKG and Plain X-Ray Interpretation: I independently reviewed and interpreted the patient's EKG and chest x-ray. EKG demonstrates sinus tachycardia at 132 beats per minute, WI 152, QRS 72, QTC of 423. Chest x-ray demonstrates no pneumothorax, pleural effusion or focal consolidation. Radiology Impression Discussion of test interpretation with radiology: I have reviewed the radiologist's reading. Radiologist Impression: IMPRESSION: 1. No acute findings. This document has been electronically signed by: Davie Jovel MD on 09/05/2024 17:16:21 Dictated By: Davie Jovel MD Signed By: <Electronically signed by Davie Jovel MD in OV> 09/05/24 5217 Discharge Plan Discharge Clinical Impression: Asthma, Influenza A Patient Disposition: Admitted As Inpatient Prescriptions: No Action (DME) nebulizers [Aeroneb Go Nebulizer] Misc See Rx Instructions .Route Qty: 1 0RF Rx Instructions: As directed pantoprazole 40 mg tablet,delayed release (DR/EC) 40 mg PO DAILY Qty: 90 11RF albuterol sulfate 90 mcg/actuation HFA aerosol inhaler 2 puff inhalation Q4H PRN (Reason: Wheezing) Qty: 8.5 2RF ketotifen fumarate 0.025 % (0.035 %) drops 1 drp ophthalmic (eye) Q8H PRN (Reason: allergy symptoms) Qty: 5 2RF Rx Instructions: do not exceed 2 doses in a 24 hour period albuterol sulfate 0.63 mg/3 mL solution for nebulization 0.63 mg inhalation QID PRN (Reason: shortness of breath or wheezing) Qty: 90 0RF Trelegy Ellipta 100-62.5-25 mcg blister with device 1 inh inhalation DAILY Qty: 60 0RF cetirizine 10 mg tablet 10 mg PO DAILY PRN (Reason: allergies) Qty: 30 0RF epinephrine 0.3 mg/0.3 mL auto-injector 0.3 mg IM Q4H PRN (Reason: anaphylaxis) Qty: 1 0RF prednisone 10 mg tablet See Rx Instructions PO DAILY Qty: 20 0RF Rx Instructions: 4 tabs QD x 2 days then 3 tabs QD x 2 days then 2 tabs Qd x 2 days then 1 tab QD x 2 days PO daily; azithromycin [Zithromax] 250 mg tablet See Rx Instructions PO .COMPLEX Qty: 6 0RF Rx Instructions: For 250 mg dose pack: take 500 mg today (day 1), then 250 mg for 4 days (days 2-5) PO Print Language: Malay
--- NOTE | 2024-09-05 16:01 | ECG_ITS ---
Test Reason : PAIN Blood Pressure : */* mmHG Vent. Rate : 132 BPM Atrial Rate : 132 BPM P-R Int : 152 ms QRS Dur : 72 ms QT Int : 286 ms P-R-T Axes : 62 -23 30 degrees QTcB Int : 423 ms Sinus tachycardia with Premature atrial complexes Otherwise normal ECG When compared with ECG of 22-Jan-2023 08:36, Premature atrial complexes are now Present Referred By: Enoc Ramos Electronically Signed By: Dimitry Gonzales
[2024-09-05 16:11] VITALS: PULSE 143; RESP 33; O2SAT 96
[2024-09-05] MEDS: levalbuterol HCL 5 MG, Ipratropium Bromide 0.5 MG INHALE (16:11)
--- NOTE | 2024-09-05 16:15 | ED_ITS ---
HPI - General Adult General Chief complaint: Dyspnea Stated complaint: SOB - asthma Time Seen by Provider: 09/05/24 16:10 History of Present Illness HPI narrative: Note created in error. Please see my separate and complete note for details Related Data Previous Rx's ?Medication ?Instructions ?Recorded epinephrine 0.3 mg/0.3 mL 0.3 mg (0.3 mL) IM Q4H PRN 03/11/23 injection, auto-injector anaphylaxis #1 ea nebulizers (Aeroneb Go Nebulizer) #1 ea 01/17/24 cetirizine 10 mg tablet 10 mg PO DAILY PRN allergies #30 01/31/24 tabs fluticasone fur. 100 mcg-umeclid 1 inh inhalation DAILY #60 ea 01/31/24 62.5 mcg-vilant 25 mcg inhalat.powder (Trelegy Ellipta) pantoprazole 40 mg tablet,delayed 40 mg PO DAILY #90 tabs 04/24/24 release albuterol sulfate 90 mcg/actuation 2 puff inhalation Q4H PRN Wheezing 08/16/24 aerosol inhaler #8.5 grams azithromycin 250 mg tablet See Rx Instructions PO .COMPLEX #6 09/04/24 (Zithromax) tabs prednisone 10 mg tablet See Rx Instructions PO DAILY #20 09/04/24 tabs albuterol sulfate 0.63 mg/3 mL 0.63 mg (3 mL) inhalation QID PRN 09/05/24 solution for nebulization shortness of breath or wheezing #90 mL ketotifen fumarate 0.025 % (0.035 1 drp ophthalmic (eye) Q8H PRN 09/05/24 %) eye drops allergy symptoms #5 mL Allergies Allergy/AdvReac Type Severity Reaction Status Date / Time shrimp Allergy Severe ANAPHYLAXIS Verified 09/05/24 16:01 LOBSTER Allergy Unknown ANAPHYLAXIS Uncoded 08/16/24 13:28 [facility] Past Medical History Medical History (Updated 09/05/24 @ 18:16 by George Pierce MD) Physical exam History of positive PPD GERD (gastroesophageal reflux disease) Asthma Methadone maintenance therapy patient Surgical History Hx of endoscopy History of esophagogastroduodenoscopy (EGD) Hx of colonoscopy History of umbilical hernia repair History of left inguinal hernia repair Hx of knee surgery Hx of hernia repair Hx of shoulder surgery Family History Family History Father No problems noted. Mother No problems noted. 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 Current occupational exposures/hazards: No Cognitive needs: No Hearing needs: No Vision needs: Yes Physical Exam ED Vital Signs: Vital Signs - 24 hr 09/05/24 15:57 09/05/24 16:11 09/05/24 17:37 Temperature 99.7 F Pulse Rate 139 H 143 H 137 H Respiratory Rate 26 H 33 H 30 H Blood Pressure 140/85 H Pulse Oximetry 96 Oxygen Delivery Method Room Air BMI result Body Mass Index 36.6 Medications Administered Discontinued Medications Generic Name Dose Route Start Last Admin Trade Name Freq PRN Reason Stop Dose Admin Levalbuterol HCl 5 mg/ 0 mg 09/05/24 16:08 09/05/24 16:11 Ipratropium [place] 0.5 mg INHALE 09/05/24 16:09 1 dose ONCE ONE Administration Levalbuterol HCl 3.75 mg/ 0 mg 09/05/24 17:33 09/05/24 17:37 Ipratropium [place] 0.5 mg INHALE 09/05/24 17:34 1 dose ONCE ONE Administration Sodium Chloride 1,000 mls @ 999 mls/hr 09/05/24 16:15 09/05/24 16:27 Ns IV 09/05/24 17:15 999 mls/hr .Q1H1M JOHNNIE Administration Methylprednisolone Sodium Succinate 125 mg 09/05/24 16:00 09/05/24 16:27 Methylprednisolone Sod Succ 125 Mg/2 Ml Vial IVPUSH 09/05/24 16:01 125 mg ONCE ONE Administration Medical Decision Making Lab Data 09/05/24 16:22 09/05/24 16:22 Labs: Lab Results 09/05/24 09/05/24 Range/Units 16:22 16:23 WBC 12.7 H (4.8-10.8) X10*3/uL RBC 4.69 (4.60-5.80) X10*6/uL Hgb 14.2 (14.0-18.0) g/dl Hct 42.0 (42.0-52.0) % MCV 89.6 (80.0-98.0) fL MCH 30.3 (27.0-33.0) pg MCHC 33.8 (31.0-36.0) g/dl RDW 14.0 (11.0-16.0) % Plt Count 280 (160-400) X10*3/uL MPV 11.0 (9.4-12.4) fL Immature Gran % (Auto) 0.3 (0.0-0.4) % Neut % (Auto) 89.4 H (45-73) % Lymph % (Auto) 4.6 L (20-40) % [place] % (Auto) 5.3 (2-11) % Eos % (Auto) 0.0 (0-4) % Baso % (Auto) 0.4 (0-2) % Lymph # (Auto) 0.6 L (1.2-4.9) X10*3/uL [place] # (Auto) 0.7 (0.1-1.2) X10*3/uL Eos # (Auto) 0.0 (0.0-0.4) X10*3/uL Baso # (Auto) 0.1 (0.0-0.2) X10*3/uL Abs Immat Gran (auto) 0.04 H (0.00-0.03) X10*3/uL Absolute Neuts (auto) 11.3 H (2.0-8.3) x10*3/uL Absolute Nucleated RBC 0.000 (0.0-0.012) X10*3/uL Nucleated RBC % (auto) 0.0 (0.0-0.2) /100WBC PT 12.3 (10.9-12.4) SEC INR 1.1 (0.9-1.1) Sodium 141 (135-145) mmol/L Potassium 3.9 (3.3-5.1) mmol/L Chloride 108 (96-108) mmol/L Carbon Dioxide 22 (22-29) mmol/L Anion Gap 15 (12-20) BUN 16 (9-16) mg/dL Creatinine 0.90 (0.5-1.4) mg/dL Estim Creat Clear Calc 113.9 Estimated GFR > 60 Random Glucose 148 H (60-115) mg/dL Calcium 9.6 D (8.4-10.2) mg/dL Total Bilirubin 0.3 (0.0-1.0) mg/dL AST 34 (5-37) U/L ALT 40 (0-40) U/L Alkaline Phosphatase 97 (39-117) U/L B-Natriuretic Peptide < 10 (<100) pg/mL Total Protein 8.1 H (6.5-8.0) g/dL Albumin 4.2 (3.5-5.0) g/dL Influenza Type A (PCR) POSITIVE A (Negative) Influenza Type B (PCR) NEGATIVE (Negative) RSV RNA Qual (PCR) NEGATIVE (Negative) SARS-CoV-2 RNA (RT-PCR) NEGATIVE (Negative) Discharge Plan Discharge Clinical Impression: Asthma, Influenza A Prescriptions: No Action (DME) nebulizers [Aeroneb Go Nebulizer] Misc See Rx Instructions .Route Qty: 1 0RF Rx Instructions: As directed pantoprazole 40 mg tablet,delayed release (DR/EC) 40 mg PO DAILY Qty: 90 11RF albuterol sulfate 90 mcg/actuation HFA aerosol inhaler 2 puff inhalation Q4H PRN (Reason: Wheezing) Qty: 8.5 2RF ketotifen fumarate 0.025 % (0.035 %) drops 1 drp ophthalmic (eye) Q8H PRN (Reason: allergy symptoms) Qty: 5 2RF Rx Instructions: do not exceed 2 doses in a 24 hour period albuterol sulfate 0.63 mg/3 mL solution for nebulization 0.63 mg inhalation QID PRN (Reason: shortness of breath or wheezing) Qty: 90 0RF Trelegy Ellipta 100-62.5-25 mcg blister with device 1 inh inhalation DAILY Qty: 60 0RF cetirizine 10 mg tablet 10 mg PO DAILY PRN (Reason: allergies) Qty: 30 0RF epinephrine 0.3 mg/0.3 mL auto-injector 0.3 mg IM Q4H PRN (Reason: anaphylaxis) Qty: 1 0RF prednisone 10 mg tablet See Rx Instructions PO DAILY Qty: 20 0RF Rx Instructions: 4 tabs QD x 2 days then 3 tabs QD x 2 days then 2 tabs Qd x 2 days then 1 tab QD x 2 days PO daily; azithromycin [Zithromax] 250 mg tablet See Rx Instructions PO .COMPLEX Qty: 6 0RF Rx Instructions: For 250 mg dose pack: take 500 mg today (day 1), then 250 mg for 4 days (days 2-5) PO Print Language: Togolese
--- NOTE | 2024-09-05 16:26 | PC.RT ---
Pt seen in ED by RT. Pt has increased WOB, pt is tripodding with bilateral wheezing. Pt given Levalbuterol/ipratropium neb tx with improvement. Will continue to monitor.
[2024-09-05] MEDS: 0.9 % Sodium Chloride 1,000 ML 999 ML IV ×2 (16:27→18:45)
[2024-09-05] MEDS: methylPREDNISolone Sod Succ 125 MG/2 ML VIAL IVPUSH (16:27)
[2024-09-05 16:28] LABS: MANUAL DIFF FLAG NO
[2024-09-05 16:31] LABS: Basophils Absolute Auto 0.1 X10*3/uL (0.0-0.2); Basophils Percent Auto 0.4 % (0-2); Hemoglobin 14.2 g/dl (14.0-18.0); Imm Gran Abs Auto 0.04 X10*3/uL (0.00-0.03); Imm Gran Pct Auto 0.3 % (0.0-0.4); Lymphocytes Absolute Auto 0.6 X10*3/uL (1.2-4.9); Lymphocytes Percent Auto 4.6 % (20-40); Mean Corpuscular HGB Conc 33.8 g/dl (31.0-36.0); Mean Corpuscular Hemoglobin 30.3 pg (27.0-33.0); Mean Corpuscular Volume 89.6 fL (80.0-98.0); Monocytes Absolute Auto 0.7 X10*3/uL (0.1-1.2); Monocytes Percent Auto 5.3 % (2-11); Neutrophils Absolute Auto 11.3 x10*3/uL (2.0-8.3); Neutrophils Percent Auto 89.4 % (45-73); Platelet Count 280 X10*3/uL (160-400); Red Blood Count 4.69 X10*6/uL (4.60-5.80); White Blood Count 12.7 X10*3/uL (4.8-10.8)
[2024-09-05 16:38] LABS: INTERNATIONAL NORM RATIO 1.1 (0.9-1.1); Prothrombin Time 12.3 SEC (10.9-12.4)
[2024-09-05 16:48] LABS: Alanine Aminotransferase 40 U/L (0-40); Albumin Level 4.2 g/dL (3.5-5.0); Anion Gap 15 (12-20); Aspartate Amino Transferase 34 U/L (5-37); Bilirubin Total 0.3 mg/dL (0.0-1.0); Blood Urea Nitrogen 16 mg/dL (9-16); Calcium 9.6 mg/dL (8.4-10.2); Carbon Dioxide 22 mmol/L (22-29); Chloride 108 mmol/L (96-108); Creatinine Clr Calc Pharmacy 113.9; Estimated Glomerular Filt Rate > 60; Glucose Random 148 mg/dL (60-115); Potassium 3.9 mmol/L (3.3-5.1); Sodium 141 mmol/L (135-145); Total Protein 8.1 g/dL (6.5-8.0)
[2024-09-05 16:52] LABS: B Type Natriuretic Peptide < 10 pg/mL (<100)
[2024-09-05 17:06] LABS: Alkaline Phosphatase 97 U/L (39-117)
[2024-09-05 17:37] VITALS: PULSE 137; RESP 30; O2SAT 99
[2024-09-05] MEDS: levalbuterol HCL 3.75 MG, Ipratropium Bromide 0.5 MG INHALE (17:37)
[2024-09-05 17:48] LABS: Influenza A PCR POSITIVE (Negative); Influenza B PCR NEGATIVE (Negative); Resp Syncy Virus RNA Qual PCR NEGATIVE (Negative); SARS COV2 PCR INHOUSE NEGATIVE (Negative)
[2024-09-05 18:28] VITALS: BP 131/56; PULSE 158; RESP 24; O2SAT 96
[2024-09-05] MEDS: Oseltamivir Phosphate 75 MG CAPSULE PO (18:34)
--- NOTE | 2024-09-05 18:45 | PC.NURSE ---
HR persists 150's - 160, ED Provider Dr. Pierce aware, ordered 2nd liter of NS. Attending Dr. Juan spoke to admitting DrPepe about giving patient ativan, Dr. Bills admitter declined ativan at this time.
--- NOTE | 2024-09-05 19:15 | PHA.MEDREC ---
Pharmacy Consult ? Medication Reconciliation Pharmacy has completed the medication reconciliation. Spoke with patient and he confirmed his medications. Patient confirmed he is not taking any Azithromycin 250mg tablets even when asking if he just got any antibiotics or steroids he states he just picked up and started the Prednisone 10mg tab yesterday and confirmed the taper directions; 4 tabs for 2 days, 3 tabs for 2 days, 2 tabs for 2 days and 1 tab for 2 days, he confirmed he did the second dose of 4 tabs for 2 days this morning confirmed he was going to start the 3 tabs for 2 days tomorrow. He states he took his medications this morning.
--- NOTE | 2024-09-05 19:36 | PHA.MEDREC ---
Addendum entered by Andrea Garcia, [facility] 09/05/24 20:21: Med rec reviewed Original Note: Pharmacy Consult ? Medication Reconciliation Pharmacy has completed the medication reconciliation. Spoke with patient and he confirmed his medications. Patient confirmed he started taking a Prednisone 10mg taper yesterday and confirmed he is taking 4 tabs for 2 days, 3 tabs for 2 days, 2 tabs for 2 days and 1 tab for 2 days and confirmed he took his second dose of 4 tabs for 2 days today and confirmed he was going to start the 3 tabs for 2 days tomorrow morning. He stated at first that he was not taking any other antibiotics right now and when I asked if he picked anything up with the Prednisone and remembered he got an Azithromycin 250mg regimen as well and confirmed he started that and took 2 tabs yesterday and is now taking 1 tab daily until he is done and states he took 1 tab this morning. He confirmed as well that got the Ketotifen eye drops and the Albuterol nebulization solution refilled from his pharmacy this morning and had a family member grab them and they are at home.
[2024-09-05] MEDS: Magnesium Sulfate/H2O 2 GM/50 ML PIGGYBACK IV (20:00)
[2024-09-05 20:08] VITALS: PULSE 133; RESP 18; O2SAT 95
--- NOTE | 2024-09-05 20:16 | P.HPHOSP_ITS ---
History of Present Illness Date of Service: 09/05/24 Chief Complaint: Dyspnea This is a 49-year-old male with pertinent history of severe persistent asthma asthma not on home oxygen, gastroesophageal reflux disease who presents to the emergency department for evaluation of dyspnea. Patient states symptoms started 2 days prior to presentation. He has been having dyspnea which is worse with exertion. Also has been having cough with occasional clear sputum production. Has associated wheezing which did not relieve with home inhaler. No fever, chills, chest pain, palpitations, abdominal pain, changes in urinary or bowel habits. In the emergency department, patient with wheezing despite multiple DuoNeb treatments. Was given IV steroids and IV magnesium sulfate. Review of Systems 2 Constitutional: Constitutional: Reports fatigue and Reports weakness Cardiovascular: Cardiovascular: Reports dyspnea on exertion Respiratory: Respiratory: Reports cough, Reports dyspnea on exertion and Reports wheezing Gastrointestinal: Gastrointestinal: Reports no additional gastrointestinal complaints Genitourinary: Genitourinary: Reports no additional male genitourinary complaints Neurologic: Reports weakness Endocrine: Endocrine: Reports fatigue Allergic/Immunologic: Allergic/Immunologic: Reports wheezing [facility] Medical History Physical exam History of positive PPD GERD (gastroesophageal reflux disease) Asthma Methadone maintenance therapy patient Family History Father No problems noted. Mother No problems noted. Surgical History Hx of endoscopy History of esophagogastroduodenoscopy (EGD) Hx of colonoscopy History of umbilical hernia repair History of left inguinal hernia repair Hx of knee surgery Hx of hernia repair Hx of shoulder surgery Social History Household Members: Family Household Members Other:: Housing: Apartment Do you presently have visiting nurse or other home services: No Alcohol intake: current Alcohol intake frequency: holidays/special occasions only Patient Tobacco Use Status: Never used Tobacco Tobacco use type: Cigarette Smoked in Last 30 Days: No e-Cigarette/Vaping Use: Never Used Second Hand Smoke Exposure: No Use of substances other than those prescribed or required for medical reasons: No Advance Directives: No Advance Directives Information Provided: No Do you have a plan to hurt others: No Plan Nutrition Risks: No Nutritional Risk service: No Current occupational status: employed 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 Current occupational exposures/hazards: No Cognitive needs: No Hearing needs: No Vision needs: Yes Meds Allergies Allergy/AdvReac Type Severity Reaction Status Date / Time shrimp Allergy Severe ANAPHYLAXIS Verified 09/05/24 16:01 LOBSTER Allergy Unknown ANAPHYLAXIS Uncoded 08/16/24 13:28 Active Medications: Current Medications Acetaminophen (Acetaminophen 325 Mg Tablet) 650 mg PO Q6H PRN PRN Reason: Pain, Mild 1-3,fever,headache Sodium Chloride (0.9 % Sodium Chloride Flush 3 Ml Syringe) 3 ml IVFLUSH QSHIFT [facility] Home Medications ?Medication ?Instructions ?Recorded ?Confirmed ?Last Taken ?Type azithromycin 250 mg tablet 250 mg PO DAILY 09/05/24 09/05/24 09/05/24 History pantoprazole 40 mg tablet,delayed 40 mg PO DAILY@0630 09/05/24 09/05/24 09/05/24 History release prednisone 10 mg tablet See Rx Instructions PO DAILY 09/05/24 09/05/24 09/05/24 History Physical Exam 2 Vital Signs and Narrative: Vital Signs: Last Vital Signs Temp 99.7 F 09/05/24 15:57 Pulse 133 H 09/05/24 20:08 Resp 18 09/05/24 20:08 BP 131/56 L 09/05/24 18:28 Pulse Ox 95 09/05/24 20:08 O2 Del Method Room Air 09/05/24 20:08 BMI result Body Mass Index 36.6 Middle-aged male lying in bed in mild distress Neck supple, no JVD Tachycardia with regular rhythm, S1-S2 heard Bilateral wheezing and tachypnea Abdomen soft nontender, no guarding, no rigidity Patient is awake, alert and oriented to self, place, time and person ; no focal motor deficit Psych: Normal mood No pedal edema Results Labs 09/05/24 16:22 09/05/24 16:22 Labs: Laboratory Results - last 24 hr 09/05/24 09/05/24 16:22 16:23 MCV 89.6 MCH 30.3 MCHC 33.8 RDW 14.0 Plt Count 280 MPV 11.0 Immature Gran % (Auto) 0.3 Neut % (Auto) 89.4 H Lymph % (Auto) 4.6 L [place] % (Auto) 5.3 Eos % (Auto) 0.0 Baso % (Auto) 0.4 Lymph # (Auto) 0.6 L [place] # (Auto) 0.7 Eos # (Auto) 0.0 Baso # (Auto) 0.1 Abs Immat Gran (auto) 0.04 H Absolute Neuts (auto) 11.3 H Absolute Nucleated RBC 0.000 Nucleated RBC % (auto) 0.0 PT 12.3 INR 1.1 Anion Gap 15 Estim Creat Clear Calc 113.9 Estimated GFR > 60 Random Glucose 148 H Calcium 9.6 D Total Bilirubin 0.3 AST 34 ALT 40 Alkaline Phosphatase 97 B-Natriuretic Peptide < 10 Total Protein 8.1 H Albumin 4.2 Influenza Type A (PCR) POSITIVE A Influenza Type B (PCR) NEGATIVE RSV RNA Qual (PCR) NEGATIVE SARS-CoV-2 RNA (RT-PCR) NEGATIVE Assessment and Plan (1) Acute asthma exacerbation: Status: Acute Plan This is a 49-year-old male with pertinent history of severe persistent asthma asthma not on home oxygen, gastroesophageal reflux disease who presents to the emergency department for evaluation of dyspnea. #. Acute respiratory distress due to acute exacerbation of asthma due to influenza a infection: Will admit patient with scheduled and p.r.n. breathing treatments. Continue systemic steroids. Continue home inhaler. Initiated Tamiflu b.i.d. #. Gastroesophageal reflux disease: On PPI #. Leukocytosis, reactive DVT prophylaxis: Lovenox Full code Quality Stroke Does the patient have a stroke diagnosis?: No VTE Prior VTE?: No VTE Risk Level:: Medical - moderate - high VTE Device Contraindication: Treatment Not Indicated VTE Drug Contraindication: N/A - Med Ordered
[2024-09-05 20:20] VITALS: BP 117/57; PULSE 136; RESP 24; TEMP 37.2; O2SAT 92
[2024-09-05] MEDS: Acetaminophen 325 MG TABLET 650 MG PO (22:00)
[2024-09-05] MEDS: Melatonin 3 MG TABLET 6 MG PO (22:00)
[2024-09-05] MEDS: Benzonatate 100 MG CAPSULE PO (22:00)
[2024-09-05] MEDS: Enoxaparin Sodium 40 MG/0.4 ML SYRINGE SUBCUT (22:01)
[2024-09-06] VITALS (11 sets, daily range): BP systolic 106–132; BP diastolic 53–76; PULSE 104–124; RESP 18–20; TEMP 36.8–37.1; O2SAT 93–98; BMI 38.7
[2024-09-06] MEDS: levalbuterol HCL 1.25 MG/3 ML VIAL.NEB INHALE ×3 (01:53→11:17)
[2024-09-06 05:50] LABS: Basophils Percent Auto 0.1 % (0-2); Hematocrit 37.4 % (42.0-52.0); Hemoglobin 12.7 g/dl (14.0-18.0); Imm Gran Abs Auto 0.09 X10*3/uL (0.00-0.03); Imm Gran Pct Auto 0.6 % (0.0-0.4); Lymphocytes Absolute Auto 0.3 X10*3/uL (1.2-4.9); Lymphocytes Percent Auto 2.3 % (20-40); MANUAL DIFF FLAG SCAN; Mean Corpuscular Hemoglobin 30.5 pg (27.0-33.0); Mean Corpuscular Volume 89.9 fL (80.0-98.0); Mean Platelet Volume 10.9 fL (9.4-12.4); Monocytes Absolute Auto 0.5 X10*3/uL (0.1-1.2); Monocytes Percent Auto 3.1 % (2-11); Neutrophils Absolute Auto 13.7 x10*3/uL (2.0-8.3); Neutrophils Percent Auto 93.9 % (45-73); Platelet Count 246 X10*3/uL (160-400); Red Blood Count 4.16 X10*6/uL (4.60-5.80); Red Cell Distribution Width 14.3 % (11.0-16.0); SCAN SMEAR FLAG 1; White Blood Count 14.6 X10*3/uL (4.8-10.8)
[2024-09-06 06:11] LABS: Anion Gap 11 (12-20); Blood Urea Nitrogen 12 mg/dL (9-16); Calcium 8.7 mg/dL (8.4-10.2); Carbon Dioxide 18 mmol/L (22-29); Chloride 112 mmol/L (96-108); Creatinine Clr Calc Pharmacy 128.1; Estimated Glomerular Filt Rate > 60; Glucose Random 190 mg/dL (60-115); Potassium 4.1 mmol/L (3.3-5.1); Sodium 137 mmol/L (135-145)
[2024-09-06 06:13] LABS: SLIDE REVIEW VERIFIED
[2024-09-06] MEDS: Omeprazole 20 MG CAPSULE.DR PO (06:39)
--- NOTE | 2024-09-06 07:35 | PC.NURSE ---
Messaged Dr. Bills regarding patients tachycardia 114 sustained WBC is increased since yesterday He said he was on antibiotics before he came in for possible bronchitis. Will continue with plan of care.
[2024-09-06] MEDS: Acetaminophen 325 MG TABLET 650 MG PO ×2 (07:40→21:13)
[2024-09-06] MEDS: Oseltamivir Phosphate 75 MG CAPSULE PO ×2 (09:27→21:11)
[2024-09-06] MEDS: Benzonatate 100 MG CAPSULE PO (09:27)
[2024-09-06] MEDS: 0.9 % Sodium Chloride Flush 3 ML SYRINGE IVFLUSH ×3 (09:27→21:15)
[2024-09-06] MEDS: methylPREDNISolone Sod Succ 40 MG/ML VIAL IVPUSH (09:28)
[2024-09-06] MEDS: Azithromycin 500 MG in 0.9 % Sodium Chloride 250 ML 125 MG IV (10:24)
[2024-09-06] MEDS: methylPREDNISolone Sod Succ 40 MG/ML VIAL 20 MG IVPUSH (11:31)
[2024-09-06] MEDS: Morphine Sulfate 4 MG/ML CARTRIDGE 3 MG IVPUSH (11:32)
--- NOTE | 2024-09-06 12:20 | P.PNIM_ITS ---
Subjective Subjective Date of Service: 09/06/24 Interval History: Complaining of headache, chest and back pain with coughing, no fevers no chills, frequent coughing episodes, heart rate has improved, no acute events overnight. Review of Systems All other system reviewed and are negative Physical Exam 2 Vital Signs: Vital Signs: Last Vital Signs Temp 98.3 F 09/06/24 07:33 Pulse 104 H 09/06/24 11:17 Resp 20 09/06/24 11:17 BP 115/58 L 09/06/24 06:32 Pulse Ox 95 09/06/24 07:33 O2 Del Method Room Air 09/06/24 07:33 BMI result Body Mass Index 36.6 Const: Other: General in mild distress due to coughing and shortness Neck no JVD. CVS regular rate rhythm, Respiratory lungs diffuse bilateral expiratory wheeze Gastrointestinal abdomen soft, non tender, bowel sounds audible, no guarding , no rigidity. Extremities noedema. Neuro non focal Skin no rash Psych appropriate affect Objective Data Active Medications Acetaminophen (Acetaminophen 325 Mg Tablet) 650 mg PO Q6H PRN PRN Reason: Pain, Mild 1-3,fever,headache Last Admin: 09/06/24 07:40 Dose: 650 mg Documented By: JAELYN Albuterol/Ipratropium (Albuterol/Iprat 2.5/0.5mg 3 Ml Ampul.Neb) 3 ml INHALE Q3H PRN PRN Reason: sob Benzonatate (Benzonatate 100 Mg Capsule) 100 mg PO TID PRN PRN Reason: Cough Last Admin: 09/06/24 09:27 Dose: 100 mg Documented By: JAELYN Calcium Carbonate (Calcium Carbonate 750 Mg Tab.Chew) 750 mg PO Q4H PRN PRN Reason: Heartburn Enoxaparin Sodium (Enoxaparin Sodium 40 Mg/0.4 Ml Syringe) 40 mg SUBCUT Q24H [facility] Last Admin: 09/05/24 22:01 Dose: 40 mg Documented By: HUMBERTO Guaifenesin/Dextromethorphan (Guaifenesin Dm 200/20/10 Ml 10 Ml Syrup) 10 ml PO TID JOHNNIE Azithromycin 500 mg/ Sodium (Chloride) 250 mls @ 125 mls/hr IV Q24H JOHNNIE Last Admin: 09/06/24 10:24 Dose: 125 mls/hr Documented By: JAELYN Levalbuterol HCl (Levalbuterol Hcl 1.25 Mg/3 Ml Vial.Neb) 1.25 mg INHALE RQ4H [facility] Last Admin: 09/06/24 11:17 Dose: 1.25 mg Documented By: SCOVIJEANNETTE Magnesium Hydroxide (Milk Of Magnesia 30 Ml Oral.Susp) 30 ml PO DAILY PRN PRN Reason: Constipation Melatonin (Melatonin 3 Mg Tablet) 6 mg PO BEDTIME PRN PRN Reason: Insomnia Last Admin: 09/05/24 22:00 Dose: 6 mg Documented By: HUMBERTO Methylprednisolone Sodium Succinate (Methylprednisolone Sod Succ 40 Mg/Ml Vial) 60 mg IVPUSH Q8H [facility] Last Admin: 09/06/24 11:32 Dose: Not Given Documented By: JAELYN Non-Admin Reason: Previously Administered Morphine Sulfate (Morphine Sulfate 4 Mg/Ml Cartridge) 3 mg IVPUSH Q4H PRN; Protocol PRN Reason: respiratory distress Last Admin: 09/06/24 11:32 Dose: 3 mg Documented By: JAELYN Omeprazole (Omeprazole 20 Mg Capsule.) 20 mg PO DAILY@0630 [facility] Last Admin: 09/06/24 06:39 Dose: 20 mg Documented By: ALKA Ondansetron HCl (Ondansetron Hcl 4 Mg/2 Ml Vial) 4 mg IVPUSH Q8H PRN PRN Reason: Nausea and Vomiting Oseltamivir Phosphate (Oseltamivir Phosphate 75 Mg Capsule) 75 mg PO Q12H [facility] Stop: 09/10/24 21:01 Last Admin: 09/06/24 09:27 Dose: 75 mg Documented By: JAELYN Sodium Chloride (0.9 % Sodium Chloride Flush 3 Ml Syringe) 3 ml IVFLUSH QSHIFT [facility] Last Admin: 09/06/24 09:27 Dose: 3 ml Documented By: JAELYN Labs 09/06/24 05:20 09/06/24 05:20 Labs: Laboratory Results - last 24 hr 09/05/24 09/05/24 09/06/24 16:22 16:23 05:20 MCV 89.6 89.9 MCH 30.3 30.5 MCHC 33.8 34.0 RDW 14.0 14.3 Plt Count 280 246 MPV 11.0 10.9 Immature Gran % (Auto) 0.3 0.6 H Neut % (Auto) 89.4 H 93.9 H Lymph % (Auto) 4.6 L 2.3 L [place] % (Auto) 5.3 3.1 Eos % (Auto) 0.0 0.0 Baso % (Auto) 0.4 0.1 Lymph # (Auto) 0.6 L 0.3 L [place] # (Auto) 0.7 0.5 Eos # (Auto) 0.0 0.0 Baso # (Auto) 0.1 0.0 Abs Immat Gran (auto) 0.04 H 0.09 H Absolute Neuts (auto) 11.3 H 13.7 H Absolute Nucleated RBC 0.000 0.000 Nucleated RBC % (auto) 0.0 0.0 Smear Tech's Comments VERIFIED PT 12.3 INR 1.1 Anion Gap 15 11 L Estim Creat Clear Calc 113.9 128.1 Estimated GFR > 60 > 60 Random Glucose 148 H 190 H Calcium 9.6 D 8.7 D Total Bilirubin 0.3 AST 34 ALT 40 Alkaline Phosphatase 97 B-Natriuretic Peptide < 10 Total Protein 8.1 H Albumin 4.2 Influenza Type A (PCR) POSITIVE A Influenza Type B (PCR) NEGATIVE RSV RNA Qual (PCR) NEGATIVE SARS-CoV-2 RNA (RT-PCR) NEGATIVE Assessment and Plan (1) Influenza A: Status: Acute (2) Acute asthma exacerbation: Status: Acute Plan 49-year-old male with pertinent history of severe persistent asthma asthma not on home oxygen, gastroesophageal reflux disease who presents to the emergency department for evaluation of dyspnea. #. Acute respiratory distress due to acute exacerbation of mild persistent asthma due to influenza A infection: Persistent symptoms of shortness of breath and cough, will increase IV Solu Medrol to 60 Q 8, DC Xopenex and place on DuoNeb updraft scheduled and as needed Continue Tamiflu/ Scheduled cough medication No hypoxia #. Gastroesophageal reflux disease: On PPI #. Leukocytosis, reactive and due to steroids # class 2 obesity recommend low-calorie diet DVT prophylaxis: Lovenox Full code Quality Stroke Does the patient have a stroke diagnosis?: No VTE Prior VTE?: No VTE Risk Level:: Medical - moderate - high VTE Device Contraindication: Treatment Not Indicated VTE Drug Contraindication: N/A - Med Ordered
[2024-09-06] MEDS: guaiFENesin DM 200/20/10 ML 10 ML SYRUP PO ×2 (13:36→21:11)
[2024-09-06] MEDS: Albuterol/Iprat 2.5/0.5MG 3 ML AMPUL.NEB INHALE ×2 (15:25→20:21)
[2024-09-06] MEDS: methylPREDNISolone Sod Succ 40 MG/ML VIAL 60 MG IVPUSH (17:13)
[2024-09-06] MEDS: Enoxaparin Sodium 40 MG/0.4 ML SYRINGE SUBCUT (21:11)
[2024-09-06] MEDS: Melatonin 3 MG TABLET 6 MG PO (21:11)
[2024-09-07] VITALS (10 sets, daily range): BP systolic 123–139; BP diastolic 66–92; PULSE 81–112; RESP 16–20; TEMP 36.3–36.8; O2SAT 9–98
[2024-09-07] MEDS: methylPREDNISolone Sod Succ 40 MG/ML VIAL 60 MG IVPUSH ×2 (02:03→10:20)
[2024-09-07] MEDS: Omeprazole 20 MG CAPSULE.DR PO (05:40)
[2024-09-07] MEDS: Albuterol/Iprat 2.5/0.5MG 3 ML AMPUL.NEB INHALE ×4 (07:48→20:20)
[2024-09-07] MEDS: guaiFENesin DM 200/20/10 ML 10 ML SYRUP PO ×3 (09:11→20:24)
[2024-09-07] MEDS: Oseltamivir Phosphate 75 MG CAPSULE PO ×2 (09:11→20:24)
[2024-09-07] MEDS: 0.9 % Sodium Chloride Flush 3 ML SYRINGE IVFLUSH ×3 (09:12→21:57)
--- NOTE | 2024-09-07 10:38 | HO.PM.IMPN ---
Subjective Subjective Date of Service: 09/07/24 Interval History: Feeling better, still short of breath minimal activity, no chest pain, no fevers, no chills No acute events overnight. Review of Systems All other system reviewed and are negative Physical Exam Vital Signs: Vital Signs: Last Vital Signs Temp 97.3 F 09/07/24 08:00 Pulse 93 09/07/24 08:00 Resp 18 09/07/24 08:00 BP 130/70 09/07/24 08:00 Pulse Ox 98 09/07/24 08:00 O2 Del Method Room Air 09/07/24 08:00 BMI result Body Mass Index 38.7 Const: Other: General awake alert in no distress. Neck no JVD. CVS regular rate rhythm, Respiratory lungs bilateral expiratory wheeze, Gastrointestinal abdomen soft, non tender, bowel sounds audible, no guarding , no rigidity. Extremities no edema. Neuro non focal Skin no rash Psych appropriate affect Objective Data Active Medications Acetaminophen (Acetaminophen 325 Mg Tablet) 650 mg PO Q6H PRN PRN Reason: Pain, Mild 1-3,fever,headache Last Admin: 09/06/24 21:13 Dose: 650 mg Documented By: ROBERTA Albuterol/Ipratropium (Albuterol/Iprat 2.5/0.5mg 3 Ml Ampul.Neb) 3 ml INHALE Q3H PRN PRN Reason: sob Albuterol/Ipratropium (Albuterol/Iprat 2.5/0.5mg 3 Ml Ampul.Neb) 3 ml INHALE RQID [facility] Last Admin: 09/07/24 07:48 Dose: 3 ml Documented By: RASHAD Benzonatate (Benzonatate 100 Mg Capsule) 100 mg PO TID PRN PRN Reason: Cough Last Admin: 09/06/24 09:27 Dose: 100 mg Documented By: JAELYN Calcium Carbonate (Calcium Carbonate 750 Mg Tab.Chew) 750 mg PO Q4H PRN PRN Reason: Heartburn Enoxaparin Sodium (Enoxaparin Sodium 40 Mg/0.4 Ml Syringe) 40 mg SUBCUT Q24H [facility] Last Admin: 09/06/24 21:11 Dose: 40 mg Documented By: ROBERTA Guaifenesin/Dextromethorphan (Guaifenesin Dm 200/20/10 Ml 10 Ml Syrup) 10 ml PO TID [facility] Last Admin: 09/07/24 09:11 Dose: 10 ml Documented By: IVAN Azithromycin 500 mg/ Sodium (Chloride) 250 mls @ 125 mls/hr IV Q24H [facility] Last Infusion: 09/06/24 15:02 Dose: Infused Documented By: IVAN Magnesium Hydroxide (Milk Of Magnesia 30 Ml Oral.Susp) 30 ml PO DAILY PRN PRN Reason: Constipation Melatonin (Melatonin 3 Mg Tablet) 6 mg PO BEDTIME PRN PRN Reason: Insomnia Last Admin: 09/06/24 21:11 Dose: 6 mg Documented By: ROBERTA Methylprednisolone Sodium Succinate (Methylprednisolone Sod Succ 40 Mg/Ml Vial) 60 mg IVPUSH Q8H [facility] Last Admin: 09/07/24 10:20 Dose: 60 mg Documented By: IVAN Morphine Sulfate (Morphine Sulfate 4 Mg/Ml Cartridge) 3 mg IVPUSH Q4H PRN; Protocol PRN Reason: respiratory distress Last Admin: 09/06/24 11:32 Dose: 3 mg Documented By: JAELYN Omeprazole (Omeprazole 20 Mg Capsule.) 20 mg PO DAILY@0630 [facility] Last Admin: 09/07/24 05:40 Dose: 20 mg Documented By: GITA Ondansetron HCl (Ondansetron Hcl 4 Mg/2 Ml Vial) 4 mg IVPUSH Q8H PRN PRN Reason: Nausea and Vomiting Oseltamivir Phosphate (Oseltamivir Phosphate 75 Mg Capsule) 75 mg PO Q12H [facility] Stop: 09/10/24 21:01 Last Admin: 09/07/24 09:11 Dose: 75 mg Documented By: IVAN Sodium Chloride (0.9 % Sodium Chloride Flush 3 Ml Syringe) 3 ml IVFLUSH QSHIFT [facility] Last Admin: 09/07/24 09:12 Dose: 3 ml Documented By: IVAN Labs 09/06/24 05:20 09/06/24 05:20 Assessment and Plan (1) Influenza A: Status: Acute (2) Asthma: Status: Acute Plan 49-year-old male with pertinent history of severe persistent asthma asthma not on home oxygen, gastroesophageal reflux disease who presents to the emergency department for evaluation of dyspnea. #. Acute respiratory distress due to acute exacerbation of mild persistent asthma due to influenza A infection: shortness of breath and cough improving Continue IV Solu Medrol change to 40 Q 8, continue DuoNeb updraft scheduled and as needed Continue Tamiflu/ Scheduled cough medication No hypoxia #. Gastroesophageal reflux disease: On PPI #. Leukocytosis, reactive and due to steroids # class 2 obesity recommend low-calorie diet DVT prophylaxis: Lovenox Full code Due to persistent symptoms will change observation to inpatient admission since requiring IV steroids and frequent scheduled and as needed updraft treatment can not be provided in less acute setting. Quality Stroke Does the patient have a stroke diagnosis?: No VTE Prior VTE?: No VTE Risk Level:: Medical - moderate - high VTE Device Contraindication: Treatment Not Indicated VTE Drug Contraindication: N/A - Med Ordered
[2024-09-07] MEDS: Azithromycin 500 MG in 0.9 % Sodium Chloride 250 ML 125 MG IV (11:26)
--- NOTE | 2024-09-07 13:27 | MHC.CM.PN ---
Patient lives in an apartment w/ . Functionally independent. Has a nebulizer. No services. PCP Skinny Wright MD No HCP. CM provided education and offered assistance. DP: Goal is home self care. Do not anticipate the need for services. will transport at ne. CM will continue to follow.
[2024-09-07] MEDS: methylPREDNISolone Sod Succ 40 MG/ML VIAL IVPUSH ×2 (15:20→21:58)
[2024-09-07] MEDS: Enoxaparin Sodium 40 MG/0.4 ML SYRINGE SUBCUT (20:24)
[2024-09-07] MEDS: Melatonin 3 MG TABLET 6 MG PO (21:58)
[2024-09-07] MEDS: Acetaminophen 325 MG TABLET 650 MG PO (21:58)
[2024-09-08] VITALS (8 sets, daily range): BP systolic 133–137; BP diastolic 77–91; PULSE 91–109; RESP 18–20; TEMP 36.4–36.9; O2SAT 93–95
[2024-09-08] MEDS: Benzonatate 100 MG CAPSULE PO (03:36)
[2024-09-08] MEDS: methylPREDNISolone Sod Succ 40 MG/ML VIAL IVPUSH ×2 (06:07→13:02)
[2024-09-08] MEDS: Omeprazole 20 MG CAPSULE.DR PO (06:07)
[2024-09-08] MEDS: Albuterol/Iprat 2.5/0.5MG 3 ML AMPUL.NEB INHALE ×4 (07:56→19:20)
[2024-09-08] MEDS: Azithromycin 500 MG in 0.9 % Sodium Chloride 250 ML 125 MG IV (09:16)
[2024-09-08] MEDS: guaiFENesin DM 200/20/10 ML 10 ML SYRUP PO ×3 (09:16→20:51)
[2024-09-08] MEDS: Oseltamivir Phosphate 75 MG CAPSULE PO ×2 (09:16→20:51)
[2024-09-08] MEDS: 0.9 % Sodium Chloride Flush 3 ML SYRINGE IVFLUSH ×2 (09:17→20:51)
--- NOTE | 2024-09-08 13:07 | HO.PM.IMPN ---
Subjective Subjective Date of Service: 09/08/24 Interval History: Complaining of persistent shortness of breath worse at night and with activity denies fever chills, no lightheadedness, no dizziness. Review of Systems All other system reviewed and are negative. Physical Exam Vital Signs: Vital Signs: Last Vital Signs Temp 97.6 F 09/08/24 08:00 Pulse 92 09/08/24 11:44 Resp 18 09/08/24 11:44 BP 137/77 09/08/24 08:00 Pulse Ox 95 09/08/24 08:00 O2 Del Method Room Air 09/08/24 08:00 BMI result Body Mass Index 38.7 Const: Other: General awake alert in no distress. Neck no JVD. CVS regular rate rhythm, Respiratory lungs bilateral expiratory wheeze, no use of accessory muscles Gastrointestinal abdomen soft, non tender, bowel sounds audible, no guarding , no rigidity. Extremities no edema. Neuro non focal Skin no rash Psych appropriate affect Objective Data Active Medications Acetaminophen (Acetaminophen 325 Mg Tablet) 650 mg PO Q6H PRN PRN Reason: Pain, Mild 1-3,fever,headache Last Admin: 09/07/24 21:58 Dose: 650 mg Documented By: NELI Albuterol/Ipratropium (Albuterol/Iprat 2.5/0.5mg 3 Ml Ampul.Neb) 3 ml INHALE Q3H PRN PRN Reason: sob Albuterol/Ipratropium (Albuterol/Iprat 2.5/0.5mg 3 Ml Ampul.Neb) 3 ml INHALE RQ4H WHILE AWAKE [facility] Last Admin: 09/08/24 11:43 Dose: 3 ml Documented By: DALIA Benzonatate (Benzonatate 100 Mg Capsule) 100 mg PO TID PRN PRN Reason: Cough Last Admin: 09/08/24 03:36 Dose: 100 mg Documented By: NELI Calcium Carbonate (Calcium Carbonate 750 Mg Tab.Chew) 750 mg PO Q4H PRN PRN Reason: Heartburn Enoxaparin Sodium (Enoxaparin Sodium 40 Mg/0.4 Ml Syringe) 40 mg SUBCUT Q24H [facility] Last Admin: 09/07/24 20:24 Dose: 40 mg Documented By: NELI Guaifenesin/Dextromethorphan (Guaifenesin Dm 200/20/10 Ml 10 Ml Syrup) 10 ml PO TID [facility] Last Admin: 09/08/24 09:16 Dose: 10 ml Documented By: CAROL Azithromycin 500 mg/ Sodium (Chloride) 250 mls @ 125 mls/hr IV Q24H [facility] Last Infusion: 09/08/24 11:20 Dose: Infused Documented By: CAROL Magnesium Hydroxide (Milk Of Magnesia 30 Ml Oral.Susp) 30 ml PO DAILY PRN PRN Reason: Constipation Melatonin (Melatonin 3 Mg Tablet) 6 mg PO BEDTIME PRN PRN Reason: Insomnia Last Admin: 09/07/24 21:58 Dose: 6 mg Documented By: NELI Methylprednisolone Sodium Succinate (Methylprednisolone Sod Succ 40 Mg/Ml Vial) 40 mg IVPUSH Q8H [facility] Last Admin: 09/08/24 13:02 Dose: 40 mg Documented By: CAROL Morphine Sulfate (Morphine Sulfate 4 Mg/Ml Cartridge) 3 mg IVPUSH Q4H PRN; Protocol PRN Reason: respiratory distress Last Admin: 09/06/24 11:32 Dose: 3 mg Documented By: JAELYN Omeprazole (Omeprazole 20 Mg Capsule.) 20 mg PO DAILY@0630 [facility] Last Admin: 09/08/24 06:07 Dose: 20 mg Documented By: NELI Ondansetron HCl (Ondansetron Hcl 4 Mg/2 Ml Vial) 4 mg IVPUSH Q8H PRN PRN Reason: Nausea and Vomiting Oseltamivir Phosphate (Oseltamivir Phosphate 75 Mg Capsule) 75 mg PO Q12H [facility] Stop: 09/10/24 21:01 Last Admin: 09/08/24 09:16 Dose: 75 mg Documented By: CAROL Sodium Chloride (0.9 % Sodium Chloride Flush 3 Ml Syringe) 3 ml IVFLUSH QSHIFT [facility] Last Admin: 09/08/24 09:17 Dose: 3 ml Documented By: CAROL Labs 09/06/24 05:20 09/06/24 05:20 Assessment and Plan (1) Influenza A: Status: Acute (2) Asthma: Status: Acute Plan 49-year-old male with pertinent history of severe persistent asthma asthma not on home oxygen, gastroesophageal reflux disease who presents to the emergency department for evaluation of dyspnea. #. Acute respiratory distress due to acute exacerbation of mild persistent asthma due to influenza A infection: shortness of breath and cough improving Continue IV Solu Medrol 40mg Q 8, continue DuoNeb updraft change to q.4 hours as [place] and as needed Continue Tamiflu/ Scheduled cough medication No hypoxia #. Gastroesophageal reflux disease: On PPI #. Leukocytosis, reactive and due to steroids # class 2 obesity recommend low-calorie diet DVT prophylaxis: Lovenox Full code Due to persistent symptoms will change observation to inpatient admission since requiring IV steroids and frequent scheduled and as needed updraft treatment can not be provided in less acute setting. Quality Stroke Does the patient have a stroke diagnosis?: No VTE Prior VTE?: No VTE Risk Level:: Medical - moderate - high VTE Device Contraindication: Treatment Not Indicated VTE Drug Contraindication: N/A - Med Ordered
[2024-09-08] MEDS: methylPREDNISolone Sod Succ 40 MG/ML VIAL 20 MG IVPUSH (14:10)
[2024-09-08] MEDS: Enoxaparin Sodium 40 MG/0.4 ML SYRINGE SUBCUT (20:51)
[2024-09-08] MEDS: methylPREDNISolone Sod Succ 40 MG/ML VIAL 60 MG IVPUSH (21:54)
[2024-09-08] MEDS: Melatonin 3 MG TABLET 6 MG PO (21:55)
[2024-09-09] VITALS (9 sets, daily range): BP systolic 134–161; BP diastolic 71–92; PULSE 90–106; RESP 16–19; TEMP 36.2–36.9; O2SAT 93–96
[2024-09-09] MEDS: methylPREDNISolone Sod Succ 40 MG/ML VIAL 60 MG IVPUSH ×3 (05:59→21:48)
[2024-09-09] MEDS: Omeprazole 20 MG CAPSULE.DR PO (05:59)
[2024-09-09] MEDS: Albuterol/Iprat 2.5/0.5MG 3 ML AMPUL.NEB INHALE ×4 (07:48→20:03)
[2024-09-09] MEDS: Oseltamivir Phosphate 75 MG CAPSULE PO ×2 (09:13→21:49)
[2024-09-09] MEDS: 0.9 % Sodium Chloride Flush 3 ML SYRINGE IVFLUSH ×2 (09:13→21:48)
[2024-09-09] MEDS: guaiFENesin DM 200/20/10 ML 10 ML SYRUP PO ×3 (09:13→21:49)
[2024-09-09] MEDS: Azithromycin 500 MG in 0.9 % Sodium Chloride 250 ML 125 MG IV (09:13)
[2024-09-09] MEDS: Acetylcysteine 10 % 400 MG/4 ML VIAL INHALE ×2 (10:30→20:03)
--- NOTE | 2024-09-09 10:31 | P.PNIM_ITS ---
Subjective Subjective Date of Service: 09/09/24 Interval History: Persistent shortness of breath , cough productive of thick yellow phlegm , feels congested, denies fever, no cough. No acute events overnight Oxygenation remained stable on room air Review of Systems All other system reviewed and are negative Physical Exam 2 Vital Signs: Vital Signs: Last Vital Signs Temp 97.9 F 09/09/24 08:00 Pulse 90 09/09/24 08:00 Resp 16 09/09/24 08:00 BP 141/74 H 09/09/24 08:00 Pulse Ox 93 09/09/24 08:00 O2 Del Method Room Air 09/09/24 08:00 BMI result Body Mass Index 38.7 Const: Other: General awake alert in no distress. Neck no JVD. CVS regular rate rhythm, Respiratory lungs bilateral expiratory wheeze, diminished, no use of accessory muscles Gastrointestinal abdomen soft, non tender, bowel sounds audible, no guarding , no rigidity. Extremities no edema. Neuro non focal Skin no rash Psych appropriate affect Objective Data Active Medications Acetaminophen (Acetaminophen 325 Mg Tablet) 650 mg PO Q6H PRN PRN Reason: Pain, Mild 1-3,fever,headache Last Admin: 09/07/24 21:58 Dose: 650 mg Documented By: NEIL Acetylcysteine (Acetylcysteine 10 % 400 Mg/4 Ml Vial) 400 mg INHALE RBID [facility] Last Admin: 09/09/24 10:30 Dose: 400 mg Documented By: JANICE Albuterol/Ipratropium (Albuterol/Iprat 2.5/0.5mg 3 Ml Ampul.Neb) 3 ml INHALE Q3H PRN PRN Reason: sob Albuterol/Ipratropium (Albuterol/Iprat 2.5/0.5mg 3 Ml Ampul.Neb) 3 ml INHALE RQ4H WHILE AWAKE [facility] Last Admin: 09/09/24 10:30 Dose: 3 ml Documented By: JANICE Benzonatate (Benzonatate 100 Mg Capsule) 100 mg PO TID PRN PRN Reason: Cough Last Admin: 09/08/24 03:36 Dose: 100 mg Documented By: NELI Calcium Carbonate (Calcium Carbonate 750 Mg Tab.Chew) 750 mg PO Q4H PRN PRN Reason: Heartburn Enoxaparin Sodium (Enoxaparin Sodium 40 Mg/0.4 Ml Syringe) 40 mg SUBCUT Q24H [facility] Last Admin: 09/08/24 20:51 Dose: 40 mg Documented By: NELI Guaifenesin/Dextromethorphan (Guaifenesin Dm 200/20/10 Ml 10 Ml Syrup) 10 ml PO TID [facility] Last Admin: 09/09/24 09:13 Dose: 10 ml Documented By: CAROL Azithromycin 500 mg/ Sodium (Chloride) 250 mls @ 125 mls/hr IV Q24H [facility] Last Admin: 09/09/24 09:13 Dose: 125 mls/hr Documented By: CAROL Magnesium Hydroxide (Milk Of Magnesia 30 Ml Oral.Susp) 30 ml PO DAILY PRN PRN Reason: Constipation Melatonin (Melatonin 3 Mg Tablet) 6 mg PO BEDTIME PRN PRN Reason: Insomnia Last Admin: 09/08/24 21:55 Dose: 6 mg Documented By: NELI Methylprednisolone Sodium Succinate (Methylprednisolone Sod Succ 40 Mg/Ml Vial) 60 mg IVPUSH Q8H [facility] Last Admin: 09/09/24 05:59 Dose: 60 mg Documented By: NELI Morphine Sulfate (Morphine Sulfate 4 Mg/Ml Cartridge) 3 mg IVPUSH Q4H PRN; Protocol PRN Reason: respiratory distress Last Admin: 09/06/24 11:32 Dose: 3 mg Documented By: JAELYN Omeprazole (Omeprazole 20 Mg Capsule.) 20 mg PO DAILY@0630 [facility] Last Admin: 09/09/24 05:59 Dose: 20 mg Documented By: NELI Ondansetron HCl (Ondansetron Hcl 4 Mg/2 Ml Vial) 4 mg IVPUSH Q8H PRN PRN Reason: Nausea and Vomiting Oseltamivir Phosphate (Oseltamivir Phosphate 75 Mg Capsule) 75 mg PO Q12H [facility] Stop: 09/10/24 21:01 Last Admin: 09/09/24 09:13 Dose: 75 mg Documented By: CAROL Sodium Chloride (0.9 % Sodium Chloride Flush 3 Ml Syringe) 3 ml IVFLUSH QSHIFT [facility] Last Admin: 09/09/24 09:13 Dose: 3 ml Documented By: CAROL Labs 09/06/24 05:20 09/06/24 05:20 Assessment and Plan (1) Influenza A: Status: Acute (2) Asthma: Status: Acute Plan 49-year-old male with pertinent history of severe persistent asthma asthma not on home oxygen, gastroesophageal reflux disease who presents to the emergency department for evaluation of dyspnea. #. Acute respiratory distress due to acute exacerbation of mild persistent asthma due to influenza A infection: Persistent shortness of breath slow to improve Continue IV Solu Medrol 60mg Q 8, continue DuoNeb updraft q.4 hours as WA and as needed Continue Tamiflu/ Scheduled cough medication /IV azithromycin Add Mucomyst b.i.d. No hypoxia #. Gastroesophageal reflux disease: On PPI #. Leukocytosis, reactive and due to steroids # class 2 obesity recommend low-calorie diet DVT prophylaxis: Lovenox Full code Due to persistent symptoms will change observation to inpatient admission since requiring IV steroids and frequent scheduled and as needed updraft treatment can not be provided in less acute setting. Quality Stroke Does the patient have a stroke diagnosis?: No VTE Prior VTE?: No VTE Risk Level:: Medical - moderate - high VTE Device Contraindication: Treatment Not Indicated VTE Drug Contraindication: N/A - Med Ordered
[2024-09-09] MEDS: Enoxaparin Sodium 40 MG/0.4 ML SYRINGE SUBCUT (21:49)
[2024-09-10] VITALS (9 sets, daily range): BP systolic 120–139; BP diastolic 62–87; PULSE 78–98; RESP 16–18; TEMP 36.6–36.9; O2SAT 93–96
[2024-09-10] MEDS: Omeprazole 20 MG CAPSULE.DR PO (05:36)
[2024-09-10] MEDS: methylPREDNISolone Sod Succ 40 MG/ML VIAL 60 MG IVPUSH ×3 (05:40→21:22)
[2024-09-10] MEDS: Oseltamivir Phosphate 75 MG CAPSULE PO ×2 (09:11→21:23)
[2024-09-10] MEDS: 0.9 % Sodium Chloride Flush 3 ML SYRINGE IVFLUSH ×3 (09:11→21:23)
[2024-09-10] MEDS: guaiFENesin DM 200/20/10 ML 10 ML SYRUP PO ×3 (09:11→21:21)
[2024-09-10] MEDS: Azithromycin 500 MG in 0.9 % Sodium Chloride 250 ML 125 MG IV (10:39)
[2024-09-10] MEDS: Albuterol/Iprat 2.5/0.5MG 3 ML AMPUL.NEB INHALE ×3 (10:47→21:20)
--- NOTE | 2024-09-10 10:47 | MHC.CM.PN ---
Per MD rounds patient not medically cleared for dc. CM will continue to follow.
--- NOTE | 2024-09-10 12:33 | HO.PM.IMPN ---
Subjective Subjective Date of Service: 09/10/24 Interval History: Feeling better, still with significant shortness of breath with activity, no PND, no orthopnea, no fevers, no chills. Review of Systems All other system reviewed and are negative Physical Exam Vital Signs: Vital Signs: Last Vital Signs Temp 98.0 F 09/10/24 08:00 Pulse 78 09/10/24 10:47 Resp 18 09/10/24 10:47 BP 138/87 09/10/24 08:00 Pulse Ox 96 09/10/24 08:00 O2 Del Method Room Air 09/10/24 08:00 BMI result Body Mass Index 38.7 Const: Other: General awake alert in no distress. Neck no JVD. CVS regular rate rhythm, Respiratory lungs bilateral expiratory wheeze, no use of accessory muscles Gastrointestinal abdomen soft, non tender, bowel sounds audible, no guarding , no rigidity. Extremities no edema. Neuro non focal Skin no rash Psych appropriate affect Objective Data Active Medications Acetaminophen (Acetaminophen 325 Mg Tablet) 650 mg PO Q6H PRN PRN Reason: Pain, Mild 1-3,fever,headache Last Admin: 09/07/24 21:58 Dose: 650 mg Documented By: NELI Acetylcysteine (Acetylcysteine 10 % 400 Mg/4 Ml Vial) 400 mg INHALE RBID [facility] Last Admin: 09/10/24 09:33 Dose: Not Given Documented By: ARELIS Non-Admin Reason: Not In Room Albuterol/Ipratropium (Albuterol/Iprat 2.5/0.5mg 3 Ml Ampul.Neb) 3 ml INHALE Q3H PRN PRN Reason: sob Albuterol/Ipratropium (Albuterol/Iprat 2.5/0.5mg 3 Ml Ampul.Neb) 3 ml INHALE RQ4H WHILE AWAKE [facility] Last Admin: 09/10/24 10:47 Dose: 3 ml Documented By: ASHAYRCARLOS Benzonatate (Benzonatate 100 Mg Capsule) 100 mg PO TID PRN PRN Reason: Cough Last Admin: 09/08/24 03:36 Dose: 100 mg Documented By: NELI Calcium Carbonate (Calcium Carbonate 750 Mg Tab.Chew) 750 mg PO Q4H PRN PRN Reason: Heartburn Enoxaparin Sodium (Enoxaparin Sodium 40 Mg/0.4 Ml Syringe) 40 mg SUBCUT Q24H [facility] Last Admin: 09/09/24 21:49 Dose: 40 mg Documented By: ENRIKE Guaifenesin/Dextromethorphan (Guaifenesin Dm 200/20/10 Ml 10 Ml Syrup) 10 ml PO TID [facility] Last Admin: 09/10/24 09:11 Dose: 10 ml Documented By: FARIDEH Azithromycin 500 mg/ Sodium (Chloride) 250 mls @ 125 mls/hr IV Q24H [facility] Last Admin: 09/10/24 10:39 Dose: 125 mls/hr Documented By: FARIDEH Magnesium Hydroxide (Milk Of Magnesia 30 Ml Oral.Susp) 30 ml PO DAILY PRN PRN Reason: Constipation Melatonin (Melatonin 3 Mg Tablet) 6 mg PO BEDTIME PRN PRN Reason: Insomnia Last Admin: 09/08/24 21:55 Dose: 6 mg Documented By: NELI Methylprednisolone Sodium Succinate (Methylprednisolone Sod Succ 40 Mg/Ml Vial) 60 mg IVPUSH Q8H [facility] Last Admin: 09/10/24 05:40 Dose: 60 mg Documented By: ENRIKE Morphine Sulfate (Morphine Sulfate 4 Mg/Ml Cartridge) 3 mg IVPUSH Q4H PRN; Protocol PRN Reason: respiratory distress Last Admin: 09/06/24 11:32 Dose: 3 mg Documented By: JAELYN Omeprazole (Omeprazole 20 Mg Capsule.) 20 mg PO DAILY@0630 [facility] Last Admin: 09/10/24 05:36 Dose: 20 mg Documented By: ENRIKE Ondansetron HCl (Ondansetron Hcl 4 Mg/2 Ml Vial) 4 mg IVPUSH Q8H PRN PRN Reason: Nausea and Vomiting Oseltamivir Phosphate (Oseltamivir Phosphate 75 Mg Capsule) 75 mg PO Q12H [facility] Stop: 09/10/24 21:01 Last Admin: 09/10/24 09:11 Dose: 75 mg Documented By: FARIDEH Sodium Chloride (0.9 % Sodium Chloride Flush 3 Ml Syringe) 3 ml IVFLUSH QSHIFT [facility] Last Admin: 09/10/24 09:11 Dose: 3 ml Documented By: FARIDEH Labs 09/06/24 05:20 09/06/24 05:20 Assessment and Plan (1) Influenza A: Status: Acute (2) Asthma: Status: Acute Plan 49-year-old male with pertinent history of severe persistent asthma asthma not on home oxygen, gastroesophageal reflux disease who presents to the emergency department for evaluation of dyspnea. #. Acute respiratory distress due to acute exacerbation of mild persistent asthma due to influenza A infection: Persistent shortness of breath slowly improving Continue IV Solu Medrol 60mg Q 8, continue DuoNeb updraft q.4 hours as WA and as needed Continue Tamiflu/ Scheduled cough medication /IV azithromycin No hypoxia DC Mucomyst #. Gastroesophageal reflux disease: On PPI #. Leukocytosis, reactive and due to steroids # class 2 obesity recommend low-calorie diet DVT prophylaxis: Lovenox Full code Due to persistent symptoms will change observation to inpatient admission since requiring IV steroids and frequent scheduled and as needed updraft treatment can not be provided in less acute setting. Quality Stroke Does the patient have a stroke diagnosis?: No VTE Prior VTE?: No VTE Risk Level:: Medical - moderate - high VTE Device Contraindication: Treatment Not Indicated VTE Drug Contraindication: N/A - Med Ordered
[2024-09-10] MEDS: Enoxaparin Sodium 40 MG/0.4 ML SYRINGE SUBCUT (21:28)
[2024-09-11] MEDS: Omeprazole 20 MG CAPSULE.DR PO (05:40)
[2024-09-11] MEDS: methylPREDNISolone Sod Succ 40 MG/ML VIAL 60 MG IVPUSH (05:40)
[2024-09-11] MEDS: guaiFENesin DM 200/20/10 ML 10 ML SYRUP PO (07:07)
[2024-09-11] MEDS: 0.9 % Sodium Chloride Flush 3 ML SYRINGE IVFLUSH (07:07)
[2024-09-11 08:00] VITALS: BP 143/85; PULSE 72; RESP 16; TEMP 36.1
[2024-09-11] MEDS: Albuterol/Iprat 2.5/0.5MG 3 ML AMPUL.NEB INHALE ×2 (08:02→11:35)
[2024-09-11 08:03] VITALS: PULSE 79; RESP 15; O2SAT 98
--- NOTE | 2024-09-11 10:20 | PM.DS ---
DS: Providers Provider Date of Service: 09/11/24 Date of admission: 09/07/24 10:46 Date of discharge: 09/11/24 Primary care physician: Skinny Wright MD DS: Diagnosis Discharge Diagnosis (1) Influenza A: Status: Acute (2) Asthma: Status: Acute DS: Summary Hospital Course Hospital Course: Date of Service: 09/05/24 Chief Complaint: Dyspnea This is a 49-year-old male with pertinent history of severe persistent asthma asthma not on home oxygen, gastroesophageal reflux disease who presents to the emergency department for evaluation of dyspnea. Patient states symptoms started 2 days prior to presentation. He has been having dyspnea which is worse with exertion. Also has been having cough with occasional clear sputum production. Has associated wheezing which did not relieve with home inhaler. No fever, chills, chest pain, palpitations, abdominal pain, changes in urinary or bowel habits. In the emergency department, patient with wheezing despite multiple DuoNeb treatments. Was given IV steroids and IV magnesium sulfate. Hospital course: 49-year-old male with pertinent history of severe persistent asthma asthma not on home oxygen, gastroesophageal reflux disease who presents to the emergency department for evaluation of dyspnea. #. Acute respiratory distress due to acute exacerbation of mild persistent asthma due to influenza A infection treated with IV steroids, scheduled and as needed updraft treatment, Tamiflu, cough medication and IV azithromycin Patient responded well to above treatment feeling significantly better ambulating in hallway with no lightheadedness dizziness or shortness of breath therefore being discharged home on tapering dose of steroids recommend to continue home inhalers, has finished course of antibiotic. Recommend outpatient follow-up with primary special services agent. #. Gastroesophageal reflux disease: On PPI #. Leukocytosis, reactive and due to steroids # class 2 obesity recommend low-calorie diet Time Attestation Discharge Coordination Time (in mins): 38 Quality: Safe Use of Opioids Does Pt have an Active Cancer Diagnosis on the Problem List?: No Quality: Stroke Does the patient have a stroke diagnosis?: No Physical Exam Vital Signs: Vital Signs: Last Vital Signs Temp 96.9 F 09/11/24 08:00 Pulse 79 09/11/24 08:03 Resp 15 09/11/24 08:03 BP 143/85 H 09/11/24 08:00 Pulse Ox 95 09/10/24 23:42 O2 Del Method Room Air 09/10/24 23:42 BMI result Body Mass Index 38.7 Const: Other: General awake alert in no distress. Neck no JVD. CVS regular rate rhythm, Respiratory lungs good air entry few expiratory wheeze., no use of accessory muscles Gastrointestinal abdomen soft, non tender, bowel sounds audible, no guarding , no rigidity. Extremities no edema. Neuro non focal Skin no rash Psych appropriate affect Discharge Plan Discharge Anticipated Discharge Date/Time: 09/11/24 10:17 Patient Disposition: Home, Self-Care Discharge Diagnosis: Influenza a infection Acute asthma exacerbation Referrals: Skinny Wright MD [Primary Care Provider] - 1 Week Discharge Medications: New prednisone 10 mg tablet 10 mg PO DIRECTED Qty: 30 0RF Rx Instructions: see taper instructions; 40 mg Daily x3 days, 30 mg daily x3 days, 20 mg daily x3 days, 10 mg daily x3 days dextromethorphan-guaifenesin 10-100 mg/5 mL Syrup 10 ml PO TID Qty: 237 0RF Rx Instructions: take for 3 -4 days Continued (DME) nebulizers [Aeroneb Go Nebulizer] [facility] [place] See Rx Instructions .Route Qty: 1 0RF Rx Instructions: As directed albuterol sulfate 90 mcg/actuation HFA aerosol inhaler 2 puff inhalation Q4H PRN (Reason: Wheezing) Qty: 8.5 2RF albuterol sulfate 0.63 mg/3 mL solution for nebulization 0.63 mg inhalation QID PRN (Reason: shortness of breath or wheezing) Qty: 90 0RF pantoprazole 40 mg tablet,delayed release (DR/EC) 40 mg PO DAILY@0630 epinephrine 0.3 mg/0.3 mL auto-injector 0.3 mg IM Q4H PRN (Reason: anaphylaxis) Qty: 1 0RF Discontinued prednisone 10 mg tablet See Rx Instructions PO DAILY Taper: Prednisone 30 daily for 2 Days and 0 Hour 20 daily for 2 Days and 0 Hour 10 daily for 2 Days and 0 Hour Rx Instructions: 3 tabs QD x 2 days then 2 tabs Qd x 2 days then 1 tab QD x 2 days PO daily; azithromycin 250 mg tablet 250 mg PO DAILY Discharge Orders: Discharge Order (Routine); Ordered 09/11/24 Ordered By: Tito Bills Diet: Advance to usual diet Activity on Discharge: As tolerated Stand Alone Forms: Patient Portal Discharge page, Work/School Release Print Language: Jamaican Care Plan Goals: Take DuoNeb updraft 4 times a day as needed Take tapering dose of prednisone as ordered Cough medication for next 2-3 days Follow low-calorie diet Health Concerns: Take all home medication as before Plan of Treatment: Outpatient follow-up with primary care physician and pulmonology call for appointment Assessment: As above Discharge Date/Time: 09/11/24 12:25
[2024-09-11] MEDS: Azithromycin 500 MG TABLET PO (10:30)
--- NOTE | 2024-09-11 10:47 | MHC.CM.PN ---
Per MD rounds patient medically cleared for dc. will provide transport at 12:30. RN aware.
== END 2024-09-11 12:25 | disposition home or self-care (01) | DRG 194 ==
LOC: HO.ED 18:22 → HO.EDOVER 20:24 → HO.S3 09-06 13:38
PROVIDERS: Physician Assistant; Admitting Provider Student in an Organized Health Care Education/Training Program; Emergency Provider Emergency Medicine; PCP Internal Medicine; Visit Provider Hospitalist
DX: J10.1 Influenza due to other identified influenza virus with other respiratory manifestations (principal); J45.31 Mild persistent asthma with (acute) exacerbation; K21.9 Gastro-esophageal reflux disease without esophagitis; R06.03 Acute respiratory distress; E66.812 Obesity, class 2; Z68.38 Body mass index [BMI] 38.0-38.9, adult; Z71.3 Dietary counseling and surveillance; Z79.899 Other long term (current) drug therapy
CPT/HCPCS: 0241U; 36415; 71046; 80048; 80053; 83880; 85025; 85610; 93005; 94640; 99285; J0456; J1650; J2270; J2919; J3475

== ENCOUNTER → 2024-09-05 16:01 | Outpatient (BNV) | payer OTHER, SELFPAY | PROVIDERS: Admitting Provider Student in an Organized Health Care Education/Training Program; Emergency Provider Emergency Medicine; PCP Internal Medicine; Visit Provider Internal Medicine Cardiovascular Disease | DX: R00.0 Tachycardia, unspecified (principal); I49.1 Atrial premature depolarization | CPT/HCPCS: 93010 ==

== ENCOUNTER → 2024-09-05 16:01 | Outpatient (BNV) | payer OTHER, SELFPAY | PROVIDERS: Emergency Provider Emergency Medicine; PCP Internal Medicine; Visit Provider Nuclear Medicine | DX: R07.9 Chest pain, unspecified (principal) | CPT/HCPCS: 71046 ==

== ENCOUNTER → 2024-09-05 20:14 | Outpatient (BNV) | payer OTHER, SELFPAY | PROVIDERS: Admitting Provider Student in an Organized Health Care Education/Training Program; Emergency Provider Emergency Medicine; PCP Internal Medicine; Visit Provider Student in an Organized Health Care Education/Training Program | DX: J45.51 Severe persistent asthma with (acute) exacerbation (principal); J10.1 Influenza due to other identified influenza virus with other respiratory manifestations | CPT/HCPCS: 99222; 99232; 99233; 99239 ==

== ENCOUNTER 2024-09-14 15:51 | Outpatient (AMB) | payer OTHER, SELFPAY ==
--- NOTE | 2024-09-14 16:00 | MHC.PC.OV ---
Vital Signs 09/14/24 16:05 Height 5 ft 7 in Weight 246 lb 2 oz BMI 38.5 BP 104/66 Blood Pressure Location Lt brachial Position Sitting Pulse 102 H Pulse Source Pulse Oximeter Temp 99.1 F Temp Source Oral Pulse Oximetry (%) 96 Oxygen Delivery Method Room Air Intake Visit Reasons: TCM [facility] 09/11 Land Measurer Required: No Accompanied by: Spouse Allergies shrimp Allergy (Severe, Verified 09/14/24 16:00) ANAPHYLAXIS LOBSTER Allergy (Unknown, Uncoded 09/14/24 16:00) ANAPHYLAXIS Tobacco use date assessed: 09/14/24 Dental Screening Dental Screen Date: 09/14/24 Did you have a dental visit in the last 12 months?: Yes Did you have a dental problem in the last 6 months where you did not have access to dental care?: No Was dental information given to patient?: Patient has dentist HPI TCM TCM Information Date of Discharge 09/11/24 Discharged From [facility] Interactive Contact Date (Reference documentation from this date) 09/12/24 HPI Comments History of Present Illness Details 49 y/o male patient who presents to the clinic for TCM. Pt was admitted at [facility] on 09/07/24 and discharged home 09/11/24 due to Influenza A and Asthma exacerbation. [facility] Medical History Physical exam History of positive PPD GERD (gastroesophageal reflux disease) Asthma Methadone maintenance therapy patient Surgical History Hx of endoscopy History of esophagogastroduodenoscopy (EGD) Hx of colonoscopy History of umbilical hernia repair History of left inguinal hernia repair Hx of knee surgery Hx of hernia repair Hx of shoulder surgery Family History Father No problems noted. Mother No problems noted. 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 Jean Pierre Flynn, Kailee Sanderson, Dayday Cueto and colleagues, with an educational ten from [employer]. Review of Systems Const All systems reviewed & are unremarkable except as noted in HPI and below Physical exam (Primary Care) Vital Signs: Last Vital Signs Temp 99.1 F 09/14/24 16:05 Pulse 102 H 09/14/24 16:05 BP 104/66 09/14/24 16:05 Pulse Ox 96 09/14/24 16:05 Oxygen Delivery Method Room Air 09/14/24 16:05 BMI result Body Mass Index 38.5 Tobacco/Smoking Status: Tobacco use Status Tobacco use date assessed 09/14/24 09/14/24 16:02 Patient Tobacco Use Status Never used Tobacco 09/14/24 16:02 Tobacco use type Cigarette 09/14/24 16:02 e-Cigarette/Vaping Use Never Used 09/14/24 16:02 Thrive Assessment: Date of Thrive Assessment Date Thrive assessed 09/07/24 09/14/24 16:02 Const General: cooperative and no acute distress Nutritional Appearance: overweight Orientation/consciousness: patient oriented x3 Resp Effort & Inspection: normal respiratory effort Auscultation: no crackles, no rales, no rhonchi and wheezes Cardio Heart sounds: S1 normal heart sound present and S2 normal heart sound present Skin General skin exam: no rashes or lesions noted Neuro General: patient oriented x3, gait normal and moves all extremities Psych Speech and movement: Normal speech and movement present Coding Level of Care Code TCM Mod MDM <= 7 Days Diagnoses Influenza A J10.1 Moderate persistent asthma with acute exacerbation J45.41 Asthma severity: moderate Asthma persistence: persistent Asthma complication type: with acute exacerbation Time Spent (min) 20 Assessment & Plan Assessment & Plan (1) Influenza A: Code(s): J10.1 - Influenza due to other identified influenza virus with other respiratory manifestations Category: Medical Plan: Symptomatic treatment. (2) Asthma: Code(s): J45.909 - Unspecified asthma, uncomplicated Category: Medical Qualifiers: Asthma severity: moderate Asthma persistence: persistent Asthma complication type: with acute exacerbation Qualified Code(s): J45.41 - Moderate persistent asthma with (acute) exacerbation Plan: Stable Continue on current regiment as prescribed.
[2024-09-14 16:05] VITALS: BP 104/66; PULSE 102; TEMP 37.3; O2SAT 96; BMI 38.5
--- OUTSIDE RECORDS SUMMARY | 2024-09-14 16:36 | XMS_ITS | Clinical Summary ---
Author Organization [facility] Address [address] [place] [address] Care Team Providers Care Optical Manufacturing Technician Name Role Phone Unavailable Primary Care Provider Unavailabl e Social History Tobacco Use Types Packs/Day Years Used Date Smoking Tobacco: Never Assessed Sex and Gender Information Value Date Recorded Sex Assigned at Not on file Gender Identity Not on file Sexual Orientation Not on file Plan of Treatment Not on file
== END 2024-09-14 16:48 | disposition home or self-care (01) ==
PROVIDERS: PCP Internal Medicine; Visit Provider Nurse Practitioner Family
DX: J10.1 Influenza due to other identified influenza virus with other respiratory manifestations (principal); J45.41 Moderate persistent asthma with (acute) exacerbation

== ENCOUNTER 2024-09-20 15:21 | Outpatient (AMB) | payer OTHER, SELFPAY ==
--- NOTE | 2024-09-20 15:25 | A.OFFVIS_ITS ---
Vital Signs 09/20/24 15:27 Height 5 ft 7 in Weight 242 lb 8.136 oz BMI 38.0 BP 122/72 Blood Pressure Location Lt brachial Position Sitting Pulse 94 Pulse Source Pulse Oximeter Pulse Oximetry (%) 97 Oxygen Delivery Method Room Air Intake Visit Reasons: asthma Rubber Attacher Required: No Allergies shrimp Allergy (Severe, Verified 09/20/24 15:26) ANAPHYLAXIS LOBSTER Allergy (Unknown, Uncoded 09/20/24 15:26) ANAPHYLAXIS Medication List - Last Reconciled 09/20/24 by Emily Lindsey, [employer] PASTER albuterol sulfate 90 mcg/actuation 2 puffs inhalation Q4H PRN albuterol sulfate 0.63 mg (3 mL) inhalation QID PRN dextromethorphan-guaifenesin 10-100 mg/5 mL 10 mL PO TID epinephrine 0.3 mg (0.3 mL) IM Q4H PRN nebulizers (Aeroneb Go Nebulizer) As directed pantoprazole 40 mg PO DAILY@0630 prednisone 10 mg PO DIRECTED HPI HPI asthma: Details: 89-mihi-rum gentleman, lifetime nonsmoker, followed for severe persistent? asthma, and environmental allergies.? Symptoms have been previously well controlled on Xolair until his insurance changed and he could no longer continue with Xolair. He recently was hospitalized for exacerbation secondary to influenza. Patient insurance changed again and he wants to restart using Xolair.? [facility] Medical History Physical exam History of positive PPD GERD (gastroesophageal reflux disease) Asthma Methadone maintenance therapy patient Surgical History Hx of endoscopy History of esophagogastroduodenoscopy (EGD) Hx of colonoscopy History of umbilical hernia repair History of left inguinal hernia repair Hx of knee surgery Hx of hernia repair Hx of shoulder surgery Family History Father No problems noted. Mother No problems noted. 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 Current occupational exposures/hazards: No Cognitive needs: No Hearing needs: No Vision needs: Yes Review of Systems Const Denies daytime sleepiness, Denies excessive sweating, Denies fatigue, Denies fever(s), Denies lethargy, Denies malaise, Denies night sweats, Denies snoring and Denies weight loss Eyes Denies blurry vision and Denies itchy eyes ENT Denies nasal congestion, Denies post nasal drip, Denies sinus pain, Denies sinus pressure and Denies other ( Thrush) Card Denies chest pain, Denies pedal edema, Denies dyspnea, Denies orthopnea and Denies paroxysmal nocturnal dyspnea Resp Denies cough, Denies hemoptysis, Denies excessive phlegm production, Denies dyspnea, Denies snoring and Denies wheezing GI Denies abdominal pain and Denies heartburn Musc Denies myalgias, Denies arthralgias and Denies joint swelling Skin/Breast Denies rash Neuro Denies memory loss and Denies seizure-like activity Psych Denies abnormal sleep pattern, Denies anxiety and Denies memory loss Endo Denies excessive sweating, Denies fatigue and Denies heat intolerance Du/Lymph Denies easy bruising Aller/Immun Denies itchy eyes, Denies seasonal rhinorrhea and Denies wheezing Physical Exam Vital Signs: Last Vital Signs Pulse 94 09/20/24 15:27 BP 122/72 09/20/24 15:27 Pulse Ox 97 09/20/24 15:27 Oxygen Delivery Method Room Air 09/20/24 15:27 BMI result Body Mass Index 38.0 Const General: no acute distress and alert Nutritional Appearance: obese Orientation/consciousness: Other orientation findings ( oriented) HEENT Head: Yes atraumatic Eyes General: appearance normal, both eyes and all related structures Sclerae: sclerae normal EOM: EOMs intact bilaterally Neck Neck: Yes supple Lymphatic: no lymphadenopathy noted Resp Effort & Inspection: normal respiratory effort and no use of accessory muscles Auscultation: clear to auscultation bilaterally Cardio Rate: regular rate Rhythm: regular rhythm Heart sounds: no gallops, no murmurs and no rubs Skin General skin exam: other ( warm) Extrem General: No clubbing, No cyanosis and No edema Assessment & Plan Assessment & Plan (1) Severe persistent allergic asthma: Code(s): J45.50 - Severe persistent asthma, uncomplicated Category: Medical Plan: Suboptimal control off Xolair. Restart Xolair and Advair. Continue albuterol MDI/nebs. (2) Environmental allergies: Code(s): Z91.09 - Other allergy status, other than to drugs and biological substances Category: Medical Plan: Expect to improve after restarting Xolair. Coding Level of Care Code Est Pt Level 4 (65336) Diagnoses Severe persistent allergic asthma J45.50 Environmental allergies Z91.09
[2024-09-20 15:27] VITALS: BP 122/72; PULSE 94; O2SAT 97; BMI 38.0
== END 2024-09-20 15:41 | disposition home or self-care (01) ==
PROVIDERS: PCP Internal Medicine; Visit Provider Internal Medicine Pulmonary Disease
DX: J45.50 Severe persistent asthma, uncomplicated (principal); Z91.09 Other allergy status, other than to drugs and biological substances
CPT/HCPCS: 99214

== ENCOUNTER → 2024-09-20 15:21 | Outpatient (BNVA) | payer OTHER, SELFPAY | PROVIDERS: PCP Internal Medicine; Visit Provider Internal Medicine Pulmonary Disease ==

== ENCOUNTER 2024-12-06 13:32 | Outpatient (AMB) | payer OTHER, SELFPAY ==
[2024-12-06 13:42] VITALS: BP 136/74; PULSE 84; O2SAT 97; BMI 38.4
--- NOTE | 2024-12-06 13:42 | A.OFFVIS_ITS ---
Vital Signs 12/06/24 13:42 Height 5 ft 7 in Weight 245 lb BMI 38.4 BP 136/74 Blood Pressure Location Rt brachial Position Sitting Pulse 84 Pulse Source Pulse Oximeter Pulse Oximetry (%) 97 Oxygen Delivery Method Room Air Intake Visit Reasons: Follow up Gerd was a Janna PT 03/04/22 Intake Note: Patient complex follow up for Gerd/Janna irwin 03/04/22. Patient cc: C/O unilateral L throat pain. Pt reports sx appear consistent and typically occurs only while speaking certain phrases or sounds. GERD is well controlled with pantoprazole. No additional concerns or sx at this time. It Security Specialist Required: No Accompanied by: Family/Other Allergies shellfish derived Allergy (Severe, Verified 12/06/24 13:42) Anaphylaxis Medication List - Last Reconciled 12/06/24 by Swetha Concepcion CNP albuterol sulfate 90 mcg/actuation 2 puffs inhalation Q4H PRN albuterol sulfate 0.63 mg (3 mL) inhalation QID PRN epinephrine 0.3 mg (0.3 mL) IM Q4H PRN nebulizers (Aeroneb Go Nebulizer) As directed omalizumab (Xolair) 300 mg (2 mL) subcut Q2W pantoprazole 40 mg PO DAILY@0630 HPI HPI Follow up Gerd was a Janna PT 03/04/22: Details: Patient is a 49-year-old male with PMH of asthma and GERD. Last visit with AARON Bess 03/04/2022 for GERD. Pt is here today for follow up on GERD. He is accompanied by Jenny. He is inquiring about sooner CRC screening. Shares his brother was dx with colon cancer last year, currently receiving chemotherapy. He reports taking pantoprazole as prescribed daily. States symptoms of pyrosis, sour taste, regurgitation occur most days, primarily at noc. Associated symptoms:as above Aggravating factors: milk, water Alleviating attempts:TERESAsJovani, elevating HOB Patient denies: systemic symptoms, n/v, appetite changes, unintentional wt loss, ab pain, dysphasia, cardiopulmonary symptoms, bladder changes or melena/hematochezia. Common foods consumed: Eggs, toast, soliman, sausage [place] salad, hot dogs, streak, mash potatoes, chicken, pork chops, chips can corn or greens andersen Oranges, watermelon in the summer juice, one 8 oz can of red bulls/day, soda, water approx 12 oz/day reports left side throat pain onset approx 2-3 months ago. Denies injury/trauma Aggravating factors: talking, yawning, wakes up coughing+gasping for air, snores Alleviating attempts: Tylenol with relief Report regular bowel movements, soft and formed. Denies concerns. Reports RLQ pain X 3 years. No change in symptoms. he suspect a hernia. Social hx: 1-2 hard seltzer or [place] with red bull 2-3x/year denies recreational drug use social smoker denies personal hx of CA Family hx: Mother uterine CA, passed for unrelated cause + as above PFSH Medical History (Updated 12/06/24 @ 15:09 by Swetha Concepcion CNP) Right inguinal pain Family history of colon cancer Throat pain Physical exam History of positive PPD GERD (gastroesophageal reflux disease) Asthma Methadone maintenance therapy patient Surgical History Hx of endoscopy History of esophagogastroduodenoscopy (EGD) Hx of colonoscopy History of umbilical hernia repair History of left inguinal hernia repair Hx of knee surgery Hx of hernia repair Hx of shoulder surgery Family History Father No problems noted. Mother No problems noted. 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 Current occupational exposures/hazards: No Cognitive needs: No Hearing needs: No Vision needs: Yes Review of Systems Const Reports as per HPI ENT Reports as per HPI Card Reports as per HPI Resp Reports as per HPI GI Reports as per HPI Reports as per HPI Physical Exam Vital Signs: Last Vital Signs Pulse 84 12/06/24 13:42 BP 136/74 12/06/24 13:42 Pulse Ox 97 12/06/24 13:42 Oxygen Delivery Method Room Air 12/06/24 13:42 BMI result Body Mass Index 38.4 Const General: healthy appearing, no acute distress and well developed Nutritional Appearance: well nourished Orientation/consciousness: patient oriented x3 HEENT Head: Yes normal to inspection Face and sinus: Yes normal facial exam Mouth: oropharynx normal Throat: Yes posterior oropharynx normal, Yes tonsils normal (tonsil 2+ bilaterally), Yes uvula midline, No abnormal tonsil, No peritonsillar mass, Yes posterior oropharynx abnormal, No postnasal drainage, No uvula laterally displaced, No uvular edema and No cobblestoning Eyes General: appearance normal, both eyes and all related structures Neck Neck: Yes normal visual inspection Resp Effort & Inspection: normal respiratory effort, able to speak in complete sentences, no tracheal deviation and symmetric chest movement Auscultation: clear to auscultation bilaterally and wheezes inspiratory wheezes and upper bilaterally Cardio Jugular venous distension: no JVD Rate: regular rate Rhythm: regular rhythm Heart sounds: S1 normal heart sound present, S2 normal heart sound present, no gallops and no murmurs GI Inspection: Yes normal to inspection, No distended and Yes obesity Palpation (GI): Soft to palpation, not firm, nontender, No hepatosplenomegaly present and no hernias Auscultation: normal bowel sounds Scrotum: no inguinal hernias (only right side assessed ) Neuro General: patient oriented x3 Gait exam (Neuro): Normal gait present Psych Appearance: grossly normal Mental Status: mental status grossly normal Speech and movement: Normal speech and movement present Affect: normal affect Attitude: cooperative Thought process: Normal thought process present Thought content: Normal thought content present Insight: Good insight present (Psych) Judgement: Good judgement present (Psych) Results Reviewed Results Reviewed: Operative Note Operative Note Date of Service: 07/24/21 Narrative: Pre-op diagnosis:?Follow-up erosive esophagitis, dysphagia Post-op diagnosis:?other (GERD, hiatal hernia, healed esophagitis) Procedure:? FLEXIBLE TRANSORAL UPPER GASTROINTESTINAL ENDOSCOPY Consent:?Indications for the procedure and potential complications of bleeding, perforation, reaction to medications and missed diagnosis were discussed with the patient and informed consent was obtained. Instrument:?Olympus GIF H 190 mid size upper endoscope Monitoring: Vital signs and clinical assessment, continuous EKG monitoring, Pulse oximetry, Carbon Dioxide monitoring and blood pressure monitoring were done throughout the procedure. Procedure:?The patient was placed in the left lateral decubitis position and pre-procedure medications were administered and a bite block was placed. The endoscope was inserted into the mouth and advanced under direct vision to the third part of duodenum. A careful inspection was made as the upper endoscope was withdrawn including a retroflexed examination of the proximal stomach; Findings and interventions are described below. Findings: Larynx:??Edema of arytenoid cartilages Esophagus:?GE junction at 34 cms, hiatal hernia 34 to 36 cms. Esophagitis seen on previous EGD almost resolved with 2 small healing erosions at the GE junction.. Stomach:?Mild gastric erythema. Biopsies obtained during last EGD were negative for H Pylori. Grade 3 flap valve on retroflexed examination of the cardia. Duodenum:?Normal bulb and descending duodenum.?? Intervention: None Impression and Post Procedure Diagnosis: Endoscopy Findings: LARYNX:? Changes suggestive of LPRD ESOPHAGUS: hiatal hernia 34 to 36 cms. Esophagitis seen on previous EGD almost resolved with 2 small healing erosions at the GE junction.. STOMACH: Minimal gastritis Plan: Await pathology results 04/13/2021 Repeat EGD in 3 months to make sure erosive esophagitis has healed. C. Colon, transverse, polypectomy: Tubular adenoma; negative for high-grade dysplasia. --- Date of Service: 04/13/21 Narrative: Pre-op diagnosis:?Colon cancer screening, GERD, abdominal pain and gas Post-op diagnosis:?other (Erosive esophagitis, hiatal hernia, gastritis, colon, diverticulosis, hemorrhoids) Procedure:? FLEXIBLE TRANSORAL UPPER GASTROINTESTINAL ENDOSCOPY WITH BIOPSIES AND COLONOSCOPY TO CECUM WITH SNARE POLYPECTOMY UPPER ENDOSCOPY Consent:?Indications for the procedure and potential complications of bleeding, perforation, reaction to medications and missed diagnosis were discussed with the patient and informed consent was obtained. Instrument:?Olympus GIF H 190 mid size upper endoscope Monitoring: Vital signs and clinical assessment, continuous EKG monitoring, Pulse oximetry, Carbon Dioxide monitoring and blood pressure monitoring were done throughout the procedure. Procedure:?The patient was placed in the left lateral decubitis position and pre-procedure medications were administered and a bite block was placed. The endoscope was inserted into the mouth and advanced under direct vision to the third part of duodenum. A careful inspection was made as the upper endoscope was withdrawn including a retroflexed examination of the proximal stomach; Findings and interventions are described below. Findings: Larynx:??Edema of arytenoid cartilages Esophagus:?Erosive esophagitis with linear ulcers and erosions 26 to 34 cms. GE junction at 34 cms, hiatal hernia 34 to 36 cms. Stomach:?Mild gastric erythema. Biopsies were obtained. Grade 3 flap valve on retroflexed examination of the cardia. Duodenum:?Normal bulb and descending duodenum.? Biopsies were obtained from 3rd part of duodenum to check for celiac sprue. Intervention:?Biopsies as noted above COLONOSCOPY PROCEDURE NOTE Consent:?Indications for the procedure and potential complications of bleeding, perforation, reaction to medications and missed diagnosis were discussed with the patient and informed consent was obtained. Instrument:?Olympus CF 190 L variable stiffness adult colonoscope Monitoring:?Vital signs and clinical assessment, intermittent blood pressure monitoring, continuous EKG monitoring, Pulse oximetry and Carbon Dioxide monitoring were done throughout the procedure. Colon withdrawl time was 21 minutes. Procedure:?The patient was placed in the left lateral decubitis position and pre-procedure medications were administered. After a digital rectal examination of the ano-rectum, the video colonoscope was inserted into the rectum and advanced through the colon to the cecum. The colonoscope was slowly withdrawn in a retrograde panoramic fashion and the colon mucosa was carefully examined including a retroflexed view of the rectum. Findings and interventions are described below. Procedure Difficulty:?: LLQ pressure applied to intubate the cecum Findings: Terminal Ileum: Not evaluated Cecum:? Normal Ascending Colon:??Normal Transverse Colon:??A 4-5 mm sessile polyp removed with a cold snare Descending Colon:? Normal Sigmoid Colon:??Moderate diverticulosis Rectum:??Normal Ano-rectum:??Moderate internal hemorrhoids Colon preparation:? Good after copious irrigation Impression and Post Procedure Diagnosis: Endoscopy Findings: LARYNX: Changes suggestive of LPRD ESOPHAGUS: Erosive esophagitis with linear ulcers and erosions 26 to 34 cms. GE junction at 34 cms, hiatal hernia 34 to 36 cms. STOMACH: Antral gastritis DUODENUM: Normal - biopsied to check for celiac sprue Colonoscopy Findings: One small polyp removed Moderate diverticulosis seen in the sigmoid colon Moderate hemorrhoids on retroflexed exam. Plan: Await pathology results .Ensure patient is following anti reflux measures and is compliant with taking pantoprazole BID - if so add sucralfate twice daily. Repeat EGD in 3 months to make sure erosive esophagitis has healed. Repeat Colonoscopy interval based on path results - in 5 years if polyps are adenomatous and 10 years if polyps are hyperplastic. GERD, colon polyps and diverticulosis Pathology HO.SSS Received: 04/13/21 Diagnosis A. Small bowel, biopsy: Small bowel mucosa within normal limits; preserved villous architecture and no increased intraepithelial lymphocytes seen. B. Stomach, antrum, biopsy: Gastric antral mucosa with mild chronic inactive gastritis; negative for Helicobacter pylori, intestinal metaplasia and dysplasia. C. Colon, transverse, polypectomy: Tubular adenoma; negative for high-grade dysplasia Assessment & Plan Assessment & Plan (1) GERD (gastroesophageal reflux disease): Code(s): K21.9 - Gastro-esophageal reflux disease without esophagitis Category: Medical Qualifiers: Esophagitis bleeding: without hemorrhage Esophagitis presence: with esophagitis Qualified Code(s): K21.00 - Gastro-esophageal reflux disease with esophagitis, without bleeding Plan: Last EGD 07/2021 with findings of Esophagitis seen on previous EGD almost resolved with 2 small healing erosions at the GE junction . We will trial medication change to esomeprazole 20 mg daily, restricted to take 30-60 minutes prior to 1st meal. He understands to discontinue the pantoprazole. We will also obtain barium swallow. Score of 4 on the STOP-Bang questionnaire, suggestive of intermediate risk of UVALDO. We will obtain sleep study. Diet could improve, this was discussed in length with examples. Education on GERD prevention-Advised against heavy meals. Encouraged small frequent meals VS large meals, remaining upright after meals x 2-3 hours, avoid late night eating/spicy foods/caffeine/alcohol/known triggers and tight fitting clothes (2) Throat pain: Code(s): R07.0 - Pain in throat Category: Medical Plan: Etiology of symptoms unclear. Exam unrevealing. Swallow study as above, if unyielding would recommend ENT evaluation. (3) Family history of colon cancer: Code(s): Z80.0 - Family history of malignant neoplasm of digestive organs Category: Medical Plan: Updated family history with FDR with colon cancer. Antonio is up-to-date on CRC screening and early without alarm symptoms. last colonoscopy completed March 2021 with findings of tubular adenoma, recommendations to repeat in 5 years-due 2025. Instructed to report any change in symptoms. (4) Right inguinal pain: Code(s): R10.31 - Right lower quadrant pain Category: Medical Plan: Chronic without change in symptoms. Abdominal exam unrevealing, without evidence of obvious hernia. He was instructed to report any change in symptoms. Plan After conferring with colleague we will repeat EGD if worsening GERD symptoms and colonoscopy due to FDR CA history. Patient was called after visit to discuss update on plan, he was agreeable. Reviewed prep and procedure expec tations. Prep Rx'd to preferred pharmacy. Follow-up in 3 months or sooner if needed Time: I spent a total of 60 minutes on the date of encounter which includes: Preparing to see the patient (reviewed previous documentation, test results and medical history) Performing a medically appropriate exam and/or evaluation Ordering medications, tests, and procedures Documenting clinical information in the health record Orders: Orders FL barium swallow Today K21.9 - Gastro-esophageal reflux disease without esophagitis RT PSG in-lab sleep study Today E66.9 - Obesity, unspecified, R06.83 - Snoring Referrals Sleep Medicine Referral E66.9 - Obesity, unspecified, R06.83 - Snoring Medications: New esomeprazole magnesium 20 mg PO DAILY 90 caps 0RF Coding Level of Care Code New Pt Est Pt Level 4 (28608) Patient Type New Diagnoses Gastroesophageal reflux disease with esophagitis without hemorrhage K21.00 Esophagitis bleeding: without hemorrhage Esophagitis presence: with esophagitis Throat pain R07.0 Family history of colon cancer Z80.0 Right inguinal pain R10.31
--- OUTSIDE RECORDS SUMMARY | 2024-12-06 16:35 | XMS_ITS | Clinical Summary ---
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
== END 2024-12-06 14:39 | disposition home or self-care (01) ==
LOC: HO.HGI 13:32
PROVIDERS: PCP Internal Medicine; Visit Provider Nurse Practitioner Family
DX: K21.00 Gastro-esophageal reflux disease with esophagitis, without bleeding (principal); R07.0 Pain in throat; Z80.0 Family history of malignant neoplasm of digestive organs; R10.31 Right lower quadrant pain
CPT/HCPCS: 99215; 99417

== ENCOUNTER → 2024-12-06 13:32 | Outpatient (BNVA) | payer OTHER, SELFPAY | PROVIDERS: PCP Internal Medicine; Visit Provider Nurse Practitioner Family ==

== ENCOUNTER 2024-12-18 12:18 | Emergency (ER) | payer OTHER, SELFPAY ==
[2024-12-18 12:35] VITALS: BP 129/77; PULSE 91; RESP 12; TEMP 37.1; O2SAT 92; BMI 38.2
--- NOTE | 2024-12-18 12:36 | ED_ITS ---
HPI - General Adult General Chief complaint: Dyspnea Stated complaint: Asthma, SOB Time Seen by Provider: 12/18/24 12:40 Source: patient, RN notes reviewed and old records reviewed Mode of arrival: ambulatory Limitations: no limitations History of Present Illness ED Provider: Richard ROGERS narrative: 49-year-old male past medical history significant for asthma presents for evaluation of cough and shortness of breath. He reports his symptoms started 2 days ago. He reports he has been using his albuterol inhaler and nebulizers without improvement. He did take 1 dose of prednisone that he had left over He denies any fevers, chills. He reports that he used to be getting Xolair injections but has not been on them He denies any chest pain Related Data Previous Rx's ?Medication ?Instructions ?Recorded epinephrine 0.3 mg/0.3 mL 0.3 mg (0.3 mL) IM Q4H PRN 03/11/23 injection, auto-injector anaphylaxis #1 ea nebulizers (Aeroneb Go Nebulizer) #1 ea 01/17/24 albuterol sulfate 90 mcg/actuation 2 puff inhalation Q4H PRN Wheezing 08/16/24 aerosol inhaler #8.5 grams albuterol sulfate 0.63 mg/3 mL 0.63 mg (3 mL) inhalation QID PRN 09/05/24 solution for nebulization shortness of breath or wheezing #90 mL omalizumab 300 mg/2 mL 300 mg (2 mL) subcut Q2W #2 mL 10/25/24 subcutaneous auto-injector (Xolair) bisacodyl 5 mg tablet,delayed 5 mg PO ONCE 1 day #3 tabs 12/06/24 release esomeprazole magnesium 20 mg 20 mg PO DAILY #90 caps 12/06/24 capsule,delayed release polyethylene glycol 3350 17 238 g PO ONCE #238 grams 12/06/24 gram/dose oral powder (Miralax) prednisone 20 mg tablet 40 mg (2 x 20 mg) PO DAILY #10 tabs 12/18/24 Allergies Allergy/AdvReac Type Severity Reaction Status Date / Time shellfish derived Allergy Severe Anaphylaxis Verified 12/18/24 12:37 Review of Systems Constitutional: Constitutional: Denies body ache(s), Denies chills, Denies fever(s) and Denies headache(s) Eyes: Eyes: Denies blurry vision ENT: Denies vertigo, Denies dizziness and Denies headache(s) Cardiovascular: Cardiovascular: Denies chest pain and Reports dyspnea Respiratory: Respiratory: Reports cough, Reports dyspnea and Reports wheezing Gastrointestinal: Gastrointestinal: Denies abdominal pain and Denies nausea Musculoskeletal: Musculoskeletal: Denies back pain Integumentary/Breasts: Skin/Breast: Denies rash Neurologic: Denies vertigo, Denies dizziness and Denies headache(s) Allergic/Immunologic: Allergic/Immunologic: Reports wheezing PMFSH Past Medical History Medical History (Updated 12/18/24 @ 13:12 by Enoc Ramos) Right inguinal pain Family history of colon cancer Throat pain Physical exam History of positive PPD GERD (gastroesophageal reflux disease) Asthma Methadone maintenance therapy patient Surgical History Hx of endoscopy History of esophagogastroduodenoscopy (EGD) Hx of colonoscopy History of umbilical hernia repair History of left inguinal hernia repair Hx of knee surgery Hx of hernia repair Hx of shoulder surgery Family History Family History Father No problems noted. Mother No problems noted. Social History Social History Household Members: Spouse Household Members Other:: Housing: Apartment Do you presently have visiting nurse or other home services: No Alcohol intake: current Alcohol intake frequency: holidays/special occasions only Patient Tobacco Use Status: Never used Tobacco Tobacco use type: Cigarette Smoked in Last 30 Days: No e-Cigarette/Vaping Use: Never Used Second Hand Smoke Exposure: No Use of substances other than those prescribed or required for medical reasons: No Advance Directives: No Advance Directives Information Provided: Yes Do you have a plan to hurt others: No Plan service: No Current occupational status: employed 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 Current occupational exposures/hazards: No Cognitive needs: No Hearing needs: No Vision needs: Yes Physical Exam ED Vital Signs: Vital Signs - 24 hr 12/18/24 12:35 12/18/24 12:56 Temperature 98.7 F Pulse Rate 91 102 H Respiratory Rate 12 18 Blood Pressure 129/77 Pulse Oximetry 92 Oxygen Delivery Method Room Air BMI result Body Mass Index 38.2 Const General: healthy appearing, comfortable, no acute distress, alert and awake Nutritional Appearance: well nourished Orientation/consciousness: patient oriented x3 HENMT Head: Yes normocephalic and Yes atraumatic Eyes Eyelids: Yes eyelids normal Conjunctivae: conjunctivae normal Sclerae: sclerae normal Corneas: corneas normal Pupils: Equal, round and reactive pupils present EOM: EOMs intact bilaterally Neck Neck: Yes full ROM Resp Other: Patient appears quite well, but has diffuse expiratory wheezing. Effort & Inspection: normal respiratory effort, able to speak in complete sentences and not labored Auscultation: not clear to auscultation bilaterally and wheezes Cardio Rate: regular rate Rhythm: regular rhythm Skin General skin exam: elasticity normal Neuro General: patient oriented x3 Cranial nerves: Yes Equal, round and reactive pupils present and Yes Bilaterally intact EOM present Cognition (Neuro): normal cognition Extrem Other: Moving all extremities well without any obvious deformities Course Reevaluation(s) Reevaluation #1: Patient reports feeling much better after treatment, on exam his lungs have improved, he does have faint wheezing. He was ambulated and did not become hypoxic, he was feeling better and requesting discharge. Time: 14:02 Medications Administered Discontinued Medications Generic Name Dose Route Start Last Admin Trade Name Freq PRN Reason Stop Dose Admin Albuterol Sulfate 5 mg/ 0 mg 12/18/24 12:50 12/18/24 12:55 Albuterol/Ipratropium 3 ml INHALE 12/18/24 12:51 7.5 each ONCE ONE Administration Magnesium Sulfate 2 gm in 50 mls @ 150 mls/hr 12/18/24 12:39 12/18/24 13:11 Magnesium Sulfate/H2o IV 12/18/24 12:58 Infused ONCE ONE Infusion Methylprednisolone Sodium Succinate 125 mg 12/18/24 12:39 12/18/24 12:51 Methylprednisolone Sod Succ 125 Mg/2 Ml Vial IVPUSH 12/18/24 12:40 125 mg ONCE ONE Administration Medical Decision Making Medical Decision Making [facility] Narrative: 49-year-old male presents for evaluation of shortness of breath and wheezing. He has a known history of asthma. He is quite wheezy on exam, oxygen saturation of 92%. He was afebrile and well-appearing. He will be given a breathing treatment, Solu-Medrol, magnesium and re-evaluated. I ordered viral swabs. His symptoms have been present for only 2 days, I have a low suspicion for pneumonia, we will hold off on chest x-ray at this time. His symptoms are most likely related to allergy induced asthma Differential Diagnosis Differential Diagnoses: The differential diagnosis associated with the p resentation includes Acute asthma exacerbation Upper respiratory infection Bronchitis Pneumonia less likely Lab Data Labs: Lab Results 12/18/24 Range/Units 12:53 Influenza Type A (PCR) NEGATIVE (Negative) Influenza Type B (PCR) NEGATIVE (Negative) RSV RNA Qual (PCR) NEGATIVE (Negative) SARS-CoV-2 RNA (RT-PCR) NEGATIVE (Negative) Discharge Plan Discharge Clinical Impression: Asthma exacerbation Patient Disposition: Home, Self-Care Instructions: Asthma (ED) Additional Instructions: You tested negative for viral illnesses. You likely have an asthma exacerbation related to allergies. Take prednisone 40 mg daily for the next 5 days. I also recommend that you take an allergy medication daily and use your albuterol inhaler/nebulizer as needed Prescriptions: New prednisone 20 mg tablet 40 mg PO DAILY Qty: 10 0RF No Action (DME) nebulizers [Aeroneb Go Nebulizer] [facility] [place] See Rx Instructions .Route Qty: 1 0RF Rx Instructions: As directed albuterol sulfate 90 mcg/actuation HFA aerosol inhaler 2 puff inhalation Q4H PRN (Reason: Wheezing) Qty: 8.5 2RF albuterol sulfate 0.63 mg/3 mL solution for nebulization 0.63 mg inhalation QID PRN (Reason: shortness of breath or wheezing) Qty: 90 0RF Xolair 300 mg/2 mL auto-injector 300 mg subcut Q2W Qty: 2 12RF epinephrine 0.3 mg/0.3 mL auto-injector 0.3 mg IM Q4H PRN (Reason: anaphylaxis) Qty: 1 0RF esomeprazole magnesium 20 mg capsule,delayed release(DR/EC) 20 mg PO DAILY Qty: 90 0RF bisacodyl 5 mg tablet,delayed release (DR/EC) 5 mg PO ONCE 1 Days Qty: 3 0RF Rx Instructions: per colonoscopy instructions polyethylene glycol 3350 [Miralax] 17 gram/dose powder 238 g PO ONCE Qty: 238 0RF Rx Instructions: per colonoscopy prep instructions Print Language: Macanese
[2024-12-18] MEDS: Magnesium Sulfate/H2O 2 GM/50 ML PIGGYBACK IV (12:51)
[2024-12-18] MEDS: methylPREDNISolone Sod Succ 125 MG/2 ML VIAL IVPUSH (12:51)
[2024-12-18] MEDS: Albuterol Sulfate 5 MG, Albuterol/Iprat 2.5/0.5MG 3 ML 3 ML INHALE (12:55)
[2024-12-18 12:56] VITALS: PULSE 102; RESP 18; O2SAT 96
[2024-12-18 13:51] LABS: Influenza A PCR NEGATIVE (Negative); Influenza B PCR NEGATIVE (Negative); Resp Syncy Virus RNA Qual PCR NEGATIVE (Negative); SARS COV2 PCR INHOUSE NEGATIVE (Negative)
[2024-12-18 14:11] VITALS: BP 128/84; PULSE 93; RESP 18; TEMP 36.6; O2SAT 97
--- OUTSIDE RECORDS SUMMARY | 2024-12-18 14:33 | XMS_ITS | Clinical Summary ---
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
== END 2024-12-18 14:12 | disposition home or self-care (01) ==
PROVIDERS: Physician Assistant; Emergency Provider Emergency Medicine; PCP Internal Medicine
DX: J45.901 Unspecified asthma with (acute) exacerbation (principal); R05.9 Cough, unspecified; R06.02 Shortness of breath; Z03.818 Encounter for observation for suspected exposure to other biological agents ruled out
CPT/HCPCS: 0241U; 94640; 96365; 96375; 99284; J2919; J3475

== ENCOUNTER 2024-12-31 05:04 | Emergency (ER) | payer OTHER, SELFPAY ==
--- NOTE | ~2024-12-31 | XR_ITS ---
CLINICAL HISTORY: sob 1 view chest x-ray Comparison: CR - XR CHEST 2V - 09/05/24 17:08 EST Findings: 4 mm left apical nodule is unchanged. No consolidation or effusion. Heart size is normal. No acute fracture. IMPRESSION: No acute cardiopulmonary abnormality. This document has been electronically signed by: Josselyn Mcgarry on 12/31/2024 06:15:03
[2024-12-31 05:06] VITALS: BP 114/67; PULSE 85; RESP 22; TEMP 36.1; O2SAT 94; BMI 39.4
[2024-12-31 06:01] LABS: Influenza A PCR NEGATIVE (Negative); Influenza B PCR NEGATIVE (Negative); Resp Syncy Virus RNA Qual PCR NEGATIVE (Negative); SARS COV2 PCR INHOUSE NEGATIVE (Negative)
[2024-12-31 07:22] VITALS: BP 116/86; PULSE 84; RESP 24; TEMP 36.5; O2SAT 96
--- NOTE | 2024-12-31 07:27 | PC.NURSE ---
Pt reports asthma exacerbation since yesterday. Recently finished Prednisone last week which pt states initially resolved sx however sx returned yesterday. Denies cough or pain. Using at home inhaler and albuterol nebulizer without relief. Breathing is mildy labored, I/E wheezing. Sat 97% on room air
--- NOTE | 2024-12-31 08:26 | ED.SOB ---
HPI - SOB/Dyspnea General Chief Complaint: Dyspnea Stated Complaint: asthma Time Seen by Provider: 12/31/24 07:03 History of Present Illness HPI Narrative: Patient is a 49-year-old male with a history of asthma was hospitalized last week. Presented today with having coughing upper respiratory symptoms generalized malaise. Patient denies any history of smoking. Never been intubated in the past. From home. Related Data Previous Rx's ?Medication ?Instructions ?Recorded epinephrine 0.3 mg/0.3 mL 0.3 mg (0.3 mL) IM Q4H PRN 03/11/23 injection, auto-injector anaphylaxis #1 ea nebulizers (Aeroneb Go Nebulizer) #1 ea 01/17/24 albuterol sulfate 0.63 mg/3 mL 0.63 mg (3 mL) inhalation QID PRN 09/05/24 solution for nebulization shortness of breath or wheezing #90 mL bisacodyl 5 mg tablet,delayed 5 mg PO ONCE 1 day #3 tabs 12/06/24 release esomeprazole magnesium 20 mg 20 mg PO DAILY #90 caps 12/06/24 capsule,delayed release polyethylene glycol 3350 17 238 g PO ONCE #238 grams 12/06/24 gram/dose oral powder (Miralax) prednisone 20 mg tablet 40 mg (2 x 20 mg) PO DAILY #10 tabs 12/18/24 omalizumab 300 mg/2 mL 300 mg (2 mL) subcut Q2W #2 mL 12/27/24 subcutaneous syringe albuterol sulfate 90 mcg/actuation 2 puff inhalation Q4H PRN Wheezing 12/28/24 aerosol inhaler #8.5 grams prednisone 20 mg tablet 40 mg (2 x 20 mg) PO DAILY #10 tabs 12/31/24 Allergies Allergy/AdvReac Type Severity Reaction Status Date / Time shellfish derived Allergy Severe Anaphylaxis Verified 12/31/24 05:08 Review of Systems Review of Systems: Positive shortness of breath Yes all other systems are reviewed and are negative PMFSH Past Medical History Attestation statement: The following information was validated with the patient. Medical History Right inguinal pain Family history of colon cancer Throat pain Physical exam History of positive PPD GERD (gastroesophageal reflux disease) Asthma Methadone maintenance therapy patient Surgical History Hx of endoscopy History of esophagogastroduodenoscopy (EGD) Hx of colonoscopy History of umbilical hernia repair History of left inguinal hernia repair Hx of knee surgery Hx of hernia repair Hx of shoulder surgery Family History Family History Father No problems noted. Mother No problems noted. Social History Social History Household Members: Spouse Household Members Other:: Housing: Apartment Do you presently have visiting nurse or other home services: No Alcohol intake: current Alcohol intake frequency: does not drink Patient Tobacco Use Status: Never used Tobacco Tobacco use type: Cigarette Smoked in Last 30 Days: No e-Cigarette/Vaping Use: Never Used Second Hand Smoke Exposure: No Use of substances other than those prescribed or required for medical reasons: No Advance Directives: No Advance Directives Information Provided: Yes Do you have a plan to hurt others: No Plan service: No Current occupational status: employed 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 Oriented X3. No acute distress. Eyes: Pupils equal, round and reactive to light. ENT: Pharynx normal. Neck: Normal inspection. Neck supple. No lymph nodes noted. No crepitus CVS: Normal heart rate and rhythm. Pulses normal. Normal S1 and S2 Respiratory: No respiratory distress. Positive Wheezing. No rales Abdomen: Soft and nontender. No rigidity. No distention. good BS x4 Skin: Skin warm and dry. Normal skin color. Normal skin turgor. Extremities: No lower extremity edema. Neurovascular intact to all extremities. No Lacerations. No Rash Neuro: Oriented X 3. No motor deficit. No sensory deficit. Moving all extermities. No slurred speech Medications Administered Discontinued Medications Generic Name Dose Route Start Last Admin Trade Name Pauline PRN Reason Stop Dose Admin Albuterol Sulfate 5 mg/ 0 mg 12/31/24 08:46 12/31/24 08:56 Albuterol/Ipratropium 3 ml INHALE 12/31/24 08:47 7.5 each ONCE ONE Administration Magnesium Sulfate 2 gm in 50 mls @ 150 mls/hr 12/31/24 08:23 12/31/24 09:15 Magnesium Sulfate/H2o IV 12/31/24 08:42 Infused ONCE ONE Infusion Methylprednisolone Sodium Succinate 125 mg 12/31/24 08:23 12/31/24 08:58 Methylprednisolone Sod Succ 125 Mg Vial IVPUSH 12/31/24 08:24 125 mg ONCE ONE Administration Medical Decision Making Medical Decision Making [facility] Narrative: Patient given steroid nebulized treatment, magnesium. Monitored. Symptom improving. Another round of neb was given. Symptom improving. Patient now wants to go home still slight wheeze but moving good air O2 sats 96% on room air will discharge patient home on additional steroids. Close follow-up advised. Worsening condition return. My interpretation of patient's chest x-ray was grossly negative there is no pneumonia no pneumothorax. My interpretation of patient's EKG showed a sinus rhythm heart rate is 80 TN QRS QTC normal no acute ST segment elevation. Differential Diagnosis Differential Diagnoses: The differential diagnosis associated with the presentation includes Asthma Admission/Observation Consideration of admission/observation: Escalation of care including admission/observation considered Lab Data [facility] Lab Attestation statement: I reviewed the patient's lab results. 12/31/24 08:46 12/31/24 08:46 Labs: Lab Results 12/31/24 12/31/24 Range/Units 05:16 08:46 WBC 12.9 H (4.8-10.8) X10*3/uL RBC 4.61 (4.60-5.80) X10*6/uL Hgb 13.9 L (14.0-18.0) g/dl Hct 41.5 L (42.0-52.0) % MCV 90.0 (80.0-98.0) fL MCH 30.2 (27.0-33.0) pg MCHC 33.5 (31.0-36.0) g/dl RDW 13.4 (11.0-16.0) % Plt Count 277 (160-400) X10*3/uL MPV 10.9 (9.4-12.4) fL Immature Gran % (Auto) 0.5 H (0.0-0.4) % Neut % (Auto) 84.1 H (45-73) % Lymph % (Auto) 10.9 L (20-40) % Piatt % (Auto) 2.7 (2-11) % Eos % (Auto) 1.3 (0-4) % Baso % (Auto) 0.5 (0-2) % Lymph # (Auto) 1.4 (1.2-4.9) X10*3/uL Piatt # (Auto) 0.4 (0.1-1.2) X10*3/uL Eos # (Auto) 0.2 (0.0-0.4) X10*3/uL Baso # (Auto) 0.1 (0.0-0.2) X10*3/uL Abs Immat Gran (auto) 0.07 H (0.00-0.03) X10*3/uL Absolute Neuts (auto) 10.8 H (2.0-8.3) x10*3/uL Absolute Nucleated RBC 0.000 (0.0-0.012) X10*3/uL Nucleated RBC % (auto) 0.0 (0.0-0.2) /100WBC Sodium 140 (135-145) mmol/L Potassium 4.1 (3.3-5.1) mmol/L Chloride 107 (96-108) mmol/L Carbon Dioxide 23 (22-29) mmol/L Anion Gap 14 (12-20) BUN 16 (9-16) mg/dL Creatinine 0.76 (0.5-1.4) mg/dL Estim Creat Clear Calc 140.2 Estimated GFR > 60 Random Glucose 130 H (60-115) mg/dL Calcium 9.1 (8.4-10.2) mg/dL Troponin I High Sens < 2.7 (<3.5-35.0) ng/L B-Natriuretic Peptide 14 (<100) pg/mL Influenza Type A (PCR) NEGATIVE (Negative) Influenza Type B (PCR) NEGATIVE (Negative) RSV RNA Qual (PCR) NEGATIVE (Negative) SARS-CoV-2 RNA (RT-PCR) NEGATIVE (Negative) Independent Interpretation I performed an independent interpretation of an: EKG (Sinus heart rate is 80 TN QRS QTC normal no acute ST segment elevation) and Plain X-Ray (Chest x-ray negative for pneumonia no pneumothorax) Radiology Impression Discussion of test interpretation with radiology: I have reviewed the radiologist's reading. External Record Review External record reviewed: Inpatient record Chronic Conditions Asthma Discharge Plan Discharge Clinical Impression: Asthma Patient Disposition: Home, Self-Care Instructions: Asthma (DC) Prescriptions: New prednisone 20 mg tablet 40 mg PO DAILY Qty: 10 0RF No Action (DME) nebulizers [Aeroneb Go Nebulizer] Misc See Rx Instructions .Route Qty: 1 0RF Rx Instructions: As directed albuterol sulfate 0.63 mg/3 mL solution for nebulization 0.63 mg inhalation QID PRN (Reason: shortness of breath or wheezing) Qty: 90 0RF omalizumab 300 mg/2 mL syringe 300 mg subcut Q2W Qty: 2 11RF albuterol sulfate 90 mcg/actuation HFA aerosol inhaler 2 puff inhalation Q4H PRN (Reason: Wheezing) Qty: 8.5 2RF prednisone 20 mg tablet 40 mg PO DAILY Qty: 10 0RF epinephrine 0.3 mg/0.3 mL auto-injector 0.3 mg IM Q4H PRN (Reason: anaphylaxis) Qty: 1 0RF esomeprazole magnesium 20 mg capsule,delayed release(DR/EC) 20 mg PO DAILY Qty: 90 0RF bisacodyl 5 mg tablet,delayed release (DR/EC) 5 mg PO ONCE 1 Days Qty: 3 0RF Rx Instructions: per colonoscopy instructions polyethylene glycol 3350 [Miralax] 17 gram/dose powder 238 g PO ONCE Qty: 238 0RF Rx Instructions: per colonoscopy prep instructions Print Language: Nepali
--- NOTE | 2024-12-31 08:30 | ECG_ITS ---
Test Reason : CP Blood Pressure : */* mmHG Vent. Rate : 84 BPM Atrial Rate : 84 BPM P-R Int : 152 ms QRS Dur : 78 ms QT Int : 382 ms P-R-T Axes : 56 25 41 degrees QTcB Int : 451 ms Normal sinus rhythm Normal ECG When compared with ECG of 05-Sep-2024 16:27, Premature atrial complexes are no longer Present Vent. rate has decreased by 48 bpm Referred By: Dyana Rao Electronically Signed By: RICARDO LANG MD
[2024-12-31 08:56] VITALS: BP 119/87; PULSE 84; RESP 22; O2SAT 95
[2024-12-31] MEDS: Albuterol Sulfate 5 MG, Albuterol/Iprat 2.5/0.5MG 3 ML 3 ML INHALE (08:56)
--- NOTE | 2024-12-31 08:57 | PC.NURSE ---
IV established, labds drawn. Meds ordered to be given. RT at bedside for Albuterol tx.
[2024-12-31] MEDS: Magnesium Sulfate/H2O 2 GM/50 ML PIGGYBACK IV (08:58)
[2024-12-31 09:03] LABS: MANUAL DIFF FLAG NO
[2024-12-31 09:04] VITALS: PULSE 82; RESP 18; O2SAT 95
[2024-12-31 09:06] LABS: Basophils Absolute Auto 0.1 X10*3/uL (0.0-0.2); Basophils Percent Auto 0.5 % (0-2); Eosinophils Absolute Auto 0.2 X10*3/uL (0.0-0.4); Eosinophils Percent Auto 1.3 % (0-4); Hematocrit 41.5 % (42.0-52.0); Hemoglobin 13.9 g/dl (14.0-18.0); Imm Gran Abs Auto 0.07 X10*3/uL (0.00-0.03); Imm Gran Pct Auto 0.5 % (0.0-0.4); Lymphocytes Absolute Auto 1.4 X10*3/uL (1.2-4.9); Lymphocytes Percent Auto 10.9 % (20-40); Mean Corpuscular HGB Conc 33.5 g/dl (31.0-36.0); Mean Corpuscular Hemoglobin 30.2 pg (27.0-33.0); Mean Platelet Volume 10.9 fL (9.4-12.4); Monocytes Absolute Auto 0.4 X10*3/uL (0.1-1.2); Monocytes Percent Auto 2.7 % (2-11); Neutrophils Absolute Auto 10.8 x10*3/uL (2.0-8.3); Neutrophils Percent Auto 84.1 % (45-73); Platelet Count 277 X10*3/uL (160-400); Red Blood Count 4.61 X10*6/uL (4.60-5.80); Red Cell Distribution Width 13.4 % (11.0-16.0); White Blood Count 12.9 X10*3/uL (4.8-10.8)
[2024-12-31 09:18] LABS: Anion Gap 14 (12-20); Blood Urea Nitrogen 16 mg/dL (9-16); Calcium 9.1 mg/dL (8.4-10.2); Carbon Dioxide 23 mmol/L (22-29); Chloride 107 mmol/L (96-108); Creatinine Clr Calc Pharmacy 140.2; Estimated Glomerular Filt Rate > 60; Glucose Random 130 mg/dL (60-115); Potassium 4.1 mmol/L (3.3-5.1); Sodium 140 mmol/L (135-145)
[2024-12-31 09:25] LABS: B Type Natriuretic Peptide 14 pg/mL (<100)
[2024-12-31 09:28] LABS: Troponin-I High Sensitivity < 2.7 ng/L (<3.5-35.0)
[2024-12-31 10:15] VITALS: BP 119/87; PULSE 82; RESP 18; TEMP 36.5; O2SAT 95
== END 2024-12-31 10:33 | disposition home or self-care (01) ==
PROVIDERS: Emergency Provider Emergency Medicine Emergency Medical Services; PCP Internal Medicine
DX: J45.909 Unspecified asthma, uncomplicated (principal); Z03.818 Encounter for observation for suspected exposure to other biological agents ruled out; Z79.899 Other long term (current) drug therapy
CPT/HCPCS: 0241U; 36415; 71045; 80048; 83880; 84484; 85025; 93005; 94640; 96365; 96375; 99284; 99285; J2919; J3475

== ENCOUNTER → 2024-12-31 05:15 | Outpatient (BNV) | payer OTHER, SELFPAY | PROVIDERS: PCP Internal Medicine; Visit Provider Radiology Vascular & Interventional Radiology | DX: R06.02 Shortness of breath (principal) | CPT/HCPCS: 71045 ==

== ENCOUNTER → 2024-12-31 08:30 | Outpatient (BNV) | payer OTHER, SELFPAY | PROVIDERS: Emergency Provider Emergency Medicine Emergency Medical Services; PCP Internal Medicine; Visit Provider Internal Medicine Cardiovascular Disease | DX: R07.9 Chest pain, unspecified (principal) | CPT/HCPCS: 93010 ==

== ENCOUNTER 2025-01-05 21:03 | Observation (INO) | payer OTHER, SELFPAY ==
--- NOTE | ~2025-01-05 | XR_ITS ---
CLINICAL HISTORY: wheezing, sob 2 view chest x-ray Comparison: 12/31/2024, CR - XR CHEST 2V - 09/05/24 17:08 EST Findings: The lungs are clear. Heart size is normal. No acute fracture. IMPRESSION: 1. No acute findings. This document has been electronically signed by: Shayan Meraz MD on 01/05/2025 22:40:44
[2025-01-05 21:10] VITALS: BP 145/82; PULSE 107; RESP 22; TEMP 36.6; O2SAT 93; BMI 39.2
--- NOTE | 2025-01-05 21:41 | ECG_ITS ---
Test Reason : SOB Blood Pressure : */* mmHG Vent. Rate : 94 BPM Atrial Rate : 94 BPM P-R Int : 136 ms QRS Dur : 76 ms QT Int : 352 ms P-R-T Axes : 55 10 34 degrees QTcB Int : 440 ms Normal sinus rhythm Normal ECG When compared with ECG of 31-Dec-2024 09:04, No significant change was found Referred By: Danika Juan Electronically Signed By: RICARDO LANG MD
--- NOTE | 2025-01-05 21:43 | ED.ASTHMA ---
HPI - Asthma General Chief Complaint: Asthma Stated Complaint: Asthma Time Seen by Provider: 01/05/25 21:36 Source: patient Mode of arrival: ambulatory Limitations: no limitations History of Present Illness ED Provider: Dr. Danika Juan HPI Narrative: patient comes to the emergency room complaining of shortness of breath. According to the patient, he was seen here about 5 days ago for an asthma exacerbation. Patient denies smoking or history of COPD. Patient states that he has been using his inhalers regularly and taking prednisone. He is still not doing well. Patient comes in complaining of another asthma exacerbation. Patient tried giving himself an neb treatment 30 minutes prior to arrival but his shortness of breath got worse. Related Data Previous Rx's ?Medication ?Instructions ?Recorded epinephrine 0.3 mg/0.3 mL 0.3 mg (0.3 mL) IM Q4H PRN 03/11/23 injection, auto-injector anaphylaxis #1 ea nebulizers (Aeroneb Go Nebulizer) #1 ea 01/17/24 bisacodyl 5 mg tablet,delayed 5 mg PO ONCE 1 day #3 tabs 12/06/24 release esomeprazole magnesium 20 mg 20 mg PO DAILY #90 caps 12/06/24 capsule,delayed release polyethylene glycol 3350 17 238 g PO ONCE #238 grams 12/06/24 gram/dose oral powder (Miralax) prednisone 20 mg tablet 40 mg (2 x 20 mg) PO DAILY #10 tabs 12/18/24 omalizumab 300 mg/2 mL 300 mg (2 mL) subcut Q2W #2 mL 12/27/24 subcutaneous syringe albuterol sulfate 90 mcg/actuation 2 puff inhalation Q4H PRN Wheezing 12/28/24 aerosol inhaler #8.5 grams prednisone 20 mg tablet 40 mg (2 x 20 mg) PO DAILY #10 tabs 12/31/24 albuterol sulfate 0.63 mg/3 mL 0.63 mg (3 mL) inhalation QID PRN 01/01/25 solution for nebulization shortness of breath or wheezing #90 mL Allergies Allergy/AdvReac Type Severity Reaction Status Date / Time shellfish derived Allergy Severe Anaphylaxis Verified 01/05/25 21:13 Review of Systems Review of Systems: Constitutional : No Weight loss, No Fever, No Chills, No Night Sweats, No Fatigue, No Malaise ENT/Mouth : No Hearing loss, No Ear Pain, No Nasal Congestion, No Sinus Pain, No Hoarseness, No sore throat, No Rhinorrhea, No Swallowing Difficulty Eyes: No Eye Pain, No Swelling, No Redness, No Foreign Body, No Discharge, No Vision Changes Cardiovascular : No Chest Pain, No SOB, No Dyspnea on Exertion, No Orthopnea, No Edema, No Palpitations Respiratory : No significant cough or sputum production, complaining of wheezing and shortness of breath Gastrointestinal : No Nausea, No Vomiting, No Diarrhea, No Constipation, No abdominal Pain, No Hematochezia, No Melena Genitourinary : no irregular bleeding, No Dysuria, No Urinary Frequency, No Hematuria, No Urinary Incontinence, No Urgency, No Flank Pain, No Urinary Flow Changes, No Hesitancy Musculoskeletal : No joint pain, No Myalgias, No Joint Swelling Skin : No Skin Lesions, No rash Neuro : No Weakness, No Numbness, No Paresthesias, No Loss of Consciousness, No Dizziness, No Headache Psych : No Anxiety/Panic, No Depression, No SI/HI/AH/VH, No Social Issues, Heme/Lymph: No Bruising, No Bleeding,No Lymphadenopathy Endocrine : No Polyuria, No Polydipsia, No Temperature Intolerance PMFSH Past Medical History Medical History Right inguinal pain Family history of colon cancer Throat pain Physical exam History of positive PPD GERD (gastroesophageal reflux disease) Asthma Methadone maintenance therapy patient Surgical History Hx of endoscopy History of esophagogastroduodenoscopy (EGD) Hx of colonoscopy History of umbilical hernia repair History of left inguinal hernia repair Hx of knee surgery Hx of hernia repair Hx of shoulder surgery Family History Family History Father No problems noted. Mother No problems noted. 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 Oriented X3. No acute distress. Eyes: Pupils equal, round and reactive to light. ENT: Pharynx normal. Neck: Normal inspection. Neck supple. No lymph nodes noted. No crepitus CVS: Normal heart rate and rhythm. Pulses normal. Normal S1 and S2 Respiratory: moderate air movement, bilateral expiratory wheezing bilaterally Abdomen: Soft and nontender. No rigidity. No distention. Skin: Skin warm and dry. Normal skin color. Normal skin turgor. Extremities: No lower extremity edema. No Lacerations. No Rash Neuro: Oriented X 3. No motor deficit. No sensory deficit. Moving all extremities. No slurred speech. CN 2 through 12 grossly intact Psych: calm, cooperative, normal affect Course Course Course Narrative: patient has been using prednisone for several days without any significant improvement, asthma exacerbations keep worsening. At this time, patient receiving IV Solu-Medrol, magnesium and nebulization treatment discussed with the patient that given that she is not doing well outpatient despite multiple nebulization treatments and prednisone, there is a fair chance that he might get admitted. We will given several rounds of treatment here in the emergency room. If there is no improvement or his oxygen saturation drops, definitely patient will be admitted. Patient agrees with plan. All of patient's labs and imaging pending Medications Administered Generic Name Dose Route Start Last Admin Trade Name Freq PRN Reason Stop Dose Admin Magnesium Sulfate 2 gm in 50 mls @ 25 mls/hr 01/05/25 21:42 01/05/25 22:01 Magnesium Sulfate/H2o IV 01/05/25 23:41 25 mls/hr ONCE ONE Administration Discontinued Medications Generic Name Dose Route Start Last Admin Trade Name Freq PRN Reason Stop Dose Admin Albuterol Sulfate 5 mg/ 0 mg 01/05/25 22:12 01/05/25 22:18 Albuterol/Ipratropium 3 ml INHALE 01/05/25 22:13 1 each ONCE ONE Administration Methylprednisolone Sodium Succinate 125 mg 01/05/25 21:42 01/05/25 22:03 Methylprednisolone Sod Succ 125 Mg Vial IVPUSH 01/05/25 21:43 125 mg ONCE ONE Administration Medical Decision Making Medical Decision Making [facility] Narrative: My interpretation of chest x-ray: No infiltrates my interpretation of labs: Patient's white blood cell count 13.6, patient has been on prednisone for several days accounting for leukocytosis, normal chemistry, no significant abnormality in venous blood gases despite nebulization treatments, IV steroids, patient continues to wheeze. Patient's oxygen saturation is 96% but he is still significantly wheezing. I discussed the patient with Dr. Chow from the Medicine team, patient being admitted Differential Diagnosis Differential Diagnoses: The differential diagnosis associated with the presentation includes ( asthma, viral URI) Admission/Observation Consideration of admission/observation: Escalation of care including admission/observation considered Consult Healthcare Provider Management of the patient was discussed with: Hospitalist Lab Data [facility] Lab Attestation statement: I reviewed the patient's lab results. 01/05/25 22:02 01/05/25 22:02 Labs: Lab Results 01/05/25 01/05/25 Range/Units 22:02 22:07 WBC 13.6 H (4.8-10.8) X10*3/uL RBC 4.36 L (4.60-5.80) X10*6/uL Hgb 13.4 L (14.0-18.0) g/dl Hct 38.5 L (42.0-52.0) % MCV 88.3 (80.0-98.0) fL MCH 30.7 (27.0-33.0) pg MCHC 34.8 (31.0-36.0) g/dl RDW 13.3 (11.0-16.0) % Plt Count 305 (160-400) X10*3/uL MPV 10.2 (9.4-12.4) fL Immature Gran % (Auto) 0.4 (0.0-0.4) % Neut % (Auto) 68.2 (45-73) % Lymph % (Auto) 25.2 (20-40) % [place] % (Auto) 4.5 (2-11) % Eos % (Auto) 1.4 (0-4) % Baso % (Auto) 0.3 (0-2) % Lymph # (Auto) 3.4 (1.2-4.9) X10*3/uL [place] # (Auto) 0.6 (0.1-1.2) X10*3/uL Eos # (Auto) 0.2 (0.0-0.4) X10*3/uL Baso # (Auto) 0.0 (0.0-0.2) X10*3/uL Abs Immat Gran (auto) 0.05 H (0.00-0.03) X10*3/uL Absolute Neuts (auto) 9.3 H (2.0-8.3) x10*3/uL Absolute Nucleated RBC 0.000 (0.0-0.012) X10*3/uL Nucleated RBC % (auto) 0.0 (0.0-0.2) /100WBC VBG pH 7.49 H (7.32-7.43) VBG pCO2 30 mmHg VBG pO2 67 mmHg VBG HCO3 23 (22-26) mmol/L VBG O2 Saturation 92.0 % VBG Base Excess 0.8 mmol/L Sodium 141 (135-145) mmol/L Potassium 3.7 (3.3-5.1) mmol/L Chloride 109 H (96-108) mmol/L Carbon Dioxide 23 (22-29) mmol/L Anion Gap 13 (12-20) BUN 15 (9-16) mg/dL Creatinine 0.80 (0.5-1.4) mg/dL Estim Creat Clear Calc 132.8 Estimated GFR > 60 Random Glucose 132 H (60-115) mg/dL Calcium 9.2 (8.4-10.2) mg/dL Total Bilirubin 0.2 (0.0-1.0) mg/dL Direct Bilirubin < 0.2 (0.0-0.5) mg/dL AST 23 (5-37) U/L ALT 53 H (0-40) U/L Alkaline Phosphatase 95 (39-117) U/L Total Protein 6.8 (6.5-8.0) g/dL Albumin 3.9 (3.5-5.0) g/dL Influenza Type A (PCR) NEGATIVE (Negative) Influenza Type B (PCR) NEGATIVE (Negative) RSV RNA Qual (PCR) NEGATIVE (Negative) SARS-CoV-2 RNA (RT-PCR) NEGATIVE (Negative) Independent Interpretation I performed an independent interpretation of an: Plain X-Ray Radiology Impression Discussion of test interpretation with radiology: I have reviewed the radiologist's reading. Radiologist Impression: The lungs are clear. Heart size is normal. No acute fracture. IMPRESSION: 1. No acute findings. Critical Care Time Critical Care Time Critical Care Time: Yes Total Critical Care Time: 60 Attestation: I have personally provided critical care time. Time includes review of lab data, radiology results, discussion with consultants, and monitoring for potential decompensation. Intervention performed as documented. Discharge Plan Discharge Clinical Impression: Asthma exacerbation Patient Disposition: Admitted As Inpatient Prescriptions: No Action (DME) nebulizers [Aeroneb Go Nebulizer] Misc See Rx Instructions .Route Qty: 1 0RF Rx Instructions: As directed omalizumab 300 mg/2 mL syringe 300 mg subcut Q2W Qty: 2 11RF albuterol sulfate 90 mcg/actuation HFA aerosol inhaler 2 puff inhalation Q4H PRN (Reason: Wheezing) Qty: 8.5 2RF albuterol sulfate 0.63 mg/3 mL solution for nebulization 0.63 mg inhalation QID PRN (Reason: shortness of breath or wheezing) Qty: 90 0RF prednisone 20 mg tablet 40 mg PO DAILY Qty: 10 0RF prednisone 20 mg tablet 40 mg PO DAILY Qty: 10 0RF epinephrine 0.3 mg/0.3 mL auto-injector 0.3 mg IM Q4H PRN (Reason: anaphylaxis) Qty: 1 0RF esomeprazole magnesium 20 mg capsule,delayed release(DR/EC) 20 mg PO DAILY Qty: 90 0RF bisacodyl 5 mg tablet,delayed release (DR/EC) 5 mg PO ONCE 1 Days Qty: 3 0RF Rx Instructions: per colonoscopy instructions polyethylene glycol 3350 [Miralax] 17 gram/dose powder 238 g PO ONCE Qty: 238 0RF Rx Instructions: per colonoscopy prep instructions Print Language: Uzbek
[2025-01-05] MEDS: Magnesium Sulfate/H2O 2 GM/50 ML PIGGYBACK IV (22:01)
[2025-01-05 22:07] LABS: MANUAL DIFF FLAG NO
[2025-01-05 22:08] LABS: Basophils Percent Auto 0.3 % (0-2); Eosinophils Absolute Auto 0.2 X10*3/uL (0.0-0.4); Eosinophils Percent Auto 1.4 % (0-4); Hematocrit 38.5 % (42.0-52.0); Hemoglobin 13.4 g/dl (14.0-18.0); Imm Gran Abs Auto 0.05 X10*3/uL (0.00-0.03); Imm Gran Pct Auto 0.4 % (0.0-0.4); Lymphocytes Absolute Auto 3.4 X10*3/uL (1.2-4.9); Lymphocytes Percent Auto 25.2 % (20-40); Mean Corpuscular HGB Conc 34.8 g/dl (31.0-36.0); Mean Corpuscular Hemoglobin 30.7 pg (27.0-33.0); Mean Corpuscular Volume 88.3 fL (80.0-98.0); Mean Platelet Volume 10.2 fL (9.4-12.4); Monocytes Absolute Auto 0.6 X10*3/uL (0.1-1.2); Monocytes Percent Auto 4.5 % (2-11); Neutrophils Absolute Auto 9.3 x10*3/uL (2.0-8.3); Neutrophils Percent Auto 68.2 % (45-73); Platelet Count 305 X10*3/uL (160-400); Red Blood Count 4.36 X10*6/uL (4.60-5.80); Red Cell Distribution Width 13.3 % (11.0-16.0); White Blood Count 13.6 X10*3/uL (4.8-10.8)
[2025-01-05 22:12] LABS: Venous Blood Gas Refer to POC result
[2025-01-05 22:13] LABS: VBG Base Excess 0.8 mmol/L; VBG HCO3 23 mmol/L (22-26); VBG pCO2 30 mmHg; VBG pH 7.49 (7.32-7.43); VBG pO2 67 mmHg
[2025-01-05] MEDS: Albuterol Sulfate 5 MG, Albuterol/Iprat 2.5/0.5MG 3 ML 3 ML INHALE (22:18)
[2025-01-05 22:20] VITALS: PULSE 102; RESP 24; O2SAT 97
[2025-01-05 22:24] LABS: Alanine Aminotransferase 53 U/L (0-40); Albumin Level 3.9 g/dL (3.5-5.0); Alkaline Phosphatase 95 U/L (39-117); Anion Gap 13 (12-20); Aspartate Amino Transferase 23 U/L (5-37); Bilirubin Direct < 0.2 mg/dL (0.0-0.5); Bilirubin Total 0.2 mg/dL (0.0-1.0); Blood Urea Nitrogen 15 mg/dL (9-16); Calcium 9.2 mg/dL (8.4-10.2); Carbon Dioxide 23 mmol/L (22-29); Chloride 109 mmol/L (96-108); Creatinine Clr Calc Pharmacy 132.8; Estimated Glomerular Filt Rate > 60; Glucose Random 132 mg/dL (60-115); Potassium 3.7 mmol/L (3.3-5.1); Sodium 141 mmol/L (135-145); Total Protein 6.8 g/dL (6.5-8.0)
[2025-01-05 22:25] VITALS: BP 116/66; PULSE 97; RESP 20; O2SAT 93
[2025-01-05 22:47] LABS: Influenza A PCR NEGATIVE (Negative); Influenza B PCR NEGATIVE (Negative); Resp Syncy Virus RNA Qual PCR NEGATIVE (Negative); SARS COV2 PCR INHOUSE NEGATIVE (Negative)
--- NOTE | 2025-01-05 23:30 | PM.IMHP ---
History of Present Illness Date of Service: 01/05/25 Chief Complaint: dyspnea This is a 49-year-old male with pertinent history of severe persistent asthma asthma not on home oxygen, gastroesophageal reflux disease who presents to the emergency department for evaluation of dyspnea. Patient states symptoms started 6 days prior to presentation. He was seen in the ER 5 days prior to presentation and sent home with p.o. steroids. Patient states his symptoms continued and not relieved with steroids and inhaler at home. He has been having dyspnea which is worse with exertion. No orthopnea or PND. No cough. Has associated wheezing which did not relieve with home inhaler. No fever, chills, chest pain, palpitations, abdominal pain, changes in urinary or bowel habits. Denies smoking tobacco. Denies using CPAP at home. In the emergency department, patient with wheezing despite multiple DuoNeb treatments. Was given IV steroids and IV magnesium sulfate. Review of Systems Constitutional: Constitutional: Reports fatigue and Reports malaise Cardiovascular: Cardiovascular: Reports dyspnea on exertion Respiratory: Respiratory: Reports dyspnea on exertion and Reports wheezing Gastrointestinal: Gastrointestinal: Reports no additional gastrointestinal complaints Genitourinary: Genitourinary: Reports no additional male genitourinary complaints Endocrine: Endocrine: Reports fatigue Allergic/Immunologic: Allergic/Immunologic: Reports wheezing [facility] Medical History Right inguinal pain Family history of colon cancer Throat pain Physical exam History of positive PPD GERD (gastroesophageal reflux disease) Asthma Methadone maintenance therapy patient Family History Father No problems noted. Mother No problems noted. Surgical History Hx of endoscopy History of esophagogastroduodenoscopy (EGD) Hx of colonoscopy History of umbilical hernia repair History of left inguinal hernia repair Hx of knee surgery Hx of hernia repair Hx of shoulder surgery Social History Household Members: Spouse Household Members Other:: Housing: Apartment Do you presently have visiting nurse or other home services: No Alcohol intake: current Alcohol intake frequency: holidays/special occasions only Patient Tobacco Use Status: Never used Tobacco Tobacco use type: Cigarette Smoked in Last 30 Days: No e-Cigarette/Vaping Use: Never Used Second Hand Smoke Exposure: No Use of substances other than those prescribed or required for medical reasons: No Advance Directives: No Advance Directives Information Provided: Yes Nutrition Risks: No Nutritional Risk service: No Current occupational status: employed 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 Current occupational exposures/hazards: No Cognitive needs: No Hearing needs: No Vision needs: Yes Meds Allergies Allergy/AdvReac Type Severity Reaction Status Date / Time shellfish derived Allergy Severe Anaphylaxis Verified 01/05/25 21:13 Active Medications: Current Medications Magnesium Sulfate (Magnesium Sulfate/H2o) 2 gm in 50 mls @ 25 mls/hr IV ONCE ONE Stop: 01/05/25 23:41 Last Admin: 01/05/25 22:01 Dose: 25 mls/hr Physical Exam Vital Signs and Narrative: Vital Signs: Last Vital Signs Temp 97.9 F 01/05/25 21:10 Pulse 97 01/05/25 22:25 Resp 20 01/05/25 22:25 BP 116/66 01/05/25 22:25 Pulse Ox 93 01/05/25 22:25 O2 Del Method Room Air 01/05/25 22:25 BMI result Body Mass Index 39.2 Middle-aged male lying in bed in mild distress Neck supple, no JVD Tachycardia with regular rhythm, S1-S2 heard Bilateral wheezing and tachypnea Abdomen soft nontender, no guarding, no rigidity Patient is awake, alert and oriented to self, place, time and person ; no focal motor deficit Psych: Normal mood No pedal edema Results Labs 01/05/25 22:02 01/05/25 22:02 Labs: Laboratory Results - last 24 hr 01/05/25 01/05/25 22:02 22:07 MCV 88.3 MCH 30.7 MCHC 34.8 RDW 13.3 Plt Count 305 MPV 10.2 Immature Gran % (Auto) 0.4 Neut % (Auto) 68.2 Lymph % (Auto) 25.2 [place] % (Auto) 4.5 Eos % (Auto) 1.4 Baso % (Auto) 0.3 Lymph # (Auto) 3.4 [place] # (Auto) 0.6 Eos # (Auto) 0.2 Baso # (Auto) 0.0 Abs Immat Gran (auto) 0.05 H Absolute Neuts (auto) 9.3 H Absolute Nucleated RBC 0.000 Nucleated RBC % (auto) 0.0 VBG pH 7.49 H VBG pCO2 30 VBG pO2 67 VBG HCO3 23 VBG O2 Saturation 92.0 VBG Base Excess 0.8 Anion Gap 13 Estim Creat Clear Calc 132.8 Estimated GFR > 60 Random Glucose 132 H Calcium 9.2 Total Bilirubin 0.2 Direct Bilirubin < 0.2 AST 23 ALT 53 H Alkaline Phosphatase 95 Total Protein 6.8 Albumin 3.9 Influenza Type A (PCR) NEGATIVE Influenza Type B (PCR) NEGATIVE RSV RNA Qual (PCR) NEGATIVE SARS-CoV-2 RNA (RT-PCR) NEGATIVE Assessment and Plan (1) Asthma exacerbation: Status: Acute Plan This is a 49-year-old male with pertinent history of severe persistent asthma asthma not on home oxygen, gastroesophageal reflux disease who presents to the emergency department for evaluation of dyspnea. #. Acute respiratory distress due to acute exacerbation of asthma: Will admit patient with scheduled and p.r.n. breathing treatments. Continue systemic steroids. Continue home inhaler. #. Gastroesophageal reflux disease: On PPI #. Leukocytosis, reactive DVT prophylaxis: Lovenox Full code Quality Stroke Does the patient have a stroke diagnosis?: No VTE Prior VTE?: No VTE Risk Level:: Medical - moderate - high VTE Device Contraindication: Treatment Not Indicated VTE Drug Contraindication: N/A - Med Ordered
[2025-01-06] VITALS (10 sets, daily range): BP systolic 124–154; BP diastolic 71–87; PULSE 89–100; RESP 16–20; TEMP 36.2–36.6; O2SAT 95–96; BMI 39.2
--- NOTE | 2025-01-06 | MHC.EDTECH ---
This tech took over care of pt at 2300, rounds and vitals completed, pt appears comfortable call [facility] within reach
[2025-01-06 05:57] LABS: Basophils Percent Auto 0.1 % (0-2); Hematocrit 39.1 % (42.0-52.0); Hemoglobin 13.3 g/dl (14.0-18.0); Imm Gran Abs Auto 0.09 X10*3/uL (0.00-0.03); Imm Gran Pct Auto 0.5 % (0.0-0.4); Lymphocytes Absolute Auto 0.7 X10*3/uL (1.2-4.9); Lymphocytes Percent Auto 4.1 % (20-40); MANUAL DIFF FLAG SCAN; Mean Corpuscular Hemoglobin 30.2 pg (27.0-33.0); Mean Corpuscular Volume 88.9 fL (80.0-98.0); Mean Platelet Volume 10.3 fL (9.4-12.4); Monocytes Absolute Auto 0.1 X10*3/uL (0.1-1.2); Monocytes Percent Auto 0.4 % (2-11); Neutrophils Absolute Auto 15.8 x10*3/uL (2.0-8.3); Neutrophils Percent Auto 94.9 % (45-73); Platelet Count 300 X10*3/uL (160-400); Red Cell Distribution Width 13.2 % (11.0-16.0); SCAN SMEAR FLAG 1; White Blood Count 16.7 X10*3/uL (4.8-10.8)
[2025-01-06 06:11] LABS: Anion Gap 16 (12-20); Blood Urea Nitrogen 17 mg/dL (9-16); Calcium 8.8 mg/dL (8.4-10.2); Carbon Dioxide 20 mmol/L (22-29); Chloride 105 mmol/L (96-108); Creatinine Clr Calc Pharmacy 132.8; Estimated Glomerular Filt Rate > 60; Glucose Random 198 mg/dL (60-115); Potassium 4.2 mmol/L (3.3-5.1); Sodium 137 mmol/L (135-145)
[2025-01-06 06:22] LABS: SLIDE REVIEW VERIFIED
[2025-01-06] MEDS: Enoxaparin Sodium 40 MG/0.4 ML SYRINGE SUBCUT (08:19)
[2025-01-06] MEDS: 0.9 % Sodium Chloride Flush 3 ML SYRINGE IVFLUSH ×2 (08:19→23:52)
[2025-01-06] MEDS: methylPREDNISolone Sod Succ 40 MG/ML VIAL IVPUSH ×2 (08:19→20:42)
--- NOTE | 2025-01-06 10:16 | PHA.MEDREC ---
Addendum entered by Cas Victoria RPh 01/06/25 18:29: Reviewed by [facility] Original Note: Pharmacy Consult ? Medication Reconciliation Pharmacy has completed the medication reconciliation. Spoke to pt to confirm meds.
[2025-01-06] MEDS: Albuterol/Iprat 2.5/0.5MG 3 ML AMPUL.NEB INHALE ×3 (11:41→19:40)
[2025-01-06] MEDS: Omeprazole 20 MG CAPSULE.DR PO (11:43)
--- NOTE | 2025-01-06 12:11 | P.PNIM_ITS ---
Subjective Subjective Date of Service: 01/06/25 Interval History: Seen and examined this morning Follow-up for asthma exacerbation Patient reports some improvement in dyspnea but continues to have shortness of breath and wheezing, intermittent dry cough. No fever, chills Review of Systems Review of Systems: Yes all other systems are reviewed and are negative Constitutional Constitutional: Denies chills and Denies fever(s) Cardiovascular Cardiovascular: Denies chest pain, Denies palpitations and Reports dyspnea Respiratory Respiratory: Reports cough and Reports dyspnea Endocrine Endocrine: Denies palpitations Physical Exam 2 Vital Signs: Vital Signs: Last Vital Signs Temp 97.1 F 01/06/25 09:59 Pulse 91 01/06/25 11:43 Resp 18 01/06/25 11:43 BP 124/79 01/06/25 09:59 Pulse Ox 95 01/06/25 09:59 O2 Del Method Room Air 01/06/25 09:59 BMI result Body Mass Index 39.2 Const: General: cooperative, comfortable, no acute distress, alert and awake Nutritional Appearance: average body habitus Orientation/consciousness: p atient oriented x3 Resp: Other: Bilateral inspiratory/expiratory wheezing Effort & Inspection: no respiratory distress and no use of accessory muscles Cardio: Rate: regular rate Neuro: General: patient oriented x3, moves all extremities and CN's II-XI intact bilaterally Objective Data Active Medications Acetaminophen (Acetaminophen 325 Mg Tablet) 650 mg PO Q6H PRN PRN Reason: Pain, Mild 1-3,fever,headache Albuterol/Ipratropium (Albuterol/Iprat 2.5/0.5mg 3 Ml Ampul.Neb) 3 ml INHALE Q4H PRN PRN Reason: Shortness of Breath/Wheezing Albuterol/Ipratropium (Albuterol/Iprat 2.5/0.5mg 3 Ml Ampul.Neb) 3 ml INHALE RQ4H WHILE AWAKE [facility] Last Admin: 01/06/25 11:41 Dose: 3 ml Documented By: JOON Benzonatate (Benzonatate 100 Mg Capsule) 100 mg PO TID PRN PRN Reason: Cough Calcium Carbonate (Calcium Carbonate 750 Mg Tab.Chew) 750 mg PO Q4H PRN PRN Reason: Heartburn Enoxaparin Sodium (Enoxaparin Sodium 40 Mg/0.4 Ml Syringe) 40 mg SUBCUT Q24H [facility] Last Admin: 01/06/25 08:19 Dose: 40 mg Documented By: GREGORY Magnesium Hydroxide (Milk Of Magnesia 30 Ml Oral.Susp) 30 ml PO DAILY PRN PRN Reason: Constipation Melatonin (Melatonin 3 Mg Tablet) 6 mg PO BEDTIME PRN PRN Reason: Insomnia Methylprednisolone Sodium Succinate (Methylprednisolone Sod Succ 40 Mg/Ml Vial) 40 mg IVPUSH Q12H [facility] Last Admin: 01/06/25 08:19 Dose: 40 mg Documented By: GREGORY Omeprazole (Omeprazole 20 Mg Capsule.Dr) 20 mg PO DAILY@0630 [facility] Last Admin: 01/06/25 11:43 Dose: 20 mg Documented By: LAMAR Ondansetron HCl (Ondansetron Hcl 4 Mg/2 Ml Vial) 4 mg IVPUSH Q8H PRN PRN Reason: Nausea and Vomiting Sodium Chloride (0.9 % Sodium Chloride Flush 3 Ml Syringe) 3 ml IVFLUSH QSHIFT [facility] Last Admin: 01/06/25 08:19 Dose: 3 ml Documented By: GREGORY Labs 01/06/25 05:40 01/06/25 05:40 Labs: Laboratory Results - last 24 hr 01/05/25 01/05/25 01/06/25 22:02 22:07 05:40 MCV 88.3 88.9 MCH 30.7 30.2 MCHC 34.8 34.0 RDW 13.3 13.2 Plt Count 305 300 MPV 10.2 10.3 Immature Gran % (Auto) 0.4 0.5 H Neut % (Auto) 68.2 94.9 H Lymph % (Auto) 25.2 4.1 L [place] % (Auto) 4.5 0.4 L Eos % (Auto) 1.4 0.0 Baso % (Auto) 0.3 0.1 Lymph # (Auto) 3.4 0.7 L [place] # (Auto) 0.6 0.1 Eos # (Auto) 0.2 0.0 Baso # (Auto) 0.0 0.0 Abs Immat Gran (auto) 0.05 H 0.09 H Absolute Neuts (auto) 9.3 H 15.8 H Absolute Nucleated RBC 0.000 0.000 Nucleated RBC % (auto) 0.0 0.0 Smear Tech's Comments VERIFIED VBG pH 7.49 H VBG pCO2 30 VBG pO2 67 VBG HCO3 23 VBG O2 Saturation 92.0 VBG Base Excess 0.8 Anion Gap 13 16 Estim Creat Clear Calc 132.8 132.8 Estimated GFR > 60 > 60 Random Glucose 132 H 198 H Calcium 9.2 8.8 Total Bilirubin 0.2 Direct Bilirubin < 0.2 AST 23 ALT 53 H Alkaline Phosphatase 95 Total Protein 6.8 Albumin 3.9 Influenza Type A (PCR) NEGATIVE Influenza Type B (PCR) NEGATIVE RSV RNA Qual (PCR) NEGATIVE SARS-CoV-2 RNA (RT-PCR) NEGATIVE Assessment and Plan (1) Asthma exacerbation: Status: Acute Plan This is a 49-year-old male with pertinent history of severe persistent asthma asthma not on home oxygen, gastroesophageal reflux disease who presents to the emergency department for evaluation of dyspnea. Acute exacerbation of severe persistent allergic asthma Failed outpatient therapy with oral steroids Persistent wheezing and dyspnea New systemic steroids, breathing treatments Outpatient notes indicate use of Advair, not listed on current medication list Gastroesophageal reflux disease: Continue omeprazole Leukocytosis Due to steroid use, has been on prednisone as outpatient DVT prophylaxis: Lovenox Full code Quality Stroke Does the patient have a stroke diagnosis?: No VTE Prior VTE?: No VTE Risk Level:: Medical - moderate - high VTE Device Contraindication: Treatment Not Indicated VTE Drug Contraindication: N/A - Med Ordered
--- NOTE | 2025-01-06 16:35 | MHC.CM.PN ---
PT REPORTS HE LIVES WITH HIS AND IS INDEPENDENT WITH CARE HE HAS NO SERVICES AND USES A NEBULIZER FOR DME HE SAYS HE HAS A HCP NAMING HIS AND DAUGHTER HIS AGENTS PCP: CESAR JAIME OBSERVATION NOTICE DELIVERED DCP: HOME NO SERVICES VIA PRIVATE TRANSPORT
[2025-01-07 04:00] VITALS: BP 124/76; PULSE 95; RESP 16; TEMP 37.1; O2SAT 96
[2025-01-07] MEDS: Omeprazole 20 MG CAPSULE.DR PO (05:54)
[2025-01-07 07:11] VITALS: BP 131/82; PULSE 74; RESP 18; TEMP 37.1; O2SAT 96
--- NOTE | 2025-01-07 08:42 | P.DS_ITS ---
DS: Providers Provider Date of Service: 01/07/25 Date of admission: 01/05/25 23:28 Date of discharge: 01/07/25 Primary care physician: Tiffany Rodriguez MD DS: Diagnosis Discharge Diagnosis (1) Asthma exacerbation: Status: Resolved DS: Summary Hospital Course Hospital Course: admission hpi Chief Complaint: dyspnea This is a 49-year-old male with pertinent history of severe persistent asthma asthma not on home oxygen, gastroesophageal reflux disease who presents to the emergency department for evaluation of dyspnea. Patient states symptoms started 6 days prior to presentation. He was seen in the ER 5 days prior to presentation and sent home with p.o. steroids. Patient states his symptoms continued and not relieved with steroids and inhaler at home. He has been having dyspnea which is worse with exertion. No orthopnea or PND. No cough. Has associated wheezing which did not relieve with home inhaler. No fever, chills, chest pain, palpitations, abdominal pain, changes in urinary or bowel habits. Denies smoking tobacco. Denies using CPAP at home. In the emergency department, patient with wheezing despite multiple DuoNeb treatments. Was given IV steroids and IV magnesium sulfate. hospital course: Patient was admitted for management of dyspnea due to asthma exacerbation marked wheezing, impending respiratory failure and was treated with IV steroid, bronchodilators by, he has make rapid recovery and will desires to go home. 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 His lungs are clear and normal respiatory rate. Time Attestation Discharge Coordination Time (in mins): 45 Quality: Safe Use of Opioids Does Pt have an Active Cancer Diagnosis on the Problem List?: No Quality: Stroke Does the patient have a stroke diagnosis?: No Physical Exam Vital Signs: Vital Signs: Last Vital Signs Temp 98.8 F 01/07/25 07:11 Pulse 74 01/07/25 07:11 Resp 18 01/07/25 07:11 BP 131/82 01/07/25 07:11 Pulse Ox 96 01/07/25 07:11 O2 Del Method Room Air 01/07/25 04:00 BMI result Body Mass Index 39.2 Const: Other: General: AO X 3, no acute distress Resp: CTA bilateral CVS: S1,S2,RRR GI: +BS, NT, no distention Skin: No rash Neuro: motor grossly intact Psych: appropriate affect Discharge Plan Discharge Anticipated Discharge Date/Time: 01/07/25 08:39 Patient Disposition: Home, Self-Care Discharge Diagnosis: Asthma exacerbation Referrals: Po,Tiffany Irby MD [Primary Care Provider] - 1 Week Discharge Medications: New prednisone 20 mg tablet 20 mg PO DAILY Qty: 6 0RF Continued (DME) nebulizers [Aeroneb Go Nebulizer] Misc See Rx Instructions .Route Qty: 1 0RF Rx Instructions: As directed albuterol sulfate 90 mcg/actuation HFA aerosol inhaler 2 puff inhalation Q4H PRN (Reason: Wheezing) Qty: 8.5 2RF albuterol sulfate 0.63 mg/3 mL solution for nebulization 0.63 mg inhalation QID PRN (Reason: shortness of breath or wheezing) Qty: 90 0RF esomeprazole magnesium 20 mg capsule,delayed release(DR/EC) 20 mg PO DAILY@0630 epinephrine 0.3 mg/0.3 mL auto-injector 0.3 mg IM Q4H PRN (Reason: anaphylaxis) Qty: 1 0RF Discharge Orders: Discharge Order (Routine); Ordered 01/07/25 Ordered By: Dimitris Reyes Diet: Advance to usual diet Activity on Discharge: As tolerated Stand Alone Forms: Patient Portal Discharge page Print Language: Mongolian Care Plan Goals: recovery from ashtma Health Concerns: asthma Plan of Treatment: take Prednisone as recommended and follow up with Assessment: see above Patient Instructions: Asthma (DC) Discharge Date/Time: 01/07/25 09:30
[2025-01-07] MEDS: methylPREDNISolone Sod Succ 40 MG/ML VIAL IVPUSH (08:51)
[2025-01-07] MEDS: 0.9 % Sodium Chloride Flush 3 ML SYRINGE IVFLUSH (08:52)
--- NOTE | 2025-01-07 08:58 | MHC.CM.PN ---
DP: PT HAS BEEN MEDICALLY CLEARED FOR DC HOME, NO SERVICES. PT HAS OWN RIDE HOME.
== END 2025-01-07 09:30 | disposition home or self-care (01) ==
LOC: HO.ED 23:28 → HO.EDOVER 23:31 → HO.S3 01-06 08:09
PROVIDERS: Admitting Provider Student in an Organized Health Care Education/Training Program; Emergency Provider Emergency Medicine; PCP Internal Medicine; Visit Provider Internal Medicine
DX: J45.51 Severe persistent asthma with (acute) exacerbation (principal); K21.9 Gastro-esophageal reflux disease without esophagitis; D72.829 Elevated white blood cell count, unspecified; Z79.899 Other long term (current) drug therapy; Z03.818 Encounter for observation for suspected exposure to other biological agents ruled out
CPT/HCPCS: 0241U; 36415; 71046; 80048; 80076; 82803; 85025; 93005; 94640; 96365; 96366; 96372; 96375; 96376; 99221; 99285; J1650; J2919; J3475

== ENCOUNTER → 2025-01-05 21:25 | Outpatient (BNV) | payer OTHER, SELFPAY | PROVIDERS: Emergency Provider Emergency Medicine; PCP Internal Medicine; Visit Provider Radiology Diagnostic Radiology | DX: R06.02 Shortness of breath (principal); R06.2 Wheezing | CPT/HCPCS: 71046 ==

== ENCOUNTER → 2025-01-05 21:41 | Outpatient (BNV) | payer OTHER, SELFPAY | PROVIDERS: Admitting Provider Student in an Organized Health Care Education/Training Program; Emergency Provider Emergency Medicine; PCP Internal Medicine; Visit Provider Internal Medicine Cardiovascular Disease | DX: R06.02 Shortness of breath (principal) | CPT/HCPCS: 93010 ==

== ENCOUNTER → 2025-01-05 23:28 | Outpatient (BNV) | payer OTHER, SELFPAY | PROVIDERS: Admitting Provider Student in an Organized Health Care Education/Training Program; Emergency Provider Emergency Medicine; PCP Internal Medicine; Visit Provider Student in an Organized Health Care Education/Training Program | DX: J45.901 Unspecified asthma with (acute) exacerbation (principal) | CPT/HCPCS: 99222; 99232; 99239 ==

== ENCOUNTER 2025-01-18 16:26 | Outpatient (AMB) | payer OTHER, SELFPAY ==
--- OUTSIDE RECORDS SUMMARY | 2025-01-18 16:28 | XMS_ITS | Clinical Summary ---
Author Organization [facility] Address [address] [place] [address] Care Team Providers Care Fire Sprinkler Installer Name Role Phone Unavailable Primary Care Provider Unavailabl e Social History Tobacco Use Types Packs/Day Years Used Date Smoking Tobacco: Never Assessed Sex and Gender Information Value Date Recorded Sex Assigned at Not on file Gender Identity Not on file Sexual Orientation Not on file Plan of Treatment Not on file
[2025-01-18 16:30] VITALS: BP 130/68; PULSE 88; O2SAT 98; BMI 39.0
--- NOTE | 2025-01-18 16:30 | MHC.PC.OV ---
Vital Signs 01/18/25 16:30 Height 5 ft 7 in Weight 249 lb BMI 39.0 BP 130/68 Blood Pressure Location Lt brachial Position Sitting Pulse 88 Pulse Source Pulse Oximeter Pulse Oximetry (%) 98 Oxygen Delivery Method Room Air Intake Visit Reasons: [facility] dyspnea 01/07 Allergies shellfish derived Allergy (Severe, Verified 01/18/25 16:30) Anaphylaxis Tobacco use date assessed: 09/14/24 Dental Screening Dental Screen Date: 09/14/24 HPI TCM TCM Information Date of Discharge 01/07/25 Discharged From [facility] Interactive Contact Date (Reference documentation from this date) 01/18/25 HPI Comments History of Present Illness Details 49 y/o Male patient who presents to the clinic for HDF. Pmhx significant for severe persistent asthma not on home oxygen, and gastroesophageal reflux disease. Pt was admitted at [facility] on 01/05 - 01/07 for evaluation and treatment of dyspnea due to asthma exacerbation marked wheezing, impending respiratory failure and was treated with IV steroid, and bronchodilators. Pt has had 5-6 Emergency room admissions and 3 hospitalizations since August 2024 for persistent Dyspnea due to Asthma exacerbations. He currently uses Rescue inhalers and Neb Treatments at home - he does not have maintenance medications. He does see pulmonology and next appointment schedule for February 2025. Today he continues to have SOB, Wheezing and Dyspnea. [facility] Medical History Right inguinal pain Family history of colon cancer Throat pain Physical exam History of positive PPD GERD (gastroesophageal reflux disease) Asthma Methadone maintenance therapy patient Surgical History Hx of endoscopy History of esophagogastroduodenoscopy (EGD) Hx of colonoscopy History of umbilical hernia repair History of left inguinal hernia repair Hx of knee surgery Hx of hernia repair Hx of shoulder surgery Family History Father No problems noted. Mother No problems noted. 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 Jean Pierre Flynn, Kailee Sanderson, Dayday Cueto and colleagues, with an educational ten from [employer]. Review of Systems Const All systems reviewed & are unremarkable except as noted in HPI and below Physical exam (Primary Care) Vital Signs: Last Vital Signs Pulse 88 01/18/25 16:30 BP 130/68 01/18/25 16:30 Pulse Ox 98 01/18/25 16:30 Oxygen Delivery Method Room Air 01/18/25 16:30 BMI result Body Mass Index 39.0 Tobacco/Smoking Status: Tobacco use Status Tobacco use date assessed 09/14/24 01/18/25 16:34 Patient Tobacco Use Status Never used Tobacco 01/18/25 16:34 Tobacco use type Cigarette 01/18/25 16:34 e-Cigarette/Vaping Use Never Used 01/18/25 16:34 Thrive Assessment: Date of Thrive Assessment Date Thrive assessed 01/06/25 01/18/25 16:34 Const General: no acute distress Nutritional Appearance: obese Orientation/consciousness: patient oriented x3 Resp Effort & Inspection: normal respiratory effort, able to speak in complete sentences and audible wheezes Auscultation: no crackles, no rales, no rhonchi and wheezes Cardio Heart sounds: S1 normal heart sound present and S2 normal heart sound present Neuro General: patient oriented x3 Coding Level of Care Code TCM Mod MDM <= 14 Days Diagnoses Moderate persistent asthma with acute exacerbation J45.41 Asthma severity: moderate Asthma persistence: persistent Time Spent (min) 20 Assessment & Plan Assessment & Plan (1) Acute asthma exacerbation: Code(s): J45.901 - Unspecified asthma with (acute) exacerbation Category: Medical Qualifiers: Asthma severity: moderate Asthma persistence: persistent Qualified Code(s): J45.41 - Moderate persistent asthma with (acute) exacerbation Plan: Ordered Prednisone for 10 days. Ordered Zpack, Singulair and Advair. F/U with Pulmonology as scheduled. Medications: New albuterol sulfate 2.5 mg (3 mL) inhalation Q4-6H PRN 180 mL 1RF shortness of breath or wheezing J45.41 - Moderate persistent asthma with (acute) exacerbation azithromycin 500 mg PO DAILY 3 days 3 tabs 0RF J45.41 - Moderate persistent asthma with (acute) exacerbation fluticasone propion-salmeterol 250-50 mcg/dose (Advair Diskus) 1 inh inhalation BID 60 ea 1RF J45.41 - Moderate persistent asthma with (acute) exacerbation montelukast (Singulair) 10 mg PO BEDTIME 30 tabs 1RF J45.41 - Moderate persistent asthma with (acute) exacerbation Refilled prednisone 20 mg PO DAILY 10 tabs 0RF J45.41 - Moderate persistent asthma with (acute) exacerbation Discontinued albuterol sulfate Discontinued Reason: Patient Completed Course 0.63 mg (3 mL) inhalation QID PRN 90 mL 0RF shortness of breath or wheezing
== END 2025-01-18 17:04 | disposition home or self-care (01) ==
LOC: HO.HMCH 16:26
PROVIDERS: PCP Internal Medicine; Visit Provider Nurse Practitioner Family
DX: J45.41 Moderate persistent asthma with (acute) exacerbation (principal)

== ENCOUNTER → 2025-01-18 16:26 | Outpatient (BNVA) | payer OTHER, SELFPAY | PROVIDERS: PCP Internal Medicine; Visit Provider Nurse Practitioner Family | DX: Z13.89 Encounter for screening for other disorder (principal) ==

== ENCOUNTER 2025-01-19 13:07 | Emergency (ER) | payer OTHER, SELFPAY ==
--- NOTE | ~2025-01-19 | XR_ITS ---
CLINICAL HISTORY: SOB 2 view chest x-ray Comparison: CR - XR CHEST 2V - 01/05/25 21:31 EDT Findings: No consolidation or effusion. Normal size heart. No acute fracture. IMPRESSION: 1. No acute findings. This document has been electronically signed by: Sugey Albarran MD on 01/19/2025 14:04:18
[2025-01-19 13:09] VITALS: BP 136/68; PULSE 103; RESP 24; TEMP 36.6; O2SAT 94; BMI 38.9
--- NOTE | 2025-01-19 13:09 | ED_ITS ---
HPI - General Adult General Chief complaint: Asthma Stated complaint: asthmatic, feeling out of breath Time Seen by Provider: 01/19/25 13:37 History of Present Illness ED Provider: Bina ROGERS narrative: The patient is a 49-year-old male with a history of asthma. He was recently hospitalized for asthma. He was admitted on January 05 and discharged on 01/08/2012 days ago. He was discharged on a course of prednisone. He says that he finished a course of prednisone. This morning he started to feel like his asthma had returned and that he was significantly short of breath again any return to the emergency room. No fever, sweats, chills. He says this feels like his asthma. He says that he has a nebulizer machine at home but has no medication for the nebulizer machine. He only has his albuterol inhaler. He brought himself to the hospital. Related Data Home Medications ?Medication ?Instructions ?Recorded ?Confirmed esomeprazole magnesium 20 mg 20 mg PO DAILY@0630 01/06/25 01/08/25 capsule,delayed release Previous Rx's ?Medication ?Instructions ?Recorded epinephrine 0.3 mg/0.3 mL 0.3 mg (0.3 mL) IM Q4H PRN 03/11/23 injection, auto-injector anaphylaxis #1 ea nebulizers (Aeroneb Go Nebulizer) #1 ea 01/17/24 albuterol sulfate 90 mcg/actuation 2 puff inhalation Q4H PRN Wheezing 01/15/25 aerosol inhaler #8.5 grams albuterol sulfate 2.5 mg/3 mL 2.5 mg (3 mL) inhalation Q4-6H PRN 01/18/25 (0.083 %) solution for nebulization shortness of breath or wheezing #180 mL azithromycin 500 mg tablet 500 mg PO DAILY 3 days #3 tabs 01/18/25 fluticasone 250 mcg-salmeterol 50 1 inh inhalation BID #60 ea 01/18/25 mcg/dose blistr powdr for inhalation (Advair Diskus) montelukast 10 mg tablet 10 mg PO BEDTIME #30 tabs 01/18/25 (Singulair) prednisone 20 mg tablet 20 mg PO DAILY #10 tabs 01/18/25 albuterol sulfate 2.5 mg/3 mL 2.5 mg (3 mL) inhalation Q4H PRN 01/19/25 (0.083 %) solution for nebulization shortness of breath or wheezing #180 mL azithromycin 250 mg tablet 250 mg PO DAILY 4 days #4 tabs 01/19/25 budesonide-formoterol HFA 160 2 puff inhalation BID #10.2 grams 01/19/25 mcg-4.5 mcg/actuation aerosol inhaler (Symbicort) prednisone 20 mg tablet 20 mg PO DAILY #12 tabs 01/19/25 Allergies Allergy/AdvReac Type Severity Reaction Status Date / Time shellfish derived Allergy Severe Anaphylaxis Verified 01/19/25 16:23 Review of Systems Review of Systems: Yes all other systems are reviewed and are negative PMFSH Past Medical History Medical History Right inguinal pain Family history of colon cancer Throat pain Physical exam History of positive PPD GERD (gastroesophageal reflux disease) Asthma Methadone maintenance therapy patient Surgical History Hx of endoscopy History of esophagogastroduodenoscopy (EGD) Hx of colonoscopy History of umbilical hernia repair History of left inguinal hernia repair Hx of knee surgery Hx of hernia repair Hx of shoulder surgery Family History Family History Father No problems noted. Mother No problems noted. 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 Current occupational exposures/hazards: No Cognitive needs: No Hearing needs: No Vision needs: Yes Physical Exam ED Vital Signs: Vital Signs - 24 hr 01/19/25 13:09 01/19/25 14:21 01/19/25 15:21 Temperature 97.9 F 98 F Pulse Rate 103 H 96 96 Respiratory Rate 24 H 22 H 20 Blood Pressure 136/68 135/80 Pulse Oximetry 94 97 Oxygen Delivery Method Room Air Room Air 01/19/25 15:22 Temperature 98 F Pulse Rate 96 Respiratory Rate 20 Blood Pressure 135/80 Pulse Oximetry 97 Oxygen Delivery Method Room Air BMI result Body Mass Index 38.9 Const Other: The patient is a 49-year-old male who was awake and alert. He looks mildly short of breath but is not really showing significant increased work of breathing at all. He does not appear in respiratory distress. Orientation/consciousness: patient oriented x3 HENMT Other: Face is symmetrical, mucous membranes moist. Eyes Other: Pupils are round equal, conjunctivae are clear Neck Other: no JVD Resp Other: very mild increased work of breathing. No gladis respiratory distress. He has inspiratory and expiratory wheezes bilaterally with a prolonged expiratory pha se. Cardio Rate: regular rate Rhythm: regular rhythm Heart sounds: S1 normal heart sound present and S2 normal heart sound present GI Other: Abdomen is soft and nontender Skin Other: skin is dry and unremarkable Neuro General: patient oriented x3, gait normal, tone normal, moves all extremities, no focal motor deficits and CN's II-XI intact bilaterally Extrem Other: no peripheral edema Course Course Course Narrative: RME performed by Inna Velasquez PA-C. Patient is a 49 year old assigned male at presenting to the emergency department with concerns of an asthma exacerbation. Detailed physical exam and review of systems are deferred to the assistant superintendent. Imaging and swabs ordered. Patient placed back in the waiting room pending room availability and results. Medications Administered Discontinued Medications Generic Name Dose Route Start Last Admin Trade Name Freq PRN Reason Stop Dose Admin Azithromycin 500 mg 01/19/25 15:09 01/19/25 15:16 Azithromycin 500 Mg Tablet PO 01/19/25 15:10 500 mg ONCE ONE Administration Albuterol Sulfate 5 mg/ 0 mg 01/19/25 14:16 01/19/25 14:20 Albuterol/Ipratropium 3 ml INHALE 01/19/25 14:17 1 each ONCE ONE Administration Prednisone 60 mg 01/19/25 13:44 01/19/25 13:52 Prednisone 20 Mg Tablet PO 01/19/25 13:45 60 mg ONCE ONE Administration Medical Decision Making Medical Decision Making MDM Narrative: the patient is a 49-year-old asthmatic who presents with shortness of breath. He has wheezes on exam. He was recently hospitalized briefly for asthma and discharged 12 days ago on a course of prednisone. He finished his course of prednisone several days ago. He has worsening asthma symptoms today. No fevers. His chest x-ray is negative. Clinically he seems to have an asthma exacerbation without any additional complicating factors. He was given a dose of oral prednisone, 60 mg. Also 500 mg of azithromycin. He was given bronchodilator treatments. He seemed to improve. He thought that he was well enough for discharge. He will be given prescriptions for a 5 day course of prednisone, for additional days of azithromycin, and a prescription for nebulizers that he may use with his nebulizer machine at home. He is hoping that he can manage his asthma at home at this point. I have also sent a prescription for formoterol/budesonide which he may begin use after the course of prednisone if his insurance covers this. Lab Data Labs: Lab Results 01/19/25 Range/Units 13:13 Influenza Type A (PCR) NEGATIVE (Negative) Influenza Type B (PCR) NEGATIVE (Negative) RSV RNA Qual (PCR) NEGATIVE (Negative) SARS-CoV-2 RNA (RT-PCR) NEGATIVE (Negative) Discharge Plan Discharge Clinical Impression: Acute asthmatic bronchitis Patient Disposition: Home, Self-Care Instructions: Asthma (ED) Additional Instructions: I have sent a prescription for albuterol nebulizers that you may use you the your machine at home. Please use this up to every 4 hours as needed for your asthma. Additionally I have sent a prescription for an additional 5 days of prednisone. Next dose of prednisone tomorrow. Also you has been started on the antibiotic azithromycin. There is a prescription for 4 additional days of azithromycin. You received your 1st dose in the emergency room. Next dose tomorrow. Furthermore I have sent a prescription for a new inhaler which is a combination of a bronchodilator and a steroid. I do not know if your insurance will cover this. If your insurance does not cover this then simply continue to use your albuterol inhaler as you usually do. However if your insurance covers the new inhaler I would recommend starting to use the new inhaler after the prednisone is finished. Use 2 puffs 2 times a day after the prednisone is finished. Please follow up with your regular doctor. Make a follow up appointment for next week. Return to the emergency room if you feel significantly worse. Prescriptions: New azithromycin 250 mg tablet 250 mg PO DAILY 4 Days Qty: 4 0RF Rx Instructions: start on day 2 of therapy budesonide-formoterol [Symbicort] 160-4.5 mcg/actuation HFA aerosol inhaler 2 puff inhalation BID Qty: 10.2 0RF prednisone 20 mg tablet 20 mg PO DAILY Qty: 12 0RF Rx Instructions: Take 3 tablets by mouth daily for 2 days then take 2 tablets by mouth daily for 3 days. albuterol sulfate 2.5 mg /3 mL (0.083 %) solution for nebulization 2.5 mg inhalation Q4H PRN (Reason: shortness of breath or wheezing) Qty: 180 0RF No Action (DME) nebulizers [Aeroneb Go Nebulizer] Misc See Rx Instructions .Route Qty: 1 0RF Rx Instructions: As directed albuterol sulfate 90 mcg/actuation HFA aerosol inhaler 2 puff inhalation Q4H PRN (Reason: Wheezing) Qty: 8.5 2RF esomeprazole magnesium 20 mg capsule,delayed release(DR/EC) 20 mg PO DAILY@0630 epinephrine 0.3 mg/0.3 mL auto-injector 0.3 mg IM Q4H PRN (Reason: anaphylaxis) Qty: 1 0RF prednisone 20 mg tablet 20 mg PO DAILY Qty: 10 0RF fluticasone propion-salmeterol [Advair Diskus] 250-50 mcg/dose blister with device 1 inh inhalation BID Qty: 60 1RF montelukast [Singulair] 10 mg tablet 10 mg PO BEDTIME Qty: 30 1RF albuterol sulfate 2.5 mg /3 mL (0.083 %) solution for nebulization 2.5 mg inhalation Q4-6H PRN (Reason: shortness of breath or wheezing) Qty: 180 1RF azithromycin 500 mg tablet 500 mg PO DAILY 3 Days Qty: 3 0RF Referrals: Po,Tiffany Irby MD [Primary Care Provider] - ( asthma exacerbation) Interventions: ED Discharge Assessment Last Done: 01/19/25 15:22 Discharge Date/Time: 01/19/25 15:23 Print Language: German
--- OUTSIDE RECORDS SUMMARY | 2025-01-19 13:17 | XMS_ITS | Clinical Summary ---
Author Organization [facility] Address [address] [place] [address] Care Team Providers Care Print Cutter Name Role Phone Unavailable Primary Care Provider Unavailabl e Social History Tobacco Use Types Packs/Day Years Used Date Smoking Tobacco: Never Assessed Sex and Gender Information Value Date Recorded Sex Assigned at Not on file Gender Identity Not on file Sexual Orientation Not on file Plan of Treatment Not on file
[2025-01-19] MEDS: predniSONE 20 MG TABLET 60 MG PO (13:52)
[2025-01-19 13:58] LABS: Influenza A PCR NEGATIVE (Negative); Influenza B PCR NEGATIVE (Negative); Resp Syncy Virus RNA Qual PCR NEGATIVE (Negative); SARS COV2 PCR INHOUSE NEGATIVE (Negative)
[2025-01-19] MEDS: Albuterol Sulfate 5 MG, Albuterol/Iprat 2.5/0.5MG 3 ML 3 ML INHALE (14:20)
[2025-01-19 14:21] VITALS: PULSE 96; RESP 22; O2SAT 95
[2025-01-19] MEDS: Azithromycin 500 MG TABLET PO (15:16)
[2025-01-19 15:21] VITALS: BP 135/80; PULSE 96; RESP 20; TEMP 36.6; O2SAT 97
[2025-01-19 15:22] VITALS: BP 135/80; PULSE 96; RESP 20; TEMP 36.6; O2SAT 97
== END 2025-01-19 15:23 | disposition home or self-care (01) ==
PROVIDERS: Physician Assistant Medical; Emergency Provider Emergency Medicine; PCP Internal Medicine
DX: J45.998 Other asthma (principal); J40 Bronchitis, not specified as acute or chronic; R06.02 Shortness of breath; Z03.818 Encounter for observation for suspected exposure to other biological agents ruled out
CPT/HCPCS: 0241U; 71046; 94640; 99284; 99285

== ENCOUNTER → 2025-01-19 13:09 | Outpatient (BNV) | payer OTHER, SELFPAY | PROVIDERS: Emergency Provider Emergency Medicine; PCP Internal Medicine; Visit Provider Radiology Diagnostic Radiology | DX: R06.02 Shortness of breath (principal) | CPT/HCPCS: 71046 ==

== ENCOUNTER 2025-01-19 16:18 | Emergency (ER) | payer OTHER, SELFPAY ==
[2025-01-19 16:22] VITALS: BP 136/83; PULSE 110; RESP 22; TEMP 36.6; O2SAT 97; BMI 38.5
--- NOTE | 2025-01-19 16:22 | ED.GENADULT ---
HPI - General Adult General Chief complaint: Asthma Stated complaint: Asthma Time Seen by Provider: 01/19/25 18:08 Source: patient Mode of arrival: ambulatory Limitations: no limitations History of Present Illness ED Provider: Clover Jones NP HPI narrative: Patient is a 49-year-old male who presents emergency department for evaluation. He states he was seen in the emergency department earlier today, he was treated for asthma exacerbation discharged home, he states he had a difficult time getting up the stairs and felt that he would benefit from returning. It states that he feels as though he needs a dose of IV steroids as well as IV magnesium to help exacerbation under control. He reports onset of symptoms mildly over the past few days but significantly worse this morning. Feels otherwise consistent with his asthma. He denies any fevers, chills, headache, chest pain, numbness or tingling of the extremities, recent lower extremity redness pain or swelling. Related Data Home Medications ?Medication ?Instructions ?Recorded ?Confirmed esomeprazole magnesium 20 mg 20 mg PO DAILY@0630 01/06/25 01/08/25 capsule,delayed release Previous Rx's ?Medication ?Instructions ?Recorded epinephrine 0.3 mg/0.3 mL 0.3 mg (0.3 mL) IM Q4H PRN 03/11/23 injection, auto-injector anaphylaxis #1 ea nebulizers (Aeroneb Go Nebulizer) #1 ea 01/17/24 albuterol sulfate 90 mcg/actuation 2 puff inhalation Q4H PRN Wheezing 01/15/25 aerosol inhaler #8.5 grams albuterol sulfate 2.5 mg/3 mL 2.5 mg (3 mL) inhalation Q4-6H PRN 01/18/25 (0.083 %) solution for nebulization shortness of breath or wheezing #180 mL azithromycin 500 mg tablet 500 mg PO DAILY 3 days #3 tabs 01/18/25 fluticasone 250 mcg-salmeterol 50 1 inh inhalation BID #60 ea 01/18/25 mcg/dose blistr powdr for inhalation (Advair Diskus) montelukast 10 mg tablet 10 mg PO BEDTIME #30 tabs 01/18/25 (Singulair) prednisone 20 mg tablet 20 mg PO DAILY #10 tabs 01/18/25 albuterol sulfate 2.5 mg/3 mL 2.5 mg (3 mL) inhalation Q4H PRN 01/19/25 (0.083 %) solution for nebulization shortness of breath or wheezing #180 mL azithromycin 250 mg tablet 250 mg PO DAILY 4 days #4 tabs 01/19/25 budesonide-formoterol HFA 160 2 puff inhalation BID #10.2 grams 01/19/25 mcg-4.5 mcg/actuation aerosol inhaler (Symbicort) prednisone 20 mg tablet 20 mg PO DAILY #12 tabs 01/19/25 Allergies Allergy/AdvReac Type Severity Reaction Status Date / Time shellfish derived Allergy Severe Anaphylaxis Verified 01/19/25 16:23 Review of Systems Review of Systems: Yes all other systems are reviewed and are negative PMFSH Past Medical History Attestation statement: The following information was validated with the patient. Source: old records reviewed Medical History Right inguinal pain Family history of colon cancer Throat pain Physical exam History of positive PPD GERD (gastroesophageal reflux disease) Asthma Methadone maintenance therapy patient Surgical History Hx of endoscopy History of esophagogastroduodenoscopy (EGD) Hx of colonoscopy History of umbilical hernia repair History of left inguinal hernia repair Hx of knee surgery Hx of hernia repair Hx of shoulder surgery Family History Family History Father No problems noted. Mother No problems noted. 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 No acute distress.?Normal affect. Eyes: Pupils equal, round and reactive to light.? ENT: Pharynx normal.?? Neck: Normal inspection.? Neck supple.?? CVS: Heart sounds normal. Normal heart rate and rhythm.? Pulses normal.?? Respiratory: No respiratory distress.? Lung sounds this chart expiratory wheezing bilaterally, prolonged expiratory phase Abdomen: Soft and non-tender. Normoactive bowel sounds. ? Skin: Skin warm and dry.? Normal skin color.? ?? Extremities: No lower extremity edema.? No calf ttp? Neuro: Moves all extremities spontaneously. Sensation intact bilaterally. Ambulates with normal steady gait. Course Course Course Narrative: RME performed by Inna Velasquez PA-C. Patient is a 49 year old assigned male at presenting to the emergency department with concerns of an asthma exacerbation. Patient states that he was just here but he wants IV magnesium, steroids, and more breathing treatments. Detailed physical exam and review of systems are deferred to the band log mill and carriage operator. Imaging and swabs ordered. Patient placed back in the waiting room pending room availability and results. Medications Administered Discontinued Medications Generic Name Dose Route Start Last Admin Trade Name Pauline PRN Reason Stop Dose Admin Albuterol Sulfate 5 mg/ 0 mg 01/19/25 18:39 01/19/25 18:40 Albuterol/Ipratropium 3 ml INHALE 01/19/25 18:40 1 each ONCE ONE Administration Magnesium Sulfate/Dextrose 1 gm in 100 mls @ 300 mls/hr 01/19/25 18:19 01/19/25 18:46 Magnesium Sulfate/D5w IV 01/19/25 18:38 Infused ONCE ONE Infusion Methylprednisolone Sodium Succinate 80 mg 01/19/25 18:19 01/19/25 18:26 Methylprednisolone Sod Succ 125 Mg Vial IVPUSH 01/19/25 18:20 80 mg ONCE ONE Administration Medical Decision Making Medical Decision Making [facility] Narrative: Patient is a 49-year-old male with a past medical history of asthma who presents emergency department for evaluation shortness of breath and concern for asthma exacerbation as per HPI. Although he was treated in the emergency department earlier today, he received prednisone 60 mg orally in addition to DuoNeb updraft and 500 mg of azithromycin. Upon returning home who was quite dyspneic and felt he should return and feels he would best benefit from a dose of IV steroids as well as IV magnesium as this has been greatly beneficial for him in the past. He is mildly tachycardic mildly tachypneic without hypoxia. He is speaking clear full sentences. He does have inspiratory and expiratory wheezing bilaterally prolonged expiratory phase but I expect during an exacerbation of his asthma. Patient to be provided with Solu-Medrol 80 mg IV, magnesium IV and nebulizer. Discussed with the patient will re-evaluate after treatment as respiratory status as well as ambulatory trial. He is well-appearing, nontoxic. I anticipate otherwise discharge home. He was prescribed earlier today azithromycin, Symbicort, prednisone, and albuterol Differential Diagnosis Differential Diagnoses: The differential diagnosis associated with the presentation includes (Asthma exacerbation, bronchitis, viral syndrome) Admission/Observation Consideration of admission/observation: Escalation of care including admission/observation considered Lab Data [facility] Lab Attestation statement: I reviewed the patient's lab results. External Record Review External record reviewed: Outpatient record Prescription Management I considered prescription management with: Other (see narrative above) Chronic Conditions Patient?s care impacted by: Other (see pmfsh) Critical Care Time Critical Care Time Critical Care Time: Yes Total Critical Care Time: 35 Attestation: I personally attest to this critical care time spent taking care of the patient exclusive of all other billable procedures was approximately 35 minutes including initial evaluation of patient, ordering tests, asthma exacerbation with IV magnesium,, medical consultation, documentation, re-evaluation. Discharge Plan Discharge Clinical Impression: Acute asthmatic bronchitis Patient Disposition: Home, Self-Care Instructions: Asthma (ED) Additional Instructions: You were treated in the emergency department with IV Solu-Medrol, IV magnesium as well as a nebulizer treatment. Prescriptions for prednisone and azithromycin were sent to your pharmacy earlier today, please take these as prescribed. Follow-up with your primary care doctor. Return to emergency department any new or worsening symptoms or concerns. Prescriptions: No Action (DME) nebulizers [Aeroneb Go Nebulizer] Misc See Rx Instructions .Route Qty: 1 0RF Rx Instructions: As directed albuterol sulfate 90 mcg/actuation HFA aerosol inhaler 2 puff inhalation Q4H PRN (Reason: Wheezing) Qty: 8.5 2RF esomeprazole magnesium 20 mg capsule,delayed release(DR/EC) 20 mg PO DAILY@0630 azithromycin 250 mg tablet 250 mg PO DAILY 4 Days Qty: 4 0RF Rx Instructions: start on day 2 of therapy budesonide-formoterol [Symbicort] 160-4.5 mcg/actuation HFA aerosol inhaler 2 puff inhalation BID Qty: 10.2 0RF prednisone 20 mg tablet 20 mg PO DAILY Qty: 12 0RF Rx Instructions: Take 3 tablets by mouth daily for 2 days then take 2 tablets by mouth daily for 3 days. albuterol sulfate 2.5 mg /3 mL (0.083 %) solution for nebulization 2.5 mg inhalation Q4H PRN (Reason: shortness of breath or wheezing) Qty: 180 0RF epinephrine 0.3 mg/0.3 mL auto-injector 0.3 mg IM Q4H PRN (Reason: anaphylaxis) Qty: 1 0RF prednisone 20 mg tablet 20 mg PO DAILY Qty: 10 0RF fluticasone propion-salmeterol [Advair Diskus] 250-50 mcg/dose blister with device 1 inh inhalation BID Qty: 60 1RF montelukast [Singulair] 10 mg tablet 10 mg PO BEDTIME Qty: 30 1RF albuterol sulfate 2.5 mg /3 mL (0.083 %) solution for nebulization 2.5 mg inhalation Q4-6H PRN (Reason: shortness of breath or wheezing) Qty: 180 1RF azithromycin 500 mg tablet 500 mg PO DAILY 3 Days Qty: 3 0RF Referrals: Po,Tiffany Irby MD [Primary Care Provider] - Interventions: ED Discharge Assessment Last Done: 01/19/25 20:30 Discharge Date/Time: 01/19/25 20:31 Print Language: [place]
[2025-01-19] MEDS: Magnesium Sulfate/D5W 1 GM/100 ML PIGGYBACK IV (18:26)
[2025-01-19 18:40] VITALS: PULSE 98; RESP 26; O2SAT 94
[2025-01-19] MEDS: Albuterol Sulfate 5 MG, Albuterol/Iprat 2.5/0.5MG 3 ML 3 ML INHALE (18:40)
--- NOTE | 2025-01-19 20:04 | PC.NURSE ---
Walking oxygen saturation was 95% while ambulating.
[2025-01-19 20:10] VITALS: BP 129/80; PULSE 110; RESP 20; TEMP 36.4; O2SAT 95
[2025-01-19 20:30] VITALS: BP 129/80; PULSE 110; RESP 20; TEMP 36.4; O2SAT 95
== END 2025-01-19 20:31 | disposition home or self-care (01) ==
PROVIDERS: Emergency Provider Internal Medicine; PCP Internal Medicine
DX: J45.998 Other asthma (principal); J40 Bronchitis, not specified as acute or chronic
CPT/HCPCS: 94640; 99284; 99285; J2919; J3475

== ENCOUNTER 2025-03-11 09:02 | Outpatient (REF) | payer OTHER, SELFPAY ==
--- NOTE | ~2025-03-11 | FL_ITS ---
EXAMINATION: XR FLUOROSCOPY ESOPHAGRAM CLINICAL INFORMATION: Patient complaining of reflux type symptoms. Patient also complaining of globus type sensation in the neck when swallowing. COMPARISON: None TECHNIQUE: Fluoroscopic air contrast barium swallow examination was performed utilizing standard techniques with thin and thick barium and effervescent granules. Numerous spot images were obtained. Several fluoroscopic image hold cine sequences were also obtained. FINDINGS: ESOPHAGRAM: Lateral cine images of the oropharynx and hypopharynx demonstrate normal swallow mechanism with normal epiglottic inversion and soft palate elevation. No laryngeal penetration, glottic or subglottic aspiration identified. No nasopharyngeal reflux present. Hypopharyngeal structures appear normal without evidence of mass or diverticulum. There was no significant cricopharyngeal achalasia. Dual and single contrast images of the esophagus demonstrate normal caliber, contour, and mucosal pattern. No evidence of stricture, mass, or ulcerations identified. Esophageal peristalsis was mildly disordered. Small to moderate-sized type I hiatus hernia. Episodic gastroesophageal reflux to level of the aortic arch. Dual contrast and single contrast images of the stomach is mildly limited due to patient inability to retain the effervescent granule gas. There was grossly normal contour and rugal fold pattern without evidence of mass, or gross ulceration. No discrete mucosal abnormalities. There was noticeably delayed contrast passage into the duodenal bulb and sweep. Single and air-contrast images of the duodenal bulb demonstrate no abnormality. The duodenal sweep has a normal appearance, course, and mucosal fold appearance. FLUOROSCOPY TIME: 3 minutes, 10 seconds Number of Spot Images:9 Number of cines obtained: 10 DOSE AREA PRODUCT: [id number] uGy-m2 (microgray-meter squared) FL/FL barium swallow with air IMPRESSION: 1. Mildly disordered esophageal peristalsis. 2. Small to moderate-sized type I hiatus hernia. 3. Episodic gastroesophageal reflux present to the level of the aortic arch. 4. Notably delayed contrast passage into the duodenal bulb and sweep, a nonspecific finding. This could represent gastroparesis/poor gastric peristalsis. 5. The stomach otherwise appears normal. 6. No abnormality of the hypopharynx noted to explain the patient's globus type sensation. Electronically signed by: Kyle Hanna MD 03/11/2025 11:01 AM EDT
--- OUTSIDE RECORDS SUMMARY | 2025-03-11 09:16 | XMS_ITS | Clinical Summary ---
Author Organization [facility] Address [address] [place] [address] Care Team Providers Care Home Health Caregiver Name Role Phone Unavailable Primary Care Provider Unavailabl e Social History Tobacco Use Types Packs/Day Years Used Date Smoking Tobacco: Never Assessed Sex and Gender Information Value Date Recorded Sex Assigned at Not on file Gender Identity Not on file Sexual Orientation Not on file Plan of Treatment Not on file
== END 2025-03-11 09:03 | disposition home or self-care (01) ==
LOC: HO.XRAY 09:02
PROVIDERS: PCP Internal Medicine; Visit Provider Nurse Practitioner Family
DX: K21.9 Gastro-esophageal reflux disease without esophagitis (principal)
CPT/HCPCS: 74221

== ENCOUNTER → 2025-03-11 09:04 | Outpatient (BNV) | payer OTHER, SELFPAY | PROVIDERS: PCP Internal Medicine; Visit Provider Radiology Diagnostic Radiology | DX: K44.9 Diaphragmatic hernia without obstruction or gangrene (principal); K21.9 Gastro-esophageal reflux disease without esophagitis | CPT/HCPCS: 74221 ==

== ENCOUNTER 2025-03-14 10:18 | Outpatient (AMB) | payer OTHER, SELFPAY ==
[2025-03-14 10:22] VITALS: BP 116/82; PULSE 72; RESP 18; TEMP 36.2; O2SAT 97; BMI 39.9
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
--- OUTSIDE RECORDS SUMMARY | 2025-03-14 11:05 | XMS_ITS | Clinical Summary ---
Author Organization [facility] Address [address] [place] [address] Care Team Providers Care Night Baker Name Role Phone Unavailable Primary Care Provider Unavailabl e Social History Tobacco Use Types Packs/Day Years Used Date Smoking Tobacco: Never Assessed Sex and Gender Information Value Date Recorded Sex Assigned at Not on file Gender Identity Not on file Sexual Orientation Not on file Plan of Treatment Not on file
== END 2025-03-14 11:17 | disposition home or self-care (01) ==
LOC: HO.HMCH 10:19
PROVIDERS: PCP Internal Medicine; Visit Provider Internal Medicine
DX: Z00.00 Encounter for general adult medical examination without abnormal findings (principal); J45.50 Severe persistent asthma, uncomplicated; E11.65 Type 2 diabetes mellitus with hyperglycemia; E66.09 Other obesity due to excess calories; Z68.39 Body mass index [BMI] 39.0-39.9, adult; D36.9 Benign neoplasm, unspecified site; K21.00 Gastro-esophageal reflux disease with esophagitis, without bleeding; E78.00 Pure hypercholesterolemia, unspecified; M25.561 Pain in right knee; M25.562 Pain in left knee; Z23 Encounter for immunization

== ENCOUNTER → 2025-03-14 10:18 | Outpatient (BNVA) | payer OTHER, SELFPAY | PROVIDERS: PCP Internal Medicine; Visit Provider Internal Medicine | DX: Z00.00 Encounter for general adult medical examination without abnormal findings (principal); Z23 Encounter for immunization; J45.50 Severe persistent asthma, uncomplicated; K21.00 Gastro-esophageal reflux disease with esophagitis, without bleeding; E66.9 Obesity, unspecified; Z68.39 Body mass index [BMI] 39.0-39.9, adult; E78.00 Pure hypercholesterolemia, unspecified; E11.65 Type 2 diabetes mellitus with hyperglycemia; M25.561 Pain in right knee; M25.562 Pain in left knee; F11.20 Opioid dependence, uncomplicated; F19.11 Other psychoactive substance abuse, in remission; Z13.30 Encounter for screening examination for mental health and behavioral disorders, unspecified | CPT/HCPCS: 83036; 90471; 90677; 96127 ==

== ENCOUNTER 2025-05-03 12:27 | Day surgery (SDC) | payer OTHER, SELFPAY ==
--- OUTSIDE RECORDS SUMMARY | 2025-04-23 10:43 | XMS_ITS | Clinical Summary ---
Author Organization [facility] Address [address] [place] [address] Care Team Providers Care Community Health Education Coordinator Name Role Phone Unavailable Primary Care Provider Unavailabl e Social History Tobacco Use Types Packs/Day Years Used Date Smoking Tobacco: Never Assessed Sex and Gender Information Value Date Recorded Sex Assigned at Not on file Gender Identity Not on file Sexual Orientation Not on file Plan of Treatment Not on file
--- NOTE | 2025-05-01 13:24 | HO.ANESPROP2 ---
Documented by User: Elida Mireles NP 05/01/25 13:27 HPI - Anesthesia Eval Consult details Narrative: 50 yr old male for upper endoscopy, colonoscopy Severe persistent asthma with multiple exacerbations, ? last prednisone course 12/2024; was seen by [facility] [place] [place] pulmonary 08/2024, asked to restart xolair H/O substance abuse: on methadone Type 2 DM: diet controlled, A1C 6.6% [facility] Active Problems Active Problems: All Active Problems (Updated 03/14/25 @ 11:01 by Tiffany Rodriguez MD) Bilateral knee pain (Acute) Type 2 diabetes mellitus with hyperglycemia (Acute) Hypercholesterolemia (Acute) Annual physical exam (Acute) Right inguinal pain (Acute) Family history of colon cancer (Acute) Throat pain (Acute) Influenza A (Acute) Asthma (Acute) Acute lactic acidosis (Acute) Acute asthma exacerbation (Acute) Angioedema (Acute) Cough (Acute) Fracture of toe of right foot (Acute) Severe persistent allergic asthma with acute exacerbation (Acute) Asthma with acute exacerbation (Acute) Methadone maintenance therapy patient (Acute) Physical exam (Acute) COVID-19 (Acute) Allergic angioedema (Acute) Obesity (Acute) Vertigo (Acute) Asthma (Acute) Encounter for screening colonoscopy (Acute) Severe persistent allergic asthma (Acute) Environmental allergies (Acute) Esophagitis determined by endoscopy (Acute) Tubular adenoma (Acute) Hemorrhoids (Acute) Diverticulosis of colon (Acute) GERD (gastroesophageal reflux disease) (Acute) Past Medical History Medical History (Updated 05/03/25 @ 12:58 by Marie Lopez, KAYKAY) Right inguinal pain Family history of colon cancer Throat pain Physical exam History of positive PPD GERD (gastroesophageal reflux disease) Asthma Methadone maintenance therapy patient Family History Family History (Updated 03/14/25 @ 10:46 by Tiffany Rodriguez MD) Father No problems noted. Mother Ovarian cancer Brother Colon cancer Family history of problems with anesthesia: No Surgical History Surgical History (Updated 05/03/25 @ 12:59 by Marie Lopez, RN) Hx of endoscopy History of esophagogastroduodenoscopy (EGD) Hx of colonoscopy History of umbilical hernia repair History of left inguinal hernia repair Hx of knee surgery Hx of hernia repair Hx of shoulder surgery History of Problems with Anesthesia: No Social History Social History (Updated 03/14/25 @ 10:47 by Tiffany Rodriguez MD) Household Members: Spouse Household Members Other:: Housing: Apartment Do you presently have visiting nurse or other home services: No Alcohol intake: current Alcohol intake frequency: holidays/special occasions only Comment: once q 2 months 6 shots Patient Tobacco Use Status: Never used Tobacco Tobacco use type: Cigarette e-Cigarette/Vaping Use: Never Used Second Hand Smoke Exposure: No Use of substances other than those prescribed or required for medical reasons: No Are you DNR?: No Advance Directives: No Advance Directives Information Provided: Yes service: No Current occupational status: employed 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 Current occupational exposures/hazards: No Cognitive needs: No Hearing needs: No Vision needs: Yes Meds Allergies Allergy/AdvReac Type Severity Reaction Status Date / Time shellfish derived Allergy Severe Anaphylaxis Verified 05/03/25 12:57 Assessment and Plan Final Anesthetic Review Family History of Problems with Anesthesia: No History of Problems with Anesthesia: No Documented by User: Annie Terry MD 05/03/25 13:01 PMFSH Past Medical History Medical History (Updated 05/03/25 @ 12:58 by Marie Lopez, RN) Right inguinal pain Family history of colon cancer Throat pain Physical exam History of positive PPD GERD (gastroesophageal reflux disease) Asthma Methadone maintenance therapy patient Family History Family History (Updated 03/14/25 @ 10:46 by Tiffany Rodriguez MD) Father No problems noted. Mother Ovarian cancer Brother Colon cancer Surgical History Surgical History (Updated 05/03/25 @ 12:59 by Marie Lopez, RN) Hx of endoscopy History of esophagogastroduodenoscopy (EGD) Hx of colonoscopy History of umbilical hernia repair History of left inguinal hernia repair Hx of knee surgery Hx of hernia repair Hx of shoulder surgery Social History Social History (Updated 03/14/25 @ 10:47 by Tiffany Rodriguez MD) Household Members: Spouse Household Members Other:: Housing: Apartment Do you presently have visiting nurse or other home services: No Alcohol intake: current Alcohol intake frequency: holidays/special occasions only Comment: once q 2 months 6 shots Patient Tobacco Use Status: Never used Tobacco Tobacco use type: Cigarette e-Cigarette/Vaping Use: Never Used Second Hand Smoke Exposure: No Use of substances other than those prescribed or required for medical reasons: No Are you DNR?: No Advance Directives: No Advance Directives Information Provided: Yes service: No Current occupational status: employed 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 Current occupational exposures/hazards: No Cognitive needs: No Hearing needs: No Vision needs: Yes Meds Allergies Allergy/AdvReac Type Severity Reaction Status Date / Time shellfish derived Allergy Severe Anaphylaxis Verified 05/03/25 12:57 Exam Airway Mallampati Class: III TM Dist: >3cm Neck ROM: Full Heart: rrr Lungs: tight sounding bilaterak, slight wheeze upper left Other: getting albuterol updraft, dexamthasone IV Assessment and Plan Assessment Anesthesia Assessment: Anesthesia Plan Discussed and Chart Reviewed Final Anesthetic Review NPO: Yes ASA Class: III Final Preanesthetic Review: No Changes in Pt Med Stat, Meds/Allgs Chart Reviewed and Consent Obtained/Reviewed Patient Risk: Intermediate Procedure Risk: Intermediate Anesthetic Plan Anesthetic Plan: MAC: Disposition: Standard PACU
--- NOTE | 2025-05-03 12:40 | P.HPSUR_ITS ---
Pre-Procedural Eval Section A - 24 Hr Update-Section A only Date of Service: 05/03/25 Section B - Complete if H&P > 30 days Chief Complaint: gerd, fam hx of crc Details of Present Illness: Right inguinal pain Family history of colon cancer Throat pain Physical exam History of positive PPD GERD (gastroesophageal reflux disease) Asthma Methadone maintenance therapy patient Surgical History Hx of endoscopy History of esophagogastroduodenoscopy (EGD) Hx of colonoscopy History of umbilical hernia repair History of left inguinal hernia repair Hx of knee surgery Hx of hernia repair Hx of shoulder surgery Allergies: Allergies Allergy/AdvReac Type Severity Reaction Status Date / Time shellfish derived Allergy Severe Anaphylaxis Verified 03/14/25 10:26 Review of Systems Review of Systems Comment: Ten point ROS negative Exam Exam Comment: Gen appear: No acute distress HEENT: no icterus Chest: No overt resp distress Abd: soft, nontender, nondistended Psych: Stable affect, answering questions appropriately Neuro: A/Ox3 noted to move all extremities spontaneously Ext: no peripheral edema Plan Diagnosis/Plan: Unchanged I have reviewed the history and physical and performed a pertinent physical examination on my patient. No changes have occurred unless specified. Time Spent With Patient Time: Total time managing care of this patient today ____ minutes.
[2025-05-03 12:43] VITALS: BMI 39.0
[2025-05-03 12:47] VITALS: BP 124/80; PULSE 88; RESP 16; TEMP 36.6; O2SAT 95
[2025-05-03] MEDS: Lactated Ringers 1,000 ML 100 ML IVCONT (13:09)
[2025-05-03 13:45] VITALS: PULSE 97; RESP 18; O2SAT 97
[2025-05-03] MEDS: Albuterol Sulfate (0.083%) 2.5 MG/3 ML VIAL.NEB INHALE (13:45)
[2025-05-03 14:21] VITALS: BP 110/64; PULSE 99; RESP 14; TEMP 36.6; O2SAT 99
--- NOTE | 2025-05-03 14:27 | P.OPN-COLO_ITS ---
Colonoscopy Operative Note Operative Note Date of Service: 05/03/25 Narrative: Procedure: Upper endoscopy and colonoscopy Indication: GERD, fam hx of CRC Endoscopist: Carmella Ken MD Anesthesia Provider: Margaret Cornejo CRNA Anesthesia type: MAC Instrument: GIF-H190 and [id number]-[id number] EGD Procedure:?? The procedure, indications, preparation and potential complications were reviewed with the patient, who indicated understanding and gave written informed consent to proceed. The endoscope was introduced through the mouth, and advanced to the 2nd part of the duodenum. The mucosa was carefully examined on slow withdrawal of the endoscope. The patient tolerated the procedure well. There were no immediate complications.? EGD Findings:? * Esophagus:? Normal esophageal mucosa was noted. The Z-line was at 35 cm displaced by hiatal hernia with the diaphragmatic pinch at 39 cm. The Z-line was irregular up to 34 cm. Cold forceps biopsies were taken from GE junction to rule out Barretts esophagus. If metaplasia confirmed of histology, a Tissue Cypher will also be sent. * Stomach:? Normal gastric mucosa. Retroflexion was performed in the cardia with Hill grade II hiatal hernia * Duodenum:? Normal duodenal mucosa. Colonoscopy Procedure:? The patient was then turned for the colonoscopy. A digital rectal exam was performed which was abnormal for external hemorrhoids.? A distal attachment cap was affixed to the tip of the scope and the colonoscope was then inserted through the anus and advanced through the colon and advanced to the cecum at 80 cm.? Appendiceal orifice and ileocecal valve were identified. Mucosa was carefully examined under high definition white light as the instrument was slowly withdrawn in a retrograde panoramic fashion. Retroflexion was performed in rectum. The procedure was somewhat difficult, patient had to be turned to supine position to intubate the cecum. The quality of the prep was BBPS: 3+2+3 = adequate Withdrawal time 7 minutes Limitations: No limitations Findings: Mucosa: Normal colon mucosa. Protruding lesions: * Medium internal hemorrhoids without stigmata of recent bleeding. Excavated lesions: * Rare diverticula noted in the sigmoid colon. Impression: 1. Irregular Z line r/o BE (biopsy, tissue cypher) 2. Normal stomach 3. Normal duodenum 4. Normal colon mucosa 5. Diverticulosis 6. Internal and external hemorrhoids Recommendations:?? * Follow-up path results * Avoid NSAIDs * Cont PPI - will likely need indefinitely due to known GERD with hx of erosive esophagitis. * Can consider referral to bariatric surgery if pt interested in surgical management of obesity with concurrent HH repair * Repeat EGD contingent on histology. * Repeat colonoscopy for CRC screening in 5 years due to family history. * Consider an abd binder and adult scope for future colo (adult scope was not available today)
[2025-05-03 14:36] VITALS: BP 133/42; PULSE 96; RESP 16; TEMP 36.2; O2SAT 99
== END 2025-05-03 14:49 | disposition home or self-care (01) ==
PROVIDERS: PCP Internal Medicine; Visit Provider Internal Medicine
PROC: (CPT 45378; principal; 2025-05-03 13:50)
DX: Z12.11 Encounter for screening for malignant neoplasm of colon (principal); Z80.0 Family history of malignant neoplasm of digestive organs; K57.30 Diverticulosis of large intestine without perforation or abscess without bleeding; K64.8 Other hemorrhoids; K64.4 Residual hemorrhoidal skin tags; Z86.0101 Personal history of adenomatous and serrated colon polyps; K21.9 Gastro-esophageal reflux disease without esophagitis; K44.9 Diaphragmatic hernia without obstruction or gangrene; K22.9 Disease of esophagus, unspecified; E11.9 Type 2 diabetes mellitus without complications; E78.00 Pure hypercholesterolemia, unspecified; J45.50 Severe persistent asthma, uncomplicated; F11.20 Opioid dependence, uncomplicated; Z79.899 Other long term (current) drug therapy
CPT/HCPCS: 45378; 43239; 88305; 88313; 94640; J1100; J2003; J2704

== ENCOUNTER → 2025-05-03 12:27 | Outpatient (BNV) | payer OTHER, SELFPAY | PROVIDERS: PCP Internal Medicine; Visit Provider Internal Medicine | DX: Z12.11 Encounter for screening for malignant neoplasm of colon (principal); Z80.0 Family history of malignant neoplasm of digestive organs; K57.30 Diverticulosis of large intestine without perforation or abscess without bleeding; K64.8 Other hemorrhoids; K21.9 Gastro-esophageal reflux disease without esophagitis; K44.9 Diaphragmatic hernia without obstruction or gangrene | CPT/HCPCS: 43239; 45378 ==

== ENCOUNTER 2025-06-19 14:28 | Outpatient (AMB) | payer OTHER, SELFPAY ==
[2025-06-19 14:32] VITALS: BP 116/76; PULSE 76; O2SAT 97; BMI 40.1
--- NOTE | 2025-06-19 14:32 | A.OFFVIS_ITS ---
Vital Signs 06/19/25 14:32 Height 5 ft 7 in Weight 256 lb 4 oz BMI 40.1 BP 116/76 Blood Pressure Location Rt brachial Position Sitting Pulse 76 Pulse Source Pulse Oximeter Pulse Oximetry (%) 97 Oxygen Delivery Method Room Air Intake Visit Reasons: INP- Obesity, Snoring Intake Note: Patient presents SUPERVISOR ADVICE Snoring. Witness apnea/gasping/snoring. Goes to bed at 8:30- 9pm wakes up at 4am. Wakes up 3-4times a night. Naps 30min. No headaches. No history of sleep studies. RLS? Accompanied by: Spouse Allergies shellfish derived Allergy (Severe, Verified 06/19/25 14:35) Anaphylaxis HPI Comments Details: 50 year old male is referred to sleep for an evaluation of cognitive decline and difficulties with sleeps. 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 He goes to bed at 8pm and wakes up at 4am, he has about 2-3 bathroom breaks a night. He gasps for air, snores loudly and choking which wakes himself up. He has acid reflux, sits up in the bed at night and takes esmoprazole 40mg. He denies morning headaches, bruxisms, and clenching.He stands long periods on his feet with breaks, his legs feel uncomfortable with pins and needles. He has rls with pins and needles, jumpy legs bilaterally. He has gained weight over the span of four years, and his BMI is 40 today. He does not smoke or drink alcohol. FH is + for pancreatic cancer stage 4 brother, and diabetes mom and dad. [facility] Medical History Right inguinal pain Family history of colon cancer Throat pain Physical exam History of positive PPD GERD (gastroesophageal reflux disease) Asthma Methadone maintenance therapy patient Surgical History Hx of endoscopy History of esophagogastroduodenoscopy (EGD) Hx of colonoscopy History of umbilical hernia repair History of left inguinal hernia repair Hx of knee surgery Hx of hernia repair Hx of shoulder surgery Family History Father No problems noted. 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 Current occupational exposures/hazards: No Cognitive needs: No Hearing needs: No Vision needs: Yes Physical Exam Vital Signs: Last Vital Signs Pulse 76 06/19/25 14:32 BP 116/76 06/19/25 14:32 Pulse Ox 97 06/19/25 14:32 Oxygen Delivery Method Room Air 06/19/25 14:32 BMI result Body Mass Index 40.1 Const General: cooperative, comfortable and no acute distress Nutritional Appearance: obese Orientation/consciousness: patient oriented x3 HEENT Face and sinus: Yes face symmetric Teeth and gingiva: other (mallampti score is 4) Eyes Pupils: Equal, round and reactive pupils present Neck Neck: Yes full ROM Resp Effort & Inspection: normal respiratory effort and able to speak in complete sentences Neuro General: patient oriented x3 and moves all extremities Cranial nerves: Yes Equal, round and reactive pupils present, Yes Normal acc ommodation reflex present, Yes Normal facial strength present, Yes Ability to bilaterally rotate head present and Yes Ability to bilaterally elevate shoulders present Cognition (Neuro): normal cognition Gait exam (Neuro): Normal gait present Motor exam (neuro): 5/5 motor strength present throughout and Normal motor muscle tone present throughout Psych Appearance: grossly normal Affect: normal affect Attitude: cooperative Thought process: Normal thought process present Thought content: Normal thought content present Assessment & Plan Assessment & Plan (1) Excessive daytime sleepiness: Code(s): G47.19 - Other hypersomnia Category: Medical (2) RLS (restless legs syndrome): Code(s): G25.81 - Restless legs syndrome Category: Medical (3) Loud snoring: Code(s): R06.83 - Snoring Category: Medical (4) Anemia: Code(s): D64.9 - Anemia, unspecified Category: Medical Qualifiers: Anemia type: iron deficiency Iron deficiency anemia type: unspecified iron deficiency Qualified Code(s): D50.9 - Iron deficiency anemia, unspecified Plan HST r/o UVALDO Labs to r/o UVALDO F/u in 3 months. Orders: Orders Vitamin D 25-OH Total 06/19/25 D64.9 - Anemia, unspecified Vitamin B6 06/19/25 D64.9 - Anemia, unspecified Vitamin B12 and Folate 06/19/25 D64.9 - Anemia, unspecified RT home sleep study 06/19/25 D64.9 - Anemia, unspecified, G47.19 - Other hypersomnia Methylmalonic Acid 06/19/25 D64.9 - Anemia, unspecified, G47.9 - Sleep disorder, unspecified, R53.83 - Other fatigue Homocysteine 06/19/25 D64.9 - Anemia, unspecified, G47.9 - Sleep disorder, unspecified, R53.83 - Other fatigue Referrals Medical Weight Management Referral E66.01 - Morbid (severe) obesity due to excess calories Medications: New gabapentin 100 mg PO BEDTIME 90 caps 0RF rls 3 months MDD restless legs G25.81 - Restless legs syndrome, G47.19 - Other hypersomnia, R06.83 - Snoring Patient Instructions: Sleep Hygiene provided: set a scheduled bedtime and wake time to help regulate the circadian rhythm and balance the release of pituitary hormones. Sleep in a dark room, temperatures below 68 degrees, and no devices n bed. Limit caffeinated products 6 hours prior to bed, and limit fluids 2-4 hours prior to bed. Gentle night yoga, diffusing essential oils, and playing soft music can be relaxing. Coding Level of Care Code New Pt Level 4 (43541) Diagnoses Excessive daytime sleepiness G47.19 RLS (restless legs syndrome) G25.81 Loud snoring R06.83 Iron deficiency anemia, unspecified iron deficiency anemia type D50.9 Anemia type: iron deficiency Iron deficiency anemia type: unspecified iron deficiency Sleep Questionnaire Difficulty falling asleep: No Difficulty staying asleep?: Yes Number of arousals: 1-2 Snoring: Yes Witnessed apneas: Yes Gasping arousals: Yes Nocturia: No GERD: Yes Vivid dreams: No Acting out dreams: No Abnormal behavior in sleep: No Abnormal movements in sleep: No Morning headaches: No Excessive daytime sleepiness: Yes Daytime naps: Yes Restless legs: Yes Hallucinations: No Sleep paralysis: No Drop attacks: No Sleep Study: Yes CPAP: No
--- OUTSIDE RECORDS SUMMARY | 2025-06-19 18:50 | XMS_ITS | Clinical Summary ---
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
== END 2025-06-19 15:13 | disposition home or self-care (01) ==
LOC: HO.HSMC 14:29
PROVIDERS: PCP Internal Medicine; Visit Provider Physician Assistant Medical
DX: G47.19 Other hypersomnia (principal); G25.81 Restless legs syndrome; R06.83 Snoring; D50.9 Iron deficiency anemia, unspecified
CPT/HCPCS: 99204

== ENCOUNTER 2025-06-28 08:20 | Outpatient (AMB) | payer OTHER, SELFPAY ==
--- OUTSIDE RECORDS SUMMARY | 2025-06-28 08:41 | XMS_ITS | Clinical Summary ---
Author Organization [facility] Address [address] [place] [address] Care Team Providers Care Director Of Veterans Affairs Name Role Phone Unavailable Primary Care Provider Unavailabl e Social History Tobacco Use Types Packs/Day Years Used Date Smoking Tobacco: Never Assessed Sex and Gender Information Value Date Recorded Sex Assigned at Not on file Gender Identity Not on file Sexual Orientation Not on file Plan of Treatment Not on file
--- NOTE | 2025-06-28 11:21 | A.OFFVIS_ITS ---
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 Allergies shellfish derived Allergy (Severe, Verified 06/28/25 11:22) Anaphylaxis Medication List - Last Reconciled 06/28/25 by Ga Washburn MD albuterol sulfate 2.5 mg (3 mL) inhalation Q4-6H PRN albuterol sulfate 90 mcg/actuation 2 puffs inhalation Q4H PRN blood sugar diagnostic (FreeStyle Lite Strips) As directed check the BS QD blood-glucose meter (FreeStyle Lite Meter kit) As directed budesonide-formoterol 160-4.5 mcg/actuation (Symbicort) 2 puffs inhalation BID epinephrine 0.3 mg (0.3 mL) IM Q4H PRN esomeprazole magnesium 20 mg PO DAILY gabapentin 100 mg PO BEDTIME 3 months MDD restless legs lancets (FreeStyle Lancets) As directed check BS QD montelukast (Singulair) 10 mg PO BEDTIME nebulizers (Aeroneb Go Nebulizer) As directed HPI HPI 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: Details: Start time: 11.10am, End time: 11.55am ?I spent 40 minutes speaking with the patient on the phone plus an additional 5 minutes reviewing and updating records for a total of 45 minutes HPI Comments Details: Previous weight loss efforts: self diets and exercise Wakes up: 4am, Sleeps: 9pm Breakfast: 6am (2 boiled eggs) Lunch: 12pm (steak, tuna, rice) Dinner: 6pm (pasta, rice, beans, chicken, pasta) Snacks: 8pm (peanut butter, sandwich) Exercise: none, has treadmill at job Beverages: Coffee: laurel, Tea: none, Soda: none, Juice: Grape juice, Crystal light, ETOH: none PFSH Medical History (Updated 06/28/25 @ 11:26 by Ga Washburn MD) Morbid obesity Right inguinal pain Family history of colon cancer Throat pain Physical exam History of positive PPD GERD (gastroesophageal reflux disease) Asthma Methadone maintenance therapy patient Surgical History Hx of endoscopy History of esophagogastroduodenoscopy (EGD) Hx of colonoscopy History of umbilical hernia repair History of left inguinal hernia repair Hx of knee surgery Hx of hernia repair Hx of shoulder surgery Family History Father No problems noted. 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 Current occupational exposures/hazards: No Cognitive needs: No Hearing needs: No Vision needs: Yes Telehealth Telehealth Telehealth Platform: Telephone Location of provider rendering services: practice address Location of patient: address on file Patient Identification confirmed using: Name, : Yes Telehealth method: voice only Patient verbally consented to treatment: Yes Patient verbally consented to billing insurance company: Yes Patient informed of any privacy concerns related to visit: Yes Minutes spent on Phone/Video with Pt.: 45 Assessment & Plan Assessment & Plan (1) Morbid obesity: Code(s): E66.01 - Morbid (severe) obesity due to excess calories Category: Medical Plan: 1.? Plan for lap sleeve gastrectomy. If diaphragmatic or ventral hernias are present at time of surgery, these will be repaired laparoscopically as well. I emphasized the importance of close follow-up, adherence to instructions and good communication. The surgery does not replace the need to change your lifestlyle which is the cause of the obesity problem. The surgery provides the motivation to try again to change your lifestyle, it reduces the appetite and make the transition to a better lifestyle easier and doubles the amount of weight you would lose compared to doing the lifestyle change without the surgery. You will need to be on a liquid diet with protein shakes for 2 weeks before surgery to maximize weight loss and boost your nutritional status to recover better from surgery and also for the first two weeks after surgery to let the stomach heal before we introduce other foods. After the first 2 weeks we will introduce protein bars and soft foods like scrambled eggs, cottage cheese and yogurt and after the 6th week will introduce meat, fish and cooked vegetables in small amounts. Over time you should be able to eat everything in small amounts. Side effects like nausea, vomiting, heartburn or abdominal pain are not common in the practice unless you are not following in the practice. This operation requires lifetime commitment to following in our practice and communication with me. You will much less weight and experience side effects if you don?t communicate or not following in the practice. Complications are rare and in our practice is about 1/10 of the national average. However, you can develop bleeding that may require transfusion (hasn?t happened for year in the practice), you may from complications (we did not have any deaths in the practice) and infections. Infections are usually a result of breakdown in communication or not understanding or following directions correctly. They are difficult to treat, they can happen during the first 6 weeks, they may require to be in the hospital for weeks or even months, not being able to eat by mouth and you may have drains and surgeries to try and correct the issue. Other risks and complications include possible conversion to an open procedure, leaks, small bowel obstruction, blood clots, cardiac, or pulmonary complications, as terminologist complications such as ulcers, insufficient weight loss and vitamin deficiencies. 2. Nutritional counseling. Start with one CELEBRATE REBUILD protein (buy online with the link I gave you) shakes (ONE scoop in 8oz low fat unsweetened almond milk) at 5am-7am, 1 protein bar (CELEBRATE protein bars, buy at hospital's gift shop, buy online with the link I gave you) ) at 8am-10am, another CELEBRATE REBUILD protein shakes (ONE scoop in 8oz low fat unsweetened almond milk) at 11am-1pm, another Celebrate protein bar at 2pm-5pm, dinner at 6pm (10 forks of protein and 10 forks of salad/vegetables) AND another HALF protein bar after dinner at 8pm-9pm. So you do 2 protein shakes, 2.5 protein bars and one meal per day. Meal to include lean meat (beef, fish, pork, turkey, chicken), or estonian yogurt, or egg whites, or beans with a salad with olive oil and fruits (berries, pears, apples, kiwi). Avoid salt, breads, potatoes, rice, pasta, desserts. 3. Each shake would be drunk slowly, like coffee in a period of 2 hours. 4. Cut each bar in 4 pieces and eat each piece in 30min ?to make each bar last 2 hours. 5. I emphasized the importance of measuring accurately the food portion and measure it when serving the food in plate 6. The meal portions include 10 full-size forks of meat and 10 full-size forks of salad. You always eat the meat portion but you can replace up to 5 forks for salad/vegetables with rice, potatoes or pasta, or a fruit ?if you like. The less you do it the better weight loss will be. 7. One full-size fork is what it can be scooped on the fork without falling aside and not what can be bit with the fork. Use regular forks like those you find in a typical restaurant. 8.? Please buy the body composition scale we discussed and send me weight measurements as soon as possible and then once a week. Always include your diet and exercise plan. 9. Start treadmill with an incline of 2.0 and speed of 3.0mph. Increase incline by 1 every 3 min to a max incline of 8.0, stay 3min at 8.0 and then return to 2.0 and repeat same steps until calorie goal is met. Goal is to burn 2000 calories per week on exercise, which means 400 calories 5 days per week. 10. The best choice would be to purchase a stationary bike, elliptical or treadmill at home that can track calories. Let me know if you do so I can give you an exercise plan. 11. Goal is to lose at least 1.5-2lbs per week 12. Goal to lose 10% of your weight before surgery, which is about 26lbs. Ultimate weight goal: 230lbs before surgery 13. Please follow the diet plan exactly without any change. If you don't like something about the plan or you feel hungry you need to communicate with me so I can help you revise the plan. You should not change the plan yourself 14. To be scheduled for EGD to assess the stomach's anatomy. The possibility of biopsies was discussed. Patient needs to avoid use of NSAIDs and aspirin for 1 week prior to EGD. You must be on liquids only the day before your endoscopy. Risks of perforation and bleeding was discussed with the patient. This will be an outpatient procedure with IV sedation. Orders: Orders Insulin Today E11.65 - Type 2 diabetes mellitus with hyperglycemia, E66.01 - Morbid (severe) obesity due to excess calories, E78.00 - Pure hypercholesterolemia, unspecified, K21.00 - Gastro-esophageal reflux disease with esophagitis, without bleeding Hemoglobin A1c Today E11.65 - Type 2 diabetes mellitus with hyperglycemia, E66.01 - Morbid (severe) obesity due to excess calories, E78.00 - Pure hypercholesterolemia, unspecified, K21.00 - Gastro-esophageal reflux disease with esophagitis, without bleeding H Pylori Breath Test Today E11.65 - Type 2 diabetes mellitus with hyperglycemia, E66.01 - Morbid (severe) obesity due to excess calories, E78.00 - Pure hypercholesterolemia, unspecified, K21.00 - Gastro-esophageal reflux disease with esophagitis, without bleeding Complete Blood Count Auto Diff Today E11.65 - Type 2 diabetes mellitus with hyperglycemia, E66.01 - Morbid (severe) obesity due to excess calories, E78.00 - Pure hypercholesterolemia, unspecified, K21.00 - Gastro-esophageal reflux disease with esophagitis, without bleeding Comprehensive Met. Panel Today E11.65 - Type 2 diabetes mellitus with hyperglycemia, E66.01 - Morbid (severe) obesity due to excess calories, E78.00 - Pure hypercholesterolemia, unspecified, K21.00 - Gastro-esophageal reflux disease with esophagitis, without bleeding Zinc Today E11.65 - Type 2 diabetes mellitus with hyperglycemia, E66.01 - Morbid (severe) obesity due to excess calories, E78.00 - Pure hypercholesterolemia, unspecified, K21.00 - Gastro-esophageal reflux disease with esophagitis, without bleeding US abdomen comp w elastography Today E11.65 - Type 2 diabetes mellitus with hyperglycemia, E66.01 - Morbid (severe) obesity due to excess calories, E78.00 - Pure hypercholesterolemia, unspecified, K21.00 - Gastro-esophageal reflux disease with esophagitis, without bleeding XR chest 2V Today E11.65 - Type 2 diabetes mellitus with hyperglycemia, E66.01 - Morbid (severe) obesity due to excess calories, E78.00 - Pure hypercholesterolemia, unspecified, K21.00 - Gastro-esophageal reflux disease with esophagitis, without bleeding ECG 12 lead EKG Today E11.65 - Type 2 diabetes mellitus with hyperglycemia, E66.01 - Morbid (severe) obesity due to excess calories, E78.00 - Pure hypercholesterolemia, unspecified, K21.00 - Gastro-esophageal reflux disease with esophagitis, without bleeding Lipid Panel Today E11.65 - Type 2 diabetes mellitus with hyperglycemia, E66.01 - Morbid (severe) obesity due to excess calories, E78.00 - Pure hypercholesterolemia, unspecified, K21.00 - Gastro-esophageal reflux disease with esophagitis, without bleeding IRON PROFILE Today E11.65 - Type 2 diabetes mellitus with hyperglycemia, E66.01 - Morbid (severe) obesity due to excess calories, E78.00 - Pure hypercholesterolemia, unspecified, K21.00 - Gastro-esophageal reflux disease with esophagitis, without bleeding Vitamin B12 and Folate Today E11.65 - Type 2 diabetes mellitus with hyperglycemia, E66.01 - Morbid (severe) obesity due to excess calories, E78.00 - Pure hypercholesterolemia, unspecified, K21.00 - Gastro-esophageal reflux disease with esophagitis, without bleeding C Reactive Protein Today E11.65 - Type 2 diabetes mellitus with hyperglycemia, E66.01 - Morbid (severe) obesity due to excess calories, E78.00 - Pure hypercholesterolemia, unspecified, K21.00 - Gastro-esophageal reflux disease with esophagitis, without bleeding Vitamin B1 Today E11.65 - Type 2 diabetes mellitus with hyperglycemia, E66.01 - Morbid (severe) obesity due to excess calories, E78.00 - Pure hypercholesterolemia, unspecified, K21.00 - Gastro-esophageal reflux disease with esophagitis, without bleeding Vitamin A Today E11.65 - Type 2 diabetes mellitus with hyperglycemia, E66.01 - Morbid (severe) obesity due to excess calories, E78.00 - Pure hypercholesterolemia, unspecified, K21.00 - Gastro-esophageal reflux disease with esophagitis, without bleeding TSH reflex Free T4 Today E11.65 - Type 2 diabetes mellitus with hyperglycemia, E66.01 - Morbid (severe) obesity due to excess calories, E78.00 - Pure hypercholesterolemia, unspecified, K21.00 - Gastro-esophageal reflux disease with esophagitis, without bleeding Ferritin Today E11.65 - Type 2 diabetes mellitus with hyperglycemia, E66.01 - Morbid (severe) obesity due to excess calories, E78.00 - Pure hypercholesterolemia, unspecified, K21.00 - Gastro-esophageal reflux disease with esophagitis, without bleeding Vitamin D 25-OH Total Today E11.65 - Type 2 diabetes mellitus with hyperglycemia, E66.01 - Morbid (severe) obesity due to excess calories, E78.00 - Pure hypercholesterolemia, unspecified, K21.00 - Gastro-esophageal reflux disease with esophagitis, without bleeding FL upper GI w air Today E11.65 - Type 2 diabetes mellitus with hyperglycemia, E66.01 - Morbid (severe) obesity due to excess calories, E78.00 - Pure hyperchol esterolemia, unspecified, K21.00 - Gastro-esophageal reflux disease with esophagitis, without bleeding Referrals Nutrition/Dietitian Referral E11.65 - Type 2 diabetes mellitus with hyperglycemia, E66.01 - Morbid (severe) obesity due to excess calories, E78.00 - Pure hypercholesterolemia, unspecified, K21.00 - Gastro-esophageal reflux disease with esophagitis, without bleeding Behavioral Health Referral E11.65 - Type 2 diabetes mellitus with hyperglycemia, E66.01 - Morbid (severe) obesity due to excess calories, E78.00 - Pure hypercholesterolemia, unspecified, K21.00 - Gastro-esophageal reflux disease with esophagitis, without bleeding
[2025-06-28 11:30] VITALS: BMI 40.1
== END 2025-06-28 11:56 | disposition home or self-care (01) ==
LOC: HO.HBS 08:20
PROVIDERS: PCP Internal Medicine; Visit Provider Surgery
DX: E66.01 Morbid (severe) obesity due to excess calories (principal); Z68.41 Body mass index [BMI] 40.0-44.9, adult
CPT/HCPCS: 98010

== ENCOUNTER 2025-06-29 09:52 | Outpatient (REF) | payer OTHER, SELFPAY ==
--- NOTE | ~2025-06-29 | XR_ITS ---
EXAMINATION: Chest and bilateral knee standing CLINICAL INDICATION: Pain in right knee. COMPARISON: Chest x-ray 01/19/2025. FINDINGS: CHEST: The lungs are expanded and clear acute pneumonic process. There is a vague nodular density seen in the right infrahilar region. Rest lungs are clear. The heart size and pulmonary vascularity is normal. No gross bony abnormality seen. AP bilateral knee standing: There is loss of medial and lateral compartment joint space no bony erosive changes. No loose bodies. No visible fracture or dislocation. The soft tissues are normal. XR/XR chest 2V IMPRESSION: Ill-defined round density right infrahilar region, new since 01/19/2025. Question summation of vessels versus nodule. Recommend CT chest with contrast. Mild degenerative changes medial and lateral compartment both knees on upright weightbearing view. Electronically signed by: Bucky Tim MD 07/01/2025 07:18 AM EST
--- NOTE | ~2025-06-29 | XR_ITS ---
EXAMINATION: Chest and bilateral knee standing CLINICAL INDICATION: Pain in right knee. COMPARISON: Chest x-ray 01/19/2025. FINDINGS: CHEST: The lungs are expanded and clear acute pneumonic process. There is a vague nodular density seen in the right infrahilar region. Rest lungs are clear. The heart size and pulmonary vascularity is normal. No gross bony abnormality seen. AP bilateral knee standing: There is loss of medial and lateral compartment joint space no bony erosive changes. No loose bodies. No visible fracture or dislocation. The soft tissues are normal. XR/XR knee standing BI IMPRESSION: Ill-defined round density right infrahilar region, new since 01/19/2025. Question summation of vessels versus nodule. Recommend CT chest with contrast. Mild degenerative changes medial and lateral compartment both knees on upright weightbearing view. Electronically signed by: Bucky Tim MD 07/01/2025 07:18 AM EST
--- OUTSIDE RECORDS SUMMARY | 2025-06-29 09:57 | XMS_ITS | Clinical Summary ---
Author Organization [facility] Address [address] [place] [address] Care Team Providers Care Pharmacy Graduate Intern Name Role Phone Unavailable Primary Care Provider Unavailabl e Social History Tobacco Use Types Packs/Day Years Used Date Smoking Tobacco: Never Assessed Sex and Gender Information Value Date Recorded Sex Assigned at Not on file Gender Identity Not on file Sexual Orientation Not on file Plan of Treatment Not on file
[2025-06-29 10:15] LABS: MANUAL DIFF FLAG NO
[2025-06-29 10:36] LABS: Hematocrit 43.1 % (42.0-52.0); Hemoglobin 14.3 g/dl (14.0-18.0); Imm Gran Abs Auto 0.03 X10*3/uL (0.00-0.03); Imm Gran Pct Auto 0.4 % (0.0-0.4); Lymphocytes Absolute Auto 2.6 X10*3/uL (1.2-4.9); Mean Corpuscular HGB Conc 33.2 g/dl (31.0-36.0); Mean Corpuscular Hemoglobin 29.5 pg (27.0-33.0); Mean Corpuscular Volume 88.9 fL (80.0-98.0); NRBC Abs Auto 0.000 X10*3/uL (0.0-0.012); NRBC Pct Auto 0.0 /100WBC (0.0-0.2); Platelet Count 278 X10*3/uL (160-400); Red Blood Count 4.85 X10*6/uL (4.60-5.80); White Blood Count 8.5 X10*3/uL (4.8-10.8)
[2025-06-29 11:42] LABS: Alanine Aminotransferase 35 U/L (0-40); Albumin Level 4.2 g/dL (3.5-5.0); Alkaline Phosphatase 111 U/L (39-117); Anion Gap 10 (12-20); Aspartate Amino Transferase 28 U/L (5-37); Blood Urea Nitrogen 14 mg/dL (9-16); Calcium 8.9 mg/dL (8.4-10.2); Carbon Dioxide 27 mmol/L (22-29); Chloride 107 mmol/L (96-108); Cholesterol 221 mg/dL (<200); Estimated Glomerular Filt Rate > 60; HDL Cholesterol 36 mg/dL (>40); Iron 101 mcg/dL (45-160); Percent Iron Saturation 29 % (15-50); Potassium 4.0 mmol/L (3.3-5.1); Sodium 140 mmol/L (135-145); Total Iron Binding Capacity 352 mcg/dL (228-428); Total Protein 7.1 g/dL (6.5-8.0); Triglycerides 164 mg/dL (<150); Unsaturated Iron Binding 251 ug/dL
[2025-06-29 12:05] LABS: Ferritin 46 ng/mL (20-250)
[2025-06-29 12:07] LABS: Folate 6.0 ng/mL (> or = 4.0); Vitamin B12 274 pg/mL (200-900)
== END 2025-06-29 09:53 | disposition home or self-care (01) ==
LOC: HO.LAB 09:52
PROVIDERS: Absent Provider Physician Assistant Medical; PCP Internal Medicine; Referring Provider Internal Medicine; Visit Provider Surgery
DX: M25.561 Pain in right knee (principal); M25.562 Pain in left knee; E66.01 Morbid (severe) obesity due to excess calories; E11.65 Type 2 diabetes mellitus with hyperglycemia; E78.00 Pure hypercholesterolemia, unspecified; K21.00 Gastro-esophageal reflux disease with esophagitis, without bleeding
CPT/HCPCS: 36415; 71046; 73565; 80053; 80061; 82306; 82607; 82728; 82746; 83036; 83525; 83540; 84443; 84630; 85025; 86140

== ENCOUNTER → 2025-06-29 10:15 | Outpatient (BNV) | payer OTHER, SELFPAY | PROVIDERS: Absent Provider Physician Assistant Medical; PCP Internal Medicine; Referring Provider Internal Medicine; Visit Provider Radiology Diagnostic Radiology | DX: R91.8 Other nonspecific abnormal finding of lung field (principal); M17.0 Bilateral primary osteoarthritis of knee | CPT/HCPCS: 71046; 73565 ==

== ENCOUNTER → 2025-07-02 09:43 | Outpatient (REF) | payer OTHER, SELFPAY ==
--- NOTE | 2025-07-02 09:51 | ECG_ITS ---
Test Reason : E66.01 Blood Pressure : */* mmHG Vent. Rate : 73 BPM Atrial Rate : 73 BPM P-R Int : 142 ms QRS Dur : 80 ms QT Int : 392 ms P-R-T Axes : 54 -17 12 degrees QTcB Int : 431 ms Normal sinus rhythm Normal ECG When compared with ECG of 05-Jan-2025 22:06, No significant change was found Referred By: Ga Washburn Electronically Signed By: RICARDO LANG MD
== END ==
LOC: HO.CARD 09:43
PROVIDERS: PCP Internal Medicine; Visit Provider Surgery
DX: E66.01 Morbid (severe) obesity due to excess calories (principal); E11.65 Type 2 diabetes mellitus with hyperglycemia; E78.00 Pure hypercholesterolemia, unspecified; K21.00 Gastro-esophageal reflux disease with esophagitis, without bleeding
CPT/HCPCS: 93005

== ENCOUNTER → 2025-07-02 09:51 | Outpatient (BNV) | payer OTHER, SELFPAY | PROVIDERS: PCP Internal Medicine; Visit Provider Internal Medicine Cardiovascular Disease | DX: E66.01 Morbid (severe) obesity due to excess calories (principal); Z68.41 Body mass index [BMI] 40.0-44.9, adult | CPT/HCPCS: 93010 ==

== ENCOUNTER 2025-07-09 10:06 | Outpatient (AMB) | payer OTHER, SELFPAY ==
[2025-07-09 10:13] VITALS: BP 130/82; PULSE 85; TEMP 36.4; O2SAT 96; BMI 39.6
--- NOTE | 2025-07-09 10:13 | A.OFFPC_ITS ---
Vital Signs 07/09/25 10:13 Height 5 ft 7 in Weight 253 lb 2 oz BMI 39.6 BP 130/82 Blood Pressure Location Lt brachial Position Sitting Pulse 85 Pulse Source Pulse Oximeter Temp 97.5 F Temp Source Temporal Artery Scan Pulse Oximetry (%) 96 Oxygen Delivery Method Room Air Intake Visit Reasons: Follow Up Allergies shellfish derived Allergy (Severe, Verified 07/04/25 16:29) Anaphylaxis Tobacco use date assessed: 07/09/25 Dental Screening Dental Screen Date: 07/09/25 Did you have a dental visit in the last 12 months?: No Did you have a dental problem in the last 6 months where you did not have access to dental care?: No Was dental information given to patient?: No HPI HPI Comments History of Present Illness Details History of Present Illness The patient is a 50-year-old male presenting for a follow-up visit after last being seen in February. His medical history includes polysubstance abuse, for which he is on methadone maintenance therapy, gastroesophageal reflux disease (GERD), severe persistent asthma, diabetes mellitus, and hypercholesterolemia. An upper endoscopy and colonoscopy were performed on May 03. The endoscopy revealed antral gastritis with varices, and the colonoscopy found a sessile tubular adenoma. A repeat colonoscopy is recommended in 5 years due to a family history of colon cancer. Blood work from June 29 was notable for a normal blood count with no anemia, normal electrolytes, and normal renal function. His blood sugar was 140 mg/dL, and his hemoglobin A1c was 6.5%. LDL cholesterol was 153 mg/dL, while iron, liver function, vitamin D, folic acid, and thyroid levels were all within normal limits. The patient has been seen by neurology, and a sleep study has been requested. Health Maintenance - A colonoscopy was performed on , which revealed a sessile tubular adenoma; a repeat colonoscopy is recommended in 5 years due to family history. - An upper endoscopy on May 03Tue antral gastritis with varices. - The patient has been seen by neurology , and a sleep study has been requested. - The patient is taking Mounjaro for emilia betes and weight management. Social History - Substance Use: History of polysubstanc e abuse, currently on methadone maintenance therapy. - Smoking: The patient is on an anti-smo ed regimen. - Diet and Exercise: The patient has bee n advised on diet and exercise for cholesterol management and counseled to eat healthy and stay active. Results - Labs from June 29: - Complete blood count: Normal, no anemi a. - Electrolytes: Normal. - Renal function: Normal. - Blood sugar: 140 mg/dL. - Hemoglobin A1c: 6.5%. - Iron, liver function, vitamin D, folic acid, and thyroid studies: Within normal limits. - LDL cholesterol: 153 mg/dL. - Procedures from May 03: - Upper endoscopy: Showed antral gastrit is with varices. - Colonoscopy: Showed a sessile tubular adenoma. [facility] Medical History Vitamin B12 deficiency Morbid obesity Right inguinal pain Family history of colon cancer Throat pain Physical exam History of positive PPD GERD (gastroesophageal reflux disease) Asthma Methadone maintenance therapy patient Surgical History Hx of endoscopy History of esophagogastroduodenoscopy (EGD) Hx of colonoscopy History of umbilical hernia repair History of left inguinal hernia repair Hx of knee surgery Hx of hernia repair Hx of shoulder surgery Family History Father No problems noted. 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 1. Little interest or pleasure in doing things: not at all 2. Feeling down, depressed, or hopeless: not at all 3. Trouble falling or staying asleep, or sleeping too much: not at all 4. Feeling tired or having little energy: not at all 5. Poor appetite or overeating: not at all 6. Feeling bad about yourself - or that you are a failure or have let yourself or your family down: not at all 7. Trouble concentrating on things, such as reading the newspaper or watching television: not at all 8. Moving or speaking so slowly that other people could have noticed. Or the opposite - being so fidgety or restless that you have been moving around a lot more than usual: not at all 9. Thoughts that you would be better off or of hurting yourself in some way: not at all Total score: 0 Source: Developed by Drs. Jean Pierre Flynn, Kailee Sanderson, Dayday Cueto and colleagues, with an educational ten from [employer]. Thrive Questionnaire Date Thrive assessed: 03/14/25 I am a: Patient What is your living situation today?: I choose not to answer this question Within the past 12 months, did the food you bought not last and you didn't have the money to get more?: I choose not to answer this question Within the past 12 months, did you worry whether your food would run out before you got money to buy more?: I choose not to answer this question Do you have trouble paying for medicines?: I choose not to answer this question Do you have trouble getting transportation to medical appointments?: I choose not to answer this question Do you have trouble paying your heating and electricity bill?: I choose not to answer this question Do you have trouble taking care of your child, family member or friend?: I choose not to answer this question Do you have trouble with day-to-day activities such as bathing, preparing meals, shopping, managing finances, etc.?: I choose not to answer this question Are you currently unemployed and looking for a job?: I choose not to answer this question Are you interested in more education?: I choose not to answer this question Please select the resources that you would like help with: None Currently or been in a relationship where the following occur: I choose not to answer THRIVE Score: 0 AUDIT C Alcohol Use Questionnaire (AUDIT-C) 1. How often do you have a drink containing alcohol?: Never 3. How often do you have six or more drinks on one occasion?: Never Total Score: 0 CELSO-7 AMB Questionnaire CELSO-7 Date CELSO - 7 assessed: 09/04/24 Feeling nervous, anxious, or on edge: 0 = Not at all Not being able to stop or control worryin = Not at all Worrying too much about different things: 0 = Not at all Trouble relaxin = Not at all Being so restless that it is hard to sit still: 0 = Not at all Becoming easily annoyed or irritable: 0 = Not at all Feeling afraid as if something awful might happen: 0 = Not at all Total CELSO-7 score (0-4 normal; 5-9 mild; 10-14 moderate; 15-21 severe): 0 Source: Developed by Drs. Jean Pierre lFynn, Kailee Sanderson, Dayday Cueto and colleagues, with an educational ten from [employer]. Review of Systems Narrative Review of Systems Physical exam (Primary Care) Vital Signs: Last Vital Signs Temp 97.5 F 07/09/25 10:13 Pulse 85 07/09/25 10:13 BP 130/82 07/09/25 10:13 Pulse Ox 96 07/09/25 10:13 Oxygen Delivery Method Room Air 07/09/25 10:13 BMI result Body Mass Index 39.6 Tobacco/Smoking Status: Tobacco use Status Tobacco use date assessed 07/09/25 07/09/25 10:17 Patient Tobacco Use Status Never used Tobacco 07/09/25 10:17 Tobacco use type Cigarette 07/09/25 10:17 e-Cigarette/Vaping Use Never Used 07/09/25 10:17 PHQ-9: PHQ-9 Score PHQ-9: Total score 0 07/09/25 10:19 Thrive Assessment: Date of Thrive Assessment Date Thrive assessed 03/14/25 07/09/25 10:17 Currently or been in a relationship where the following occur: I choose not to answer Narrative Physical Exam Const General: alert; No acute distress Eyes Conjunctivae: conjunctivae normal Resp Auscultation: clear to auscultation bilaterally Cardio Rate: regular rate Rhythm: regular rhythm GI Inspection: Yes normal to inspection Extrem General: Yes normal to inspection and No edema Coding Level of Care Code Est Pt Level 4 (39083) Complex EM visit Add On G2211 Diagnoses Type 2 diabetes mellitus with hyperglycemia E11.65 Hypercholesterolemia E78.00 Morbid obesity E66.01 Gastroesophageal reflux disease with esophagitis without hemorrhage K21.00 Esophagitis bleeding: without hemorrhage Esophagitis presence: with esophagitis Asthma J45.909 Excessive daytime sleepiness G47.19 Assessment & Plan Assessment & Plan (1) Type 2 diabetes mellitus with hyperglycemia: Code(s): E11.65 - Type 2 diabetes mellitus with hyperglycemia Category: Medical Plan: Decrease the amount of carbohydrate intake, pasta, bread, rice and potatoes are all sugar and that is aside from all the sweet stuff, remember that fruits are good but they are Sweet also. Hemoglobin A1c goal of less than 6.5. Patient has been placed on Mounjaro for the diabetes and weight loss (2) Hypercholesterolemia: Code(s): E78.00 - Pure hypercholesterolemia, unspecified Category: Medical Plan: Avoid fried foods, chicken skin, eggs, butter margarine, pastries and meat. Be it pork or beef they have a lot of cholesterol LDL goal of less than 100 and triglyceride of less than 150 patient not on any medication yet (3) Morbid obesity: Code(s): E66.01 - Morbid (severe) obesity due to excess calories Category: Medical Plan: Diet and exercise (4) GERD (gastroesophageal reflux disease): Code(s): K21.9 - Gastro-esophageal reflux disease without esophagitis Category: Medical Qualifiers: Esophagitis bleeding: without hemorrhage Esophagitis presence: with es ophagitis Qualified Code(s): K21.00 - Gastro-esophageal reflux disease with esophagitis, without bleeding Plan: Avoid the foods that causes that usually spicy foods, tomato products, juices, coffee, soda and foods that your sensitive to. After eating do not lie down, allow 3-4 hours before in lie down. And keep the head of bed above 30 degrees to avoid the acid from going up. (5) Asthma: Code(s): J45.909 - Unspecified asthma, uncomplicated Category: Medical Plan: Patient is on Symbicort and albuterol (6) Excessive daytime sleepiness: Code(s): G47.19 - Other hypersomnia Category: Medical Plan: Patient has been seen by Neurology and sleep study requested Plan Plan Patient was informed and verbally consented to the use of an ambient scribe for clinic note documentation during this visit. 1. Diabetes Mellitus The patient's hemoglobin A1c is 6.5%, meeting the goal of less than 6.5%. He has been placed on Mounjaro for management of diabetes and for weight loss. 2. Hypercholesterolemia The patient's LDL cholesterol is 153 mg/dL, with a goal of less than 100 mg/dL. He is not on any medication at this time, and management will focus on diet and exercise. 3. Severe Persistent Asthma The patient will continue using Symbicort and albuterol for management. 4. Gastroesophageal Reflux Disease The plan includes continuing the current PPI for reflux management. 5. Sleep Disorder Following a neurology consultation, a sleep study has been requested to evaluate for a sleep disorder. 6. Colon Cancer Screening A sessile tubular adenoma was found on the recent colonoscopy. A repeat colonoscopy is recommended in 5 years due to family history. Discussion Notes I advised the patient to maintain adequate fluid intake, eat a healthy diet, and stay physically active. We discussed that the prescribed Mounjaro is a starting dose and that he should call the office monthly for follow-up and potential dose adjustments. Patient Instructions - Drink plenty of fluids, eat a healthy diet, and keep yourself active. - The Mounjaro medication you received is a starting dose. - Please call our office once a month to check in so we can see how you are doing on the medication. Orders: Orders Comprehensive Met. Panel 3 Months E78.00 - Pure hypercholesterolemia, unspecified Hemoglobin A1c 3 Months E78.00 - Pure hypercholesterolemia, unspecified Lipid Panel 3 Months E78.00 - Pure hypercholesterolemia, unspecified Medications: New rosuvastatin 5 mg PO DAILY 30 tabs 3RF E78.00 - Pure hypercholesterolemia, unspecified
== END 2025-07-09 11:30 | disposition home or self-care (01) ==
LOC: HO.HMCH 10:07
PROVIDERS: PCP Internal Medicine; Visit Provider Internal Medicine
DX: E11.65 Type 2 diabetes mellitus with hyperglycemia (principal); E78.00 Pure hypercholesterolemia, unspecified; E66.01 Morbid (severe) obesity due to excess calories; K21.00 Gastro-esophageal reflux disease with esophagitis, without bleeding; J45.909 Unspecified asthma, uncomplicated; G47.19 Other hypersomnia; Z68.39 Body mass index [BMI] 39.0-39.9, adult

== ENCOUNTER 2025-07-12 12:19 | Outpatient (AMB) | payer OTHER, SELFPAY ==
--- NOTE | 2025-07-12 12:05 | MHC.WMTHER ---
Intake Intake Visit Reasons: VIDEO BH Intake Allergies shellfish derived Allergy (Severe, Verified 07/04/25 16:29) Anaphylaxis PFSH Medical History Vitamin B12 deficiency Morbid obesity Right inguinal pain Family history of colon cancer Throat pain Physical exam History of positive PPD GERD (gastroesophageal reflux disease) Asthma Methadone maintenance therapy patient Surgical History (Updated 07/10/25 @ 14:07 by Selena Rivera) Hx of endoscopy History of esophagogastroduodenoscopy (EGD) (~07/10/25) Hx of colonoscopy History of umbilical hernia repair History of left inguinal hernia repair Hx of knee surgery Hx of hernia repair Hx of shoulder surgery Family History Father No problems noted. 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 He was referred to the program by the sleep medicine clinic. Presenting Concerns Referral Source WMP-Provider Reason for referral Completion of behavioral health assessment as part of process for weight-loss surgery. Precipitating Event Obesity Living Situation Current Living Situation Rent At risk of losing current housing? No Satisfied with current living situation? Yes Comments PT lives with his . Social History Family history and relationship PT has been for about 15 years. He has an adult daughter who is 24 y/o. Father alive, mother , has 1 sibling alive, another . PT reports good family relationships. 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 Developmental history and status Was in special Ed class, had hyperactivity in childhood. Currently WNL. Social support , brother. Community support None. Worship/Spirituality Raised bahai but doesn't practice. Cultural/Ethnic information Legal Involvement and History Current or historical involvement with the legal system? None reported. Education Highest grade completed 9th grade. Preferred learning style Learn by doing Currently enrolled in educational program? No Interested in further educational program? 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 No Meaningful activities cars Financial Situation Describe current financial situation Comfortable Financial assistance? None Service Service? No Mental Health and Addiction Treatment Current/Past substance abuse? Yes Comments Alcohol: around holidays or special occasions. 4-5 drinks. Cigarettes/Tobacco: none Cannabis/Edibles: none Pt had 3 surgeries and was given pain killers, then he had issues sttoping them and got into methadone Treatment for over a year and ended the program about 3 years ago. Current/Past addictive behavior concerns? No Psychiatric history The patient received behavioral health treatment during childhood and was prescribed Ritalin. He also participated in substance use counseling while undergoing medication-assisted treatment with methadone. He denies any history of psychiatric hospitalization or mental health crises. Medical and Physical Health Summary Additional Medical History not covered in history None aditional. Sexual History concerns None reported. Physical exam in the last year? Yes Pain Screening Current pain? No Pain in the last few months? No Medications Is the patient compliant with medications? Yes Does the patient have Macedo Guardian in place? Not applicable Does the patient use complimentary health approaches? No Trauma/Abuse History History of trauma? No Questionnaires PHQ-9 Over the last 2 weeks, how often have you been bothered by any of the following problems? 1. Little interest or pleasure in doing things: more than half the days 2. Feeling down, depressed, or hopeless: more than half the days 3. Trouble falling or staying asleep, or sleeping too much: more than half the days 4. Feeling tired or having little energy: more than half the days 5. Poor appetite or overeating: more than half the days 6. Feeling bad about yourself - or that you are a failure or have let yourself or your family down: more than half the days 7. Trouble concentrating on things, such as reading the newspaper or watching television: more than half the days 8. Moving or speaking so slowly that other people could have noticed. Or the opposite - being so fidgety or restless that you have been moving around a lot more than usual: more than half the days 9. Thoughts that you would be better off or of hurting yourself in some way: more than half the days Total score: 18 Depression Screening Interpretation: Positive (From 06/25/2025) Depression Screening Done: Yes Source: Developed by Drs. Jean Pierre Flynn, Kailee Sanderson, Dayday Cueto and colleagues, with an educational ten from [employer]. Binge Eating Scale Group 2 A. I don't have any difficulty eating slowly in the proper manner. B. Although I seem to gobble down foods, I don't end up feeling stuffed because of eating to much. C. At times, I tend to eat quickly and then, I feel uncomfortably full afterwards. D. I have the habit of bolting down my food, without really chewing it. When this happens I usually feel uncomfortably stuffed because I've eaten to much. Response Group 2: A Group 3 A. I feel capable to control my eating urges when I want to. B. I feel like I have failed to control my eating more than the average person. C. I feel utterly helpless when it comes to feeling in control of my eating urges. D. Because I feel so helpless about controlling my eating I have become very desperate about trying to get control. Response Group 3: B Group 8 A. I rarely eat so much food that I feel uncomfortably stuffed afterwards. B. Usually about once a month, I each such a quantity of food, I end up feeling very stuffed. C. I have regular periods during the month when I eat large amounts of food, either at mealtime or at snacks. D. I eat so much food that I regularly feel quite uncomfortable after eating and sometimes a bit nauseous. Response Group 8: B Binge Eating Score: 2 (PT missed several questions, we will attempt to complete this at next visit. ) Score less than 17 Minimal Risk Score between 18-26 Moderate Risk Score between 27-46 High Risk Assessment & Plan Assessment & Plan (1) Adjustment disorder: Code(s): F43.20 - Adjustment disorder, unspecified Qualifiers: Adjustment disorder type: unspecified type Qualified Code(s): F43.20 - Adjustment disorder, unspecified (2) History of methadone use: Code(s): F11.91 - Opioid use, unspecified, in remission (3) Pre-bariatric surgery psychological evaluation: Code(s): Z71.89 - Other specified counseling Plan The patient was not cleared today as the assessment was not completed. The patient will return in 2-4 weeks to continue the evaluation. Next appointment: 08/19/25 12:00 pm via Telehealth. Telehealth Telehealth Telehealth Platform: [facility] Location of provider rendering services: practice address Location of patient: address on file Patient Identification confirmed using: Name, : Yes Telehealth method: video Patient verbally consented to treatment: Yes Patient verbally consented to billing insurance company: Yes Patient informed of any privacy concerns related to visit: Yes Minutes spent on Phone/Video with Pt.: 40 [place] [address] Tele Psy Diag Eval Patient Type New Diagnoses Adjustment disorder, unspecified type F43.20 Adjustment disorder type: unspecified type History of methadone use F11.91 Pre-bariatric surgery psychological evaluation Z71.89 Time Spent (min) 40
--- OUTSIDE RECORDS SUMMARY | 2025-07-12 12:47 | XMS_ITS | Clinical Summary ---
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
== END 2025-07-12 13:09 | disposition home or self-care (01) ==
LOC: HO.HBST 12:19
PROVIDERS: PCP Internal Medicine; Visit Provider Counselor Mental Health
DX: F43.20 Adjustment disorder, unspecified (principal); F11.91 Opioid use, unspecified, in remission; Z71.89 Other specified counseling
CPT/HCPCS: 90791

== ENCOUNTER 2025-07-26 15:40 | Outpatient (AMB) | payer OTHER, SELFPAY ==
[2025-07-26 15:50] VITALS: BP 100/63; PULSE 87; BMI 37.7
--- NOTE | 2025-07-26 15:50 | MHC.OFFVIS ---
Vital Signs 07/26/25 15:50 Height 5 ft 7 in Weight 241 lb BMI 37.7 BP 100/63 Blood Pressure Location Lt brachial Position Sitting Pulse 87 Intake Visit Reasons: s/p egd colo Intake Note: Patient follow up for EGD/Colonoscopy and BS results Patient denies any other GI issues. Freight Checker Required: No Accompanied by: Self / Same As Patient Allergies shellfish derived Allergy (Severe, Verified 07/26/25 15:49) Anaphylaxis HPI HPI s/p egd colo: Details: Patient is a 49-year-old male with PMH of asthma and GERD. F/u for EGD and colonoscopy performed 05-03-2025. Pt states reflux sx are stable and well controlled on current PPI regimen. No dysphagia, odynophagia, melena, hematemesis, or significant abdominal pain reported. Denies need for med refill. No changes in bowel habits; BM regular without constipation or diarrhea. No interim hospitalizations, flares, or urgent care visits. No new alarm features discussed. [facility] Medical History (Updated 07/26/25 @ 16:13 by Swetha Concepcion CNP) Vitamin B12 deficiency Morbid obesity Right inguinal pain Family history of colon cancer Throat pain Physical exam History of positive PPD GERD (gastroesophageal reflux disease) Asthma Methadone maintenance therapy patient Surgical History Hx of endoscopy History of esophagogastroduodenoscopy (EGD) (~07/10/25) Hx of colonoscopy History of umbilical hernia repair History of left inguinal hernia repair Hx of knee surgery Hx of hernia repair Hx of shoulder surgery Family History Father No problems noted. 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 Current occupational exposures/hazards: No Cognitive needs: No Hearing needs: No Vision needs: Yes Review of Systems Const Reports as per [facility] ENT Reports as per [facility] Card Reports as per [facility] Resp Reports as per [facility] GI Reports as per [facility] Reports as per [facility] Physical Exam Vital Signs: Last Vital Signs Pulse 87 07/26/25 15:50 BP 100/63 07/26/25 15:50 BMI result Body Mass Index 37.7 Const General: healthy appearing, no acute distress and well developed Nutritional Appearance: average body habitus Orientation/consciousness: patient oriented x3 HEENT Head: Yes normal to inspection, Yes normocephalic and Yes atraumatic Face and sinus: Yes normal facial exam Eyes General: appearance normal, both eyes and all related structures Neck Neck: Yes normal visual inspection Resp Effort & Inspection: normal respiratory effort, able to speak in complete sentences, no tracheal deviation and symmetric chest movement Cardio Jugular venous distension: no JVD GI Inspection: Yes obesity Neuro General: patient oriented x3 Gait exam (Neuro): Normal gait present Psych Appearance: grossly normal Mental Status: mental status grossly normal Speech and movement: Normal speech and movement present Affect: normal affect Attitude: cooperative Thought process: Normal thought process present Thought content: Normal thought content present Insight: Good insight present (Psych) Judgement: Good judgement present (Psych) Assessment & Plan Assessment & Plan (1) GERD (gastroesophageal reflux disease): Comment: 05/03/25 EGD - esophagitis, Normal stomach and duodenum, Hiatal hernia, r/o Clement's Code(s): K21.9 - Gastro-esophageal reflux disease without esophagitis Category: Medical Qualifiers: Esophagitis presence: with esophagitis Esophagitis bleeding: without hemorrhage Qualified Code(s): K21.00 - Gastro-esophageal reflux disease with esophagitis, without bleeding Plan: Stable, sx well controlled on esomeprazole. Rationale: Pt denies breakthrough sx; PPI effective. Additional testing: None indicated at this time. Medications: Continue esomeprazole per existing regimen. Lifestyle: Reinforce avoiding added sugars, maintaining healthy weight, upright posture after eating; avoid late evening meals. Referrals: None at present; advise pt on possibility of surgical referral (gen surg) if refractory sx. F/u: Routine GI f/u in 6 mo or PRN for sx recurrence. (2) Diverticulosis of colon: Comment: 05/03/25 colonoscopy complete with adequate prep-Normal colon mucosa, Diverticulosis, Internal and external hemorrhoids. Recommendation for repeat in 5 years due to family history. Code(s): K57.30 - Diverticulosis of large intestine without perforation or abscess without bleeding Category: Medical Plan: CRC Screening up to date with colonoscopy ; no concerning findings. Asymptomatic. Rationale: No abd pain, change in BM, or bleeding. Additional testing: None indicated unless sx arise. Medications: None required. Lifestyle: Maintain high fiber diet, regular intake of fermented/probiotic foods, hydration encouraged, minimize processed/added sugars. Educational Materials: Provided dietary recs re: diverticulosis; discussed probiotic food options. Referrals: None indicated. F/u: Colonoscopy in 5 yrs unless new sx; routine GI f/u in 6 mo. Plan Follow-up in 6 months or sooner as needed Time: I spent a total of 20 minutes on the date of encounter which includes: Preparing to see the patient (reviewed previous documentation, test results and medical history) Performing a medically appropriate exam and/or evaluation Ordering medications, tests, and procedures Documenting clinical information in the health record Coding Level of Care Code Established Pt Est Pt Level 3 (50836) Patient Type Established Diagnoses Gastroesophageal reflux disease with esophagitis without hemorrhage K21.00 Esophagitis presence: with esophagitis Esophagitis bleeding: without hemorrhage Diverticulosis of colon K57.30
--- OUTSIDE RECORDS SUMMARY | 2025-07-26 19:37 | XMS_ITS | Clinical Summary ---
Author Organization [facility] Prior to 01/19/25 Address [address] [place] [address] Care Team Providers Care Lease Attendant Name Role Phone Unavailable Primary Care Provider Unavailabl e Social History Tobacco Use Types Packs/Day Years Used Date Smoking Tobacco: Never Assessed Sex and Gender Information Value Date Recorded Sex Assigned at Not on file Gender Identity Not on file Sexual Orientation Not on file Plan of Treatment Not on file
== END 2025-07-26 16:08 | disposition home or self-care (01) ==
LOC: HO.HGI 15:41
PROVIDERS: PCP Internal Medicine; Visit Provider Nurse Practitioner Family
DX: K21.00 Gastro-esophageal reflux disease with esophagitis, without bleeding (principal); K57.30 Diverticulosis of large intestine without perforation or abscess without bleeding
CPT/HCPCS: 99213

== ENCOUNTER 2025-08-14 14:34 | Outpatient (REF) | payer OTHER, SELFPAY ==
--- NOTE | ~2025-08-14 | CT_ITS ---
CLINICAL HISTORY: R91.1 - Solitary pulmonary nodule CT chest with contrast Comparison: None provided Findings: The heart size is normal. The visualized thyroid and mediastinum are unremarkable. Biapical scarring. There is some irregular consolidation in the medial aspect of the left upper lobe, possibly infectious or inflammatory. There is a 2 mm nodule along the fissure in the right lower lobe most consistent with an intrapulmonary lymph node. Trachea and central bronchi are patent. The visualized upper abdomen is unremarkable. The bones are intact. IMPRESSION: 1. Biapical scarring with some indeterminate consolidation in the anterior left upper lobe which may be infectious or inflammatory no suspicious nodules or masses. 2. No dense consolidation, effusion or pneumothorax. This document has been electronically signed by: Rox Angela MD on 08/16/2025 08:35:56
--- OUTSIDE RECORDS SUMMARY | 2025-08-14 14:37 | XMS_ITS | Clinical Summary ---
Author Organization [email or web address] Prior to 01/19/25 Address [address] [place] [address] Care Team Providers Care Software Development Project Manager Name Role Phone Unavailable Primary Care Provider Unavailabl e Social History Tobacco Use Types Packs/Day Years Used Date Smoking Tobacco: Never Assessed Sex and Gender Information Value Date Recorded Sex Assigned at Not on file Gender Identity Not on file Sexual Orientation Not on file Plan of Treatment Not on file
[2025-08-14 14:50] LABS: MANUAL DIFF FLAG NO
[2025-08-14 15:09] LABS: Hematocrit 40.3 % (42.0-52.0); Hemoglobin 13.6 g/dl (14.0-18.0); Imm Gran Abs Auto 0.03 X10*3/uL (0.00-0.03); Imm Gran Pct Auto 0.3 % (0.0-0.4); Lymphocytes Absolute Auto 2.5 X10*3/uL (1.2-4.9); Mean Corpuscular HGB Conc 33.7 g/dl (31.0-36.0); Mean Corpuscular Hemoglobin 29.8 pg (27.0-33.0); Mean Corpuscular Volume 88.4 fL (80.0-98.0); NRBC Abs Auto 0.000 X10*3/uL (0.0-0.012); NRBC Pct Auto 0.0 /100WBC (0.0-0.2); Platelet Count 270 X10*3/uL (160-400); Red Blood Count 4.56 X10*6/uL (4.60-5.80); White Blood Count 9.2 X10*3/uL (4.8-10.8)
[2025-08-14 15:27] LABS: Hemoglobin A1C 95.0018 umol/L
[2025-08-14 16:27] LABS: Alanine Aminotransferase 63 U/L (0-40); Albumin Level 4.4 g/dL (3.5-5.0); Alkaline Phosphatase 115 U/L (39-117); Anion Gap 12 (12-20); Aspartate Amino Transferase 49 U/L (5-37); Blood Urea Nitrogen 19 mg/dL (9-16); Calcium 9.4 mg/dL (8.4-10.2); Carbon Dioxide 25 mmol/L (22-29); Chloride 108 mmol/L (96-108); Cholesterol 209 mg/dL (<200); Estimated Glomerular Filt Rate > 60; Ferritin 63 ng/mL (20-250); HDL Cholesterol 33 mg/dL (>40); Iron 54 mcg/dL (45-160); Percent Iron Saturation 16 % (15-50); Potassium 3.8 mmol/L (3.3-5.1); Sodium 141 mmol/L (135-145); Total Iron Binding Capacity 343 mcg/dL (228-428); Total Protein 7.2 g/dL (6.5-8.0); Triglycerides 185 mg/dL (<150); Unsaturated Iron Binding 289 ug/dL
[2025-08-14 16:41] LABS: Folate 7.1 ng/mL (> or = 4.0); Vitamin B12 330 pg/mL (200-900)
[2025-08-14] MEDS: iohexoL 350 MG/ML 100 ML INFUS..BTL IV (17:39)
== END 2025-08-14 14:35 | disposition home or self-care (01) ==
LOC: HO.XRAY 14:34
PROVIDERS: PCP Internal Medicine; Visit Provider Surgery
DX: E11.65 Type 2 diabetes mellitus with hyperglycemia (principal); E66.9 Obesity, unspecified; E78.00 Pure hypercholesterolemia, unspecified; R91.1 Solitary pulmonary nodule; Z13.21 Encounter for screening for nutritional disorder
CPT/HCPCS: 36415; 71260; 80053; 80061; 82306; 82607; 82728; 82746; 83036; 83525; 83540; 84425; 84443; 84590; 84630; 85025; 86140; Q9967

== ENCOUNTER → 2025-08-14 14:53 | Outpatient (BNV) | payer OTHER, SELFPAY | PROVIDERS: PCP Internal Medicine; Visit Provider Radiology Diagnostic Radiology | DX: R91.1 Solitary pulmonary nodule (principal) | CPT/HCPCS: 71260 ==

== ENCOUNTER 2025-08-19 12:22 | Outpatient (AMB) | payer OTHER, SELFPAY ==
--- NOTE | 2025-08-19 12:13 | MHC.WMTHER ---
Intake Intake Visit Reasons: VIDEO BH Intake Part 2 Allergies shellfish derived Allergy (Severe, Verified 07/26/25 15:49) Anaphylaxis [facility] Medical History (Updated 08/08/25 @ 19:45 by Ga Washburn MD) BMI 36.0-36.9,adult Vitamin B12 deficiency Morbid obesity Right inguinal pain Family history of colon cancer Throat pain Physical exam History of positive PPD GERD (gastroesophageal reflux disease) Asthma Methadone maintenance therapy patient Surgical History Hx of endoscopy History of esophagogastroduodenoscopy (EGD) (~07/10/25) Hx of colonoscopy History of umbilical hernia repair History of left inguinal hernia repair Hx of knee surgery Hx of hernia repair Hx of shoulder surgery Family History Father No problems noted. 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 He was referred to the program by the sleep medicine clinic. Presenting Concerns Referral Source WMP-Provider Reason for referral Completion of behavioral health assessment as part of process for weight-loss surgery. Precipitating Event Obesity Living Situation Current Living Situation Rent At risk of losing current housing? No Satisfied with current living situation? Yes Comments PT lives with his . Food/Weight/Diet Expectations of change Pt started the program in June at 256Lbs and reported a weight of 236Lbs on 08/13/25. The initial goal is to lose 10% of your weight before surgery, which is about 26lbs. Ultimate weight goal: 230lbs before surgery Pt would like to be at a healthy weight. PT is implementing the following: Current meal plan: 2 protein shakes, 2.5 protein bars and one meal per day. Exercise plan: gym - treadmill plan. scale: yes Communication: weekly every Tuesday. History/Relationship with food PT reports he enjoys eating and going to food-related activities. Before started the program he would ear bigger portions, multiple carbs in a meal. PT denies any stress/emotional eating tendencies. Example of meals before starting the program: Breakfast: 6am (Cantu's breakfast: pancakes, eggs, sausage) Lunch: 12pm (steak, tuna, rice) Dinner: 6pm (pasta, rice, beans, chicken, pasta) Snacks: multiple at day when working and then at home at 8pm (peanut butter, sandwich, cookies) Beverages: Coffee: none, Tea: none, Soda: 1 can at day, Juice: Grape juice, Crystal light, ETOH: none History/Relationship with weight Pt denies being overweight in childhood. He started gaining weight in his 30's. Recalls his lowest at 160Lbs at the age. In the last 10 years, the patient's Lowest weight was 192Lbs and highest 256Lbs History/Relationship with dieting None. Binge Eating Do you frequently eat large amounts of food in short periods of time, not feeling physically hungry? No Do you feel out of control when you eat a large amount of food in a short period of time? No Do you eat large amounts of food rapidly and typically alone? No Night Eating Do you wake up at least once during the night to eat? Yes If you wake up in the night, do you find that it is necessary to eat something in order to fall back asleep? No Do you have little or no appetite in the morning and feel very hungry in the evening, often overeating between dinner and when you go to bed? No Social History Family history and relationship PT has been for about 15 years. He has an adult daughter who is 24 y/o. Father alive, mother , has 1 sibling alive, another . PT reports good family relationships. Parental/Familial associate manager obligations None. Developmental history and status Was in special Ed class, had hyperactivity in childhood. Currently WNL. Social support , brother. Community support None. Samaritan/Spirituality Raised mandaen but doesn't practice. Cultural/Ethnic information Legal Involvement and History Current or historical involvement with the legal system? None reported. Education Highest grade completed 9th grade. Preferred learning style Learn by doing Currently enrolled in educational program? No Interested in further educational program? 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 No Meaningful activities cars Financial Situation Describe current financial situation Comfortable Financial assistance? None Service Service? No Mental Health and Addiction Treatment Current/Past substance abuse? Yes Comments Alcohol: around holidays or special occasions. 4-5 drinks. Cigarettes/Tobacco: none Cannabis/Edibles: none Pt had 3 surgeries and was given pain killers, then he had issues sttoping them and got into methadone Treatment for over a year and ended the program about 3 years ago. Current/Past addictive behavior concerns? No Psychiatric history The patient received behavioral health treatment during childhood and was prescribed Ritalin. He also participated in substance use counseling while undergoing medication-assisted treatment with methadone. He denies any history of psychiatric hospitalization or mental health crises. Medical and Physical Health Summary Additional Medical History not covered in history None aditional. Sexual History concerns None reported. Physical exam in the last year? Yes Pain Screening Current pain? No Pain in the last few months? No Medications Is the patient compliant with medications? Yes Does the patient have Macedo Guardian in place? Not applicable Does the patient use complimentary health approaches? No Trauma/Abuse History History of trauma? No Questionnaires PHQ-9 Over the last 2 weeks, how often have you been bothered by any of the following problems? 1. Little interest or pleasure in doing things: not at all 2. Feeling down, depressed, or hopeless: not at all 3. Trouble falling or staying asleep, or sleeping too much: not at all 4. Feeling tired or having little energy: not at all 5. Poor appetite or overeating: not at all 6. Feeling bad about yourself - or that you are a failure or have let yourself or your family down: not at all 7. Trouble concentrating on things, such as reading the newspaper or watching television: not at all 8. Moving or speaking so slowly that other people could have noticed. Or the opposite - being so fidgety or restless that you have been moving around a lot more than usual: not at all 9. Thoughts that you would be better off or of hurting yourself in some way: not at all Total score: 0 Depression Screening Interpretation: Negative Depression Screening Done: Yes 23468 - PHQ-9 Billing: Yes Source: Developed by Drs. Jean Pierre Flynn, Kailee Sanderson, Dayday Cueto and colleagues, with an educational ten from [employer]. Assessment & Plan Assessment & Plan (1) Adjustment disorder: Code(s): F43.20 - Adjustment disorder, unspecified (2) History of methadone use: Code(s): F11.91 - Opioid use, unspecified, in remission (3) Pre-bariatric surgery psychological evaluation: Code(s): Z71.89 - Other specified counseling Plan Following a comprehensive behavioral health assessment?including review of the Binge Eating Scale, PHQ-9, mental status evaluation, and patient self-report?there are currently no behavioral health contraindications to proceeding with bariatric surgery. The patient demonstrates appropriate insight, motivation, and psychological readiness for the procedure. No active psychiatric symptoms or maladaptive eating behaviors were identified that would impede surgical outcomes at this time. The patient is cleared from a behavioral health perspective to proceed with bariatric surgery and documentation can be submitted for insurance approval as indicated. PT will return for a follow-up behavioral health visit 1?4 weeks postoperatively to monitor psychological adjustment, reinforce coping strategies, and screen for any emerging concerns such as mood changes, adjustment difficulties, or disordered eating patterns. Additional behavioral health support will be provided as needed based on postoperative assessment. Next kaila: 1-4 weeks PO. Telehealth Telehealth Telehealth Platform: [employer] Location of provider rendering services: other (home office. [place], [place]) Location of patient: other ([place], [place] Patient Identification confirmed using: Name, : Yes Telehealth method: video Patient verbally consented to treatment: Yes Patient verbally consented to billing insurance company: Yes Patient informed of any privacy concerns related to visit: Yes Minutes spent on Phone/Video with Pt.: 30 Coding [place] [address] Tele Psytx 30 mins Patient Type Established Diagnoses Adjustment disorder F43.20 History of methadone use F11.91 Pre-bariatric surgery psychological evaluation Z71.89 Additional Codes PHQ-9 - 30606 - PHQ-9 Billing: Yes ([id number]) Time Spent (min) 30
--- OUTSIDE RECORDS SUMMARY | 2025-08-19 14:20 | XMS_ITS | Clinical Summary ---
Author Organization [employer] [facility] Prior to 01/19/25 Address [address] [place] [address] Care Team Providers Care Public Speaker Name Role Phone Unavailable Primary Care Provider Unavailabl e Social History Tobacco Use Types Packs/Day Years Used Date Smoking Tobacco: Never Assessed Sex and Gender Information Value Date Recorded Sex Assigned at Not on file Gender Identity Not on file Sexual Orientation Not on file Plan of Treatment Not on file
== END 2025-08-19 12:41 | disposition home or self-care (01) ==
LOC: HO.HBST 12:22
PROVIDERS: PCP Internal Medicine; Visit Provider Counselor Mental Health
DX: F43.20 Adjustment disorder, unspecified (principal); F11.91 Opioid use, unspecified, in remission; Z71.89 Other specified counseling
CPT/HCPCS: 90792

== ENCOUNTER 2025-08-21 08:51 | Day surgery (SDC) | payer OTHER, SELFPAY ==
--- OUTSIDE RECORDS SUMMARY | 2025-07-11 10:41 | XMS_ITS | Clinical Summary ---
Author Organization [facility] Address [address] [place] [address] Care Team Providers Care Head Bookkeeper Name Role Phone Unavailable Primary Care Provider Unavailabl e Social History Tobacco Use Types Packs/Day Years Used Date Smoking Tobacco: Never Assessed Sex and Gender Information Value Date Recorded Sex Assigned at Not on file Gender Identity Not on file Sexual Orientation Not on file Plan of Treatment Not on file
--- NOTE | 2025-08-14 11:42 | P.CONAN_ITS ---
Documented by User: Stephenie Lorenzana NP 08/14/25 11:43 HPI - Anesthesia Eval Consult details Narrative: 50yo M for Upper Endoscopy Methadone daily Anesthesia Pre-Procedure Meds Is the patient on any of the following meds?: GLP1/DPP4 PMFSH Active Problems Active Problems: All Active Problems BMI 36.0-36.9,adult (Acute) Vitamin B12 deficiency (Acute) Right lower lobe pulmonary nodule (Acute) Morbid obesity (Acute) Anemia (Acute) Loud snoring (Acute) Excessive daytime sleepiness (Acute) RLS (restless legs syndrome) (Acute) Bilateral knee pain (Acute) Type 2 diabetes mellitus with hyperglycemia (Acute) Hypercholesterolemia (Acute) Annual physical exam (Acute) Influenza A (Acute) Asthma (Acute) Acute lactic acidosis (Acute) Acute asthma exacerbation (Acute) Angioedema (Acute) Cough (Acute) Fracture of toe of right foot (Acute) Severe persistent allergic asthma with acute exacerbation (Acute) Asthma with acute exacerbation (Acute) COVID-19 (Acute) Allergic angioedema (Acute) Obesity (Acute) Vertigo (Acute) Diverticulosis of colon (Acute) Hemorrhoids (Acute) Tubular adenoma (Acute) Esophagitis determined by endoscopy (Acute) Environmental allergies (Acute) Severe persistent allergic asthma (Acute) Encounter for screening colonoscopy (Acute) Asthma (Acute) Right inguinal pain (Acute) Family history of colon cancer (Acute) Throat pain (Acute) Methadone maintenance therapy patient (Acute) Physical exam (Acute) GERD (gastroesophageal reflux disease) (Acute) Past Medical History Medical History (Updated 08/08/25 @ 19:45 by Ga Washburn MD) BMI 36.0-36.9,adult Vitamin B12 deficiency Morbid obesity Right inguinal pain Family history of colon cancer Throat pain Physical exam History of positive PPD GERD (gastroesophageal reflux disease) Asthma Methadone maintenance therapy patient Family History Family History Father No problems noted. Mother Ovarian cancer Brother Colon cancer Family history of problems with anesthesia: No Surgical History Surgical History Hx of endoscopy History of esophagogastroduodenoscopy (EGD) (~07/10/25) Hx of colonoscopy History of umbilical hernia repair History of left inguinal hernia repair Hx of knee surgery Hx of hernia repair Hx of shoulder surgery History of Problems with Anesthesia: No Social History Social History Household Members: Spouse Household Members Other:: Housing: Apartment Do you presently have visiting nurse or other home services: No Alcohol intake: current Alcohol intake frequency: holidays/special occasions only Comment: once q 2 months 6 shots Patient Tobacco Use Status: Never used Tobacco Tobacco use type: Cigarette e-Cigarette/Vaping Use: Never Used Second Hand Smoke Exposure: No Use of substances other than those prescribed or required for medical reasons: No Advance Directives: No Advance Directives Information Provided: Yes service: No Current occupational status: employed 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 Rate : 73 BPM Atrial Rate : 73 BPM P-R Int : 142 ms QRS Dur : 80 ms QT Int : 392 ms P-R-T Axes : 54 -17 12 degrees QTcB Int : 431 ms Normal sinus rhythm Normal ECG When compared with ECG of 05-Jan-2025 22:06, No significant change was found Assessment and Plan Assessment Anesthesia Assessment: Chart Reviewed Final Anesthetic Review Family History of Problems with Anesthesia: No History of Problems with Anesthesia: No Documented by User: Apryl Cherry MD 08/21/25 10:12 [facility] Past Medical History Medical History (Updated 08/08/25 @ 19:45 by Ga Washburn MD) BMI 36.0-36.9,adult Vitamin B12 deficiency Morbid obesity Right inguinal pain Family history of colon cancer Throat pain Physical exam History of positive PPD GERD (gastroesophageal reflux disease) Asthma Methadone maintenance therapy patient Family History Family History Father No problems noted. Mother Ovarian cancer Brother Colon cancer Surgical History Surgical History Hx of endoscopy History of esophagogastroduodenoscopy (EGD) (~07/10/25) Hx of colonoscopy History of umbilical hernia repair History of left inguinal hernia repair Hx of knee surgery Hx of hernia repair Hx of shoulder surgery Social History Social History Household Members: Spouse Household Members Other:: Housing: Apartment Do you presently have visiting nurse or other home services: No Alcohol intake: current Alcohol intake frequency: holidays/special occasions only Comment: once q 2 months 6 shots Patient Tobacco Use Status: Never used Tobacco Tobacco use type: Cigarette e-Cigarette/Vaping Use: Never Used Second Hand Smoke Exposure: No Use of substances other than those prescribed or required for medical reasons: No Advance Directives: No Advance Directives Information Provided: Yes service: No Current occupational status: employed 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 Current occupational exposures/hazards: No Cognitive needs: No Hearing needs: No Vision needs: Yes Meds Allergies Allergy/AdvReac Type Severity Reaction Status Date / Time shellfish derived Allergy Severe Anaphylaxis Verified 08/21/25 09:33 Exam Airway Mallampati Class: III TM Dist: >3cm Neck ROM: Full Loose/Missing/Broken Teeth: No Heart: RRR Lungs: CTA Assessment and Plan Assessment Anesthesia Assessment: Anesthesia Plan Discussed Final Anesthetic Review NPO: Yes ASA Class: III Final Preanesthetic Review: Meds/Allgs Chart Reviewed, Consent Obtained/Reviewed and Anes Risks/Benef Reviewed Patient Risk: Intermediate Procedure Risk: Intermediate Anesthetic Plan Anesthetic Plan: MAC: Disposition: Standard PACU
[2025-08-21 09:37] VITALS: BMI 35.8
[2025-08-21 09:41] VITALS: BP 146/80; PULSE 87; RESP 18; TEMP 36.1; O2SAT 98
[2025-08-21 09:47] LABS: Glucose, Whole Blood 92 mg/dL (60-115)
[2025-08-21] MEDS: Lactated Ringers 1,000 ML 100 ML IVCONT (09:53)
--- NOTE | 2025-08-21 10:51 | MHC.SHP ---
Pre-Procedural Eval Section A - 24 Hr Update-Section A only Date of Service: 08/21/25 The patient is an INPATIENT: No The patient has been examined within 24 hours of the surgical procedure. The History & Physical has been completed within 30 days and I have reviewed it.: Yes Section B - Complete if H&P > 30 days Chief Complaint: Obesity, unspecified Details of Present Illness: GERD Relevant Family History (Specify if Yes): No Relevant Social History: None Present Medications: None Medical History: No relevant PMH History of Previous Operations: No relevant previous surgery Allergies: Allergies Allergy/AdvReac Type Severity Reaction Status Date / Time shellfish derived Allergy Severe Anaphylaxis Verified 08/21/25 09:33 Review of Systems Sugical H&P ROS: Negative: Constitution, Cardiovascular, Respiratory, Neurological, Psychiatric, Hem-Onc, Allergic/Immunologic, Gastrointestinal, Genitourinary, Musculoskeletal, Integumentary, Endocrine and Eyes/Ears/Nose/Throat Exam Surgical H&P Exam: Normal: HEENT, Normal: Heart, Normal: Lungs, Normal: Extremities, Normal: Abdomen, Normal: Skin and Normal: Neurological Plan Diagnosis/Plan: Unchanged (EGD to assess etiology of GERD. Risks of bleeding and perforation were discussed with the patient and she is in agreement with the plan.) I have reviewed the history and physical and performed a pertinent physical examination on my patient. No changes have occurred unless specified. Time Spent With Patient Time: Total time managing care of this patient today ____ minutes.
--- NOTE | 2025-08-21 10:57 | P.BOP_ITS ---
Brief Operative Note Date of Service: 08/21/25 Pre-op diagnosis: GERD Post-op diagnosis: same Procedure: PROCEDURE DATE: 08/21/2025 PREOPERATIVE DIAGNOSIS: GERD POSTOPERATIVE DIAGNOSIS: ?Same as above. 1) moderate size diaphragmatic hernia, 2) gastritis PROCEDURE: [id number] with biopsies Surgeon: ?Ten Washburn M.D.. Ph.D. Head Sawyer Automatic: None ? Anesthesia: IV sedation Estimated blood loss: ?Minimal FINDINGS AND PROCEDURE: ? OPERATIVE INDICATIONS: ?The patient is a 50 year old male known to me who is interested in bariatric surgery. The patient has GERD. Based on this information I recommended an upper endoscopy to evaluate the patient's symptoms. Risks and complications of the surgery were discussed with the patient in advance particularly the possibility of perforation or bleeding that may require surgical intervention. The patient understood the risks and was in agreement with the plan. ? PROCEDURE: After informed consent was obtained by the patient, the patient was ?transferred to the Operating Room and was placed in the supine position.? After successful induction of IV sedation, a mouth block was inserted and the patient was placed in the left lateral decubitus position. An upper endoscopy was performed next, the oropharynx and esophagus appeared within the normal limits. There was a moderate size hiatal hernia. The z-line was smooth. Two biopsies were obtained from the distal esophagus 2-3 cm proximal to the GE junction and two additional biopsies from the GE junction. The stomach was entered and it appeared to be of normal size. There was gastritis at the antrum. There was no stricture or ulcer. A biopsy was obtained from the gastric fundus and the antrum. No significant bleeding was noted from any of the biopsy sites. Retroflexion of the scope confirmed the presence of a diaphragmatic hernia. The scope was then advanced into the duodenum all the way to the 4th portion, which appeared to be normal as well. At that point the duodenum ?and the stomach were decompressed and the scope was withdrawn from the patient's mouth. The patient extubated and was transferred in stable condition to the Recovery Room for further care. I was present and performed all steps of the procedure. There were no residents to assist with this case. Ten Washburn M.D., Ph.D. Surgeon: Ga Washburn MD Anesthesia: MAC Was an Head Sawyer Automatic used for this Procedure?: No Estimated blood loss (mL): 0 IV fluids (mL): 400 Urine output (mL): 0 (No Soto to record output) Pathology: other (1) antrum x1, 2) fundus x1, 3) GE junction x2, 4) distal esophagus x2) Condition: stable Disposition: PACU
[2025-08-21 11:18] VITALS: BP 96/62; PULSE 110; RESP 19; TEMP 36.4; O2SAT 98
[2025-08-21 11:33] VITALS: BP 104/71; PULSE 89; RESP 16; TEMP 36.1; O2SAT 97
== END 2025-08-21 12:00 | disposition home or self-care (01) ==
PROVIDERS: PCP Internal Medicine; Visit Provider Surgery
PROC: 0DJ08ZZ Inspection of Upper Intestinal Tract, Via Natural or Artificial Opening Endoscopic (ICD-10-PCS; CPT 43235; principal; 2025-08-21 11:10)
DX: K21.00 Gastro-esophageal reflux disease with esophagitis, without bleeding (principal); E66.01 Morbid (severe) obesity due to excess calories; Z68.41 Body mass index [BMI] 40.0-44.9, adult; K44.9 Diaphragmatic hernia without obstruction or gangrene; K29.60 Other gastritis without bleeding; E11.65 Type 2 diabetes mellitus with hyperglycemia; E78.00 Pure hypercholesterolemia, unspecified; J45.909 Unspecified asthma, uncomplicated; Z80.0 Family history of malignant neoplasm of digestive organs; Z79.51 Long term (current) use of inhaled steroids; Z79.85 Long-term (current) use of injectable non-insulin antidiabetic drugs; Z79.899 Other long term (current) drug therapy; Z91.013 Allergy to seafood; Z98.890 Other specified postprocedural states
CPT/HCPCS: 43239; 82947; 88305; 88313; 88342; J2704

== ENCOUNTER → 2025-08-21 08:51 | Outpatient (BNV) | payer OTHER, SELFPAY | PROVIDERS: PCP Internal Medicine; Visit Provider Surgery | DX: K21.9 Gastro-esophageal reflux disease without esophagitis (principal); K44.9 Diaphragmatic hernia without obstruction or gangrene; E66.01 Morbid (severe) obesity due to excess calories; Z68.41 Body mass index [BMI] 40.0-44.9, adult; K29.70 Gastritis, unspecified, without bleeding | CPT/HCPCS: 43239 ==